=== PATIENT | female | born 1955 | race Caucasian/White ===

== ENCOUNTER 2022-05-02 11:27 | Outpatient (REF) | payer MEDICARE, SELFPAY ==
[2022-05-02 13:49] LABS: MANUAL DIFF FLAG NO
[2022-05-02 13:58] LABS: Basophils Percent Auto 0.6 % (0-2); Eosinophils Absolute Auto 0.1 X10*3/uL (0.0-0.4); Hemoglobin 13.7 g/dl (12.0-16.0); Imm Gran Abs Auto 0.03 X10*3/uL (0.00-0.03); Imm Gran Pct Auto 0.5 % (0.0-0.4); Lymphocytes Absolute Auto 1.8 X10*3/uL (1.2-4.9); Lymphocytes Percent Auto 27.9 % (20-40); Mean Corpuscular HGB Conc 35.1 g/dl (31.0-35.0); Mean Corpuscular Hemoglobin 32.5 pg (27.0-33.0); Mean Corpuscular Volume 92.6 fL (80.0-98.0); Mean Platelet Volume 9.2 fL (9.4-12.3); Monocytes Absolute Auto 0.8 X10*3/uL (0.1-1.2); Monocytes Percent Auto 12.9 % (2-11); Neutrophils Absolute Auto 3.6 x10*3/uL (2.0-8.3); Neutrophils Percent Auto 56.1 % (45-73); Platelet Count 395 X10*3/uL (160-400); Red Blood Count 4.21 X10*6/uL (4.20-5.50); Red Cell Distribution Width 12.6 % (11.0-16.0); White Blood Count 6.4 X10*3/uL (4.8-10.8)
[2022-05-02 14:54] LABS: Alanine Aminotransferase 22 U/L (0-31); Anion Gap 15 (12-20); Aspartate Amino Transferase 37 U/L (5-31); Blood Urea Nitrogen 11 mg/dL (9-16); Carbon Dioxide 26 mmol/L (22-29); Chloride 91 mmol/L (96-108); Cholesterol 161 mg/dL; Estimated Glomerular Filt Rate 57; Glucose Fasting 98 mg/dL (60-99); HDL Cholesterol 55 mg/dL; LDL Cholesterol Calculated 92 mg/dl; Potassium 3.8 mmol/L (3.3-5.1); Sodium 128 mmol/L (135-145); TSH reflex Free T4 1.66 uIU/mL (0.32-4.0); Triglycerides 73 mg/dL; Vitamin D 25-OH Total 51.4 ng/mL (>30)
== END 2022-05-02 11:28 | disposition home or self-care (01) ==
LOC: HO.HMGCLDS 11:27
PROVIDERS: PCP Internal Medicine; Visit Provider Internal Medicine
DX: Z00.01 Encounter for general adult medical examination with abnormal findings (principal); F41.9 Anxiety disorder, unspecified; I10 Essential (primary) hypertension; I48.91 Unspecified atrial fibrillation; Z78.0 Asymptomatic menopausal state
CPT/HCPCS: 36415; 80048; 80061; 82306; 84443; 84450; 84460; 85025

== ENCOUNTER 2022-05-16 13:38 | Outpatient (REF) | payer MEDICARE, SELFPAY ==
--- NOTE | ~2022-05-16 | MM_ITS ---
EXAMINATION: MM SCREENING DIGITAL BREAST TOMOSYNTHESIS, BILATERAL CLINICAL INFORMATION: Screening. Asymptomatic. The lifetime risk of breast cancer based on the Tyrer-Cuzick Model is 5%. COMPARISON: Outside mammography: 01/02/2019, 12/20/2017, 12/07/2016 ([place]). TECHNIQUE: Digital breast tomosynthesis is performed in both the craniocaudal and mediolateral oblique views along with computer-aided detection (CAD). Synthesized 2D images are generated from the tomosynthesis. FINDINGS: There are scattered areas of fibroglandular density (ACR BI-RADS breast composition Category b). There is a fine fibronodular parenchymal pattern bilateral breasts. No architectural abnormality. The axilla and skin contours are unremarkable. Left breast shows no significant changes from prior exam. There is chronic duct ectasia central anterior left breast. No abnormal calcifications. Incidental dermal lesion overlies the posterior upper left breast. Right breast has new loosely grouped calcifications central anterior 6:00 position. There is also increased duct ectasia in this area extending towards the right nipple. A few new loosely grouped calcifications are also present posterior upper outer right breast, likely benign. Patient will be recalled for further assessment right breast. MM/MM tomosynthesis screening BI IMPRESSION: Right: -New loosely grouped calcifications central anterior 6:00 position with increased duct ectasia. -A few new loosely grouped calcifications posterior upper outer right breast. Left: No significant changes from prior exams. ASSESSMENT: BI-RADS 0: Incomplete - Need Additional Imaging Evaluation RECOMMENDATION: 1. Additional views of the right breast (magnification CC and magnification ML to include both areas). 2. Targeted ultrasound right breast to assess the increased duct ectasia. 3. Radiology department staff will contact the patient for additional imaging. This patient's information was entered into a reminder system with a target due date for their next mammogram.
--- NOTE | ~2022-05-16 | MM_ITS ---
EXAMINATION: BONE DENSITOMETRY CLINICAL INDICATION: Menopause. COMPARISON: None (current study represents initial baseline exam). TECHNIQUE: Using a Axial DXA System (software version: 13.1) manufactured by [employer], dual-energy x-ray absorptiometry was performed of the lumbar spine and left hip. The images are of good technical quality. Summary results are attached. FINDINGS: AP SPINE L1-L4: BMD 1.438 g/cm2, Z-score 3.5, T-score 2.1, normal. LEFT FEMUR, NECK: BMD 1.037 g/cm2, Z-score 1.4, T-score 0.0, normal. LEFT FEMUR, TOTAL: BMD 1.081 g/cm2, Z-score 1.7, T-score 0.6, normal. IDENTIFIED RISK FACTORS: Menopause, history of fracture (adult), anticonvulsant, thiazide. HISTORY OF FRACTURE: Humerus. MEDICATIONS: Calcium, vitamin D. MM/XR DEXA axial skeleton IMPRESSION: 1. DIAGNOSIS: Normal bone density based on the lowest T-score value of 0.0 in the femoral neck applying World Health Organization criteria. 2. 10-YEAR FRACTURE RISK PREDICTION, FRAX: According to the guidelines, FRAX calculation should only be performed on patients in the osteopenia bone density category. Therefore, FRAX was not performed on this patient. 3. Treatment Recommendations: NOF guidelines recommend consideration for treatment in postmenopausal women and men age 50 and older presenting with the following: -A hip or vertebral (clinical or morphometric) fracture. -T-score less than or equal to -2.5 at the femoral neck or spine after appropriate evaluation to exclude secondary causes. -Low bone mass at the hip or spine and a 10-year fracture probability by FRAX of greater than or equal to 3% for hip fracture or greater than or equal to 20% for major osteoporotic fracture based on the [place] adapted WHO algorithm. 4. Other Recommendations: All treatment decisions require clinical judgment and consideration of individual patient factors, including patient preferences, comorbidities, previous drug use, risk factors not captured in the FRAX model (e.g. frailty, falls, vitamin D deficiency, increased bone turnover, interval significant decline in bone density) and possible under or overestimation of fracture risk by FRAX. FUTURE SCAN RECOMMENDATION: People with diagnosed cases of osteoporosis or at high risk for fracture should have regular bone mineral density tests. For patients eligible for Medicare, routine testing is allowed once every 2 years. The testing frequency can be increased to one year for patients who have rapidly progressing disease, those who are receiving or discontinuing medical therapy to restore bone mass, or have additional risk factors.
== END 2022-05-16 13:39 | disposition home or self-care (01) ==
LOC: HO.MAMMO 13:38
PROVIDERS: Visit Provider Internal Medicine
DX: Z12.31 Encounter for screening mammogram for malignant neoplasm of breast (principal); Z13.820 Encounter for screening for osteoporosis; Z78.0 Asymptomatic menopausal state
CPT/HCPCS: 77063; 77067; 77080

== ENCOUNTER → 2022-05-21 13:43 | Outpatient (BNVA) | payer MEDICARE, SELFPAY | PROVIDERS: PCP Internal Medicine; Referring Provider Internal Medicine; Visit Provider Internal Medicine | DX: I48.91 Unspecified atrial fibrillation (principal) | CPT/HCPCS: 93005; 99202 ==

== ENCOUNTER 2022-05-24 14:31 | Outpatient (REF) | payer MEDICARE, SELFPAY ==
--- NOTE | ~2022-05-24 | MM_ITS ---
EXAMINATION: MM DIAGNOSTIC DIGITAL BREAST TOMOSYNTHESIS, RIGHT US TARGETED BREAST, RIGHT CLINICAL INFORMATION: Right breast calcifications and ductal ectasia. COMPARISON: Mammography: 05/16/2022 and studies dating back to 11/25/2015. TECHNIQUE: Digital breast tomosynthesis is performed. 2-D images are generated from the tomosynthesis. The following views are obtained: Spot magnification views of the right breast in craniocaudal and 90 degree mediolateral views. As well as magnified exaggerated craniocaudal view. Targeted right breast ultrasound. FINDINGS: There are scattered areas of fibroglandular density (ACR BI-RADS breast composition Category b). There are multiple benign-appearing groupings of calcifications with some scattered calcifications and vascular calcifications about the right breast. No one more suspicious grouping is identified. Recommend 6 month followup right breast mammography with magnification views. ULTRASOUND: Targeted right breast ultrasound to the retroareolar region demonstrates a few dilated ducts without filling defects or internal vascular blood flow. Results are discussed with the patient at time of visit. MM/MM tomosynthesis added views R IMPRESSION: 1. Prominent right retroareolar ducts but without abnormal filling defect. 2. Multiple probably benign groupings of calcifications about the right breast. Six-month followup right breast study with magnification views suggested to ensure stability. ASSESSMENT: BI-RADS 3: Probably Benign. RECOMMENDATION: Diagnostic mammography in 6 months. This patient's information was entered into a reminder system with a target due date for their next mammogram.
== END 2022-05-24 14:32 | disposition home or self-care (01) ==
LOC: HO.MAMMO 14:31
PROVIDERS: PCP Internal Medicine; Visit Provider Internal Medicine
DX: R92.1 Mammographic calcification found on diagnostic imaging of breast (principal); N60.41 Mammary duct ectasia of right breast
CPT/HCPCS: 76642; 77061; 77065

== ENCOUNTER → 2022-06-03 12:58 | Outpatient (REF) | payer MEDICARE, SELFPAY ==
--- NOTE | 2022-06-03 13:24 | CA_ITS ---
Transthoracic Echocardiogram Patient (Last, First, Middle): Ramona Munguia B Gender: Female Date of : 1955 Age: 66 Procedure Date: 06/03/2022 Procedure Type: Transthoracic Echocardiogram Location: OP Height: 154.94 cm Weight: 72.58 kg BSA: 1.72 m2 Heart Rate: bpm BP: 122 / 60 mmHg Senior C Web Developer: Referring MD: Alexandre Rdz MD Expediter Clerk: Cecilio Benjamin MD Symptoms: I48.91 - Unspecified atrial fibrillation Study Quality: Adequate ECG Rhythm: Atrial Fibrillation Conclusions: - 1. Normal LV systolic function with mild LVH 2. At least mildly dilated left atrium 3. Fibrocalcific aortic valve changes noted and mitral and calcification noted with mild mitral regurgitation 4. Upper limits of normal RV systolic pressure 5. No gross pericardial effusion Findings Left Ventricle Normal left ventricular size and systolic function. There is mildly increased left ventricular wall thickness. The visually estimated ejection fraction is between 60-65%. Diastolic function is indeterminate on the basis of available data. Right Ventricle Normal right ventricular cavity size and systolic function. Atria The left atrium is mildly dilated. There is no evidence of interatrial shunt. The right atrium is likely dilated. Aortic Valve There is mild calcification of the aortic valve. There is no aortic valve stenosis. There is no aortic valve regurgitation. Mitral Valve There is mild anterior and moderate posterior mitral leaflet thickening. There is mild mitral annular calcification. There is mild mitral valve regurgitation. There is no mitral valve stenosis. Pulmonic Valve The pulmonic valve was not well visualized. Tricuspid Valve There is mild tricuspid valve regurgitation. The right ventricular systolic pressure is 39 mmHg. Normal right atrial pressure. There is no evidence of pulmonary hypertension. Great Vessels All visible segments of the aorta are normal in size. The pulmonary artery was not well visualized. Venous The inferior vena cava is normal in size and collapses greater than 50% with inspiration. Pericardium/Pleural There is no evidence of pericardial effusion. Prior Study Comparison No prior study available for comparison. Measurements 2D Linear Measurements IVSd: 1.28 0.6-0.9/0.6-1.0 cm LVIDd: 2.44 3.9-5.3/4.2-5.9 cm LVIDd Index: 1.42 2.4-3.2/2.2-3.1 cm/m2 LVIDs: 1.75 2.0-3.6 cm LVPWd: 1.29 0.7-1.1 cm Ao Root: 3.10 2.1-3.5 cm LA Diam: 4.90 2.7-3.8/3.0-4.0 cm LAIDs Index: 2.85 1.5-2.3 cm/m2 LV Mass: 115.67 67-162/88-224 g LV Mass Index: 67.25 43-95/49-115 g/m2 LVOT Diam: 1.90 3.0+(-)1.3 cm 2D Systolic Function EF 4C: 56.80 >55% EF 2C: 64.70 >55% EF BiP: 61.90 >55% Mitral Valve MV VTI: 0.28 MV Pk Amaury: 1.45 MV Mn Amaury: 0.80 MV Pk Grad: 8.00 MV Mn Grad: 3.00 MV Pk E: 1.37 MV Decel Time: 149.00 E'Lateral: 8.49 E'Medial: 7.94 E/E' Med: 17.30 E/E' Lat: 16.10 PHT: 44.00 MVA PHT: 5.00 MVA Continuity: 2.09 Decel [place]: 9.19 Aortic Valve AoV Pk Amaury: 1.24 AoV Mn Amaury: 0.76 AoV VTI: 0.28 AoV Pk Grad: 6.00 Aov Mn Grad: 3.00 ALEKSANDAR Cont.VTI: 2.09 LVOT LVOT Pk Amaury: 0.93 LVOT Mn Amaury: 0.59 LVOT VTI: 0.21 LVOT Pk Grad: 3.00 LVOT Mn Grad: 2.00 LVOT Diam: 1.90 LVOT Area: 2.84 Diastolic Function MV Pk E: 1.37 E'Medial: 7.94 E/E' Med: 17.30 E' Laterial: 8.49 E/E' Lat: 16.10 Right Ventricle TAPSE (mm): 27.00 TVS' Amaury: 11.00 Tricuspid Valve TR Pk Amaury: 2.98 TR Pk Grad: 36.00 RA Press: 3.00 RVSP: 39.00 Great Vessels Aorta Ao Root-2D: 3.10 2.0-3.7 cm Ao Asc: 3.30 2.1-3.4 cm Pulmonary Valve PV Pk Amaury: 0.84 Peak PV Grad: 3.00 Updated in Other Vendor System with Status of Final Cecilio Benjamin MD electronically signed on 06/04/2022 1:52:16 PM with status of Final
--- NOTE | 2022-06-03 13:24 | HM_ITS ---
Conclusion: 1. Patient was monitored for total period of 3 days 2. Baseline was atrial fibrillation with average heart rate of 85 beats per minute overall adequate rate control 3. Rare PVCs noted 4. No significant pauses noted 5. Patient reported no symptoms MTDD
== END ==
LOC: HO.CARD 12:58
PROVIDERS: Visit Provider Internal Medicine
DX: I48.91 Unspecified atrial fibrillation (principal)
CPT/HCPCS: 93242; 93306

== ENCOUNTER 2022-07-10 12:21 | Outpatient (REF) | payer MEDICARE, SELFPAY ==
[2022-07-10 14:16] LABS: Anion Gap 12 (12-20); Blood Urea Nitrogen 14 mg/dL (9-16); Calcium 10.1 mg/dL (8.4-10.2); Carbon Dioxide 32 mmol/L (22-29); Chloride 90 mmol/L (96-108); Estimated Glomerular Filt Rate 42; Glucose Random 102 mg/dL (60-115); Potassium 4.2 mmol/L (3.3-5.1); Sodium 130 mmol/L (135-145)
== END 2022-07-10 12:22 | disposition home or self-care (01) ==
LOC: HO.HMGCLDS 12:21
PROVIDERS: PCP Internal Medicine; Visit Provider Internal Medicine
DX: E87.1 Hypo-osmolality and hyponatremia (principal)
CPT/HCPCS: 36415; 80048

== ENCOUNTER 2022-07-11 10:11 | Day surgery (SDC) | payer MEDICARE, SELFPAY ==
[2022-06-25 14:49] VITALS: BMI 30.4
--- NOTE | 2022-07-10 13:01 | HO.ANESPROP2 ---
HPI - Anesthesia Eval Consult details Narrative: 66yo F for Cardioversion Eliquis for afib PMFSH Active Problems Active Problems: All Active Problems (Updated 06/05/22 @ 11:44 by Alexandre Rdz MD) Hyponatremia (Acute) New onset atrial fibrillation (Acute) Erythema intertrigo (Acute) Rash of face (Acute) Anxiety (Acute) Essential hypertension (Acute) Past Medical History Medical History Anxiety Erythema intertrigo Essential hypertension History of seizures Hx of Hx of ectopic New onset atrial fibrillation Rash of face Family History Family History Father Substance use disorder Lung cancer Essential hypertension CAD (coronary artery disease) COVID-19 Mother Substance use disorder Oral cancer Essential hypertension CAD (coronary artery disease) COVID-19 Sister Disorder of thyroid Brother CAD (coronary artery disease) COVID-19 Surgical History Surgical History H/O tubal ligation Hx of cholecystectomy Hx of shoulder surgery Hx of tonsillectomy Social History Social History (Updated 05/21/22 @ 14:07 by JERI Andrade) Housing: Apartment Alcohol intake: current Alcohol intake frequency: a few times a week Patient Tobacco Use Status: Former Tobacco user Quit Date: 20 years ago Tobacco use type: Cigarette e-Cigarette/Vaping Use: Never Used Current occupational status: retired Cognitive needs: No Hearing needs: No Vision needs: Yes Meds Allergies Allergy/AdvReac Type Severity Reaction Status Date / Time Penicillins Allergy Unknown UNKNOWN Verified 07/18/22 15:05 Antihistamines - AdvReac tachycardia Verified 07/18/22 15:05 Ethylenediamine flu vaccine AdvReac vomiting Uncoded 07/18/22 15:05 steriods AdvReac tachycardia Uncoded 07/18/22 15:05 Home Medications Medication Instructions Recorded Confirmed Last Taken Type magnesium 250 mg tablet 400 mg PO DAILY 05/01/22 07/18/22 Unknown History multivit with 1 tab PO DAILY 05/01/22 07/18/22 Unknown History qhfgpofc-[id number]-SA-lutein 8 mg iron-400 mcg-300 mcg tablet (Centrum Silver Women) omega-3 fatty acids-fish oil 300 1 cap PO DAILY 05/01/22 07/18/22 Unknown History mg-500 mg capsule (Fish Oil) cholecalciferol (vitamin D3) 25 25 mcg PO DAILY 05/21/22 07/18/22 Unknown History mcg (1,000 unit) capsule turmeric 400 mg capsule 400 mg PO DAILY 05/21/22 07/18/22 Unknown History vitamin B complex 1 cap PO DAILY 05/21/22 07/18/22 Unknown History Exam Exam Date and Time: July 10, 2022 1301 Height,Weight and Vital Signs: Height 5 ft 1 in Weight 73.028 kg Pertinent Lab Results Pertinent Lab Results: Laboratory Tests 05/02/22 11:34 WBC 6.4 Hgb 13.7 Hct 39.0 Plt Count 395 Narrative Narrative: ECHO 05/2022 Conclusions: - 1. Normal LV systolic function with mild LVH ? 2. At least mildly dilated left atrium ? 3. Fibrocalcific aortic valve changes noted and mitral and ? ? ? calcification noted with mild mitral regurgitation ? 4. Upper limits of normal RV systolic pressure ? 5. No gross pericardial effusion ? ? ? Holter 05/2022 Conclusion: 1. Patient was monitored for total period of 3 days 2. Baseline was atrial fibrillation with average heart rate of 85 beats per minute overall adequate rate control 3. Rare PVCs noted 4. No significant pauses noted 5. Patient reported no symptoms Assessment and Plan Assessment Anesthesia Assessment: Chart Reviewed
[2022-07-11] VITALS (7 sets, daily range): BP systolic 108–164; BP diastolic 66–96; PULSE 71–103; RESP 16–18; TEMP 36.1–36.7; O2SAT 93–100
[2022-07-11] MEDS: Lactated Ringers 1,000 ML 50 ML IVCONT (10:43)
[2022-07-11 11:04] LABS: Anion Gap 9 (12-20); Carbon Dioxide 31 mmol/L (22-29); Chloride 94 mmol/L (96-108); Potassium 4.3 mmol/L (3.3-5.1); Sodium 130 mmol/L (135-145)
--- NOTE | 2022-07-11 12:14 | MHC.SHP ---
Pre-Procedural Eval Section A Date of Service: 07/11/22 The patient is an INPATIENT: No The History & Physical has been completed within 30 days and I have reviewed it.: No Section B Chief Complaint: afib Details of Present Illness: Atrial fibrillation with rapid rate. For cardioversion. No overt symptoms. Relevant Family History (Specify if Yes): No Relevant Social History: None Present Medications: see Short Stay Collaborative assessment Medical History: No relevant PMH History of Previous Operations: No relevant previous surgery Allergies: Allergies Allergy/AdvReac Type Severity Reaction Status Date / Time Penicillins Allergy Unknown UNKNOWN Verified 07/11/22 10:41 Antihistamines - AdvReac tachycardia Verified 07/11/22 10:42 Ethylenediamine flu vaccine AdvReac vomiting Uncoded 07/11/22 10:42 steriods AdvReac tachycardia Uncoded 07/11/22 10:42 Review of Systems Review of Systems Comment: 10 system review negative. Exam Exam Comment: General- AAO x3 Neck- normal HEENT - normal Cardiac- S1S2+ Resp- normal GI- normal Neuro- intact; no deficit Ext- normal Plan I have reviewed the history and physical and performed a pertinent physical examination on my patient. No changes have occurred unless specified. Time Spent With Patient Time: Total time managing care of this patient today ____ minutes.
--- NOTE | 2022-07-11 12:28 | ECG_ITS ---
Test Reason : post cardioversion Blood Pressure : / mmHG Vent. Rate : 075 BPM Atrial Rate : 075 BPM P-R Int : 194 ms QRS Dur : 086 ms QT Int : 420 ms P-R-T Axes : 056 045 023 degrees QTc Int : 469 ms Sinus rhythm with Premature atrial complexes Otherwise normal ECG When compared with ECG of 23-JUL-2016 11:48, Premature atrial complexes are now Present Referred By: John Rodriguez Electronically Signed By:JOHN RODRIGUEZ
[2022-07-11] MEDS: Amiodarone HCL 200 MG TABLET 400 MG PO (12:52)
--- NOTE | 2022-07-12 11:18 | HO.CARDIVERS ---
Cardioversion Procedure Note Cardioversion Date of Procedure: 07/11/2022 Ordering Provider: Dr. Rdz Performing Provider: Dr. Rdz Indication for Procedure: Atrial fibrillation rapid rate Pre-Op Diagnosis: Atrial fibrillation with rapid rate Post-Op Diagnosis: Sinus rhythm MUSA findings (if MUSA Performed): No History: See full office note Consent: Informed consent obtained. Procedure: After informed consent was obtained, patient was taken to the PACU. The patient was then positioned appropriately. The cardioversion pads were placed in anteroposterior position. Once under anesthesia, 120 joules of synchronized shock was administered. The rhythm converted from atrial fibrillation to sinus rhythm. Patient remained in sinus rhythm after the end of procedure. Complications: None. Impression: Successful cardioversion from atrial fibrillation to sinus. Recommendations: Start amiodarone.
== END 2022-07-11 13:52 | disposition home or self-care (01) ==
PROVIDERS: Nurse Practitioner; PCP Internal Medicine; Visit Provider Internal Medicine
PROC: 5A2204Z Restoration of Cardiac Rhythm, Single (ICD-10-PCS; principal; 2022-07-11 12:00)
DX: I48.91 Unspecified atrial fibrillation (principal); I10 Essential (primary) hypertension; F41.1 Generalized anxiety disorder; Z79.82 Long term (current) use of aspirin; Z79.899 Other long term (current) drug therapy; Z88.0 Allergy status to penicillin; Z88.8 Allergy status to other drugs, medicaments and biological substances
CPT/HCPCS: 36415; 80051; 92960; 93005; J2250

== ENCOUNTER → 2022-07-18 14:57 | Outpatient (BNVA) | payer MEDICARE, SELFPAY | PROVIDERS: PCP Internal Medicine; Referring Provider Internal Medicine; Visit Provider Internal Medicine | DX: I48.91 Unspecified atrial fibrillation (principal); R94.31 Abnormal electrocardiogram [ECG] [EKG]; Z79.899 Other long term (current) drug therapy | CPT/HCPCS: 93005 ==

== ENCOUNTER → 2022-07-31 12:55 | Outpatient (BNVA) | payer MEDICARE, SELFPAY | PROVIDERS: PCP Internal Medicine; Visit Provider Internal Medicine | DX: I48.0 Paroxysmal atrial fibrillation (principal); I10 Essential (primary) hypertension; Z51.81 Encounter for therapeutic drug level monitoring; Z79.899 Other long term (current) drug therapy | CPT/HCPCS: 93005; 99212 ==

== ENCOUNTER 2022-09-26 13:22 | Outpatient (REF) | payer MEDICARE, SELFPAY ==
--- NOTE | ~2022-09-26 | MM_ITS ---
EXAMINATION: MM DIAGNOSTIC DIGITAL BREAST TOMOSYNTHESIS, BILATERAL US DIAGNOSTIC ULTRASOUND BREAST, LEFT CLINICAL INFORMATION: Patient notes palpable concern lower anterior left breast 5:00. Intermittent clear left nipple discharge for months. Also short interval follow-up probable benign calcifications contralateral right breast, central lower anterior and posterior upper outer, respectively. The lifetime risk of breast cancer based on the Tyrer-Cuzick Model is 5%. COMPARISON: Mammography: 05/24/2022, 05/16/2022 (BI-RADS 0), right breast ultrasound 05/24/2022; outside mammography 01/02/2019, 12/20/2017 ([place]). TECHNIQUE: Digital breast tomosynthesis is performed in both the craniocaudal and mediolateral oblique views along with computer-aided detection (CAD). Synthesized 2D images are generated from the tomosynthesis. Additional magnification right CC x2 and magnification right ML x3 views are obtained. Ultrasound left breast is performed using grayscale imaging and color Doppler without and with harmonics. The anterior periareolar breast is imaged as well as additional targeting to the area of clinical palpable concern. Patient is able to directly point to the area of palpable concern at time of imaging. FINDINGS: There are scattered areas of fibroglandular density (ACR BI-RADS breast composition Category b). The breast parenchymal pattern is similar to prior studies and there is no interval mass or developing density or architectural abnormality. Mild bilateral chronic duct ectasia is stable. There is no skin thickening or coarsening of the Tank's ligaments. There is no imaging correlate for the palpable concern left breast. A biopsy clip marker is again noted central mid 9:00 right breast. The probable benign calcifications for follow-up right breast anterior lower central and posterior upper outer are stable. Ultrasound demonstrates no cystic or solid mass or architectural abnormality. There is scattered mild duct ectasia anterior breasts similar to prior mammography exams and without internal color flow. Results are discussed with the patient at time of visit. Right breast calcifications are stable and will be reassessed again at time of annual bilateral mammography, due in 6 months. Recommend surgical consult for the left breast palpable concern and intermittent unilateral left clear nipple discharge. MM/MM tomosynthesis diagnostic BI IMPRESSION: Right: -No significant changes from prior exam. -Probable benign calcifications stable. Left: -No significant changes from prior exam. -No mammographic or ultrasound correlate for palpable concern. ASSESSMENT: BI-RADS 3: Probably Benign RECOMMENDATION: -Surgical consult for left breast palpable concern and intermittent clear left nipple discharge. Diagnostic breast MRI may be considered for further evaluation if clinically indicated. -Otherwise, bilateral diagnostic mammography at time of annual exam, due in 6 months. This patient's information was entered into a reminder system with a target due date for their next mammogram.
== END 2022-09-26 13:23 | disposition home or self-care (01) ==
LOC: HO.MAMMO 13:22
PROVIDERS: PCP Internal Medicine; Visit Provider Internal Medicine
DX: N63.23 Unspecified lump in the left breast, lower outer quadrant (principal)
CPT/HCPCS: 76642; 77062; 77066

== ENCOUNTER → 2022-10-01 10:21 | Outpatient (BNVA) | payer MEDICARE, SELFPAY | PROVIDERS: PCP Internal Medicine; Visit Provider Surgery | DX: N63.20 Unspecified lump in the left breast, unspecified quadrant (principal); N64.53 Retraction of nipple | CPT/HCPCS: 99202 ==

== ENCOUNTER 2022-10-28 05:54 | Day surgery (SDC) | payer MEDICARE, SELFPAY ==
[2022-10-17 10:38] VITALS: BMI 30.2
--- NOTE | 2022-10-24 15:06 | P.CONAN_ITS ---
HPI - Anesthesia Eval Consult details Narrative: 66yo F for Left Breast Lumpectomy Eliquis for afib. s/p cardioversion 07/2022 Cardiac optimized [facility] Active Problems Active Problems: All Active Problems (Updated 10/17/22 @ 10:27 by Liz Knight RN) Anxiety (Acute) Hyponatremia (Acute) PAF (paroxysmal atrial fibrillation) (Acute) Encounter for monitoring amiodarone therapy (Acute) Retraction of left nipple (Acute) Mass of left breast (Acute) New onset atrial fibrillation (Acute) Erythema intertrigo (Acute) Rash of face (Acute) Essential hypertension (Acute) Past Medical History Medical History Bronchitis Constipation Erythema intertrigo Essential hypertension Habitual snoring History of seizures Hx of Hx of ectopic New onset atrial fibrillation On anticoagulant therapy On beta sloan at home Osteoarthritis Rash of face Rheumatic fever SOB (shortness of breath) Family History Family History Father Substance use disorder Lung cancer Essential hypertension CAD (coronary artery disease) COVID-19 Skin cancer Mother Substance use disorder Oral cancer Essential hypertension CAD (coronary artery disease) COVID-19 Sister Disorder of thyroid Brother CAD (coronary artery disease) COVID-19 Surgical History Surgical History H/O tubal ligation Hx of cholecystectomy Hx of shoulder surgery Hx of tonsillectomy Status post left breast lumpectomy (10/28/22) Social History Social History Housing: Apartment Are you a primary career technology teacher to a significant other at home: No Do you presently have visiting nurse or other home services: No Alcohol intake: current Alcohol intake frequency: 0-2 drinks per day Patient Tobacco Use Status: Former Tobacco user Quit Date: 20 years ago Tobacco use type: Cigarette e-Cigarette/Vaping Use: Never Used Current occupational status: retired Cognitive needs: No Hearing needs: No Vision needs: Yes Meds Allergies Allergy/AdvReac Type Severity Reaction Status Date / Time Penicillins Allergy Unknown UNKNOWN Verified 11/07/22 10:12 Antihistamines - AdvReac tachycardia Verified 11/07/22 10:12 Ethylenediamine flu vaccine AdvReac vomiting Uncoded 11/07/22 10:12 steriods AdvReac tachycardia Uncoded 11/07/22 10:12 Home Medications Medication Instructions Recorded Confirmed Last Taken Type multivit with 1 tab PO DAILY 05/01/22 11/07/22 Unknown History lqefvbhs-[id number]-KG-lutein 8 mg iron-400 mcg-300 mcg tablet (Centrum Silver Women) cholecalciferol (vitamin D3) 25 25 mcg PO DAILY 05/21/22 11/07/22 Unknown History mcg (1,000 unit) capsule amiodarone 200 mg tablet 200 mg PO DAILY 07/31/22 11/07/22 10/28/22 History magnesium 200 mg tablet 400 mg PO DAILY 10/17/22 11/07/22 Unknown History vitamin A-vitamin C-vit E-min 1 tab PO DAILY 10/17/22 11/07/22 Unknown History tablet Exam Exam Date and Time: October 24, 2022 1506 Height,Weight and Vital Signs: Height 5 ft 1 in Weight 72.575 kg Narrative Narrative: EKG 07/2022 sinus bradycardia at 55/Min.? No significant ST-T changes.? Normal MS.? Corrected QT is about 470 milliseconds.? Somewhat difficult to calculate but does not look too prolonged. Assessment and Plan Assessment Anesthesia Assessment: Chart Reviewed
[2022-10-28] VITALS (7 sets, daily range): BP systolic 142–180; BP diastolic 63–85; PULSE 57–62; RESP 16; TEMP 36.1–36.3; O2SAT 95–98
[2022-10-28] MEDS: vancomycin HCL 1,000 MG in 0.9 % Sodium Chloride 250 ML 270 MG IV (06:45)
[2022-10-28 07:02] LABS: Hematocrit 34.5 % (37.0-47.0); Hemoglobin 12.3 g/dl (12.0-16.0); Mean Corpuscular HGB Conc 35.7 g/dl (31.0-35.0); Mean Corpuscular Hemoglobin 32.1 pg (27.0-33.0); Mean Corpuscular Volume 90.1 fL (80.0-98.0); Mean Platelet Volume 9.4 fL (9.4-12.3); Platelet Count 304 X10*3/uL (160-400); Red Blood Count 3.83 X10*6/uL (4.20-5.50); Red Cell Distribution Width 12.5 % (11.0-16.0); White Blood Count 5.6 X10*3/uL (4.8-10.8)
[2022-10-28 07:18] LABS: Anion Gap 12 (12-20); Blood Urea Nitrogen 18 mg/dL (9-16); Calcium 10.4 mg/dL (8.4-10.2); Carbon Dioxide 28 mmol/L (22-29); Chloride 96 mmol/L (96-108); Creatinine Clr Calc Pharmacy 40.7; Estimated Glomerular Filt Rate 44; Glucose Fasting 94 mg/dL (60-99); Sodium 132 mmol/L (135-145)
--- NOTE | 2022-10-28 07:30 | HO.ANESPROP2 ---
[facility] Active Problems Active Problems: All Active Problems (Updated 10/17/22 @ 10:27 by Liz Knight RN) Anxiety (Acute) Hyponatremia (Acute) PAF (paroxysmal atrial fibrillation) (Acute) Encounter for monitoring amiodarone therapy (Acute) Retraction of left nipple (Acute) Mass of left breast (Acute) New onset atrial fibrillation (Acute) Erythema intertrigo (Acute) Rash of face (Acute) Essential hypertension (Acute) Past Medical History Medical History Bronchitis Constipation Erythema intertrigo Essential hypertension Habitual snoring History of seizures Hx of Hx of ectopic New onset atrial fibrillation On anticoagulant therapy On beta sloan at home Osteoarthritis Rash of face Rheumatic fever SOB (shortness of breath) Family History Family History Father Substance use disorder Lung cancer Essential hypertension CAD (coronary artery disease) COVID-19 Skin cancer Mother Substance use disorder Oral cancer Essential hypertension CAD (coronary artery disease) COVID-19 Sister Disorder of thyroid Brother CAD (coronary artery disease) COVID-19 Surgical History Surgical History H/O tubal ligation Hx of cholecystectomy Hx of shoulder surgery Hx of tonsillectomy Social History Social History Housing: Apartment Are you a primary childbirth and infant care teacher to a significant other at home: No Do you presently have visiting nurse or other home services: No Alcohol intake: current Alcohol intake frequency: 0-2 drinks per day Patient Tobacco Use Status: Former Tobacco user Quit Date: 20 years ago Tobacco use type: Cigarette e-Cigarette/Vaping Use: Never Used Current occupational status: retired Cognitive needs: No Hearing needs: No Vision needs: Yes Meds Allergies Allergy/AdvReac Type Severity Reaction Status Date / Time Penicillins Allergy Unknown UNKNOWN Verified 10/01/22 10:29 Antihistamines - AdvReac tachycardia Verified 10/01/22 10:29 Ethylenediamine flu vaccine AdvReac vomiting Uncoded 10/01/22 10:29 steriods AdvReac tachycardia Uncoded 10/01/22 10:29 Active Medications: Current Medications Lactated Ringer's (Lr) 1,000 mls @ 50 mls/hr IVCONT .Q20H ROX Home Medications Medication Instructions Recorded Confirmed Last Taken Type multivit with 1 tab PO DAILY 05/01/22 10/17/22 Unknown History ljvzeusj-fyyr-PH-lutein 8 mg iron-400 mcg-300 mcg tablet (Centrum Silver Women) cholecalciferol (vitamin D3) 25 25 mcg PO DAILY 05/21/22 10/17/22 Unknown History mcg (1,000 unit) capsule amiodarone 200 mg tablet 200 mg PO DAILY 07/31/22 10/17/22 10/28/22 History magnesium 200 mg tablet 400 mg PO DAILY 10/17/22 10/17/22 Unknown History vitamin A-vitamin C-vit E-min 1 tab PO DAILY 10/17/22 10/17/22 Unknown History tablet Exam Exam Date and Time: October 28, 2022 0730 Height,Weight and Vital Signs: Height 5 ft 1 in Weight 72.575 kg Last Vital Signs Temp 97.3 F 10/28/22 06:41 Pulse 62 10/28/22 06:41 Resp 16 10/28/22 06:41 BP 180/85 H 10/28/22 06:41 Pulse Ox 98 10/28/22 06:41 O2 Del Method Room Air 10/28/22 06:41 Pertinent Lab Results Pertinent Lab Results: Laboratory Tests 10/28/22 10/28/22 06:17 06:17 WBC 5.6 RBC 3.83 L Hgb 12.3 Hct 34.5 L MCV 90.1 MCH 32.1 MCHC 35.7 H RDW 12.5 Plt Count 304 MPV 9.4 Absolute Nucleated RBC 0.000 Nucleated RBC % (auto) 0.0 Sodium 132 L Potassium 4.0 Chloride 96 Carbon Dioxide 28 Anion Gap 12 BUN 18 H Creatinine 1.22 Estim Creat Clear Calc 40.7 Estimated GFR 44 Fasting Glucose 94 Calcium 10.4 H Airway Mallampati Class: III TM Dist: >3cm Neck ROM: Full Heart: RRR Lungs: CTA Assessment and Plan Final Anesthetic Review ASA Class: III Final Preanesthetic Review: Meds/Allgs Chart Reviewed, Consent Obtained/Reviewed and Anes Risks/Benef Reviewed Patient Risk: Low Procedure Risk: Low Anesthetic Plan Anesthetic Plan: GA Disposition: Standard PACU
--- NOTE | 2022-10-28 07:32 | MHC.SHP ---
Pre-Procedural Eval Section A Date of Service: 10/28/22 The patient is an INPATIENT: No Changes since office visit: Yes Patient answered all questions; No Cold of Flu in the past 2 weeks, No New Medical Problems and No Changes in Medication The History & Physical has been completed within 30 days and I have reviewed it.: Yes Section B Chief Complaint: Retraction of nipple,Unspecified lump in the left Allergies: Allergies Allergy/AdvReac Type Severity Reaction Status Date / Time Penicillins Allergy Unknown UNKNOWN Verified 10/01/22 10:29 Antihistamines - AdvReac tachycardia Verified 10/01/22 10:29 Ethylenediamine flu vaccine AdvReac vomiting Uncoded 10/01/22 10:29 steriods AdvReac tachycardia Uncoded 10/01/22 10:29 Plan Diagnosis/Plan: Unchanged I have reviewed the history and physical and performed a pertinent physical examination on my patient. No changes have occurred unless specified. Time Spent With Patient Time: Total time managing care of this patient today ____ minutes.
--- NOTE | 2022-10-28 07:36 | W.PM.OPN ---
Operative Note Operative Note Date of Service: 10/28/22 Narrative: Preoperative diagnosis: Left breast mass Postoperative diagnosis: same Procedure: left breast lumpectomy Surgeon: Chris Guo MD Motor Builder Assembler: Michaela Peterson PA-C Anesthesia: general LMA Indications for procedure: 66-year-old female presenting with a palpable mass in the left breast. Workup with mammogram and ultrasound was negative. Operative findings: Left breast mass the 5 o'clock position with dilated ducts. Specimen: Left breast mass Estimated blood loss: Less than 2 mL Complications: none Procedure details: patient was brought to the OR placed in a supine position. After administering general anesthesia the patient's left breast was prepped with ChloraPrep and draped in a sterile fashion. A surgical time-out was called the consent confirmed. Patient received preoperative antibiotics and Venodyne boots were in place. Local anesthesia was then infiltrated along the margin of the areola between the 7 and 5 o'clock position. A curvilinear incision was then made with a scalpel carried out through subcutaneous tissue. Superior inferior skin flaps were then created with electrocautery. Core tissue around the palpable mass was then excised. Several large ducts with white discharge was noted within the specimen. Lesion was completely excised and sent to pathology for further examination. Hemostasis was assured using electrocautery. Wounds were irrigated with saline solution. Deep breast tissue was closed using interrupted 3-0 Polysorb sutures. Dermis was reapproximated using interrupted 3-0 Polysorb sutures. Skin was then closed using a running subcuticular 4-0 Polysorb suture. Steri-Strips, 2 x 2 gauze and Tegaderm were then applied. The patient tolerated the procedure well. Sponge, instrument, and needle counts reported as correct. The patient was transferred to PACU in stable condition.
--- NOTE | 2022-10-28 08:27 | HO.POSTANES ---
Post Anesthesia Evaluation Post Anesthesia Evaluation Date of Service: 10/28/22 Vital Signs: Vital Signs Temp Pulse Resp BP Pulse Ox O2 Del Method 10/28/22 06:41 97.3 F 62 16 180/85 H 98 Room Air Anesthesia: General LMA Mental Status: Awake Pain Control: Satisfactory Nausea/Vomiting: None Hydration: Adequate Anesthesia-Related Issues: No Anes. Related Issues
== END 2022-10-28 09:52 | disposition home or self-care (01) ==
PROVIDERS: Nurse Practitioner; PCP Internal Medicine; Visit Provider Surgery
PROC: (CPT 19301; principal; 2022-10-28 07:30)
DX: D24.2 Benign neoplasm of left breast (principal); N60.32 Fibrosclerosis of left breast; N64.53 Retraction of nipple; N64.52 Nipple discharge; N60.42 Mammary duct ectasia of left breast; I10 Essential (primary) hypertension; I48.0 Paroxysmal atrial fibrillation; F41.1 Generalized anxiety disorder; Z79.01 Long term (current) use of anticoagulants; Z79.899 Other long term (current) drug therapy; Z88.0 Allergy status to penicillin; Z88.8 Allergy status to other drugs, medicaments and biological substances; Z88.7 Allergy status to serum and vaccine; Z98.51 Tubal ligation status; Z90.49 Acquired absence of other specified parts of digestive tract; Z87.891 Personal history of nicotine dependence
CPT/HCPCS: 19301; 36415; 80048; 85027; 88305; 88307; J2250; J3010; J3370

== ENCOUNTER → 2022-11-07 09:57 | Outpatient (BNVA) | payer MEDICARE, SELFPAY | PROVIDERS: PCP Internal Medicine; Visit Provider Surgery ==

== ENCOUNTER → 2022-11-12 13:02 | Outpatient (REF) | payer MEDICARE, SELFPAY ==
--- NOTE | 2022-11-12 13:04 | HM_ITS ---
Conclusion: 1. Patient was monitored for total period of 3 days 2. Baseline was normal sinus rhythm with average heart of 52 beats per minute with frequent sinus bradycardia with 91% time heart rate below 60 beats per minute 3. No significant pauses noted 4. Very rare PACs noted 5. No patient reported symptoms MTDD
== END ==
LOC: HO.CARD 13:02
PROVIDERS: PCP Internal Medicine; Visit Provider Internal Medicine
DX: I48.0 Paroxysmal atrial fibrillation (principal)
CPT/HCPCS: 93242

== ENCOUNTER → 2022-11-12 13:04 | Outpatient (BNV) | payer MEDICARE, SELFPAY | PROVIDERS: PCP Internal Medicine; Visit Provider Internal Medicine Cardiovascular Disease | DX: R00.1 Bradycardia, unspecified (principal) | CPT/HCPCS: 93244 ==

== ENCOUNTER 2022-11-29 14:39 | Outpatient (REF) | payer MEDICARE, SELFPAY | END 2022-11-29 14:40 | disposition home or self-care (01) | LOC: HO.MAMMO 14:39 | PROVIDERS: PCP Internal Medicine; Visit Provider Internal Medicine | DX: Z13.89 Encounter for screening for other disorder (principal) ==

== ENCOUNTER 2022-12-10 10:37 | Outpatient (AMB) | payer MEDICARE, SELFPAY ==
[2022-12-10 10:40] VITALS: BP 172/84; PULSE 62; BMI 30.3
--- NOTE | 2022-12-10 10:40 | MHC.OFFVIS ---
Intake Vital Signs 12/10/22 10:40 Height 5 ft 1 in Weight 160 lb 7.944 oz BMI 30.3 BP 172/84 H Blood Pressure Location Lt brachial Position Sitting Pulse 62 Intake Visit Reasons: follow up after holter Intake Note: follow up Preliminary School Psychologist Required: No Accompanied by: Spouse Allergies Penicillins Allergy (Unknown, Verified 12/10/22 10:41) UNKNOWN Antihistamines - Ethylenediamine Adverse Reaction (Verified 12/10/22 10:41) tachycardia flu vaccine Adverse Reaction (Uncoded 12/10/22 10:41) vomiting steriods Adverse Reaction (Uncoded 12/10/22 10:41) tachycardia Medication List - Last Reconciled 12/10/22 by Alexandre Rdz MD amiodarone 200 mg PO DAILY apixaban (Eliquis) 5 mg PO BID 90 days cholecalciferol (vitamin D3) 25 mcg PO DAILY hydrochlorothiazide 25 mg PO QAM magnesium 400 mg PO DAILY metoprolol succinate ER 100 mg PO DAILY rmuthqsk-abz-hhfa-FA-vit K-lut 8 mg iron-400 mcg-50 mcg (Centrum Silver Women) 1 tab PO DAILY vitamin A-vitamin C-vit E-min 1 tab PO DAILY HPI HPI Comments History of Present Illness Details Ramona returns for follow-up. Few months back, she was seen regarding atrial fibrillation. Routine EKG at primary care physician's office had shown atrial fibrillation with rapid rate and then she was referred here. After therapeutic anticoagulation, she underwent cardioversion. She was started on amiodarone. Overall, she is feeling good. No specific cardiac complaints. [facility] Medical History Bronchitis Constipation Erythema intertrigo Essential hypertension Habitual snoring History of seizures Hx of Hx of ectopic New onset atrial fibrillation On anticoagulant therapy On beta sloan at home Osteoarthritis Rash of face Rheumatic fever SOB (shortness of breath) Surgical History H/O tubal ligation Hx of cholecystectomy Hx of shoulder surgery Hx of tonsillectomy Status post left breast lumpectomy (10/28/22) Family History Father Substance use disorder Lung cancer Essential hypertension CAD (coronary artery disease) COVID-19 Skin cancer Mother Substance use disorder Oral cancer Essential hypertension CAD (coronary artery disease) COVID-19 Sister Disorder of thyroid Brother CAD (coronary artery disease) COVID-19 Social History Housing: Apartment Are you a primary director of patient care to a significant other at home: No Do you presently have visiting nurse or other home services: No Alcohol intake: current Alcohol intake frequency: 0-2 drinks per day Patient Tobacco Use Status: Former Tobacco user Quit Date: 20 years ago Tobacco use type: Cigarette e-Cigarette/Vaping Use: Never Used Current occupational status: retired Cognitive needs: No Hearing needs: No Vision needs: Yes Female Reproductive History Menstrual Age of Menarche: 11 Review of Systems Const Denies weakness ENT Denies dizziness Card Denies chest pain, Denies chest pain with activity, Denies syncope, Denies rapid heart rate, Denies pedal edema, Denies edema, Denies leg edema, Denies lightheadedness, Denies palpitations, Denies dyspnea, Denies dyspnea on exertion and Denies orthopnea Resp Denies cough, Denies dyspnea and Denies dyspnea on exertion GI Denies hematochezia and Denies change in stool character Musc Denies abnormal gait, Denies muscle cramps, Denies muscle weakness, Denies numbness, Denies radiating pain into limb and Denies tingling Neuro Denies abnormal gait, Denies dizziness, Denies syncope, Denies numbness, Denies tingling and Denies weakness Endo Denies palpitations Physical Exam Vital Signs: Last Vital Signs Pulse 62 12/10/22 10:40 BP 172/84 H 12/10/22 10:40 BMI result Body Mass Index 30.3 Const General: comfortable and no acute distress Orientation/consciousness: patient oriented x3 HEENT Other: Unremarkable Head: Yes normal to inspection Neck Neck: Yes normal visual inspection Chest Chest palpation & inspection: normal inspection of the chest Resp Auscultation: clear to auscultation bilaterally Cardio Palpation: normal PMI Heart sounds: S1 normal heart sound present, S2 normal heart sound present, no gallops, no murmurs and no rubs GI Palpation (GI): Soft to palpation Back/Spine/Pelvis Other: unremarkable Skin General skin exam: no rashes or lesions noted Neuro General: patient oriented x3 Extrem General: Yes normal to inspection Psych Mental Status: mental status grossly normal Office Procedures EKG Details: EKG with sinus 62/min, no significant ST-T changes, normal UT, corrected QT 485ms. [id number], Complete Assessment & Plan Assessment & Plan (1) PAF (paroxysmal atrial fibrillation): Code(s): I48.0 - Paroxysmal atrial fibrillation (2) Encounter for monitoring amiodarone therapy: Code(s): Z51.81 - Encounter for therapeutic drug level monitoring; Z79.899 - Other tank terminal gauger (current) drug therapy (3) Essential hypertension: Code(s): I10 - Essential (primary) hypertension Plan Status post cardioversion. Remains in sinus rhythm. We can stop the amiodarone. If she can afford Multaq, can use that. If not possibly flecainide. In that case, will need ischemia workup. There is a history of seizures many years ago. Hence may have to use coronary CTA rather than Lexiscan Mibi in that regard. Otherwise, blood pressure is on the higher side. Advised her to check some home blood pressures. Based on this, may need medications. She is already on Metoprolol ER 100 mg daily. We could consider Amlodipine 5 mg daily if needed. Echocardiogram-LVEF 60-65%. At least mildly dilated left atrium. Mild mitral regurgitation. Aortic valve calcification. Discussed with significant other who came for appointment. Follow-up in 3 months. Medications: New dronedarone (Multaq) must administer with a meal/food 400 mg PO BID 180 tabs 3RF 90 days Coding Level of Care Code Est Pt Level 4 (09183) Diagnoses PAF (paroxysmal atrial fibrillation) I48.0 Encounter for monitoring amiodarone therapy Z51.81; Z79.899 Essential hypertension I10 CPT Codes EKG - CPT: 06513-[id number], Complete ([id number])
== END 2022-12-10 11:00 | disposition home or self-care (01) ==
PROVIDERS: PCP Internal Medicine; Referring Provider Internal Medicine; Visit Provider Internal Medicine
DX: I48.0 Paroxysmal atrial fibrillation (principal); Z51.81 Encounter for therapeutic drug level monitoring; Z79.899 Other long term (current) drug therapy; I10 Essential (primary) hypertension
CPT/HCPCS: 93010; 99214

== ENCOUNTER → 2022-12-10 10:37 | Outpatient (BNVA) | payer MEDICARE, SELFPAY | PROVIDERS: PCP Internal Medicine; Referring Provider Internal Medicine; Visit Provider Internal Medicine | DX: I48.0 Paroxysmal atrial fibrillation (principal); I10 Essential (primary) hypertension; Z51.81 Encounter for therapeutic drug level monitoring; Z79.899 Other long term (current) drug therapy | CPT/HCPCS: 93005; 99212 ==

== ENCOUNTER 2023-03-10 10:40 | Outpatient (AMB) | payer MEDICARE, SELFPAY ==
--- NOTE | 2023-03-10 10:42 | MHC.OFFVIS ---
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: No Accompanied by: Family/Other Allergies Penicillins Allergy (Unknown, Verified 03/10/23 10:45) UNKNOWN Antihistamines - Ethylenediamine Adverse Reaction (Verified 03/10/23 10:45) tachycardia flu vaccine Adverse Reaction (Uncoded 03/10/23 10:45) vomiting steriods Adverse Reaction (Uncoded 03/10/23 10:45) tachycardia Medication List - Last Reconciled 03/10/23 by Alexandre Rdz MD amlodipine (Norvasc) 5 mg PO DAILY apixaban (Eliquis) 5 mg PO BID 90 days cholecalciferol (vitamin D3) 25 mcg PO DAILY dronedarone (Multaq) 400 mg PO BID 90 days hydrochlorothiazide 25 mg PO QAM magnesium 400 mg PO DAILY metoprolol succinate ER 100 mg PO DAILY kezhljmw-rxa-runu-FA-vit K-lut 8 mg iron-400 mcg-50 mcg (Centrum Silver Women) 1 tab PO DAILY vitamin A-vitamin C-vit E-min 1 tab PO DAILY HPI HPI Comments History of Present Illness Details Ramona returns for follow-up. Few months back, she was seen regarding atrial fibrillation. Routine EKG at primary care physician's office had shown atrial fibrillation with rapid rate and then she was referred here. After therapeutic anticoagulation, she underwent cardioversion. She was started on amiodarone. Over time, this was switched to Multaq. Patient is doing well. No cardiac symptoms at this time. [facility] Medical History Bronchitis Constipation Erythema intertrigo Essential hypertension Habitual snoring History of seizures Hx of Hx of ectopic New onset atrial fibrillation On anticoagulant therapy On beta sloan at home Osteoarthritis Rash of face Rheumatic fever SOB (shortness of breath) Surgical History H/O tubal ligation Hx of cholecystectomy Hx of shoulder surgery Hx of tonsillectomy Status post left breast lumpectomy (10/28/22) Family History Father Substance use disorder Lung cancer Essential hypertension CAD (coronary artery disease) COVID-19 Skin cancer Mother Substance use disorder Oral cancer Essential hypertension CAD (coronary artery disease) COVID-19 Sister Disorder of thyroid Brother CAD (coronary artery disease) COVID-19 Social History Housing: Apartment Are you a primary wound care physician to a significant other at home: No Do you presently have visiting nurse or other home services: No Alcohol intake: current Alcohol intake frequency: 0-2 drinks per day Patient Tobacco Use Status: Former Tobacco user Quit Date: 20 years ago Tobacco use type: Cigarette e-Cigarette/Vaping Use: Never Used Current occupational status: retired Cognitive needs: No Hearing needs: No Vision needs: Yes Female Reproductive History Menstrual Age of Menarche: 11 Review of Systems Const Denies weakness ENT Denies dizziness Card Denies chest pain, Denies chest pain with activity, Denies syncope, Denies rapid heart rate, Denies pedal edema, Denies edema, Denies leg edema, Denies lightheadedness, Denies palpitations, Denies dyspnea, Denies dyspnea on exertion and Denies orthopnea Resp Denies cough, Denies dyspnea and Denies dyspnea on exertion GI Denies hematochezia and Denies change in stool character Musc Denies abnormal gait, Denies muscle cramps, Denies muscle weakness, Denies numbness, Denies radiating pain into limb and Denies tingling Neuro Denies abnormal gait, Denies dizziness, Denies syncope, Denies numbness, Denies tingling and Denies weakness Endo Denies palpitations Physical Exam Vital Signs: Last Vital Signs Pulse 61 03/10/23 10:43 BP 152/78 H 03/10/23 10:43 BMI result Body Mass Index 31.6 Const General: comfortable and no acute distress Orientation/consciousness: patient oriented x3 HEENT Other: Unremarkable Head: Yes normal to inspection Neck Neck: Yes normal visual inspection Chest Chest palpation & inspection: normal inspection of the chest Resp Auscultation: clear to auscultation bilaterally Cardio Palpation: normal PMI Heart sounds: S1 normal heart sound present, S2 normal heart sound present, no gallops, no murmurs and no rubs GI Palpation (GI): Soft to palpation Back/Spine/Pelvis Other: unremarkable Skin General skin exam: no rashes or lesions noted Neuro General: patient oriented x3 Extrem General: Yes normal to inspection Psych Mental Status: mental status grossly normal Assessment & Plan Assessment & Plan (1) PAF (paroxysmal atrial fibrillation): Code(s): I48.0 - Paroxysmal atrial fibrillation (2) Encounter for monitoring amiodarone therapy: Code(s): Z51.81 - Encounter for therapeutic drug level monitoring; Z79.899 - Other middle or intermediate school principal (current) drug therapy (3) Essential hypertension: Code(s): I10 - Essential (primary) hypertension Plan Status post cardioversion. Remains in sinus rhythm. Stable on Multaq. Continue Eliquis without changes. Blood pressure is on the higher side but home diary reviewed and most blood pressures are around [id number]. She states she gets anxious coming here. Hence no changes. Echocardiogram-LVEF 60-65%. At least mildly dilated left atrium. Mild mitral regurgitation. Aortic valve calcification. Discussed with significant other who came for appointment. Follow-up in 6 months but return for EKG in 3 months. Coding Level of Care Code Est Pt Level 4 (35255) Diagnoses PAF (paroxysmal atrial fibrillation) I48.0 Encounter for monitoring amiodarone therapy Z51.81; Z79.899 Essential hypertension I10
[2023-03-10 10:43] VITALS: BP 152/78; PULSE 61; BMI 31.6
== END 2023-03-10 11:10 | disposition home or self-care (01) ==
PROVIDERS: PCP Internal Medicine; Visit Provider Internal Medicine
DX: I48.0 Paroxysmal atrial fibrillation (principal); Z51.81 Encounter for therapeutic drug level monitoring; Z79.899 Other long term (current) drug therapy; I10 Essential (primary) hypertension
CPT/HCPCS: 99214

== ENCOUNTER → 2023-03-10 10:40 | Outpatient (BNVA) | payer MEDICARE, SELFPAY | PROVIDERS: PCP Internal Medicine; Visit Provider Internal Medicine | DX: I48.0 Paroxysmal atrial fibrillation (principal); I10 Essential (primary) hypertension; Z79.01 Long term (current) use of anticoagulants; Z79.899 Other long term (current) drug therapy | CPT/HCPCS: 99212 ==

== ENCOUNTER 2023-04-08 10:34 | Outpatient (REF) | payer MEDICARE, SELFPAY ==
--- NOTE | ~2023-04-08 | MM_ITS ---
EXAMINATION: MM DIAGNOSTIC DIGITAL BREAST TOMOSYNTHESIS, RIGHT CLINICAL INFORMATION: 6 month Follow-up 2 groups calcifications right breast. COMPARISON: Mammography: 09/26/2022, 05/24/2022, 05/16/2022 (BI-RADS 0). TECHNIQUE: Digital breast tomosynthesis is performed in both the craniocaudal and mediolateral oblique views along with computer-aided detection (CAD). Synthesized 2D images are generated from the tomosynthesis. FINDINGS: There are scattered areas of fibroglandular density (ACR BI-RADS breast composition Category b). A small linear grouped of somewhat coarse calcifications in the upper far outer right breast is stable, without significant linear or branching forms, and may lie within a vessel. These have remained stable since 05/16/2022 and remain probably benign. A second loosely grouped focus of calcifications in the inferior 6:00 axis right breast appears to be likely located within ectatic ducts, which demonstrates forms which are predominantly slightly dystrophic and punctate/rounded. No suspicious forms identified. These remain probably benign as well. There are no new suspicious calcifications in either breast. There are vascular calcifications. There has been a benign left excisional biopsy, and benign right needle biopsy. No masses or regions of architectural distortion in either breast. MM/MM tomosynthesis diagnostic BI IMPRESSION: No significant change in 2 groups of probably benign calcifications right breast, recommend six-month interval follow-up to ensure stability, to include standard magnification views. No suspicious findings in the left breast. ASSESSMENT: BI-RADS BI-RADS 3 - Probably benign finding(s) - 6 month follow-up suggested RECOMMENDATION: 6 Month F/U Results were provided to the patient at time of visit by the technologist. This patient's information was entered into a reminder system with a target due date for their next mammogram.
== END 2023-04-08 10:35 | disposition home or self-care (01) ==
LOC: HO.MAMMO 10:34
PROVIDERS: PCP Internal Medicine; Visit Provider Internal Medicine
DX: R92.1 Mammographic calcification found on diagnostic imaging of breast (principal)
CPT/HCPCS: 77062; 77066

== ENCOUNTER → 2023-04-08 11:30 | Outpatient (BNV) | payer MEDICARE, SELFPAY | PROVIDERS: PCP Internal Medicine; Visit Provider Radiology Diagnostic Radiology | DX: R92.1 Mammographic calcification found on diagnostic imaging of breast (principal) | CPT/HCPCS: 77061; 77065 ==

== ENCOUNTER 2023-06-09 10:40 | Outpatient (AMB) | payer MEDICARE, SELFPAY ==
--- NOTE | 2023-06-09 11:13 | AM.OFFVISNUR ---
Intake Intake Visit Reasons: EKG Accompanied by: Spouse Allergies Penicillins Allergy (Unknown, Verified 06/09/23 11:14) UNKNOWN Antihistamines - Ethylenediamine Adverse Reaction (Verified 06/09/23 11:14) tachycardia flu vaccine Adverse Reaction (Uncoded 06/09/23 11:14) vomiting steriods Adverse Reaction (Uncoded 06/09/23 11:14) tachycardia Nursing Note 3 month EKG patient on Multaq 400 MG BID. Office Procedures EKG [id number], Complete Coding CPT Codes EKG - CPT: 76020-[id number], Complete ([id number])
== END 2023-06-09 11:11 | disposition home or self-care (01) ==
PROVIDERS: PCP Internal Medicine; Visit Provider Internal Medicine
DX: I45.81 Long QT syndrome (principal)
CPT/HCPCS: 93010

== ENCOUNTER → 2023-06-09 10:40 | Outpatient (BNVA) | payer MEDICARE, SELFPAY | PROVIDERS: PCP Internal Medicine; Visit Provider Internal Medicine | DX: Z79.899 Other long term (current) drug therapy (principal) | CPT/HCPCS: 93005 ==

== ENCOUNTER 2023-08-06 11:20 | Outpatient (REF) | payer MEDICARE, SELFPAY ==
[2023-08-06 13:26] LABS: MANUAL DIFF FLAG NO
[2023-08-06 13:51] LABS: Basophils Absolute Auto 0.1 X10*3/uL (0.0-0.2); Basophils Percent Auto 0.7 % (0-2); Eosinophils Absolute Auto 0.1 X10*3/uL (0.0-0.4); Eosinophils Percent Auto 1.3 % (0-4); Hematocrit 33.5 % (37.0-47.0); Hemoglobin 11.3 g/dl (12.0-16.0); Imm Gran Abs Auto 0.04 X10*3/uL (0.00-0.03); Imm Gran Pct Auto 0.4 % (0.0-0.4); Lymphocytes Absolute Auto 1.5 X10*3/uL (1.2-4.9); Lymphocytes Percent Auto 15.4 % (20-40); Mean Corpuscular HGB Conc 33.7 g/dl (31.0-35.0); Mean Corpuscular Hemoglobin 28.5 pg (27.0-33.0); Mean Corpuscular Volume 84.4 fL (80.0-98.0); Mean Platelet Volume 9.5 fL (9.4-12.3); Monocytes Absolute Auto 1.3 X10*3/uL (0.1-1.2); Monocytes Percent Auto 13.4 % (2-11); Neutrophils Absolute Auto 6.8 x10*3/uL (2.0-8.3); Neutrophils Percent Auto 68.8 % (45-73); Platelet Count 446 X10*3/uL (160-400); Red Blood Count 3.97 X10*6/uL (4.20-5.50); Red Cell Distribution Width 13.2 % (11.0-16.0); White Blood Count 9.9 X10*3/uL (4.8-10.8)
[2023-08-06 14:18] LABS: Alanine Aminotransferase 14 U/L (0-31); Aspartate Amino Transferase 24 U/L (5-31); Cholesterol 142 mg/dL (<200); HDL Cholesterol 49 mg/dL (>40); LDL Cholesterol Calculated 81 mg/dL (<100); Triglycerides 62 mg/dL (<150)
[2023-08-06 14:36] LABS: Vitamin D 25-OH Total 16.7 ng/mL (>30)
== END 2023-08-06 11:21 | disposition home or self-care (01) ==
LOC: HO.HMGCLDS 11:20
PROVIDERS: PCP Internal Medicine; Visit Provider Internal Medicine
DX: Z00.01 Encounter for general adult medical examination with abnormal findings (principal); F41.9 Anxiety disorder, unspecified; I48.0 Paroxysmal atrial fibrillation; I10 Essential (primary) hypertension; R19.5 Other fecal abnormalities; Z78.0 Asymptomatic menopausal state
CPT/HCPCS: 36415; 80061; 82306; 84450; 84460; 85025

== ENCOUNTER 2023-08-07 11:28 | Outpatient (AMB) | payer MEDICARE, SELFPAY ==
--- NOTE | 2023-08-07 11:52 | A.OFFPC_ITS ---
Vital Signs 08/07/23 12:08 Height 5 ft 1 in Weight 173 lb BMI 32.7 BP 130/64 Blood Pressure Location Rt brachial Position Sitting Pulse 58 Pulse Source Pulse Oximeter Pulse Oximetry (%) 98 Oxygen Delivery Method Room Air Intake Visit Reasons: Annual PE Intake Note: Pt is here today for her PE mammogram 04/08/23, bone density scan 05/16/22, cologuard 07/23/23 Allergies Penicillins Allergy (Unknown, Verified 08/07/23 12:16) UNKNOWN Antihistamines - Ethylenediamine Adverse Reaction (Verified 08/07/23 12:16) tachycardia flu vaccine Adverse Reaction (Uncoded 08/07/23 12:16) vomiting steriods Adverse Reaction (Uncoded 08/07/23 12:16) tachycardia Medication List - Last Reconciled 08/07/23 by Chloe Munoz MD amlodipine (Norvasc) 5 mg PO DAILY apixaban (Eliquis) 5 mg PO BID cholecalciferol (vitamin D3) 25 mcg PO DAILY dronedarone (Multaq) 400 mg PO BID 90 days hydrochlorothiazide 25 mg PO QAM magnesium 400 mg PO DAILY metoprolol succinate ER 100 mg PO DAILY gmfapyfc-yvg-praq-FA-vit K-lut 8 mg iron-400 mcg-50 mcg (Centrum Silver Women) 1 tab PO DAILY Tobacco use date assessed: 08/07/23 Fall risk assessment: No Falls in past year Last assessed Fall Risk: 08/07/23 Dental Screening Dental Screen Date: 08/07/23 Did you have a dental visit in the last 12 months?: No Was dental information given to patient?: No HPI Annual PE HPI Details 67-year-old lady here today for her phys ical exam. She has hypertension currently stable controlled on amlodipine 5 mg daily together with hydrochlorothiazide 25 mg in the morning and metoprolol succinate 100 mg once a day. Currently on apixaban for her paroxysmal atrial fibrillation. She is up-to-date with her screening mammogram done April 2023 with benign findings and had a bone density scan done also last year which showed normal bone density in spine and left hip/thigh. Colon cancer screening was done via Cologuard which came back positive July 2023. [facility] Medical History (Updated 08/10/23 @ 17:41 by Chloe Munoz MD) Vaccine refused by patient Vitamin D deficiency Anemia Positive colorectal cancer screening using Cologuard test Osteoarthritis Habitual snoring Bronchitis Rheumatic fever New onset atrial fibrillation Erythema intertrigo Rash of face Hx of ectopic Hx of History of seizures Essential hypertension Surgical History Status post left breast lumpectomy (10/28/22) Hx of shoulder surgery H/O tubal ligation Hx of cholecystectomy Hx of tonsillectomy Family History Father Substance use disorder Lung cancer Essential hypertension CAD (coronary artery disease) COVID-19 Skin cancer Mother Substance use disorder Oral cancer Essential hypertension CAD (coronary artery disease) COVID-19 Sister Disorder of thyroid Brother CAD (coronary artery disease) COVID-19 Social History Housing: Apartment Are you a primary career placement services counselor to a significant other at home: No Do you presently have visiting nurse or other home services: No Alcohol intake: current Alcohol intake frequency: 0-2 drinks per day Patient Tobacco Use Status: Former Tobacco user Quit Date: 20 years ago Tobacco use type: Cigarette e-Cigarette/Vaping Use: Never Used Current occupational status: retired Cognitive needs: No Hearing needs: No Vision needs: Yes Female Reproductive History Menstrual Age of Menarche: 11 Questionnaire PHQ-9 Over the last 2 weeks, how often have you been bothered by any of the following problems? 1. Little interest or pleasure in doing things: not at all 2. Feeling down, depressed, or hopeless: not at all 3. Trouble falling or staying asleep, or sleeping too much: not at all 4. Feeling tired or having little energy: not at all 5. Poor appetite or overeating: not at all 6. Feeling bad about yourself - or that you are a failure or have let yourself or your family down: not at all 7. Trouble concentrating on things, such as reading the newspaper or watching television: not at all 8. Moving or speaking so slowly that other people could have noticed. Or the opposite - being so fidgety or restless that you have been moving around a lot more than usual: not at all 9. Thoughts that you would be better off or of hurting yourself in some way: not at all Total score: 0 Depression Screening Interpretation: Negative Depression Screening Done: Yes 27541 - PHQ-9 Billing: Yes Source: Developed by Drs. Matthew Cornell, Chelle Call, Victor Manuel Kovacs and colleagues, with an educational surinder from [employer]. Thrive Questionnaire Date Thrive assessed: 08/07/23 I am a: Patient What is your living situation today?: I have a steady place to live Within the past 12 months, did the food you bought not last and you didn't have the money to get more?: Never true Within the past 12 months, did you worry whether your food would run out before you got money to buy more?: Never true Do you have trouble paying for medicines?: No Do you have trouble getting transportation to medical appointments?: No Do you have trouble paying your heating and electricity bill?: No Do you have trouble taking care of your child, family member or friend?: No Do you have trouble with day-to-day activities such as bathing, preparing meals, shopping, managing finances, etc.?: No Are you currently unemployed and looking for a job?: No Are you interested in more education?: No Currently or been in a relationship where the following occur: no concerns reported THRIVE Score: 0 AUDIT C Alcohol Use Questionnaire (AUDIT-C) 1. How often do you have a drink containing alcohol?: Monthly or less 2. How many drinks containing alcohol do you have on a typical day when you are drinking?: 1 or 2 3. How often do you have six or more drinks on one occasion?: Never Total Score: 1 ITALO-7 AMB Questionnaire ITALO-7 Date ITALO - 7 assessed: 08/07/23 Feeling nervous, anxious, or on edge: 0 = Not at all Not being able to stop or control worryin = Not at all Worrying too much about different things: 0 = Not at all Trouble relaxin = Not at all Being so restless that it is hard to sit still: 0 = Not at all Becoming easily annoyed or irritable: 0 = Not at all Feeling afraid as if something awful might happen: 0 = Not at all Total ITALO-7 score (0-4 normal; 5-9 mild; 10-14 moderate; 15-21 severe): 0 Source: Developed by Drs. Matthew Cornell, Chelle Call, Victor Manuel Kovacs and colleagues, with an educational surinder from [employer]. Review of Systems Const Reports no additional complaints Eyes Denies change in vision ENT Reports no additional complaints Card Denies chest pain, Denies chest pain with activity, Denies syncope, Denies rapid heart rate, Denies pedal edema, Denies lightheadedness, Denies palpitations, Denies dyspnea, Denies dyspnea on exertion and Denies orthopnea Resp Denies cough, Denies dyspnea and Denies dyspnea on exertion GI Denies abdominal pain, Denies melena, Denies hematochezia, Denies change in bowel habits, Denies change in stool character and Denies heartburn Reports no additional complaints Musc Denies abnormal gait, Denies muscle cramps, Denies muscle weakness, Denies numbness, Denies radiating pain into limb and Denies tingling Skin/Breast Denies breast pain, Denies breast mass, Denies lesions and Denies rash Neuro Denies abnormal gait, Denies syncope, Denies numbness and Denies tingling Psych Reports no additional complaints Endo Denies polydipsia, Denies polyuria and Denies palpitations Zak/Lymph Reports no additional complaints Aller/Immun Reports no additional complaints Physical exam (Primary Care) Vital Signs: Last Vital Signs Pulse 58 08/07/23 12:08 BP 130/64 08/07/23 12:08 Pulse Ox 98 08/07/23 12:08 Oxygen Delivery Method Room Air 08/07/23 12:08 BMI result Body Mass Index 32.7 BMI Assessment/Plan discussion: High BMI High, discussed plan: lifestyle, weight reduction, dietary and physical activity Tobacco/Smoking Status: Tobacco use Status Tobacco use date assessed 08/07/23 08/07/23 11:55 Patient Tobacco Use Status Former Tobacco user 08/07/23 11:55 Tobacco use type Cigarette 08/07/23 11:55 e-Cigarette/Vaping Use Never Used 08/07/23 11:55 PHQ-9: PHQ-9 Score PHQ-9: Total score 0 08/07/23 12:22 Depression Screening Interpretation: Negative Thrive Assessment: Date of Thrive Assessment Date Thrive assessed 08/07/23 08/07/23 12:10 Currently or been in a relationship where the following occur: no concerns reported Const General: cooperative, comfortable, no acute distress, well developed, alert, awake, Physically active and anxious Nutritional Appearance: average body habitus and thin Orientation/consciousness: patient oriented x3 Limitations: no limitations, altered mental status and behavioral limitations [facility] Head: Yes normocephalic Ears: external ears normal General nose exam: Normal external nose present and No nasal discharge present Face and sinus: Yes face symmetric Mouth: Normal oral and palatal mucosa present, oropharynx normal and moist mucous membranes Eyes General: appearance normal, both eyes and all related structures Periorbital: periorbital findings normal Eyelids: Yes eyelids normal Conjunctivae: conjunctivae normal Pupils: Equal, round and reactive pupils present EOM: EOMs intact bilaterally Neck Other: Nonpalpable thyroid gland Neck: Yes normal visual inspection, Yes full ROM, Yes no lymphadenopathy, Yes no meningeal signs, Yes supple and Yes no JVD Chest Chest palpation & inspection: normal inspection of the chest Breast/axilla inspection: normal inspection of the breasts Breast/axilla palpation: normal palpation of the breasts and normal palpation of the axillae Resp Effort & Inspection: normal respiratory effort and able to speak in complete sentences Auscultation: clear to auscultation bilaterally, no rhonchi and no wheezes Cardio Other: Irregularly irregular rhythm noted Rate: tachycardic GI Inspection: Yes normal to inspection Palpation (GI): Soft to palpation, nontender and no guarding Auscultation: normal bowel sounds and no bruits General: Yes no CVA tenderness Back/Spine/Pelvis Back: no CVA tenderness and No back tenderness Thoracic/Lumbar Spine: thoracic and lumbar spine normal to inspection Neuro General: patient oriented x3 and no meningeal signs Cranial nerves: Yes Equal, round and reactive pupils present Motor exam (neuro): 5/5 motor strength present throughout and no tremors Sensory Exam: double simultaneous stimulation for sensation normal Extrem General: Yes full ROM, Yes no joint enlargement, Yes no clubbing, cyanosis or edema, Yes no pedal edema, Yes no calf tenderness and Yes normal gait Psych Appearance: grossly normal and well kempt Mental Status: mental status grossly normal Speech and movement: Normal speech and movement present Affect: normal affect Results Reviewed Results Reviewed: Name: Ramona Munguia Age/Sex: 67/F : 1955 Unit#: [id number] Attend Dr: Chloe Munoz MD Re08/06/23 Status: DEP [facility]: SPEC : [id number] GARETH: 08/06/23 STATUS: COMP REQ : [id number] RECD: 08/06/[address]: Chloe Munoz MD COMP: 08/06/23 ENTERED: 08/06/23 [facility] DR: ORDERED: CBC Auto Diff Test Result Flag Reference WBC 9.9 4.8-10.8 X10*3/uL RBC 3.97 L 4.20-5.50 X10*6/uL HGB 11.3 L 12.0-16.0 g/dl HCT 33.5 L 37.0-47.0 % MCV 84.4 80.0-98.0 fL MCH 28.5 27.0-33.0 pg MCHC 33.7 31.0-35.0 g/dl RDW 13.2 11.0-16.0 % PLT 446 # H 160-400 X10*3/uL MPV 9.5 9.4-12.3 fL Neut Pct Auto 68.8 45-73 % ImGran Pct Auto 0.4 0.0-0.4 % Lymp Pct Auto 15.4 L 20-40 % Braxton Pct Auto 13.4 H 2-11 % Eos Pct Auto 1.3 0-4 % Baso Pct Auto 0.7 0-2 % NRBC Pct Auto 0.0 0.0-0.2 /100WBC ANC Neut Abs # 6.8 2.0-8.3 x10*3/uL ImGran Abs Auto 0.04 H 0.00-0.03 X10*3/uL Lymph Abs Auto 1.5 1.2-4.9 X10*3/uL Braxton Abs Auto 1.3 H 0.1-1.2 X10*3/uL Eos Abs Auto 0.1 0.0-0.4 X10*3/uL Baso Abs Auto 0.1 0.0-0.2 X10*3/uL NRBC Abs Auto 0.000 0.0-0.012 X10*3/uL RUN: 08/07/23 1214 PAGE 1 [facility] [address] [place] [id number] [employer]und[employer]at Worker: Rohit Aragon M.D. Specimen Inquiry Name: Ramona Munguia Age/Sex: 67/F : 1955 Unit#: [id number] Attend Dr: Chloe Munoz MD Re08/06/23 Status: DEP [facility] Disch: SPEC : [id number] GARETH: 08/06/23 STATUS: COMP REQ : [id number] RECD: 08/06/23-[address]: Chloe Munoz MD COMP: 08/06/23 ENTERED: 08/06/23-[address]: ORDERED: AST, ALT, Lipid Panel, Vitamin D 25-OH Test Result Flag Reference AST (GOT) 24 5-31 U/L ALT (GPT) 14 0-31 U/L Triglyceride 62 <150 mg/dL Desirable Triglyceride: less than 150 mg/dL Borderline High Triglyceride 150-199 mg/dL High Triglyceride: 200-499 mg/dL Very High Triglyceride: greater than or equal to 5OO mg/dL Cholesterol 142 <200 mg/dL Desirable Cholesterol: less than 200 mg/dL Borderline High Cholesterol: 200-239 mg/dL High Cholesterol: greater than 239 mg/dL LDL Calculated 81 <100 mg/dL Desirable LDL: less than 100 mg/dL Near Optimal/Above Optimal LDL: 110-129 mg/dL Borderline High LDL: 130-159 mg/dL High LDL: 160-189 mg/dL Very High LDL: greater than or equal to 190 mg/dL HDL 49 >40 mg/dL Desirable HDL: greater than 40 mg/dL Note: This HDL assay may give artificially low results in patients with liver disease. Vit D 25-OH Tot 16.7 L >30 ng/mL Health Based Reference Values* < 20 ng/mL Deficient 20-30 ng/mL Insufficient > 30 ng/mL Sufficient Assessment and Plan Assessment & Plan (1) Annual visit for general adult medical examination with abnormal findings: Code(s): Z00.01 - Encounter for general adult medical examination with abnormal findings Plan: latest fasting labs reviewed with patient. Recommended dental visit every 6 months and regular eye exams, at least every 2 years. Take adequate calcium in diet and vitamin-D 3 at 2000 IU per cap once a day, in addition to weight- bearing exercises to help maintain good muscle tone and weight control. Instructed to do self-breast exam, and continue with yearly mammogram, currently up-to-date done last April 2023, she had a normal bone density scan done May 2022. Cologuard testing came back positive, referred to GI for diagnostic colonoscopy. She has received 2 COVID vaccines but does not want to get any further vaccinations. (2) Essential hypertension: Code(s): I10 - Essential (primary) hypertension Plan: Blood pressure at goal of less than 130/80. Continue with current medication. Reinforced importance of following a low sodium diet, getting regular exercise, and lowering stress levels. (3) PAF (paroxysmal atrial fibrillation): Code(s): I48.0 - Paroxysmal atrial fibrillation Plan: Followed by cardiology, currently on apixaban, errol Nguyễn and metoprolol succinate ER (4) Positive colorectal cancer screening using Cologuard test: Code(s): R19.5 - Other fecal abnormalities Plan: GI consult obtained for diagnostic colonoscopy (5) Anemia: Code(s): D64.9 - Anemia, unspecified Plan: GI consult obtained for diagnostic colonoscopy, patient had positive Cologuard (6) Vitamin D deficiency: Code(s): E55.9 - Vitamin D deficiency, unspecified Plan: Vitamin-D level is deficient at 16. Prescription [place] vitamin-[place] 3 [place] [address] units per capsule to take once a week for next 3 months. (7) Vaccine refused by patient: Code(s): Z28.20 - Immunization not carried out because of patient decision for unspecified reason Orders: Orders Complete Blood Count Auto Diff 02/03/24 D64.9 - Anemia, unspecified, E55.9 - Vitamin D deficiency, unspecified IRON PROFILE 02/03/24 D64.9 - Anemia, unspecified, E55.9 - Vitamin D deficiency, unspecified Vitamin D 25-OH Total 02/03/24 D64.9 - Anemia, unspecified, E55.9 - Vitamin D deficiency, unspecified Referrals Gastroenterology Referral D64.9 - Anemia, unspecified, I10 - Essential (primary) hypertension, I48.0 - Paroxysmal atrial fibrillation, R19.5 - Other fecal abnormalities Medications: New cholecalciferol (vitamin D3) 1,250 mcg PO QWEEK 3 months 13 caps 0RF E55.9 - Vitamin D deficiency, unspecified Coding Level of Care Code Est Pt Prev Care >65y(67866) Diagnoses Annual visit for general adult medical examination with abnormal findings Z00.01 Essential hypertension I10 PAF (paroxysmal atrial fibrillation) I48.0 Positive colorectal cancer screening using Cologuard test R19.5 Anemia D64.9 Vitamin D deficiency E55.9 Vaccine refused by patient Z28.20
[2023-08-07 12:08] VITALS: BP 130/64; PULSE 58; O2SAT 98; BMI 32.7
== END 2023-08-07 13:25 | disposition home or self-care (01) ==
PROVIDERS: Visit Provider Internal Medicine
DX: Z00.01 Encounter for general adult medical examination with abnormal findings (principal); I10 Essential (primary) hypertension; I48.0 Paroxysmal atrial fibrillation; R19.5 Other fecal abnormalities; D64.9 Anemia, unspecified; E55.9 Vitamin D deficiency, unspecified; Z28.20 Immunization not carried out because of patient decision for unspecified reason
CPT/HCPCS: 99397

== ENCOUNTER 2023-09-15 10:38 | Outpatient (AMB) | payer MEDICARE, SELFPAY ==
--- NOTE | 2023-09-15 10:41 | A.OFFVIS_ITS ---
Vital Signs 09/15/23 10:42 Height 5 ft 1 in Weight 178 lb 9.191 oz BMI 33.7 BP 124/68 Blood Pressure Location Lt brachial Position Sitting Pulse 67 Pulse Source Monitor Pulse Oximetry (%) 99 Oxygen Delivery Method Room Air Intake Visit Reasons: 6 mth w/ ekg Allergies Penicillins Allergy (Unknown, Verified 08/07/23 12:16) UNKNOWN Antihistamines - Ethylenediamine Adverse Reaction (Verified 08/07/23 12:16) tachycardia flu vaccine Adverse Reaction (Uncoded 08/07/23 12:16) vomiting steriods Adverse Reaction (Uncoded 08/07/23 12:16) tachycardia Medication List - Last Reconciled 09/15/23 by Alexandre Rdz MD amlodipine 5 mg PO DAILY apixaban (Eliquis) 5 mg PO BID cholecalciferol (vitamin D3) 1,250 mcg PO QWEEK 3 months cholecalciferol (vitamin D3) 25 mcg PO DAILY dronedarone (Multaq) 400 mg PO BID 90 days hydrochlorothiazide 25 mg PO QAM magnesium 400 mg PO DAILY metoprolol succinate ER 100 mg PO DAILY uluqykch-nwn-ogyg-FA-vit K-lut 8 mg iron-400 mcg-50 mcg (Centrum Silver Women) 1 tab PO DAILY HPI Comments Details: Ramona returns for follow-up regarding atrial fibrillation. She underwent cardioversion for the same. Initially was on amiodarone but now on Multaq. Doing well. No specific concerns. [facility] Medical History (Updated 08/10/23 @ 17:41 by Chloe Munoz MD) Vaccine refused by patient Vitamin D deficiency Anemia Positive colorectal cancer screening using Cologuard test Osteoarthritis Habitual snoring Bronchitis Rheumatic fever New onset atrial fibrillation Erythema intertrigo Rash of face Hx of ectopic Hx of History of seizures Essential hypertension Surgical History Status post left breast lumpectomy (10/28/22) Hx of shoulder surgery H/O tubal ligation Hx of cholecystectomy Hx of tonsillectomy Family History Father Substance use disorder Lung cancer Essential hypertension CAD (coronary artery disease) COVID-19 Skin cancer Mother Substance use disorder Oral cancer Essential hypertension CAD (coronary artery disease) COVID-19 Sister Disorder of thyroid Brother CAD (coronary artery disease) COVID-19 Social History Housing: Apartment Are you a primary day care provider to a significant other at home: No Do you presently have visiting nurse or other home services: No Alcohol intake: current Alcohol intake frequency: 0-2 drinks per day Patient Tobacco Use Status: Former Tobacco user Quit Date: 20 years ago Tobacco use type: Cigarette e-Cigarette/Vaping Use: Never Used Current occupational status: retired Cognitive needs: No Hearing needs: No Vision needs: Yes Female Reproductive History Menstrual Age of Menarche: 11 Review of Systems Const Denies weakness ENT Denies dizziness Card Denies chest pain, Denies chest pain with activity, Denies syncope, Denies rapid heart rate, Denies pedal edema, Denies edema, Denies leg edema, Denies lightheadedness, Denies palpitations, Denies dyspnea, Denies dyspnea on exertion and Denies orthopnea Resp Denies cough, Denies dyspnea and Denies dyspnea on exertion GI Denies hematochezia and Denies change in stool character Musc Denies abnormal gait, Denies muscle cramps, Denies muscle weakness, Denies num bness, Denies radiating pain into limb and Denies tingling Neuro Denies abnormal gait, Denies dizziness, Denies syncope, Denies numbness, Denies tingling and Denies weakness Endo Denies palpitations Physical Exam Vital Signs: Last Vital Signs Pulse 67 09/15/23 10:42 BP 124/68 09/15/23 10:42 Pulse Ox 99 09/15/23 10:42 Oxygen Delivery Method Room Air 09/15/23 10:42 BMI result Body Mass Index 33.7 Const General: comfortable and no acute distress Orientation/consciousness: patient oriented x3 HEENT Other: Unremarkable Head: Yes normal to inspection Neck Neck: Yes normal visual inspection Chest Chest palpation & inspection: normal inspection of the chest Resp Auscultation: clear to auscultation bilaterally Cardio Palpation: normal PMI Heart sounds: S1 normal heart sound present, S2 normal heart sound present, no gallops, no murmurs and no rubs GI Palpation (GI): Soft to palpation Back/Spine/Pelvis Other: unremarkable Skin General skin exam: no rashes or lesions noted Neuro General: patient oriented x3 Extrem General: Yes normal to inspection Psych Mental Status: mental status grossly normal Office Procedures EKG Details: EKG with sinus rhythm at 67/Min; rightward axis; no significant ST-T changes; normal MI; corrected QT is slightly prolonged at 498 milliseconds but similar to prior. [id number], Complete Assessment & Plan Assessment & Plan (1) PAF (paroxysmal atrial fibrillation): Code(s): I48.0 - Paroxysmal atrial fibrillation Category: Medical (2) Encounter for monitoring amiodarone therapy: Code(s): Z51.81 - Encounter for therapeutic drug level monitoring; Z79.899 - Other skilled nursing (current) drug therapy Category: Medical (3) Essential hypertension: Code(s): I10 - Essential (primary) hypertension Category: Medical Plan Status post cardioversion. In sinus rhythm. Continue Multaq/Eliquis. QT is borderline prolonged but still okay to continue as it is stable. Echocardiogram-LVEF 60-65%. At least mildly dilated left atrium. Mild mitral regurgitation. Aortic valve calcification. Discussed with significant other who came for appointment. EKG in 3 months. Follow-up in 6 months. Orders: Orders Basic Metabolic Panel Today I48.0 - Paroxysmal atrial fibrillation Coding Level of Care Code Est Pt Level 4 (05315) Diagnoses PAF (paroxysmal atrial fibrillation) I48.0 Encounter for monitoring amiodarone therapy Z51.81; Z79.899 Essential hypertension I10 CPT Codes EKG - CPT: 92128-[id number], Complete ([id number])
[2023-09-15 10:42] VITALS: BP 124/68; PULSE 67; O2SAT 99; BMI 33.7
== END 2023-09-15 11:09 | disposition home or self-care (01) ==
PROVIDERS: PCP Internal Medicine; Visit Provider Internal Medicine
DX: I48.0 Paroxysmal atrial fibrillation (principal); Z51.81 Encounter for therapeutic drug level monitoring; Z79.899 Other long term (current) drug therapy; I10 Essential (primary) hypertension
CPT/HCPCS: 93010; 99214

== ENCOUNTER → 2023-09-15 10:38 | Outpatient (BNVA) | payer MEDICARE, SELFPAY | PROVIDERS: PCP Internal Medicine; Visit Provider Internal Medicine | DX: I48.0 Paroxysmal atrial fibrillation (principal); I10 Essential (primary) hypertension; Z51.81 Encounter for therapeutic drug level monitoring; Z79.899 Other long term (current) drug therapy | CPT/HCPCS: 93005; 99212 ==

== ENCOUNTER 2023-10-21 11:19 | Outpatient (REF) | payer MEDICARE, SELFPAY ==
--- NOTE | ~2023-10-21 | MM_ITS ---
EXAMINATION: MM DIAGNOSTIC DIGITAL BREAST TOMOSYNTHESIS, RIGHT CLINICAL INFORMATION: 6 month follow-up (to establish 1.5 years stability) for 2 groups of calcifications right breast, upper outer, and 6:00 lower. COMPARISON: Mammography: 04/08/2023, 09/26/2022, 05/24/2022, 05/16/2022 (BI-RADS 0). TECHNIQUE: Digital right breast tomosynthesis is performed in both the craniocaudal and mediolateral oblique views along with computer-aided detection (CAD). Synthesized 2D images are generated from the tomosynthesis. In addition, 2-D spot magnification views were obtained right CC x2, and right ML x3. FINDINGS: There are scattered areas of fibroglandular density (ACR BI-RADS breast composition Category b). The upper outer linear group of calcifications is entirely unchanged from 05/16/2022. These remain probably benign. The 6:00 axis loosely grouped somewhat coarse calcifications is also entirely unchanged from 05/16/2022 and more recent priors. These may lie within ectatic ducts. Both groups remain probably benign, and six-month interval follow-up recommended to establish two-year stability and benignity. There is a stable post benign biopsy marker in the central slightly outer right breast. There are stable vascular calcifications. No developing masses or developing regions of architectural distortion in the right breast. The overall parenchymal pattern is unchanged. No skin or axillary abnormalities. MM/MM tomosynthesis diagnostic RT IMPRESSION: -No findings suspicious for malignancy right breast. -2 groups of probably benign calcifications are unchanged, and recommendation is for 6 month follow-up to include similar magnification views to establish a two-year stability and benignity. -Stable benign findings. ASSESSMENT: BI-RADS BI-RADS 3 - Probably benign finding(s) - 6 month follow-up suggested RECOMMENDATION: 6 Month F/U Results were provided to the patient at time of visit by the technologist. This patient's information was entered into a reminder system with a target due date for their next mammogram.
== END 2023-10-21 11:20 | disposition home or self-care (01) ==
LOC: HO.MAMMO 11:19
PROVIDERS: PCP Internal Medicine; Visit Provider Internal Medicine
DX: R92.1 Mammographic calcification found on diagnostic imaging of breast (principal)
CPT/HCPCS: 77061; 77065

== ENCOUNTER → 2023-10-21 11:30 | Outpatient (BNV) | payer MEDICARE, SELFPAY | PROVIDERS: PCP Internal Medicine; Visit Provider Radiology Diagnostic Radiology | DX: R92.1 Mammographic calcification found on diagnostic imaging of breast (principal) | CPT/HCPCS: 77065; G0279 ==

== ENCOUNTER 2023-10-27 15:27 | Outpatient (AMB) | payer MEDICARE, SELFPAY ==
--- NOTE | 2023-10-27 15:29 | MHC.OFFVIS ---
Vital Signs 10/27/23 15:40 Height 5 ft 1 in Weight 175 lb 0.752 oz BMI 33.1 BP 142/64 H Blood Pressure Location Rt brachial Position Sitting Pulse 56 Pulse Source Pulse Oximeter Pulse Oximetry (%) 99 Oxygen Delivery Method Room Air Intake Visit Reasons: Anemia, Fecal Abnormalities Intake Note: Ramona presents in office today for a scheduled initial assessment visit. CC: Pt reports having onset of sx within the last year. Pt reports that they have been making adjustments to their diet recently and have been noticing some significant improvements. Pt had been experiencing moderate to severe diarrhea. Pt reports that they have sx only approximately 1-2x per month. Pt states that any nausea and vomiting has since stopped. Pt does report having occasional GI upset and bloating. Pt is also here for a + cologuard. 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 female here with past medical history of rhinitis, anemia, hypertension, PAF on Eliquis is today for pre colonoscopy screening.? Patient was sent to us by her PCP.? This is her first colonoscopy screening.? Patient many years ago tried to go for colonoscopy, unable to prep due to vomiting when drinking GoLYTELY. Despite patient not going through with the prep attempt was made for colonoscopy, however unsuccessful. Recently PCP send patient for Cologuard came back positive (July of 2023). Patient denies any gastrointestinal symptoms.? However patient does report occasional postprandial loose stools constipation. Patient admits that depending on what she eats and have been trying to eat better. Denies any personal or family history of gastrointestinal disease, colon polyps, or CRC.? Denies history of difficulty with sedation or anesthesia in the past.? Negative for history of sleep apnea.? Denies any history of renal, pulmonary, or hepatic disease.?? No history of infectious? diseases like hepatitis A, B, C, HIV or tuberculosis.? Patient is on Eliquis [facility] Medical History Vaccine refused by patient Vitamin D deficiency Anemia Positive colorectal cancer screening using Cologuard test Osteoarthritis Habitual snoring Bronchitis Rheumatic fever New onset atrial fibrillation Erythema intertrigo Rash of face Hx of ectopic Hx of History of seizures Essential hypertension Surgical History (Updated 10/27/23 @ 15:49 by ADAMA Garcia) Hx of colonoscopy Status post left breast lumpectomy (10/28/22) Hx of shoulder surgery H/O tubal ligation Hx of cholecystectomy Hx of tonsillectomy Family History Father Substance use disorder Lung cancer Essential hypertension CAD (coronary artery disease) COVID-19 Skin cancer Mother Substance use disorder Oral cancer Essential hypertension CAD (coronary artery disease) COVID-19 Sister Disorder of thyroid Brother CAD (coronary artery disease) COVID-19 Social History Housing: Apartment Are you a primary customer care consultant to a significant other at home: No Do you presently have visiting nurse or other home services: No Alcohol intake: current Alcohol intake frequency: 0-2 drinks per day Patient Tobacco Use Status: Former Tobacco user Tobacco use type: Cigarette e-Cigarette/Vaping Use: Never Used Current occupational status: retired Cognitive needs: No Hearing needs: No Vision needs: Yes Female Reproductive History Menstrual Age of Menarche: 11 Review of Systems Const Denies weight gain and Denies weight loss ENT Reports no additional complaints, Denies dysphagia and Denies odynophagia Card Reports no additional complaints Resp Reports no additional complaints GI Reports abdominal pain (Cramping), Denies belching, Denies melena, Reports bloating (Occasional), Reports constipation, Denies dysphagia, Denies excessive flatus, Denies dyspepsia, Denies heartburn, Denies diarrhea, Reports loose stools, Denies nausea, Denies odynophagia and Denies vomiting Reports no additional complaints Musc Reports no additional complaints Neuro Reports no additional complaints Psych Reports no additional complaints Endo Reports no additional complaints Physical Exam Vital Signs: Last Vital Signs Pulse 56 10/27/23 15:40 BP 142/64 H 10/27/23 15:40 Pulse Ox 99 10/27/23 15:40 Oxygen Delivery Method Room Air 10/27/23 15:40 BMI result Body Mass Index 33.1 Const General: healthy appearing and no acute distress Nutritional Appearance: obese Orientation/consciousness: patient oriented x3 Resp Effort & Inspection: normal respiratory effort, able to speak in complete sentences, no tracheal deviation and symmetric chest movement Auscultation: clear to auscultation bilaterally Cardio Rate: regular rate GI Inspection: Yes normal to inspection, No distended and Yes obesity Palpation (GI): Soft to palpation, not firm, nontender and No hepatosplenomegaly present Auscultation: normal bowel sounds General: Yes no CVA tenderness Back/Spine/Pelvis Back: no CVA tenderness Skin General skin exam: elasticity normal, turgor normal and dry skin Neuro General: patient oriented x3 Psych Appearance: grossly normal Mental Status: mental status grossly normal Assessment & Plan Assessment & Plan (1) Positive colorectal cancer screening using Cologuard test: Code(s): R19.5 - Other fecal abnormalities Category: Medical (2) Screen for colon cancer: Code(s): Z12.11 - Encounter for screening for malignant neoplasm of colon Plan Patient denies any cardiac or respiratory symptoms.? Occasional symptoms of postprandial abdominal bloating and loose stools depending on what she eats. Discussed with patient low FODMAP diet. List of food recommended as well as list of food to avoid given to patient. Denies any issues with anesthesia in the past.? Denies any history of sleep apnea.? No history infectious diseases in the past or present.? Patient is on Eliquis. Has an appointment with her flat bed knitter in March. Note sent to court officer for request to be cleared before going for procedure.? No family or personal history of colon cancer or polyps.? Patient denies melena, hematochezia, unintentional weight loss or ribbon like stools.? Discussed at length the pre-procedure,? prep, diet & medications as well as what to expect prior, during and after the procedure.?? Stressed the importance of good bowel prep.? Recommended the use of Vaseline or Calmoseptine OTC & baby wipes with bowel movements to promote comfort.? ?Patient verbalizes understanding and agrees to plan of care.? She was given the opportunity to ask questions and all questions answered.? We will see her after the procedure.? Medications: New magnesium citrate Drink one bottle at 17:00 and 2nd bottle at 22:00 296 mL PO ONCE 296 mL 1RF constipation Z12.11 - Encounter for screening for malignant neoplasm of colon bisacodyl (Dulcolax (bisacodyl)) take 4 tabs at noon the day before your colonoscopy 20 mg (4 x 5 mg) PO ONCE 4 tabs 0RF 1 day Z12.11 - Encounter for screening for malignant neoplasm of colon Coding Level of Care Code New Pt Level 3 (33469) Diagnoses Positive colorectal cancer screening using Cologuard test R19.5 Screen for colon cancer Z12.11 Time Spent (min) 40 Comment 30 minutes spent with patient and additional 10 minutes spent reviewing her records
[2023-10-27 15:40] VITALS: BP 142/64; PULSE 56; O2SAT 99; BMI 33.1
== END 2023-10-27 16:29 | disposition home or self-care (01) ==
PROVIDERS: PCP Internal Medicine; Visit Provider Nurse Practitioner Family
DX: R19.5 Other fecal abnormalities (principal); Z12.11 Encounter for screening for malignant neoplasm of colon
CPT/HCPCS: 99203

== ENCOUNTER → 2023-10-27 15:27 | Outpatient (BNVA) | payer MEDICARE, SELFPAY | PROVIDERS: PCP Internal Medicine; Visit Provider Nurse Practitioner Family | DX: R19.5 Other fecal abnormalities (principal) | CPT/HCPCS: 99202 ==

== ENCOUNTER → 2023-12-08 09:45 | Outpatient (BNVA) | payer MEDICARE, SELFPAY | PROVIDERS: PCP Internal Medicine; Visit Provider Internal Medicine ==

== ENCOUNTER 2024-03-10 14:24 | Outpatient (REF) | payer MEDICARE, SELFPAY ==
[2024-03-10 16:19] LABS: MANUAL DIFF FLAG NO
[2024-03-10 16:48] LABS: Basophils Absolute Auto 0.1 X10*3/uL (0.0-0.2); Basophils Percent Auto 0.8 % (0-2); Eosinophils Absolute Auto 0.1 X10*3/uL (0.0-0.4); Eosinophils Percent Auto 0.8 % (0-4); Hemoglobin 9.9 g/dl (12.0-16.0); Imm Gran Abs Auto 0.03 X10*3/uL (0.00-0.03); Imm Gran Pct Auto 0.3 % (0.0-0.4); Lymphocytes Absolute Auto 1.7 X10*3/uL (1.2-4.9); Lymphocytes Percent Auto 17.4 % (20-40); Mean Corpuscular HGB Conc 31.9 g/dl (31.0-35.0); Mean Corpuscular Hemoglobin 26.5 pg (27.0-33.0); Mean Corpuscular Volume 82.9 fL (80.0-98.0); Mean Platelet Volume 9.1 fL (9.4-12.3); Monocytes Absolute Auto 1.2 X10*3/uL (0.1-1.2); Monocytes Percent Auto 12.1 % (2-11); Neutrophils Absolute Auto 6.6 x10*3/uL (2.0-8.3); Neutrophils Percent Auto 68.6 % (45-73); Platelet Count 455 X10*3/uL (160-400); Red Blood Count 3.74 X10*6/uL (4.20-5.50); Red Cell Distribution Width 14.9 % (11.0-16.0); White Blood Count 9.7 X10*3/uL (4.8-10.8)
[2024-03-10 17:18] LABS: Iron 47 mcg/dL (30-160); Percent Iron Saturation 12 % (15-50); Total Iron Binding Capacity 407 mcg/dL (228-428); Unsaturated Iron Binding 360 ug/dL
[2024-03-10 17:19] LABS: Vitamin D 25-OH Total 29.9 ng/mL (>30)
== END 2024-03-10 14:25 | disposition home or self-care (01) ==
LOC: HO.HMGCLDS 14:24
PROVIDERS: PCP Internal Medicine; Visit Provider Internal Medicine
DX: D64.9 Anemia, unspecified (principal); E55.9 Vitamin D deficiency, unspecified
CPT/HCPCS: 36415; 82306; 83540; 85025

== ENCOUNTER 2024-03-11 15:20 | Outpatient (AMB) | payer MEDICARE, SELFPAY ==
[2024-03-11 15:46] VITALS: BP 122/70; PULSE 62; O2SAT 99; BMI 33.1
--- NOTE | 2024-03-11 15:46 | A.OFFPC_ITS ---
Vital Signs 03/11/24 15:46 Height 5 ft 1 in Weight 175 lb BMI 33.1 BP 122/70 Blood Pressure Location Lt brachial Position Sitting Pulse 62 Pulse Source Pulse Oximeter Pulse Oximetry (%) 99 Oxygen Delivery Method Room Air Intake Visit Reasons: 6 Month F/U Intake Note: Pt is here today for her 6mo. f/u labs Allergies Penicillins Allergy (Unknown, Verified 03/14/24 14:15) UNKNOWN Antihistamines - Ethylenediamine Adverse Reaction (Verified 03/14/24 14:15) tachycardia flu vaccine Adverse Reaction (Uncoded 03/14/24 14:15) vomiting steriods Adverse Reaction (Uncoded 03/14/24 14:15) tachycardia Medication List - Last Reconciled 03/14/24 by Chloe Munoz MD amlodipine 5 mg PO DAILY apixaban (Eliquis) 5 mg PO BID cholecalciferol (vitamin D3) 125 mcg PO DAILY docusate sodium (Colace) 100 mg PO DAILY dronedarone (Multaq) 400 mg PO BID ferrous fumarate 325 mg PO DAILY hydrochlorothiazide 25 mg PO QAM magnesium 400 mg PO DAILY metoprolol succinate ER 100 mg PO DAILY uedxvrex-jsb-phiz-FA-vit K-lut 8 mg iron-400 mcg-50 mcg (Centrum Silver Women) 1 tab PO DAILY Tobacco use date assessed: 03/11/24 Fall risk assessment: No Falls in past year Last assessed Fall Risk: 03/11/24 Dental Screening Dental Screen Date: 03/11/24 Did you have a dental visit in the last 12 months?: No Did you have a dental problem in the last 6 months where you did not have access to dental care?: No Was dental information given to patient?: Patient declined HPI 6 Month F/U HPI Details 68-year-old lady with past medical histo ry significant for paroxysmal atrial fibrillation currently on apixaban, has hypertension, and anemia, with positive Cologuard noted earlier this year. She has been compliant with taking her medications, has been feeling well except for complained of easy fatigability, no chest pain or lightheadedness reported. She is already scheduled for a screening colonoscopy later this month. Had recent labs done which showed presence of anemia with a hemoglobin of 9.9, hematocrit at 31, with normal iron profile, except for low saturation, and a low vitamin-D level. Patient denies any unusual bruising or any abnormal bleeding. [facility] Medical History Vaccine refused by patient Vitamin D deficiency Anemia Positive colorectal cancer screening using Cologuard test Osteoarthritis Habitual snoring Bronchitis Rheumatic fever New onset atrial fibrillation Erythema intertrigo Rash of face Hx of ectopic Hx of History of seizures Essential hypertension Surgical History Hx of colonoscopy Status post left breast lumpectomy (10/28/22) Hx of shoulder surgery H/O tubal ligation Hx of cholecystectomy Hx of tonsillectomy Family History Father Substance use disorder Lung cancer Essential hypertension CAD (coronary artery disease) COVID-19 Skin cancer Mother Substance use disorder Oral cancer Essential hypertension CAD (coronary artery disease) COVID-19 Sister Disorder of thyroid Brother CAD (coronary artery disease) COVID-19 Social History Housing: Apartment Are you a primary reservoir caretaker to a significant other at home: No Do you presently have visiting nurse or other home services: No Alcohol intake: current Alcohol intake frequency: 0-2 drinks per day Patient Tobacco Use Status: Former Tobacco user Tobacco use type: Cigarette e-Cigarette/Vaping Use: Never Used Current occupational status: retired Cognitive needs: No Hearing needs: No Vision needs: Yes Female Reproductive History Menstrual Age of Menarche: 11 Questionnaire Thrive Questionnaire Date Thrive assessed: 08/07/23 ITALO-7 AMB Questionnaire ITALO-7 Date ITALO - 7 assessed: 08/07/23 Source: Developed by Drs. Matthew Cornell, Chelle Call, Victor Manuel Kovacs and colleagues, with an educational surinder from [employer]. Review of Systems Const Reports no additional complaints, Denies weight gain and Denies weight loss ENT Reports no additional complaints Card Reports no additional complaints Resp Reports no additional complaints GI Reports abdominal pain (Cramping), Denies melena, Reports bloating (Occasional), Reports constipation, Denies excessive flatus, Denies dyspepsia, Denies heartburn, Denies nausea and Denies vomiting Reports no additional complaints Musc Reports no additional complaints Skin/Breast Denies unusual bruising Neuro Reports no additional complaints Psych Reports no additional complaints Endo Reports no additional complaints Zak/Lymph Reports no additional complaints Physical exam (Primary Care) Vital Signs: Last Vital Signs Pulse 62 03/11/24 15:46 BP 122/70 03/11/24 15:46 Pulse Ox 99 03/11/24 15:46 Oxygen Delivery Method Room Air 03/11/24 15:46 BMI result Body Mass Index 33.1 Tobacco/Smoking Status: Tobacco use Status Tobacco use date assessed 03/11/24 03/11/24 15:51 Patient Tobacco Use Status Former Tobacco user 03/11/24 15:51 Tobacco use type Cigarette 03/11/24 15:51 e-Cigarette/Vaping Use Never Used 03/11/24 15:51 Thrive Assessment: Date of Thrive Assessment Date Thrive assessed 08/07/23 03/11/24 15:51 Const General: comfortable, no acute distress, alert and awake Orientation/consciousness: patient oriented x3 HENMT Head: Yes normocephalic Ears: external ears normal Face and sinus: Yes face symmetric Mouth: Normal oral and palatal mucosa present, oropharynx normal and moist mucous membranes Eyes General: appearance normal, both eyes and all related structures Neck Other: Nonpalpable thyroid gland Neck: Yes full ROM, Yes no lymphadenopathy and Yes supple Resp Effort & Inspection: normal respiratory effort Auscultation: clear to auscultation bilaterally Cardio Other: Irregularly irregular rhythm noted GI Inspection: Yes normal to inspection Palpation (GI): Soft to palpation, nontender and no guarding Auscultation: normal bowel sounds and no bruits General: Yes no CVA tenderness Back/Spine/Pelvis Back: no CVA tenderness and No back tenderness Neuro General: patient oriented x3 Motor exam (neuro): 5/5 motor strength present throughout and no tremors Sensory Exam: double simultaneous stimulation for sensation normal Extrem General: Yes full ROM, Yes no joint enlargement, Yes no clubbing, cyanosis or edema, Yes no pedal edema, Yes no calf tenderness and Yes normal gait Psych Appearance: grossly normal and well kempt Mental Status: mental status grossly normal Speech and movement: Normal speech and movement present Affect: normal affect Results Reviewed Results Reviewed: Name: Ramona Munguia Age/Sex: 68/F : 1955 Unit#: [id number] Attend Dr: Chloe Munoz MD Re03/10/24 Status: DEP [facility]F [facility] Disch: SPEC : [id number] GARETH: 03/10/24 STATUS: COMP REQ : [id number] RECD: 03/10/[address]: Chloe Munoz MD COMP: 03/10/24 ENTERED: 03/10/24 [facility] DR: ORDERED: CBC Auto Diff Test Result Flag Reference WBC 9.7 4.8-10.8 X10*3/uL RBC 3.74 L 4.20-5.50 X10*6/uL HGB 9.9 L 12.0-16.0 g/dl HCT 31.0 L 37.0-47.0 % MCV 82.9 80.0-98.0 fL MCH 26.5 L 27.0-33.0 pg MCHC 31.9 31.0-35.0 g/dl RDW 14.9 11.0-16.0 % PLT 455 H 160-400 X10*3/uL MPV 9.1 L 9.4-12.3 fL Neut Pct Auto 68.6 45-73 % ImGran Pct Auto 0.3 0.0-0.4 % Lymp Pct Auto 17.4 L 20-40 % Sharp Pct Auto 12.1 H 2-11 % Eos Pct Auto 0.8 0-4 % Baso Pct Auto 0.8 0-2 % NRBC Pct Auto 0.0 0.0-0.2 /100WBC ANC Neut Abs # 6.6 2.0-8.3 x10*3/uL ImGran Abs Auto 0.03 0.00-0.03 X10*3/uL Lymph Abs Auto 1.7 1.2-4.9 X10*3/uL Sharp Abs Auto 1.2 0.1-1.2 X10*3/uL Eos Abs Auto 0.1 0.0-0.4 X10*3/uL Baso Abs Auto 0.1 0.0-0.2 X10*3/uL NRBC Abs Auto 0.000 0.0-0.012 X10*3/uL Laboratory Tests 03/10/24 14:36 Iron 47 TIBC 407 % Saturation 12 L Unsat Iron Binding 360 25-OH Vitamin D Total 29.9 L Coding Level of Care Code Est Pt Level 4 (41620) Complex EM visit Add On G2211 Diagnoses Vitamin D deficiency E55.9 Anemia D64.9 Positive colorectal cancer screening using Cologuard test R19.5 Essential hypertension I10 PAF (paroxysmal atrial fibrillation) I48.0 Assessment & Plan Assessment & Plan (1) Vitamin D deficiency: Code(s): E55.9 - Vitamin D deficiency, unspecified Category: Medical Plan: Started on vitamin D3 57940 units per capsule to take once a week for the next 3 months. Advise patient that once finished with taking the prescription, to continue taking iurw-rry-drvqafu vitamin-D 3 at 2000 units daily. (2) Anemia: Code(s): D64.9 - Anemia, unspecified Category: Medical Plan: Started on ferrous sulfate 325 mg per tablet to take once a day, advised to take it with vitamin-C or orange juice for better absorption. Patient warned that medication may cause constipation, to take [id number]-xpljgzc Colace 100 mg once a day together with iron supplements (3) Positive colorectal cancer screening using Cologuard test: Code(s): R19.5 - Other fecal abnormalities Category: Medical Plan: Already referred to GI Clinic, and has an upcoming colonoscopy procedure scheduled on 04/19/2024 (4) Essential hypertension: Code(s): I10 - Essential (primary) hypertension Category: Medical Plan: Blood pressure at goal of less than 130/80. Continue amlodipine 5 mg once a day and hydrochlorothiazide 125 mg daily in a.m. together with metoprolol succinate ER 100 mg once a day. Followed by cardiology, Reinforced importance of following a low sodium diet, getting regular exercise, and lowering stress levels. (5) PAF (paroxysmal atrial fibrillation): Code(s): I48.0 - Paroxysmal atrial fibrillation Category: Medical Plan: Currently on apixaban 5 mg 1 tablet twice a day and dronedarone 400 mg 1 tablet twice a day. Followed by Cardiology Medications: New ferrous fumarate Take it with orange juice for better absorption 325 mg PO DAILY 90 tabs 1RF cholecalciferol (vitamin D3) 125 mcg PO DAILY 90 caps 0RF E55.9 - Vitamin D deficiency, unspecified
== END 2024-03-11 16:12 | disposition home or self-care (01) ==
LOC: HO.HMCC 15:20
PROVIDERS: PCP Internal Medicine; Visit Provider Internal Medicine
DX: I48.0 Paroxysmal atrial fibrillation (principal); E55.9 Vitamin D deficiency, unspecified; D64.9 Anemia, unspecified; R19.5 Other fecal abnormalities; I10 Essential (primary) hypertension

== ENCOUNTER → 2024-03-11 15:20 | Outpatient (BNVA) | payer MEDICARE, SELFPAY | PROVIDERS: PCP Internal Medicine; Visit Provider Internal Medicine | DX: E55.9 Vitamin D deficiency, unspecified (principal); D64.9 Anemia, unspecified; R19.5 Other fecal abnormalities; I10 Essential (primary) hypertension; I48.0 Paroxysmal atrial fibrillation | CPT/HCPCS: 99212 ==

== ENCOUNTER 2024-03-24 10:23 | Outpatient (AMB) | payer MEDICARE, SELFPAY ==
--- NOTE | 2024-03-24 10:45 | MHC.OFFVIS ---
Vital Signs 03/24/24 10:46 Height 5 ft 1 in Weight 171 lb 8.314 oz BMI 32.4 BP 110/64 Blood Pressure Location Lt brachial Position Sitting Pulse 50 Pulse Source Monitor Intake Visit Reasons: 6m fu/ preop GI Transport Pilot Required: No Accompanied by: Significant Other Allergies Penicillins Allergy (Unknown, Verified 03/14/24 14:15) UNKNOWN Antihistamines - Ethylenediamine Adverse Reaction (Verified 03/14/24 14:15) tachycardia flu vaccine Adverse Reaction (Uncoded 03/14/24 14:15) vomiting steriods Adverse Reaction (Uncoded 03/14/24 14:15) tachycardia Medication List - Last Reconciled 03/24/24 by Alexandre Rdz MD amlodipine 5 mg PO DAILY apixaban (Eliquis) 5 mg PO BID cholecalciferol (vitamin D3) 125 mcg PO DAILY docusate sodium (Colace) 100 mg PO DAILY dronedarone (Multaq) 400 mg PO BID ferrous fumarate 325 mg PO DAILY hydrochlorothiazide 25 mg PO QAM magnesium 400 mg PO DAILY metoprolol succinate ER 100 mg PO DAILY xyupyqba-goj-hrdx-FA-vit K-lut 8 mg iron-400 mcg-50 mcg (Centrum Silver Women) 1 tab PO DAILY HPI Comments Details: Ramona returns for follow-up regarding atrial fibrillation. In 2022, she underwent cardioversion. Initially she was on amiodarone but then switched over to Multaq. She has been doing well on that, but she states Multaq is too expensive and that it costs $500 for refills. Hence she is looking for alternatives. Otherwise, no clear-cut cardiac symptoms. [facility] Medical History Vaccine refused by patient Vitamin D deficiency Anemia Positive colorectal cancer screening using Cologuard test Osteoarthritis Habitual snoring Bronchitis Rheumatic fever New onset atrial fibrillation Erythema intertrigo Rash of face Hx of ectopic Hx of History of seizures Essential hypertension Surgical History Hx of colonoscopy Status post left breast lumpectomy (10/28/22) Hx of shoulder surgery H/O tubal ligation Hx of cholecystectomy Hx of tonsillectomy Family History Father Substance use disorder Lung cancer Essential hypertension CAD (coronary artery disease) COVID-19 Skin cancer Mother Substance use disorder Oral cancer Essential hypertension CAD (coronary artery disease) COVID-19 Sister Disorder of thyroid Brother CAD (coronary artery disease) COVID-19 Social History Housing: Apartment Are you a primary child care worker to a significant other at home: No Do you presently have visiting nurse or other home services: No Alcohol intake: current Alcohol intake frequency: 0-2 drinks per day Patient Tobacco Use Status: Former Tobacco user Tobacco use type: Cigarette e-Cigarette/Vaping Use: Never Used Current occupational status: retired Cognitive needs: No Hearing needs: No Vision needs: Yes Female Reproductive History Menstrual Age of Menarche: 11 Review of Systems Const Denies chills, Denies fatigue, Denies fever(s), Denies frequent falls, Denies weakness, Denies weight gain and Denies weight loss ENT Denies dizziness Card Denies chest pain, Denies leg edema, Denies lightheadedness, Denies palpitations, Denies dyspnea and Denies dyspnea on exertion Resp Denies cough, Denies dyspnea and Denies dyspnea on exertion GI Denies hematochezia Musc Denies abnormal gait, Denies muscle weakness, Denies numbness, Denies radiating pain into limb and Denies tingling Neuro Denies abnormal gait, Denies dizziness, Denies frequent falls, Denies numbness, Denies tingling and Denies weakness Endo Denies fatigue and Denies palpitations Physical Exam Vital Signs: Last Vital Signs Pulse 50 03/24/24 10:46 BP 110/64 03/24/24 10:46 BMI result Body Mass Index 32.4 Const General: comfortable and no acute distress Orientation/consciousness: patient oriented x3 HEENT Other: Unremarkable Head: Yes normal to inspection Neck Neck: Yes normal visual inspection Chest Chest palpation & inspection: normal inspection of the chest Resp Auscultation: clear to auscultation bilaterally Cardio Palpation: normal PMI Heart sounds: S1 normal heart sound present, S2 normal heart sound present, no gallops, no murmurs and no rubs GI Palpation (GI): Soft to palpation Back/Spine/Pelvis Other: unremarkable Skin General skin exam: no rashes or lesions noted Neuro General: patient oriented x3 Extrem General: Yes normal to inspection Psych Mental Status: mental status grossly normal Office Procedures EKG Details: EKG with underlying sinus bradycardia, 50/Min; no significant ST-T changes and otherwise unremarkable. [place] [id number], Complete Assessment & Plan Assessment & Plan (1) PAF (paroxysmal atrial fibrillation): Code(s): I48.0 - Paroxysmal atrial fibrillation Category: Medical (2) Essential hypertension: Code(s): I10 - Essential (primary) hypertension Category: Medical Plan Status post cardioversion in 2022. Has maintained sinus rhythm and on Multaq but unable to continue due to high costs. We discussed about EP referral to consider ablation and she is willing. Hence we will refer to EP for the same. In the interim, she may continue metoprolol. If unable to refill Multaq, may stop that. Other alternative may be Flecainide, if she doesn't proceed with ablation. Continue anticoagulation without changes. Blood pressure seems stable. On amlodipine/hydrochlorothiazide. Echocardiogram-LVEF 60-65%. At least mildly dilated left atrium. Mild mitral regurgitation. Aortic valve calcification. Discussed with significant other who came for appointment. Follow-up after EP appointment. Orders: Referrals Cardiac Electrophysiology Referral I48.0 - Paroxysmal atrial fibrillation Coding Level of Care Code Est Pt Level 4 (80475) Diagnoses PAF (paroxysmal atrial fibrillation) I48.0 Essential hypertension I10 CPT Codes EKG - CPT: 06727-Zguzqlzeckjboqqlp, Complete ([id number])
[2024-03-24 10:46] VITALS: BP 110/64; PULSE 50; BMI 32.4
== END 2024-03-24 11:12 | disposition home or self-care (01) ==
PROVIDERS: PCP Internal Medicine; Visit Provider Internal Medicine
DX: I48.0 Paroxysmal atrial fibrillation (principal); I10 Essential (primary) hypertension
CPT/HCPCS: 93010; 99214

== ENCOUNTER → 2024-03-24 10:23 | Outpatient (BNVA) | payer MEDICARE, SELFPAY | PROVIDERS: PCP Internal Medicine; Visit Provider Internal Medicine | DX: Z01.810 Encounter for preprocedural cardiovascular examination (principal); I48.0 Paroxysmal atrial fibrillation; I10 Essential (primary) hypertension | CPT/HCPCS: 93005; 99212 ==

== ENCOUNTER 2024-04-19 11:17 | Day surgery (SDC) | payer MEDICARE, SELFPAY ==
[2024-04-15 15:23] VITALS: BMI 32.4
--- NOTE | 2024-04-16 08:58 | HO.ANESPROP2 ---
Documented by User: Lisbeth Farris NP 04/16/24 08:59 HPI - Anesthesia Eval Consult details Narrative: 68yo F for Colonoscopy [place]s [facility] [place] [facility] for afib (eliquis). Optimized for procedure. Stable at 03/2024 office visit PMF Active Problems Active Problems: All Active Problems CKD (chronic kidney disease), stage III (Acute) Vaccine refused by patient (Acute) Vitamin D deficiency (Acute) Anemia (Acute) Positive colorectal cancer screening using Cologuard test (Acute) Annual visit for general adult medical examination with abnormal findings (Acute) PAF (paroxysmal atrial fibrillation) (Acute) Essential hypertension (Acute) Past Medical History Medical History (Updated 04/06/24 @ 01:31 by Chloe Munoz MD) CKD (chronic kidney disease), stage III Vaccine refused by patient Vitamin D deficiency Anemia Positive colorectal cancer screening using Cologuard test Osteoarthritis Habitual snoring Bronchitis Rheumatic fever New onset atrial fibrillation Erythema intertrigo Rash of face Hx of ectopic Hx of History of seizures Essential hypertension Family History Family History Father Substance use disorder Lung cancer Essential hypertension CAD (coronary artery disease) COVID-19 Skin cancer Mother Substance use disorder Oral cancer Essential hypertension CAD (coronary artery disease) COVID-19 Sister Disorder of thyroid Brother CAD (coronary artery disease) COVID-19 Surgical History Surgical History Hx of colonoscopy Status post left breast lumpectomy (10/28/22) Hx of shoulder surgery H/O tubal ligation Hx of cholecystectomy Hx of tonsillectomy Social History Social History Housing: Apartment Are you a primary healthcare financial analyst to a significant other at home: No Do you presently have visiting nurse or other home services: No Alcohol intake: current Alcohol intake frequency: does not drink Patient Tobacco Use Status: Former Tobacco user Tobacco use type: Cigarette e-Cigarette/Vaping Use: Never Used Have you been hit, kicked, punched, or otherwise hurt by someone within the past year? If so, by whom?: No Are you DNR?: No Advance Directives: No Advance Directives Information Provided: Yes Current occupational status: retired Cognitive needs: No Hearing needs: No Vision needs: Yes Meds Allergies Allergy/AdvReac Type Severity Reaction Status Date / Time Penicillins Allergy Unknown UNKNOWN Verified 03/14/24 14:15 Antihistamines - AdvReac tachycardia Verified 03/14/24 14:15 Ethylenediamine flu vaccine AdvReac vomiting Uncoded 03/14/24 14:15 steriods AdvReac tachycardia Uncoded 03/14/24 14:15 Home Medications ?Medication ?Instructions ?Recorded ?Confirmed ?Last Taken ?Type dovfzgyi-futw-lncj 8 mg-folic 400 1 tab PO DAILY 05/01/22 04/19/24 04/12/24 History mcg-K 50 mcg-lutein 300 mcg tablet (Centrum Silver Women) magnesium 200 mg tablet 400 mg PO DAILY 10/17/22 04/19/24 04/12/24 History docusate sodium 100 mg capsule 100 mg PO DAILY 03/11/24 04/19/24 04/18/24 History (Colace) Exam Height,Weight and Vital Signs: Height 5 ft 1 in Weight 77.791 kg Narrative Narrative: EKG 03/2024 Details: EKG with underlying sinus bradycardia, 50/Min; no significant ST-T changes and otherwise unremarkable. Normal MO and corrected QT. Assessment and Plan Assessment Anesthesia Assessment: Chart Reviewed Documented by User: Luba Sharp MD 04/19/24 12:28 [facility] Past Medical History Medical History (Updated 04/06/24 @ 01:31 by Chloe Munoz MD) CKD (chronic kidney disease), stage III Vaccine refused by patient Vitamin D deficiency Anemia Positive colorectal cancer screening using Cologuard test Osteoarthritis Habitual snoring Bronchitis Rheumatic fever New onset atrial fibrillation Erythema intertrigo Rash of face Hx of ectopic Hx of History of seizures Essential hypertension Family History Family History Father Substance use disorder Lung cancer Essential hypertension CAD (coronary artery disease) COVID-19 Skin cancer Mother Substance use disorder Oral cancer Essential hypertension CAD (coronary artery disease) COVID-19 Sister Disorder of thyroid Brother CAD (coronary artery disease) COVID-19 Family history of problems with anesthesia: No Surgical History Surgical History Hx of colonoscopy Status post left breast lumpectomy (10/28/22) Hx of shoulder surgery H/O tubal ligation Hx of cholecystectomy Hx of tonsillectomy History of Problems with Anesthesia: No Social History Social History Housing: Apartment Are you a primary healthcare financial analyst to a significant other at home: No Do you presently have visiting nurse or other home services: No Alcohol intake: current Alcohol intake frequency: does not drink Patient Tobacco Use Status: Former Tobacco user Tobacco use type: Cigarette e-Cigarette/Vaping Use: Never Used Have you been hit, kicked, punched, or otherwise hurt by someone within the past year? If so, by whom?: No Are you DNR?: No Advance Directives: No Advance Directives Information Provided: Yes Current occupational status: retired Cognitive needs: No Hearing needs: No Vision needs: Yes Meds Allergies Allergy/AdvReac Type Severity Reaction Status Date / Time Penicillins Allergy Unknown UNKNOWN Verified 03/14/24 14:15 Antihistamines - AdvReac tachycardia Verified 03/14/24 14:15 Ethylenediamine flu vaccine AdvReac vomiting Uncoded 03/14/24 14:15 steriods AdvReac tachycardia Uncoded 03/14/24 14:15 Home Medications ?Medication ?Instructions ?Recorded ?Confirmed ?Last Taken ?Type pyxrhilj-awmk-jvvz 8 mg-folic 400 1 tab PO DAILY 05/01/22 04/19/24 04/12/24 History mcg-K 50 mcg-lutein 300 mcg tablet (Centrum Silver Women) magnesium 200 mg tablet 400 mg PO DAILY 10/17/22 04/19/24 04/12/24 History docusate sodium 100 mg capsule 100 mg PO DAILY 03/11/24 04/19/24 04/18/24 History (Colace) Exam Airway Mallampati Class: II TM Dist: >3cm Neck ROM: Full Heart: rrr Lungs: cta Assessment and Plan Assessment Anesthesia Assessment: Anesthesia Plan Discussed Final Anesthetic Review Family History of Problems with Anesthesia: No History of Problems with Anesthesia: No NPO: Yes ASA Class: III Final Preanesthetic Review: No Changes in Pt Med Stat, Meds/Allgs Chart Reviewed and Consent Obtained/Reviewed Patient Risk: Low Procedure Risk: Low Anesthetic Plan Anesthetic Plan: MAC: Disposition: Standard PACU
--- NOTE | 2024-04-19 11:25 | MHC.SHP ---
Pre-Procedural Eval Section A - 24 Hr Update-Section A only Date of Service: 04/19/24 The patient is an INPATIENT: No The patient has been examined within 24 hours of the surgical procedure. The History & Physical has been completed within 30 days and I have reviewed it.: No Section B - Complete if H&P > 30 days Chief Complaint: postiive Cologuard Relevant Family History (Specify if Yes): No Relevant Social History: Tobacco Use (Former smoker) Present Medications: see Short Stay Collaborative assessment Medical History: Significant History (Anemia Positive colorectal cancer screening using Cologuard test Osteoarthritis Habitual snoring Bronchitis Rheumatic fever New onset atrial fibrillation Erythema intertrigo Rash of face Hx of ectopic Hx of History of seizures Essential hypertension) History of Previous Operations: Relevant previous surgery/procedure and date(s) (Hx of colonoscopy Status post left breast lumpectomy (10/28/22) Hx of shoulder surgery H/O tubal ligation Hx of cholecystectomy Hx of tonsillectomy) Allergies: Allergies Allergy/AdvReac Type Severity Reaction Status Date / Time Penicillins Allergy Unknown UNKNOWN Verified 03/14/24 14:15 Antihistamines - AdvReac tachycardia Verified 03/14/24 14:15 Ethylenediamine flu vaccine AdvReac vomiting Uncoded 03/14/24 14:15 steriods AdvReac tachycardia Uncoded 03/14/24 14:15 Review of Systems Sugical H&P ROS: Negative: Constitution, Cardiovascular, Respiratory and Gastrointestinal Exam Surgical H&P Exam: Normal: Heart, Normal: Lungs, Normal: Extremities and Normal: Abdomen Plan Diagnosis/Plan: Unchanged I have reviewed the history and physical and performed a pertinent physical examination on my patient. No changes have occurred unless specified. Time Spent With Patient Time: Total time managing care of this patient today ____ minutes.
[2024-04-19 11:38] VITALS: BP 148/76; PULSE 56; RESP 18; TEMP 36.9; O2SAT 97
[2024-04-19] MEDS: Lactated Ringers 1,000 ML 100 ML IVCONT (12:03)
[2024-04-19 13:18] VITALS: BP 105/53; PULSE 56; RESP 16; TEMP 36.1; O2SAT 99
--- NOTE | 2024-04-19 13:18 | HO.OPN-COLON ---
Colonoscopy Operative Note Operative Note Date of Service: 04/19/24 Narrative: COLONOSCOPY TILL CECUM WITH BIOPSIES AND SNARE POLYPECTOMY Pre-op diagnosis: Positive Cologuard test. Post-op diagnosis:? Cecal mass, colon polyp, Diverticulosis, hemorrhoids Endoscopist:? Bernarda Jacob MD Anesthesia:?MAC Consent: Indications for the procedure and potential complications of bleeding, perforation, reaction to medications and missed diagnosis were discussed with the patient and informed consent was obtained. Instrument: Olympus PCF H 190 L variable stiffness pediatric colonoscope Monitoring: Vital signs and clinical assessment, intermittent blood pressure monitoring, continuous EKG monitoring, Pulse oximetry and Carbon Dioxide monitoring were done throughout the procedure. Please see anesthesia flowsheet. Colon withdrawl time was 21 minutes. Procedure: The patient was placed in the left lateral decubitis position and pre-procedure medications were administered. After a digital rectal examination of the ano-rectum, the video colonoscope was inserted into the rectum and advanced through the colon to the cecum. The colonoscope was slowly withdrawn in a retrograde panoramic fashion and the colon mucosa was carefully examined including a retroflexed view of the rectum. Findings and interventions are described below. Procedure Difficulty: without difficulty Findings: Terminal Ileum: Not evaluated Cecum: A 5 cms polypoidal and friable mass in the cecum with some fresh blood in the cecum which was suctioned. The mass appeared to be arising from posterior lip of the ICV - multiple biopsies were obtained Ascending Colon: Moderate diverticulosis throughout the entire colon Transverse Colon: Moderate diverticulosis throughout the entire colon Descending Colon: Moderate diverticulosis throughout the entire colon Sigmoid Colon: Severe diverticulosis with luminal narrowing Rectum: A 10 mm sessile polyp in the poximal rectum - removed with hot snare Ano-rectum: Small internal hemorrhoids Colon preparation: Good after some irrigation. [place] Bowel Preparation Scale Right colon; 2 Transverse colon: 2 Left colon; 2 (0 = Unprepared colon segment with mucosa not seen due to solid stool that cannot be cleared. 1 = Portion of mucosa of the colon segment seen, but other areas of the colon segment not well seen due to staining, residual stool and/or opaque liquid. 2 = Minor amount of residual staining, small fragments of stool and/or opaque liquid, but mucosa of colon segment seen well. 3 = Entire mucosa of colon segment seen well with no residual staining, small fragments of stool or opaque liquid) Impression and Post Procedure Diagnosis: Colonoscopy Findings: A 5 cms polypoidal and friable mass in the cecum with some fresh blood in the cecum which was suctioned. The mass appeared to be arising from posterior lip of the ICV - multiple biopsies were obtained One medium sized polyps was removed Moderate to severe diverticulosis seen in the entire colon small hemorrhoids on retroflexed exam. Plan: Pt has a FU appointment on 05/03/24 with Susan Vargas NP Pt will be scheduled for an Abd CT scan and referred to surgery for resection. Repeat Colonoscopy in 6 to 12 months. Above findings were reviewed with the patient and relevant handouts were given and the discharge area.
[2024-04-19 13:33] VITALS: BP 115/58; PULSE 52; RESP 18; O2SAT 99
[2024-04-19 13:48] VITALS: BP 129/60; PULSE 61; RESP 19; O2SAT 100
[2024-04-19 14:02] LABS: Hematocrit 36.2 % (37.0-47.0); Mean Corpuscular HGB Conc 33.1 g/dl (31.0-35.0); Mean Corpuscular Hemoglobin 29.1 pg (27.0-33.0); Mean Corpuscular Volume 87.9 fL (80.0-98.0); Platelet Count 328 X10*3/uL (160-400); Red Blood Count 4.12 X10*6/uL (4.20-5.50); Red Cell Distribution Width 17.2 % (11.0-16.0)
[2024-04-19 14:16] LABS: Alanine Aminotransferase 19 U/L (0-31); Albumin Level 3.6 g/dL (3.5-5.0); Alkaline Phosphatase 59 U/L (39-117); Anion Gap 11 (12-20); Aspartate Amino Transferase 36 U/L (5-31); Bilirubin Total 0.5 mg/dL (0.0-1.0); Blood Urea Nitrogen 19 mg/dL (9-16); Calcium 10.1 mg/dL (8.4-10.2); Carbon Dioxide 22 mmol/L (22-29); Chloride 103 mmol/L (96-108); Estimated Glomerular Filt Rate 42; Glucose Random 88 mg/dL (60-115); Potassium 3.5 mmol/L (3.3-5.1); Sodium 132 mmol/L (135-145); Total Protein 8.2 g/dL (6.5-8.0)
[2024-04-19 14:30] LABS: Ferritin 38 ng/mL (10-250)
[2024-04-19 14:43] LABS: Folate 14.9 ng/mL (> or = 4.0); Vitamin B12 592 pg/mL (200-900)
== END 2024-04-19 14:28 | disposition home or self-care (01) ==
PROVIDERS: PCP Internal Medicine; Visit Provider Internal Medicine Gastroenterology
PROC: 0DJD8ZZ Inspection of Lower Intestinal Tract, Via Natural or Artificial Opening Endoscopic (ICD-10-PCS; CPT 45378; principal; 2024-04-19 13:30)
DX: R19.5 Other fecal abnormalities (principal); D12.0 Benign neoplasm of cecum; K63.9 Disease of intestine, unspecified; K62.1 Rectal polyp; K57.30 Diverticulosis of large intestine without perforation or abscess without bleeding; K64.8 Other hemorrhoids; D64.9 Anemia, unspecified; I10 Essential (primary) hypertension; I48.0 Paroxysmal atrial fibrillation; Z98.51 Tubal ligation status; Z90.49 Acquired absence of other specified parts of digestive tract; Z87.891 Personal history of nicotine dependence; Z79.01 Long term (current) use of anticoagulants
CPT/HCPCS: 45385; 45380; 36415; 80053; 82378; 82607; 82728; 82746; 85027; 88305; J2003; J2704

== ENCOUNTER → 2024-04-19 11:17 | Outpatient (BNV) | payer MEDICARE, SELFPAY | PROVIDERS: PCP Internal Medicine; Visit Provider Internal Medicine Gastroenterology | DX: Z12.11 Encounter for screening for malignant neoplasm of colon (principal); R19.5 Other fecal abnormalities; K62.1 Rectal polyp; K63.5 Polyp of colon; K57.90 Diverticulosis of intestine, part unspecified, without perforation or abscess without bleeding; K64.8 Other hemorrhoids | CPT/HCPCS: 45380; 45385 ==

== ENCOUNTER 2024-04-30 13:02 | Outpatient (REF) | payer MEDICARE, SELFPAY ==
--- NOTE | ~2024-04-30 | CT_ITS ---
CLINICAL HISTORY: K63.89 - Other specified diseases of intestine CT abdomen and pelvis with IV contrast. COMPARISON: None FINDINGS: Linear atelectasis versus scarring along the left lung base. Calcified granulomas present along the left lung base. Coronary artery calcifications present within the LAD, circumflex and RCA. Mitral annular calcifications. Small hiatal hernia. Cholecystectomy. Hepatic and splenic granulomas present. Noncontrast appearance of the pancreas and adrenal glands are unremarkable. Indeterminate exophytic lesion along the lateral aspect of the left kidney measuring 1.9 cm. Hounsfield units of 35. No renal or ureteral calculus. No hydronephrosis. Mild thickening of the mucosa within the cecum (series 4, image [id number]). Visualized portions of the appendix are normal in caliber. Appendix is directly adjacent to the right ovary. Oral contrast has progressed through the large and small bowel. No bowel obstruction. Moderate distal colonic diverticulosis without evidence of diverticulitis. No mesenteric or retroperitoneal lymphadenopathy. Moderate aortoiliac atherosclerotic vascular calcifications. Normal appearance of the urinary bladder. Multiple cystic lesions present on the ovaries bilaterally measuring up to 3.8 cm on the right and 2.3 cm on the left. Small fat containing umbilical hernia. Moderate spondylosis. Grade 1 retrolisthesis of L2 on L3. No acute fracture identified. IMPRESSION: 1. Multiple cystic lesions present on the prominent ovaries bilaterally measuring up to 3.8 cm on the right. This is of unclear etiology. Recommend correlation with pelvic ultrasound and prior imaging if available. MR may be helpful for further characterization. 2. Mild thickening of the mucosa of the cecum along the ileocecal valve, indeterminate. No adjacent lymphadenopathy. Recommend correlation with recent colonoscopy. 3. Colonic diverticulosis without evidence of diverticulitis. 4. Indeterminate left renal lesion measuring up to 1.9 cm. Recommend comparison with prior imaging if available. If none available, recommend renal protocol CT or MR for further characterization. 5. No evidence of prior granulomatous disease. 6. Coronary artery atherosclerosis. This document has been electronically signed by: Tom Lerma MD on 05/03/2024 16:02:34
== END 2024-04-30 13:03 | disposition home or self-care (01) ==
LOC: HO.CT 13:02
PROVIDERS: PCP Internal Medicine; Visit Provider Internal Medicine Gastroenterology
DX: K63.89 Other specified diseases of intestine (principal)
CPT/HCPCS: 74176

== ENCOUNTER → 2024-04-30 13:06 | Outpatient (BNV) | payer MEDICARE, SELFPAY | PROVIDERS: PCP Internal Medicine; Visit Provider Radiology Diagnostic Radiology | DX: K57.30 Diverticulosis of large intestine without perforation or abscess without bleeding (principal); N83.209 Unspecified ovarian cyst, unspecified side; N28.9 Disorder of kidney and ureter, unspecified | CPT/HCPCS: 74176 ==

== ENCOUNTER 2024-05-03 12:52 | Outpatient (AMB) | payer MEDICARE, SELFPAY ==
--- NOTE | 2024-05-03 12:59 | A.OFFVIS_ITS ---
Vital Signs 05/03/24 13:00 Height 5 ft 1 in Weight 170 lb 3.15 oz BMI 32.2 BP 134/72 Blood Pressure Location Rt brachial Position Sitting Pulse 58 Pulse Source Pulse Oximeter Pulse Oximetry (%) 99 Oxygen Delivery Method Room Air Intake Visit Reasons: s/p colon Intake Note: ESTABLISHED PATIENT Ramona presents in office today for a scheduled s/p FUV Meds and Allergies reviewed? Y No recent or relevant surgeries? [place] w/ RM Any significant concerns or new changes? Upcoming cardiac ablation 05/20. Negative response to barium. Pharmacy verified? [facility] Allergies Penicillins Allergy (Unknown, Verified 05/03/24 13:00) UNKNOWN Antihistamines - Ethylenediamine Adverse Reaction (Verified 05/03/24 13:00) tachycardia flu vaccine Adverse Reaction (Uncoded 03/14/24 14:15) vomiting steriods Adverse Reaction (Uncoded 03/14/24 14:15) tachycardia HPI HPI s/p colon: Details: LAST VISIT: Positive colorectal cancer screening using Cologuard test Screen for colon cancer Plan Patient denies any cardiac or respiratory symptoms.? Occasional symptoms of postprandial abdominal bloating and loose stools depending on what she eats. Discussed with patient low FODMAP diet. List of food recommended as well as list of food to avoid given to patient. Denies any issues with anesthesia in the past.? Denies any history of sleep apnea.? No history infectious diseases in the past or present.? Patient is on Eliquis. Has an appointment with her condenser tube tender in March. Note sent to disability hearing officer for request to be cleared before going for procedure.? No family or personal history of colon cancer or polyps.? Patient denies melena, hematochezia, unintentional weight loss or ribbon like stools.? Discussed at length the pre-procedure,? prep, diet & medications as well as what to expect prior, during and after the procedure.?? Stressed the importance of good bowel prep.? Recommended the use of Vaseline or Calmoseptine OTC & baby wipes with bowel movements to promote comfort.? ?Patient verbalizes understanding and agrees to plan of care.? She was given the opportunity to ask questions and all questions answered.? We will see her after the procedure.? Medications New magnesium citrate Drink one bottle at 17:00 and 2nd bottle at 22:00 296 mL PO ONCE 296 mL 1RF constipation Z12.11 bisacodyl (Dulcolax (bisacodyl)) take 4 tabs at noon the day before your colonoscopy 20 mg (4 x 5 mg) PO ONCE 4 tabs 0RF 1 day Z12.11 COLONOSCOPY: Findings: Terminal Ileum: Not evaluated Cecum: A 5 cms polypoidal and friable mass in the cecum with some fresh blood in the cecum which was suctioned. The mass appeared to be arising from posterior lip of the ICV - multiple biopsies were obtained Ascending Colon: Moderate diverticulosis throughout the entire colon Transverse Colon: Moderate diverticulosis throughout the entire colon Descending Colon: Moderate diverticulosis throughout the entire colon Sigmoid Colon: Severe diverticulosis with luminal narrowing Rectum: A 10 mm sessile polyp in the poximal rectum - removed with hot snare Ano-rectum: Small internal hemorrhoids Colon preparation: Good after some irrigation. [place] Bowel Preparation Scale Right colon; 2 Transverse colon: 2 Left colon; 2 (0 = Unprepared colon segment with mucosa not seen due to solid stool that cannot be cleared. 1 = Portion of mucosa of the colon segment seen, but other areas of the colon segment not well seen due to staining, residual stool and/or opaque liquid. 2 = Minor amount of residual staining, small fragments of stool and/or opaque liquid, but mucosa of colon segment seen well. 3 = Entire mucosa of colon segment seen well with no residual staining, small fragments of stool or opaque liquid) Impression and Post Procedure Diagnosis: Colonoscopy Findings: A 5 cms polypoidal and friable mass in the cecum with some fresh blood in the cecum which was suctioned. The mass appeared to be arising from posterior lip of the ICV - multiple biopsies were obtained One medium sized polyps was removed Moderate to severe diverticulosis seen in the entire colon small hemorrhoids on retroflexed exam. Plan: Pt has a FU appointment on 05/03/24 with Susan Vargas NP Pt will be scheduled for an Abd CT scan and referred to surgery for resection. Repeat Colonoscopy in 6 to 12 months. Above findings were reviewed with the patient and relevant handouts were given and the discharge area. PATHOLOGY RESULTS: Diagnosis A. Cecum, mass, biopsy: Fragments of colonic mucosa with serrated architecture and low grade dysplasia; multiple additional levels examined. See comment. B. Rectum, polypectomy: Hyperplastic mucosal polyp. Comment (A): The sample from the cecal mass may represent a tubulovillous adenoma or a sessile serrated lesion with cytologic dysplasia. The 5 cm mass is noted; an unsampled more worrisome process cannot be ruled out TODAY'S VISIT Patient is here today for follow-up and to discuss colonoscopy results. Patient denies any ill effects from the prep, anesthesia or procedure itself. Large 5 cm cecal mass that could represent tubulovillous adenoma or sessile serrated lesion with low-grade dysplasia. Rectal polyp was hyperplastic polyp. Patient had CT scan done on 30 of April, reading is not available yet. Appointment was made for patient to see colorectal surgeon. She has the appointment with Dr. Christine on May 06. Patient had significant diverticulosis in the left side of her colon. Patient does admit that sometimes she is constipated and sometimes she has loose stools. Occasional abdominal bloating. Patient reports that she is taking smooth move powder to help her move her bowels. Denies any melena, hematochezia, unintentional weight loss or ribbon like stools. Patient denies any dyspepsia, dysphagia or odynophagia. Patient reports that she will be going for ablation in May and will have follow-up with her condenser tube tender after. [facility] Medical History (Updated 05/03/24 @ 14:28 by Maggi Vargas, [facility]) Diverticulosis CKD (chronic kidney disease), stage III Vaccine refused by patient Vitamin D deficiency Anemia Positive colorectal cancer screening using Cologuard test Osteoarthritis Habitual snoring Bronchitis Rheumatic fever New onset atrial fibrillation Erythema intertrigo Rash of face Hx of ectopic Hx of History of seizures Essential hypertension Surgical History Hx of colonoscopy Status post left breast lumpectomy (10/28/22) Hx of shoulder surgery H/O tubal ligation Hx of cholecystectomy Hx of tonsillectomy Family History Father Substance use disorder Lung cancer Essential hypertension CAD (coronary artery disease) COVID-19 Skin cancer Mother Substance use disorder Oral cancer Essential hypertension CAD (coronary artery disease) COVID-19 Sister Disorder of thyroid Brother CAD (coronary artery disease) COVID-19 Social History Housing: Apartment Are you a primary small animal caretaker to a significant other at home: No Do you presently have visiting nurse or other home services: No Alcohol intake: current Alcohol intake frequency: does not drink Patient Tobacco Use Status: Former Tobacco user Tobacco use type: Cigarette e-Cigarette/Vaping Use: Never Used Current occupational status: retired Cognitive needs: No Hearing needs: No Vision needs: Yes Female Reproductive History Menstrual Age of Menarche: 11 Review of Systems Const Denies weight gain and Denies weight loss ENT Reports no additional complaints, Denies dysphagia and Denies odynophagia Card Reports no additional complaints Resp Reports no additional complaints GI Denies abdominal pain, Denies belching, Denies melena, Reports bloating, Denies change in bowel habits, Denies dysphagia, Denies excessive flatus, Denies dyspepsia, Denies heartburn, Denies diarrhea, Denies loose stools, Denies nausea, Denies odynophagia and Denies vomiting Reports no additional complaints Musc Reports no additional complaints Neuro Reports no additional complaints Psych Reports no additional complaints Endo Reports no additional complaints Physical Exam Vital Signs: Last Vital Signs Pulse 58 05/03/24 13:00 BP 134/72 05/03/24 13:00 Pulse Ox 99 05/03/24 13:00 Oxygen Delivery Method Room Air 05/03/24 13:00 BMI result Body Mass Index 32.2 Const General: healthy appearing and no acute distress Nutritional Appearance: obese Orientation/consciousness: patient oriented x3 Resp Effort & Inspection: normal respiratory effort, able to speak in complete sentences, no tracheal deviation and symmetric chest movement Auscultation: clear to auscultation bilaterally Cardio Rate: regular rate GI Inspection: Yes normal to inspection, No distended and Yes obesity Palpation (GI): Soft to palpation, not firm, nontender and No hepatosplenomegaly present Auscultation: normal bowel sounds General: Yes no CVA tenderness Back/Spine/Pelvis Back: no CVA tenderness Skin General skin exam: elasticity normal, turgor normal and dry skin Neuro General: patient oriented x3 Psych Appearance: grossly normal Mental Status: mental status grossly normal Assessment & Plan Assessment & Plan (1) Mass of cecum: Code(s): K63.89 - Other specified diseases of intestine Category: Medical (2) Positive colorectal cancer screening using Cologuard test: Code(s): R19.5 - Other fecal abnormalities Category: Medical (3) Screen for colon cancer: Code(s): Z12.11 - Encounter for screening for malignant neoplasm of colon (4) Status post colonoscopy: Code(s): Z98.890 - Other specified postprocedural states (5) Diverticulosis: Code(s): K57.90 - Diverticulosis of intestine, part unspecified, without perforation or abscess without bleeding Category: Medical Plan As mentioned above in HPI, patient had large mass in cecum, appointment scheduled with General surgery Dr. Christine on 06 of May for initial consultation. Results from colonoscopy discussed with patient. CT scan done on 30 of April, however reading is not available yet. Patient is trying low FODMAP diet, abdominal bloating improved. Patient is using smooth move powder to help her though to the bathroom. Moving bowels daily. Recommended colonoscopy in 6-12 months. Long discussion with patient about high-fiber diet. List of food high in fiber given to patient. Patient will return in 4 months to discuss going for prep. Patient is agreeable to plan of care and verbalizes understanding of instructions. She was given the opportunity to ask questions a nd all questions answered. Thank you for allowing me to participate in her care Coding Level of Care Code Est Pt Level 4 (80390) Diagnoses Mass of cecum K63.89 Positive colorectal cancer screening using Cologuard test R19.5 Screen for colon cancer Z12.11 Status post colonoscopy Z98.890 Diverticulosis K57.90 Time Spent (min) 35 Comment 25 minutes spent with patient and additional 10 minutes spent reviewing her records
[2024-05-03 13:00] VITALS: BP 134/72; PULSE 58; O2SAT 99; BMI 32.2
== END 2024-05-03 13:25 | disposition home or self-care (01) ==
PROVIDERS: PCP Internal Medicine; Visit Provider Nurse Practitioner Family
DX: K63.89 Other specified diseases of intestine (principal); K57.90 Diverticulosis of intestine, part unspecified, without perforation or abscess without bleeding; R19.5 Other fecal abnormalities; K62.1 Rectal polyp
CPT/HCPCS: 99214

== ENCOUNTER → 2024-05-03 12:52 | Outpatient (BNVA) | payer MEDICARE, SELFPAY | PROVIDERS: PCP Internal Medicine; Visit Provider Nurse Practitioner Family | DX: Z12.11 Encounter for screening for malignant neoplasm of colon (principal); K63.89 Other specified diseases of intestine; K57.90 Diverticulosis of intestine, part unspecified, without perforation or abscess without bleeding; R19.5 Other fecal abnormalities; Z98.890 Other specified postprocedural states | CPT/HCPCS: 99212 ==

== ENCOUNTER 2024-05-06 14:19 | Outpatient (AMB) | payer MEDICARE, SELFPAY ==
--- NOTE | 2024-05-06 14:27 | MHC.OFFVIS ---
Vital Signs 05/06/24 14:28 Height 5 ft 1 in Weight 170 lb 3.15 oz BMI 32.2 Intake Visit Reasons: Cecal mass, rectal polyp Intake Note: This patient was referred by Dr. Jacob for Cecal mass, rectal polyp. Pt c/o; reports no complaints at this time. 04/19/24: Colonoscopy Dr. Jacob Fish Hatchery Inspector Required: No Accompanied by: Spouse Allergies Penicillins Allergy (Unknown, Verified 05/06/24 14:34) UNKNOWN Antihistamines - Ethylenediamine Adverse Reaction (Verified 05/06/24 14:34) tachycardia flu vaccine Adverse Reaction (Uncoded 05/06/24 14:34) vomiting steriods Adverse Reaction (Uncoded 05/06/24 14:34) tachycardia HPI HPI Cecal mass, rectal polyp: Details: [age] year old female referred for a cecal polyp. She underwent her 1st ever colonoscopy with Dr. Jacob last 04/19/2024. This had shown a 5 cm polypoid friable mass in the cecum that appeared to be arising from the posterior lip of the ileocecal valve. Biopsies were done showing serrated architecture with dysplasia In view of the size of the mass, she was referred to me for resection She denies significant GI complaints. She does state that she has had a history of alternating diarrhea and constipation in the past. She has chronic kidney disease and paroxysmal atrial fibrillation and is on Eliquis. She says she was supposed to have ablation in 3 weeks. [facility] Medical History Diverticulosis CKD (chronic kidney disease), stage III Vaccine refused by patient Vitamin D deficiency Anemia Positive colorectal cancer screening using Cologuard test Osteoarthritis Habitual snoring Bronchitis Rheumatic fever New onset atrial fibrillation Erythema intertrigo Rash of face Hx of ectopic Hx of History of seizures Essential hypertension Surgical History Hx of colonoscopy Status post left breast lumpectomy (10/28/22) Hx of shoulder surgery H/O tubal ligation Hx of cholecystectomy Hx of tonsillectomy Family History Father Substance use disorder Lung cancer Essential hypertension CAD (coronary artery disease) COVID-19 Skin cancer Mother Substance use disorder Oral cancer Essential hypertension CAD (coronary artery disease) COVID-19 Sister Disorder of thyroid Brother CAD (coronary artery disease) COVID-19 Social History Housing: Apartment Are you a primary respiratory care specialist to a significant other at home: No Do you presently have visiting nurse or other home services: No Alcohol intake: current Alcohol intake frequency: does not drink Patient Tobacco Use Status: Former Tobacco user Tobacco use type: Cigarette e-Cigarette/Vaping Use: Never Used Current occupational status: retired Cognitive needs: No Hearing needs: No Vision needs: Yes Female Reproductive History Menstrual Age of Menarche: 11 Review of Systems Const Denies chills and Denies fever(s) Card Denies chest pain, Denies dyspnea and Denies dyspnea on exertion Resp Denies cough, Denies dyspnea and Denies dyspnea on exertion GI Denies hematochezia and Denies change in bowel habits Denies hematuria Musc Denies back pain and Denies limited range of motion Neuro Denies focal weakness and Denies convulsions Psych Denies depression and Denies mood swings Physical Exam Vital Signs: BMI result Body Mass Index 32.2 Const General: comfortable and no acute distress Orientation/consciousness: patient oriented x3 Neck Neck: Yes no lymphadenopathy Resp Auscultation: clear to auscultation bilaterally Cardio Rhythm: regular rhythm GI Palpation (GI): Soft to palpation, nontender and no guarding Neuro General: patient oriented x3 Assessment & Plan Assessment & Plan (1) Mass of cecum: Code(s): K63.89 - Other specified diseases of intestine Category: Medical Plan: She has a large cecal mass as described above. Biopsies of this shows serrated architecture and dysplasia, but a higher grade lesion can not be ruled out in view of the large size of the mass with sampling error I therefore explained to her that we will proceed with hand assisted laparoscopic right colon resection with possible conversion to open. I reviewed the technique of this procedure. I explained the risks including but not limited to bleeding, infections, bowel injury, staple line leak, blood clots, pneumonia, heart attack, as well as the benefits and alternatives. I explained to her what to expect postoperatively. She says she understands and agrees to proceed She will need to be cleared by the manager audio prior to the procedure. She is to hold her Eliquis for a days preoperatively. She says that she was supposed to have an ablation in 3 weeks so we will have to schedule the procedure after that. Her was with her during the visit. Coding Level of Care Code New Pt Level 4 (37718) Diagnoses Mass of cecum K63.89
[2024-05-06 14:28] VITALS: BMI 32.2
== END 2024-05-06 14:56 | disposition home or self-care (01) ==
PROVIDERS: PCP Internal Medicine; Visit Provider Surgery
DX: K63.89 Other specified diseases of intestine (principal)
CPT/HCPCS: 99204

== ENCOUNTER → 2024-05-06 14:19 | Outpatient (BNVA) | payer MEDICARE, SELFPAY | PROVIDERS: PCP Internal Medicine; Visit Provider Surgery | DX: K63.89 Other specified diseases of intestine (principal) | CPT/HCPCS: 99202 ==

== ENCOUNTER 2024-05-07 13:17 | Outpatient (REF) | payer MEDICARE, SELFPAY ==
--- NOTE | ~2024-05-07 | US_ITS ---
CLINICAL HISTORY: N83.201 - Unspecified ovarian cyst, right side US pelvis transabdominal and transvaginal with Doppler Comparison: None Findings: Transabdominal scanning performed for overall anatomy. Transvaginal scanning performed for additional detail. Uterus is 5.4 cm length. Normal myometrium. Endometrium 3.2 mm thickness. Right ovary 5 x 4 x 4 cm. Multiple cysts. 4.4 x 3.4 x 3.9 cm cyst with thick septation versus 2 adjacent cysts. Left ovary 8.4 x 4.5 x 5.4 cm. Multiple cysts measuring up to 5.2 x 3.7 x 3.8 cm. 2.7 x 2.3 x 2.5 cm cyst with an internal daughter cyst. Normal color Doppler with arterial/venous spectral tracing of both ovaries. No free fluid. IMPRESSION: The thickness of the endometrium is within normal limits. There are multiple cysts of the bilateral ovaries. Complex cysts demonstrated in the bilateral ovary. Ultrasound follow-up is recommended. This document has been electronically signed by: Araseli Skelton MD on 05/07/2024 15:53:10
== END 2024-05-07 13:18 | disposition home or self-care (01) ==
LOC: HO.HMGCX 13:17
PROVIDERS: PCP Internal Medicine; Visit Provider Internal Medicine Gastroenterology
DX: N83.201 Unspecified ovarian cyst, right side (principal); N83.202 Unspecified ovarian cyst, left side
CPT/HCPCS: 76830; 76856

== ENCOUNTER → 2024-05-07 13:33 | Outpatient (BNV) | payer MEDICARE, SELFPAY | PROVIDERS: PCP Internal Medicine; Visit Provider Nuclear Medicine | DX: N83.201 Unspecified ovarian cyst, right side (principal); N83.202 Unspecified ovarian cyst, left side | CPT/HCPCS: 76830; 76856 ==

== ENCOUNTER 2024-05-17 08:52 | Outpatient (REF) | payer MEDICARE, SELFPAY ==
--- NOTE | ~2024-05-17 | MM_ITS ---
EXAMINATION: MM DIAGNOSTIC DIGITAL BREAST TOMOSYNTHESIS, BILATERAL CLINICAL INFORMATION: Two-year follow-up for right breast calcifications. COMPARISON: Mammography: Comparison is made with relevant prior exams. TECHNIQUE: Digital breast mammography with tomosynthesis is performed in both the craniocaudal and mediolateral oblique views along with computer-aided detection (CAD). FINDINGS: The breasts are heterogeneously dense, which may obscure small masses (ACR BI-RADS breast composition Category c). Right marker clips. Left excisional biopsy. Previously seen calcifications in the upper outer quadrant and lower right breast are not significantly changed on magnification views dating back for 2 years and therefore benign. There are no significant masses, abnormal calcifications, or other abnormalities. Results are provided to the patient at time of visit by the technologist. MM/MM tomosynthesis diagnostic BI IMPRESSION: Bilateral breasts: Benign. ASSESSMENT: BI-RADS BI-RADS 2 - Benign Findings RECOMMENDATION: 1 year F/U This patient's information was entered into a reminder system with a target due date for their next mammogram. Electronically signed by: Ivelisse Roman DO 05/17/2024 10:00 AM [facility]
== END 2024-05-17 08:53 | disposition home or self-care (01) ==
LOC: HO.MAMMO 08:52
PROVIDERS: PCP Internal Medicine; Visit Provider Internal Medicine
DX: R92.1 Mammographic calcification found on diagnostic imaging of breast (principal)
CPT/HCPCS: 77062; 77066

== ENCOUNTER → 2024-05-17 09:15 | Outpatient (BNV) | payer MEDICARE, SELFPAY | PROVIDERS: PCP Internal Medicine; Visit Provider Internal Medicine | DX: R92.1 Mammographic calcification found on diagnostic imaging of breast (principal) | CPT/HCPCS: 77066; G0279 ==

== ENCOUNTER 2024-05-27 08:23 | Outpatient (AMB) | payer MEDICARE, SELFPAY ==
[2024-05-27 08:26] VITALS: BP 110/62; PULSE 66; BMI 32.2
--- NOTE | 2024-05-27 08:26 | A.OFFVIS_ITS ---
Vital Signs 05/27/24 08:26 Height 5 ft 1 in Weight 170 lb 10.205 oz BMI 32.2 BP 110/62 Blood Pressure Location Lt brachial Position Sitting Pulse 66 Pulse Source Monitor Intake Visit Reasons: pre-op Surgery Dr. Christine Cook Helper Vegetable Required: No Accompanied by: Significant Other Allergies Penicillins Allergy (Unknown, Verified 05/06/24 14:34) UNKNOWN Antihistamines - Ethylenediamine Adverse Reaction (Verified 05/06/24 14:34) tachycardia flu vaccine Adverse Reaction (Uncoded 05/06/24 14:34) vomiting steriods Adverse Reaction (Uncoded 05/06/24 14:34) tachycardia Medication List - Last Reconciled 05/27/24 by Tierra Fountain, FUNERAL HOME ATTENDANT-C amlodipine 5 mg PO DAILY apixaban (Eliquis) 5 mg PO BID cholecalciferol (vitamin D3) 125 mcg PO DAILY docusate sodium (Colace) 100 mg PO DAILY ferrous fumarate 325 mg PO DAILY hydrochlorothiazide 25 mg PO QAM magnesium 400 mg PO DAILY metoprolol succinate ER 100 mg PO DAILY wonwgdow-ybe-zpex-FA-vit K-lut 8 mg iron-400 mcg-50 mcg (Centrum Silver Women) 1 tab PO DAILY HPI HPI pre-op Surgery Dr. Christine: Details: Ramona is a 68-year-old female past medical history of hypertension, paroxysmal atrial fibrillation who presents for preop cardiac evaluation for cecum mass. Today she reports that she has not noticed any heart palpitations or recurrent atrial fibrillation since her last visit in March. She had previously stopped Multaq due to high cost. She states she has now been off it since February. She remains on metoprolol for heart rate control. She did undergo evaluation for an ablation but that was put on hold due to her need for abdominal surgery. She has no chest discomfort at rest or with activity. No shortness of breath, PND, orthopnea or edema. No lightheadedness, presyncope, syncope, falls. No bleeding issues reported. Taking meds as directed. Eulalia present. FORMERLY [facility] Medical History Diverticulosis CKD (chronic kidney disease), stage III Vaccine refused by patient Vitamin D deficiency Anemia Positive colorectal cancer screening using Cologuard test Osteoarthritis Habitual snoring Bronchitis Rheumatic fever New onset atrial fibrillation Erythema intertrigo Rash of face Hx of ectopic Hx of History of seizures Essential hypertension Surgical History Hx of colonoscopy Status post left breast lumpectomy (10/28/22) Hx of shoulder surgery H/O tubal ligation Hx of cholecystectomy Hx of tonsillectomy Family History Father Substance use disorder Lung cancer Essential hypertension CAD (coronary artery disease) COVID-19 Skin cancer Mother Substance use disorder Oral cancer Essential hypertension CAD (coronary artery disease) COVID-19 Sister Disorder of thyroid Brother CAD (coronary artery disease) COVID-19 Social History Housing: Apartment Are you a primary caretaker resort to a significant other at home: No Do you presently have visiting nurse or other home services: No Alcohol intake: current Alcohol intake frequency: does not drink Patient Tobacco Use Status: Former Tobacco user Tobacco use type: Cigarette e-Cigarette/Vaping Use: Never Used Current occupational status: retired Cognitive needs: No Hearing needs: No Vision needs: Yes Female Reproductive History Menstrual Age of Menarche: 11 Review of Systems Const All systems reviewed & are unremarkable except as noted in HPI and below Denies chills, Denies fatigue, Denies fever(s), Denies frequent falls, Denies we akness, Denies weight gain and Denies weight loss ENT Reports dizziness (if she lays flat - intermediate project manager problem) Card Denies chest pain, Denies leg edema, Denies lightheadedness, Denies palpitations, Denies dyspnea and Denies dyspnea on exertion Resp Denies cough, Denies dyspnea and Denies dyspnea on exertion GI Denies hematochezia Musc Denies abnormal gait, Denies muscle weakness, Denies numbness, Denies radiating pain into limb and Denies tingling Neuro Denies abnormal gait, Reports dizziness (if she lays flat - longterm problem), Denies frequent falls, Denies numbness, Denies tingling and Denies weakness Endo Denies fatigue and Denies palpitations Physical Exam Vital Signs: Last Vital Signs Pulse 66 05/27/24 08:26 BP 110/62 01/23/25 08:26 BMI result Body Mass Index 32.2 Const General: cooperative, healthy appearing, comfortable and no acute distress Orientation/consciousness: patient oriented x3 Neck Neck: Yes normal visual inspection Resp Effort & Inspection: normal respiratory effort Auscultation: clear to auscultation bilaterally, no crackles, no rales, no rhonchi and no wheezes Cardio Jugular venous distension: no JVD Rate: regular rate Rhythm: regular rhythm Heart sounds: S1 normal heart sound present, S2 normal heart sound present, no murmurs and no rubs Neuro General: patient oriented x3 Extrem General: Yes normal to inspection and No no pedal edema Psych Appearance: grossly normal Mental Status: mental status grossly normal Speech and movement: Normal speech and movement present Office Procedures EKG Details: Today, read by me, SR, incomplete RBBB, cant exclude prior anterior infarct, rate 66, Qtc 461ms [id number], Complete Assessment & Plan Assessment & Plan (1) PAF (paroxysmal atrial fibrillation): Code(s): I48.0 - Paroxysmal atrial fibrillation Category: Medical Plan: History of paroxysmal atrial fibrillation. Multaq was stopped in February due to high cost. No known recurrent atrial fibrillation since that time. Last echo 06/03/2022 shows EF 60-65%, mildly dilated left atrium, mild LVH, fibrocalcific changes to the aortic and mitral valves. EKG done today showing normal sinus rhythm, incomplete right bundle branch block, can not exclude prior anterior infarct, rate 66, QTC 461 milliseconds. She did undergo evaluation for AFib ablation. The actual procedure has been put on hold as she now needs abdominal surgery. Today she denies any heart palpitations. In order to help prevent recurrent atrial fibrillation in her perioperative period, will start on amiodarone load, 400 mg b.i.d. for 2 weeks then 200 mg once daily. Will reduce metoprolol XL down to 50 mg daily. Office EKG in 1 week. Will check chest x- ray and labs at that time, liver profile and TSH. Continue Eliquis without interruption. Med changes reviewed with her in detail and she states understanding. Cardiology follow-up 4-6 weeks, sooner if needed. (2) Essential hypertension: Code(s): I10 - Essential (primary) hypertension Category: Medical Plan: Normal range at this time. Continue hydrochlorothiazide, amlodipine and metoprolol being reduced as above. (3) Mass of cecum: Code(s): K63.89 - Other specified diseases of intestine Category: Medical Plan: Being followed by Dr. Christine (4) Preop cardiovascular exam: Code(s): Z01.810 - Encounter for preprocedural cardiovascular examination Category: Medical Plan: Preop for cecum mass removal, Dr. Christine, no date yet. She can be cleared with low to intermediate cardiac risk. She has no known history of CAD and has no anginal symptoms. She does have history of paroxysmal atrial fibrillation and will be starting amiodarone as above to help prevent recurrent PAF in the perioperative period. Eliquis can be held 2-3 days prior to the procedure and restart as soon as able postprocedure. Continue antihypertensives, metoprolol and amiodarone. Amiodarone load does not have to be fully completed prior to her surgery date. Call/consult Cardiology if needed. (5) On amiodarone therapy: Code(s): Z79.899 - Other intermediate project manager (current) drug therapy Category: Medical Plan: Starting now as above Plan Time spent on chart review, documentation, interview and assessment Orders: Orders Liver Panel Today NICK Powell Z79.899 - Other longterm (current) drug therapy XR chest 2V Today NICK Powell Z79.899 - Other longterm (current) drug therapy TSH reflex Free T4 Today INCK Powell Z79.899 - Other intermediate project manager (current) drug therapy Medications: New amiodarone 200 mg orally 400 mg ( 2 tablets) Twice daily for 14 days, then reduce dose to 200mg ( 1 tablet) Daily; 30 days 70 tabs 1RF NICK Powell metoprolol succinate ER dose reduced 50 mg PO DAILY 90 tabs 1RF SHAAN PowellC Resumed apixaban (Eliquis) 5 mg PO BID 180 tabs 3RF Alexandre Rdz MD Coding Level of Care Code Est Pt Level 4 (70307) Complex EM visit Add On G2211 Diagnoses PAF (paroxysmal atrial fibrillation) I48.0 Essential hypertension I10 Mass of cecum K63.89 Preop cardiovascular exam Z01.810 On amiodarone therapy Z79.899 CPT Codes EKG - CPT: 12531-[id number], Complete ([id number]) Time Spent (min) 30
--- OUTSIDE RECORDS SUMMARY | 2024-05-27 08:40 | XMS_ITS | Continuity of Care Document ---
Author Organization [facility] Address [address] [place] [phone]- Care Team Providers Care Production Line Welder Name Role Phone Not on Staff, PCP Primary Care Physician Unavail able Encounter [facility] Date(s): 04/26/24 - 05/26/24 [facility] [address] [place] [phone]- Encounter Type: Triage Allergies, Adverse Reactions, Alerts Substance Criticality Severity Reaction Reaction Severity Status penicillin Active predniSONE Active antihistamines Activ e Medications amLODIPine 5 mg oral tablet 0 Refills, Maintenance, 04/22/24 10:44:00 AM EST, Partial fill upon patient request if the prescription is for a schedule II opioid drug. Start Date: 04/22/24 Status: Ordered Repeat number: 1 Eliquis 5 mg oral tablet 1 tablet = 5 mg, By Mouth, 2 times a day, # 60 tablet, 5 Refills, Maintenance, 04/22/24 10:43:00 AMEST, Tablet, Partial fill upon patient request if the prescription is for a schedule II opioid drug. Start Date: 04/22/24 Status: Ordered Quantity: 60.0 Unit: tablet Repeat number: 1 ferrous fumarate 324 mg oral tablet 0 Refills, Maintenance, 04/22/24 10:44:00 AM EST, Partial fill upon patient request if the prescription is for a schedule II opioid drug. Start Date: 04/22/24 Status: Ordered Repeat number: 1 hydrochlorothiazide 25 mg oral tablet Refills 0, Maintenance, 04/22/24 10:44:00 AM EST, Partial fill upon patient request if the prescription is for a schedule II opioid drug. Start Date: 04/22/24 Status: Ordered Repeat number: 1 MAGNESIUM CITRATE SOLN GRAPE 296ML MAGNESIUM CITRATE SOLN GRAPE 296ML, 0 Refills, Maintenance, 04/22/24 10:45:00 AM EST Start Date: 04/22/24 Status: Ordered Repeat number: 1 Metoprolol Succinate ER 100 mg oral tablet, extended release Refills 0, Maintenance, 04/22/24 10:46:00 AM EST, Partial fill upon patient request if the prescription is for a schedule II opioid drug. Start Date: 04/22/24 Status: Ordered Repeat number: 1 Vitamin D3 5000 intl units oral capsule 0 Refills, Maintenance, 04/22/24 10:44:00 AM EST, Partial fill upon patient request if the prescription is for a schedule II opioid drug. Start Date: 04/22/24 Status: Ordered Repeat number: 1 Patient Care team information Care Team Personnel Name: Not on Staff, PCP Position: [facility] Physician (General Medicine) Member Role: PCP Care Team Related Persons Name: BRENNON MCMAHON Insurance Providers Guarantor name: DIMPLE Health Plan Information #: 1 Payer: KAT REEVES Member Number: DIMPLE Policy Number: DIMPLE Group Number: NA
--- OUTSIDE RECORDS SUMMARY | 2024-05-27 08:40 | XMS_ITS | Continuity of Care Document ---
Author Organization [facility] Address [address] [place] [phone]- Care Team Providers Care Childhood Development Teacher Name Role Phone Not on Staff, PCP Primary Care Physician Unavail able Encounter [facility] Date(s): 04/22/24 - 05/22/24 [facility] [address] [place] [phone]- Attending Physician: Brina Bardales Admitting Physician: Brina Bardales Referring Physician: Brina Bardales Encounter Type: Triage Allergies, Adverse Reactions, Alerts [...] Personnel Name: Not on Staff, PCP Position: S Physician (General Medicine) Member Role: PCP Care Team Related Persons Name: BRENNON MCMAHON Insurance Providers Guarantor name: DIMPLE Health Plan Information #: 1 Payer: KAT REEVES Member Number: NA Policy Number: NA Group Number: NA
== END 2024-05-27 09:01 | disposition home or self-care (01) ==
PROVIDERS: PCP Internal Medicine; Visit Provider Nurse Practitioner Family
DX: I48.0 Paroxysmal atrial fibrillation (principal); I10 Essential (primary) hypertension; K63.89 Other specified diseases of intestine; Z01.810 Encounter for preprocedural cardiovascular examination; Z79.899 Other long term (current) drug therapy
CPT/HCPCS: 93010; 99214; G2211

== ENCOUNTER → 2024-05-27 08:23 | Outpatient (BNVA) | payer MEDICARE, SELFPAY | PROVIDERS: PCP Internal Medicine; Visit Provider Nurse Practitioner Family | DX: Z01.810 Encounter for preprocedural cardiovascular examination (principal); I48.0 Paroxysmal atrial fibrillation; I10 Essential (primary) hypertension; K63.89 Other specified diseases of intestine; R94.31 Abnormal electrocardiogram [ECG] [EKG]; Z79.899 Other long term (current) drug therapy | CPT/HCPCS: 93005; 99212 ==

== ENCOUNTER → 2024-06-03 13:48 | Outpatient (BNVA) | payer MEDICARE, SELFPAY | PROVIDERS: PCP Internal Medicine; Visit Provider Nurse Practitioner Family ==

== ENCOUNTER 2024-06-14 11:50 | Outpatient (REF) | payer MEDICARE, SELFPAY ==
[2024-06-14 16:06] LABS: Alanine Aminotransferase 14 U/L (0-31); Anion Gap 13 (12-20); Aspartate Amino Transferase 33 U/L (5-31); Bilirubin Direct 0.2 mg/dL (0.0-0.5); Bilirubin Total 0.4 mg/dL (0.0-1.0); Blood Urea Nitrogen 23 mg/dL (9-16); Calcium 10.2 mg/dL (8.4-10.2); Carbon Dioxide 27 mmol/L (22-29); Chloride 101 mmol/L (96-108); Estimated Glomerular Filt Rate 34; Glucose Random 79 mg/dL (60-115); Potassium 3.6 mmol/L (3.3-5.1); Sodium 137 mmol/L (135-145); Total Protein 9.6 g/dL (6.5-8.0)
[2024-06-14 16:16] LABS: Alkaline Phosphatase 65 U/L (39-117)
[2024-06-14 16:29] LABS: TSH reflex Free T4 0.03 uIU/mL (0.32-4.0)
[2024-06-14 17:47] LABS: Free T4 (Free Thyroxine) 1.35 ng/dL (0.71-1.85)
== END 2024-06-14 11:51 | disposition home or self-care (01) ==
LOC: HO.LAB 11:50
PROVIDERS: PCP Internal Medicine; Visit Provider Nurse Practitioner Family
DX: I48.0 Paroxysmal atrial fibrillation (principal); Z79.899 Other long term (current) drug therapy
CPT/HCPCS: 36415; 71046; 80048; 80076; 84439; 84443

== ENCOUNTER → 2024-06-14 13:51 | Outpatient (BNV) | payer MEDICARE, SELFPAY | PROVIDERS: Admitting Provider Surgery; PCP Internal Medicine; Visit Provider Radiology Diagnostic Radiology | DX: Z79.899 Other long term (current) drug therapy (principal) | CPT/HCPCS: 71046 ==

== ENCOUNTER 2024-06-22 06:31 | Inpatient (IN) | payer MEDICARE, SELFPAY ==
[2024-06-14 12:42] VITALS: BP 170/81; PULSE 55; RESP 16; O2SAT 99; BMI 31.2
--- NOTE | 2024-06-14 13:23 | HO.ANESPROP2 ---
Documented by User: Lisbeth Farris NP 06/18/24 11:43 HPI - Anesthesia Eval Consult details Narrative: 68yo F for Right RIVAS Colon Resection Laparoscopic Assist, possible open, 06/22/24 Cardiac optimized. Follows [facility] Cardiology for afib (eliquis). Recently started on amioderone for periop - per cardiology increase BUN/Creat after starting with recheck preop No recent illness No CP. Rare DODSON resolves with rest. Able to grocery shop full store without issues. [facility] Active Problems Active Problems: All Active Problems On amiodarone therapy (Acute) Preop cardiovascular exam (Acute) Renal lesion (Acute) Bilateral ovarian cysts (Acute) Mass of cecum (Acute) Annual visit for general adult medical examination with abnormal findings (Acute) PAF (paroxysmal atrial fibrillation) (Acute) Diverticulosis (Acute) CKD (chronic kidney disease), stage III (Acute) Vaccine refused by patient (Acute) Vitamin D deficiency (Acute) Anemia (Acute) Positive colorectal cancer screening using Cologuard test (Acute) Essential hypertension (Acute) Past Medical History Medical History History of alcohol abuse (~2004) DODSON (dyspnea on exertion) Diverticulosis CKD (chronic kidney disease), stage III Vaccine refused by patient Vitamin D deficiency Anemia Positive colorectal cancer screening using Cologuard test Osteoarthritis Habitual snoring Bronchitis Rheumatic fever New onset atrial fibrillation Erythema intertrigo Rash of face Hx of ectopic Hx of History of seizures Essential hypertension Family History Family History Father Substance use disorder Lung cancer Essential hypertension CAD (coronary artery disease) COVID-19 Skin cancer Mother Substance use disorder Oral cancer Essential hypertension CAD (coronary artery disease) COVID-19 Sister Disorder of thyroid Brother CAD (coronary artery disease) COVID-19 Family history of problems with anesthesia: No Surgical History Surgical History Hx of colonoscopy (04/19/24) Status post left breast lumpectomy (10/28/22) Hx of shoulder surgery H/O tubal ligation Hx of cholecystectomy Hx of tonsillectomy History of Problems with Anesthesia: No Social History Social History Household Members: Spouse Housing: House Are you a primary hospice care transitions coordinator to a significant other at home: No Do you presently have visiting nurse or other home services: No Alcohol intake: current Alcohol intake frequency: does not drink Comment: aware of trip hazard Patient Tobacco Use Status: Former Tobacco user Tobacco use type: Cigarette Smoked in Last 30 Days: No e-Cigarette/Vaping Use: Never Used Second Hand Smoke Exposure: No Use of substances other than those prescribed or required for medical reasons: No Have you been hit, kicked, punched, or otherwise hurt by someone within the past year? If so, by whom?: No Are you DNR?: No Advance Directives: No Advance Directives Information Provided: Yes Advance Directives on File: No Recently lost weight without trying: No Current occupational status: retired Cognitive needs: No Hearing needs: No Vision needs: Yes Meds Allergies Allergy/AdvReac Type Severity Reaction Status Date / Time Penicillins Allergy Intermediate Nausea and Verified 06/22/24 06:39 Vomiting Antihistamines - AdvReac Intermediate tachycardia Verified 06/22/24 06:39 Ethylenediamine flu vaccine AdvReac Intermediate vomiting, Uncoded 06/10/24 10:39 in bed for 2 weeks steriods AdvReac Intermediate tachycardia Uncoded 06/10/24 10:39 Home Medications ?Medication ?Instructions ?Recorded ?Confirmed ?Last Taken ?Type magnesium 200 mg tablet 400 mg PO DAILY 10/17/22 06/10/24 04/12/24 History ascorbic acid (vitamin C) 1,000 mg 1,000 mg PO DAILY 06/10/24 06/10/24 Unknown History tablet (Vitamin C) ferrous fumarate 324 mg (106 mg 324 mg PO .2XWEEK 06/10/24 06/14/24 Unknown History iron) tablet vddaxtog-gvbw-vtjj 8 mg-folic 400 1 tab PO DAILY 06/10/24 06/10/24 Unknown History mcg-K 50 mcg-lutein 300 mcg tablet (Multivitamin Women 50 Plus) polyethylene glycol 3350 17 gram 17 g PO DAILY 06/10/24 06/10/24 Unknown History oral powder packet (Miralax) vitamin A-vitamin C-vit E-min 1 tab PO DAILY 06/10/24 06/10/24 Unknown History tablet vitamin B complex 1 tab PO DAILY 06/10/24 06/10/24 Unknown History vitamin E 268 mg (400 unit) capsule 268 mg PO DAILY 06/10/24 06/10/24 Unknown History metoprolol succinate 50 mg 50 mg PO DAILY 06/14/24 06/22/24 06/22/24 History tablet,extended release 24 hr Exam Height,Weight and Vital Signs: Height 5 ft 1 in Weight 74.843 kg Last Vital Signs Pulse 55 06/14/24 12:42 Resp 16 06/14/24 12:42 BP 170/81 H 06/14/24 12:42 Pulse Ox 99 06/14/24 12:42 O2 Del Method Room Air 06/14/24 12:42 Pertinent Lab Results Pertinent Lab Results: Lab Results 06/14/24 06/14/24 Range/Units 02:40 14:45 WBC 7.3 (4.8-10.8) X10*3/uL RBC 4.39 (4.20-5.50) X10*6/uL Hgb 13.1 (12.0-16.0) g/dl Hct 39.6 (37.0-47.0) % MCV 90.2 (80.0-98.0) fL MCH 29.8 (27.0-33.0) pg MCHC 33.1 (31.0-35.0) g/dl RDW 15.2 (11.0-16.0) % Plt Count 388 (160-400) X10*3/uL MPV 9.3 L (9.4-12.3) fL Absolute Nucleated RBC 0.000 (0.0-0.012) X10*3/uL Nucleated RBC % (auto) 0.0 (0.0-0.2) /100WBC Sodium 136 (135-145) mmol/L Potassium 3.5 (3.3-5.1) mmol/L Chloride 101 (96-108) mmol/L Carbon Dioxide 26 (22-29) mmol/L Anion Gap 13 (12-20) BUN 22 H (9-16) mg/dL Creatinine 1.51 H (0.5-1.4) mg/dL Estim Creat Clear Calc 32.5 Estimated GFR 34 Random Glucose 80 (60-115) mg/dL Calcium 10.3 H (8.4-10.2) mg/dL Blood Type A Negative Antibody Screen NEGATIVE Narrative Narrative: XR chest 2V 06/2024 IMPRESSION: No acute airspace disease. Consider prior granulomatosis disease process. EKG 05/2024 EKG Details: SR, incomplete RBBB, cant exclude prior anterior infarct, rate 66, Qtc 461ms Airway Mallampati Class: III TM Dist: >3cm Neck ROM: Full (occassional stiff) Loose/Missing/Broken Teeth: Yes (~#20 loose, permanent bridge front top) Heart: irreg Lungs: CTAB Assessment and Plan Assessment Anesthesia Assessment: Anesthesia Plan Discussed and PAT Visit Final Anesthetic Review Family History of Problems with Anesthesia: No History of Problems with Anesthesia: No Documented by User: Laya Mcnamara MD 06/22/24 07:33 [facility] Past Medical History Medical History History of alcohol abuse (~2004) DODSON (dyspnea on exertion) Diverticulosis CKD (chronic kidney disease), stage III Vaccine refused by patient Vitamin D deficiency Anemia Positive colorectal cancer screening using Cologuard test Osteoarthritis Habitual snoring Bronchitis Rheumatic fever New onset atrial fibrillation Erythema intertrigo Rash of face Hx of ectopic Hx of History of seizures Essential hypertension Family History Family History Father Substance use disorder Lung cancer Essential hypertension CAD (coronary artery disease) COVID-19 Skin cancer Mother Substance use disorder Oral cancer Essential hypertension CAD (coronary artery disease) COVID-19 Sister Disorder of thyroid Brother CAD (coronary artery disease) COVID-19 Surgical History Surgical History Hx of colonoscopy (04/19/24) Status post left breast lumpectomy (10/28/22) Hx of shoulder surgery H/O tubal ligation Hx of cholecystectomy Hx of tonsillectomy Social History Social History Household Members: Spouse Housing: House Are you a primary hospice care transitions coordinator to a significant other at home: No Do you presently have visiting nurse or other home services: No Alcohol intake: current Alcohol intake frequency: does not drink Comment: aware of trip hazard Patient Tobacco Use Status: Former Tobacco user Tobacco use type: Cigarette Smoked in Last 30 Days: No e-Cigarette/Vaping Use: Never Used Second Hand Smoke Exposure: No Use of substances other than those prescribed or required for medical reasons: No Have you been hit, kicked, punched, or otherwise hurt by someone within the past year? If so, by whom?: No Are you DNR?: No Advance Directives: No Advance Directives Information Provided: Yes Advance Directives on File: No Recently lost weight without trying: No Current occupational status: retired Cognitive needs: No Hearing needs: No Vision needs: Yes Meds Allergies Allergy/AdvReac Type Severity Reaction Status Date / Time Penicillins Allergy Intermediate Nausea and Verified 06/22/24 06:39 Vomiting Antihistamines - AdvReac Intermediate tachycardia Verified 06/22/24 06:39 Ethylenediamine flu vaccine AdvReac Intermediate vomiting, Uncoded 06/10/24 10:39 in bed for 2 weeks steriods AdvReac Intermediate tachycardia Uncoded 06/10/24 10:39 Home Medications ?Medication ?Instructions ?Recorded ?Confirmed ?Last Taken ?Type magnesium 200 mg tablet 400 mg PO DAILY 10/17/22 06/10/24 04/12/24 History ascorbic acid (vitamin C) 1,000 mg 1,000 mg PO DAILY 06/10/24 06/10/24 Unknown History tablet (Vitamin C) ferrous fumarate 324 mg (106 mg 324 mg PO .2XWEEK 06/10/24 06/14/24 Unknown History iron) tablet qyglpbhs-eudv-vkfn 8 mg-folic 400 1 tab PO DAILY 06/10/24 06/10/24 Unknown History mcg-K 50 mcg-lutein 300 mcg tablet (Multivitamin Women 50 Plus) polyethylene glycol 3350 17 gram 17 g PO DAILY 06/10/24 06/10/24 Unknown History oral powder packet (Miralax) vitamin A-vitamin C-vit E-min 1 tab PO DAILY 06/10/24 06/10/24 Unknown History tablet vitamin B complex 1 tab PO DAILY 06/10/24 06/10/24 Unknown History vitamin E 268 mg (400 unit) capsule 268 mg PO DAILY 06/10/24 06/10/24 Unknown History metoprolol succinate 50 mg 50 mg PO DAILY 06/14/24 06/22/24 06/22/24 History tablet,extended release 24 hr Assessment and Plan Final Anesthetic Review NPO: Yes ASA Class: III Final Preanesthetic Review: No Changes in Pt Med Stat, Meds/Allgs Chart Reviewed, Consent Obtained/Reviewed and Anes Risks/Benef Reviewed Patient Risk: Intermediate Procedure Risk: Intermediate Anesthetic Plan Anesthetic Plan: GA and Regional Block Disposition: Standard PACU
[2024-06-14 15:39] LABS: Hematocrit 39.6 % (37.0-47.0); Hemoglobin 13.1 g/dl (12.0-16.0); Mean Corpuscular HGB Conc 33.1 g/dl (31.0-35.0); Mean Corpuscular Hemoglobin 29.8 pg (27.0-33.0); Mean Corpuscular Volume 90.2 fL (80.0-98.0); Mean Platelet Volume 9.3 fL (9.4-12.3); Platelet Count 388 X10*3/uL (160-400); Red Blood Count 4.39 X10*6/uL (4.20-5.50); Red Cell Distribution Width 15.2 % (11.0-16.0); White Blood Count 7.3 X10*3/uL (4.8-10.8)
[2024-06-14 16:09] LABS: Anion Gap 13 (12-20); Blood Urea Nitrogen 22 mg/dL (9-16); Calcium 10.3 mg/dL (8.4-10.2); Carbon Dioxide 26 mmol/L (22-29); Chloride 101 mmol/L (96-108); Creatinine Clr Calc Pharmacy 32.5; Estimated Glomerular Filt Rate 34; Glucose Random 80 mg/dL (60-115); Potassium 3.5 mmol/L (3.3-5.1); Sodium 136 mmol/L (135-145)
[2024-06-22] VITALS (23 sets, daily range): BP systolic 100–166; BP diastolic 41–82; PULSE 52–73; RESP 16–18; TEMP 36.1–36.9; O2SAT 93–99
--- NOTE | ~2024-06-22 | XR_ITS ---
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 FINDINGS: No consolidation, pleural effusion or pneumothorax. Calcified lymph nodes in the perihilar regions. Calcified plaque thoracic aortic arch. Multilevel thoracic spondylosis. Kyphotic deformity thoracic spine. Multiple vascular clips in the right upper abdomen. XR/XR chest 2V IMPRESSION: No acute airspace disease. Consider prior granulomatosis disease process. Electronically signed by: Reilly Pappas MD 06/14/2024 02:17 PM SHILOH CR
--- OUTSIDE RECORDS SUMMARY | 2024-06-22 06:39 | XMS_ITS | Continuity of Care Document ---
Author Organization [facility] Address [address] [place] [phone]- Care Team Providers Care Floor Steward/Stewardess Name Role Phone Not on Staff, PCP Primary Care Physician Unavail able Encounter [facility] Date(s): 03/25/24 - 06/17/24 [facility] [address] [place] [phone]- Attending Physician: Edvin Oquendo DO Admitting Physician: Edvin Oquendo DO Referring Physician: Kendell SHIELDS Alexandre Encounter Type: Pre-OutPatient One Time Allergies, Adverse Reactions, Alerts Substance Criticality Severity [...] Guarantor name: DIMPLE Health Plan Information #: 2 [address]ayer: [facility] Member Number: [id number] Policy Number: NA Group Number: NA Health Plan Information #: 1 Payer: MEDICARE PART B OUTPT Member Number: [id number] Policy Number: NA Group Number: NA Health Plan Information #: 3 Payer: [employer] PPO MCARE ADV Member Number: NA Policy Number: NA Group Number: NA
--- OUTSIDE RECORDS SUMMARY | 2024-06-22 06:39 | XMS_ITS | Continuity of Care Document ---
Author Organization [facility] Address [address] [place] [phone]- Care Team Providers Care Ductfixing Plumber Name Role Phone Not on Staff, PCP Primary Care Physician Unavail able Encounter [facility] Date(s): 05/10/24 - 06/18/[address] [address]- Attending Physician: Edvin Oquendo DO Admitting Physician: Edvin Oquendo DO Encounter Type: Preadmit Daystay Allergies, Adverse Reactions, Alerts Substance Criticality Severity [...] Health Plan Information #: 1 Payer: KAT FAROOQ ADV Member Number: [id number] Policy Number: NA Group Number: [id number] Health Plan Information #: 2 Payer: [employer] PPO [employer] ADV Member Number: [id number] Policy Number: NA Group Number: NA
[2024-06-22] MEDS: Lactated Ringers 1,000 ML 100 ML IVCONT (06:50)
[2024-06-22 07:14] LABS: Anion Gap 12 (12-20); Blood Urea Nitrogen 20 mg/dL (9-16); Calcium 9.8 mg/dL (8.4-10.2); Carbon Dioxide 26 mmol/L (22-29); Chloride 105 mmol/L (96-108); Creatinine Clr Calc Pharmacy 36.1; Estimated Glomerular Filt Rate 39; Glucose Fasting 89 mg/dL (60-99); Sodium 139 mmol/L (135-145)
--- NOTE | 2024-06-22 07:27 | MHC.SHP ---
Pre-Procedural Eval Section A - 24 Hr Update-Section A only Date of Service: 06/22/24 Section B - Complete if H&P > 30 days Chief Complaint: Other specified diseases of intestine Details of Present Illness: A positive Cologuard, then colonoscopy showing a mass in the cecum Relevant Family History (Specify if Yes): No Relevant Social History: None Present Medications: see Short Stay Collaborative assessment Medical History: Significant History (Chronic kidney disease, paroxysmal atrial fibrillation, hypertension, anemia) Allergies: Allergies Allergy/AdvReac Type Severity Reaction Status Date / Time Penicillins Allergy Intermediate Nausea and Verified 06/22/24 06:39 Vomiting Antihistamines - AdvReac Intermediate tachycardia Verified 06/22/24 06:39 Ethylenediamine flu vaccine AdvReac Intermediate vomiting, Uncoded 06/10/24 10:39 in bed for 2 weeks steriods AdvReac Intermediate tachycardia Uncoded 06/10/24 10:39 Review of Systems Sugical H&P ROS: Negative: Constitution, Cardiovascular and Respiratory Exam Surgical H&P Exam: Normal: Lungs and Normal: Abdomen and Significant Findings: Heart (Irregular) Plan Diagnosis/Plan: Unchanged I have reviewed the history and physical and performed a pertinent physical examination on my patient. No changes have occurred unless specified. Time Spent With Patient Time: Total time managing care of this patient today ____ minutes.
[2024-06-22] MEDS: cefoTEtan disodium 2 GM VIAL IVPUSH (07:34)
--- NOTE | 2024-06-22 07:50 | PHA.MEDREC ---
Pharmacy Consult ? Medication Reconciliation Pharmacy has reviewed the medication reconciliation completed by nursing. Spoke with patient, she is no longer on amlodipine and Multaq.
--- NOTE | 2024-06-22 09:36 | P.OP_ITS ---
Operative Note Operative Note Date of Service: 06/22/24 Narrative: Preop diagnosis: Cecal mass Postop diagnosis: The same Procedure: Hand assisted laparoscopic right colon resection, with extensive lysis of adhesions Surgeon: Yon Christine MD child and youth program assistant: JARED Peterson The patient is a 68-year-old female who had a colonoscopy done showing a cecal mass with serrated features and dysplasia on biopsy. She was therefore referred to me for resection. She understood the technique of the planned procedure as well as the risks, benefits, and alternatives. She did have a previous open cholecystectomy and adhesions were anticipated She was brought to the operating room. She was placed supine under general anesthesia via endotracheal tube. A TAP block and rectus sheath block was done by the anesthesiologist. A Ann catheter was inserted. The abdomen was prepped and draped in the usual sterile fashion. A surgical time-out had been done. The patient received Cefotan 2 g IV preoperatively I made a short midline incision in the periumbilical area with a blade 15. This carried down through the full-thickness of the skin and thick subcutaneous fat. He has noted the patient had a pannus in this area and therefore had a very thick amount of subcutaneous fat. We are able to eventually expose the fascia. The fascia was incised. The peritoneum was entered. I positioned the Mahendra wound retractor along with the GelPort and the insufflating port. We used a 10 mm 30 degree scope through the insufflating port. There was note of a lot of adhesions on the upper abdomen mostly on the right upper quadrant from her previous cholecystectomy. I was able to find a clear area in the epigastric region for insertion of the 10 mm epigastric port. We moved the laparoscope into the epigastric port. With laparoscopic visualization I inserted another port in the left upper quadrant avoiding adhesions. The patient was placed in a [id number] position. We had to do extensive lysis of adhesions in the upper abdomen in view of very dense amount of omentum adhere to the area. This was done using the LigaSure. This took an extended period of time. Eventually was able to lyse done all these adhesions including omental fat. I was able to visualize the hepatic flexure. I mobilized the right colon and the cecum. I divided adhesions and ligamentous attachment in the hepatic flexure and eventually was able to visualize the duodenum. I care fully reflected the mesocolon medially with the duodenum being the medial limit of our dissection. We had to do more dissection because of adherent omental fat in the distal right colon Eventually I felt that we had enough mobilization to bring out the right colon through the incision. We desufflated. I was able to move up the terminal ileum, cecum and right colon. I chose my point of transection in the terminal ileum and created a mesenteric window. I divided this with a ANGEL 60 mm stapler I identified my point of dissection in the buttock flexure. However, it appeared that had a little bit of tension in this area from residual adhesions. I therefore decided to replace the right colon back into the peritoneal cavity. We replaced the GelPort. We then proceeded to examined laparoscopically. I proceeded to divide more adhesions in the hepatic flexure to release this from the retroperitoneum as well as from the adherent omentum. This was done using the LigaSure. We then desufflated and pulled up more of the right colon. This time we had seemed to have better mobilization. I chose my point of transection in the hepatic flexure. I created a mesenteric window and used a ANGEL 60 mm stapler to divide this I scored the peritoneum of the attached mesentery with electrocautery to guide our transection with the LigaSure. We used the LigaSure to divide mesentery from both proximal and distal making sure that we had adequate lymphatic basin in the attached mesentery. We dissected down to the pedicle which was the ileocolic pedicle. I then the pedicle and applied right angle clamps. I divided the pedicle in a high ligation fashion. I doubly ligated the proximal stump of the pedicle with Polysorb 2-0 ties. The specimen consistent with a right colon was then sent We observed for hemostasis. Once hemostasis was confirmed, we proceeded to do our anastomosis. I aligned the ileal stump in the chronic stump at the anti mesenteric side. I excised the apex of each staple line with curved Saeed scissors to enter the lumen. I inserted each arm of the ANGEL 60 mm stapler into the lumen at the anti mesenteric side. I made sure that there were no bowel loops or mesentery caught by the staplers. I fired the stapler to create our [id number] anastomosis. The staple line was seen at the luminal side and this appeared to be intact and hemostatic. I completed the anastomosis by closing the enterotomy with a TA 60 mm stapler. I applied a seromuscular stitch at the crotch of the staple line to release any tension I examined the staple line of the serosal side and this appeared to be intact. I replaced the anastomosed bowel back into the peritoneal cavity I positioned the omentum to overlie this I then examined the bowel loops laparoscopically. There was no signs of any bowel injury. The anastomotic site appeared to be intact and well vascularized . We examined all 4 quadrants. Once hemostasis was then confirmed, I desufflated. We changed gloves. I closed the fascia with a running Maxon 1 stitch. The fascial closure were examined laparoscopically through the epigastric port site and this appeared intact without any bowel loops caught by the sutures We removed all port sites and desufflated completely All skin incisions were then closed with skin reginald after irrigation Dressings were applied. The procedure was completed The patient tolerated the procedure well. There were no immediate complications. Initial and final counts of sponges and instruments were correct. Estimated blood loss was about 25 cc The patient was extubated without difficulty and transferred to the recovery room with stable vital signs.
[2024-06-22] MEDS: HYDROmorphone HCl 0.5 MG/0.5 ML SYRINGE 0.25 MG IVPUSH (13:26)
--- NOTE | 2024-06-22 14:33 | PM.EVENT ---
Event Note Date of Service: 06/22/24 Event Note: Seen postop Underwent right colon resection earlier Appears to have adequate pain control Stable vital signs Looks well Abdomen is soft Good urine output Pain management Instructed on incentive spirometry Family updated Time Spent With Patient Time: Total time managing care of this patient today ____ minutes.
[2024-06-22] MEDS: Lactated Ringers 1,000 ML 80 ML IVCONT (15:15)
[2024-06-22] MEDS: Acetaminophen 1,000 MG/100 ML PIGGYBACK 400 MG IV ×2 (15:20→20:49)
[2024-06-22] MEDS: oxyCODONE HCl Immed Release 5 MG TABLET PO (18:11)
--- NOTE | 2024-06-22 20:33 | P.CONHOSP_ITS ---
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 POD0. Hospitalist consult for medical management. Pt seen evaluated in her room where she is resting comfortably in bed. Reports pain well managed. Has not been out of bed yet. No flatus or bowel movement. Some nausea shortly after surgery, but no vomiting. Denies fever, chills. No SOB or difficulty breathing. Review of Systems 2 Review of Systems: Negative except for that which is stated in the HPI [facility] Medical History History of alcohol abuse (~2004) DODSON (dyspnea on exertion) Diverticulosis CKD (chronic kidney disease), stage III Vaccine refused by patient Vitamin D deficiency Anemia Positive colorectal cancer screening using Cologuard test Osteoarthritis Habitual snoring Bronchitis Rheumatic fever New onset atrial fibrillation Erythema intertrigo Rash of face Hx of ectopic Hx of History of seizures Essential hypertension Family History Father Substance use disorder Lung cancer Essential hypertension CAD (coronary artery disease) COVID-19 Skin cancer Mother Substance use disorder Oral cancer Essential hypertension CAD (coronary artery disease) COVID-19 Sister Disorder of thyroid Brother CAD (coronary artery disease) COVID-19 Surgical History Hx of colonoscopy (04/19/24) Status post left breast lumpectomy (10/28/22) Hx of shoulder surgery H/O tubal ligation Hx of cholecystectomy Hx of tonsillectomy Social History Household Members: Spouse Housing: House Are you a primary post anesthesia care unit nurse to a significant other at home: No Do you presently have visiting nurse or other home services: No Alcohol intake: current Alcohol intake frequency: does not drink Comment: aware of trip hazard Patient Tobacco Use Status: Former Tobacco user Tobacco use type: Cigarette Smoked in Last 30 Days: No e-Cigarette/Vaping Use: Never Used Second Hand Smoke Exposure: No Use of substances other than those prescribed or required for medical reasons: No Have you been hit, kicked, punched, or otherwise hurt by someone within the past year? If so, by whom?: No Do you feel safe in your current relationship?: Yes Is there a partner from a previous relationship who is making you feel unsafe now?: No Are you made to feel afraid or neglected: No Are you DNR?: No Advance Directives: No Advance Directives Information Provided: Yes Advance Directives on File: No Do you have a plan to hurt others: No Plan Recently lost weight without trying: No Eating poorly because of decreased appetite: No Nutrition Risks: No Nutritional Risk Patient : No : No Poor oral hygiene: Yes Current occupational status: retired Cognitive needs: No Hearing needs: No Vision needs: Yes Meds Allergies Allergy/AdvReac Type Severity Reaction Status Date / Time Penicillins Allergy Intermediate Nausea and Verified 06/22/24 06:39 Vomiting Antihistamines - AdvReac Intermediate tachycardia Verified 06/22/24 06:39 Ethylenediamine flu vaccine AdvReac Intermediate vomiting, Uncoded 06/10/24 10:39 in bed for 2 weeks steriods AdvReac Intermediate tachycardia Uncoded 06/10/24 10:39 Active Medications: Current Medications Amiodarone HCl (Amiodarone Hcl 200 Mg Tablet) 200 mg PO DAILY [facility] Calcium Carbonate (Calcium Carbonate 750 Mg Tab.Chew) 750 mg PO Q4H PRN PRN Reason: Heartburn Heparin Sodium (Porcine) (Heparin Sodium,Porcine 5,000 Unit/Ml Vial) 5,000 unit SUBCUT Q8H [facility] Hydrochlorothiazide (Hydrochlorothiazide 25 Mg Tablet) 25 mg PO DAILY [facility]; Protocol Acetaminophen (Ofirmev) 1,000 mg in 100 mls @ 400 mls/hr IV Q6H [facility] Last Infusion: 06/22/24 16:21 Dose: Infused Lactated Ringer's (Lr) 1,000 mls @ 80 mls/hr IVCONT .[id number] [facility] Last Admin: 06/22/24 15:15 Dose: 80 mls/hr Magnesium Hydroxide (Milk Of Magnesia 30 Ml Oral.Susp) 30 ml PO DAILY PRN PRN Reason: Constipation Magnesium Oxide (Magnesium Oxide 400 Mg Tablet) 400 mg PO DAILY [facility] Melatonin (Melatonin 3 Mg Tablet) 6 mg PO BEDTIME PRN PRN Reason: Insomnia Metoprolol Succinate (Metoprolol Succinate Er 50 Mg Tab.Er.24h) 50 mg PO DAILY [facility]; Protocol Morphine Sulfate (Morphine Sulfate 4 Mg/Ml Cartridge) 4 mg IVPUSH Q4H PRN; Protocol PRN Reason: Pain, Severe (Pain Scale 7-10) Oxycodone HCl (Oxycodone Hcl Immed Release 5 Mg Tablet) 5 mg PO Q4H PRN PRN Reason: Pain, Moderate(Pain Scale 4-6) Last Admin: 06/22/24 18:11 Dose: 5 mg Sodium Chloride (0.9 % Sodium Chloride Flush 3 Ml Syringe) 3 ml IVFLUSH [facility] Last Admin: 06/22/24 17:45 Dose: Not Given Home Medications ?Medication ?Instructions ?Recorded ?Confirmed ?Last Taken ?Type magnesium 200 mg tablet 400 mg PO DAILY 10/17/22 06/10/24 04/12/24 History ascorbic acid (vitamin C) 1,000 mg 1,000 mg PO DAILY 06/10/24 06/10/24 Unknown History tablet (Vitamin C) ferrous fumarate 324 mg (106 mg 324 mg PO Q48H 06/10/24 06/22/24 Unknown History iron) tablet lztxeujw-qnjt-yhzs 8 mg-folic 400 1 tab PO DAILY 06/10/24 06/10/24 Unknown History mcg-K 50 mcg-lutein 300 mcg tablet (Multivitamin Women 50 Plus) polyethylene glycol 3350 17 gram 17 g PO DAILY 06/10/24 06/10/24 Unknown History oral powder packet (Miralax) vitamin A-vitamin C-vit E-min 1 tab PO DAILY 06/10/24 06/10/24 Unknown History tablet vitamin B complex 1 tab PO DAILY 06/10/24 06/10/24 Unknown History vitamin E 268 mg (400 unit) capsule 268 mg PO DAILY 06/10/24 06/10/24 Unknown History metoprolol succinate 50 mg 50 mg PO DAILY 06/14/24 06/22/24 06/22/24 History tablet,extended release 24 hr amiodarone 200 mg tablet 200 mg PO DAILY 06/22/24 06/22/24 06/22/24 History hydrochlorothiazide 25 mg tablet 25 mg PO DAILY 06/22/24 06/22/24 Unknown History Physical Exam 2 Vital Signs and Narrative: Vital Signs: Last Vital Signs Temp 97.3 F 06/22/24 19:11 Pulse 66 06/22/24 19:11 Resp 18 06/22/24 19:11 BP 166/78 H 06/22/24 19:11 Pulse Ox 96 06/22/24 19:11 O2 Del Method Room Air 06/22/24 19:11 O2 Flow Rate 6 06/22/24 15:00 BMI result Body Mass Index 31.2 General: AOx3, no acute distress Resp: CTA bilaterally CVS: S1, S2, RRR GI: +BS, appropriate tenderness at surgical site, clean dressing in place Skin: Warm, dry Neuro: Cranial nerves II-XII grossly intact bilaterally. 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 POD0. Hospitalist consult for medical management. Cecal mass s/p right colon resection Pt reports pain well managed under current analgesic regimen Plan as per General surgery Paroxysmal AFib Continue amiodarone, metoprolol Continue Eliquis as per General surgery Hypertension Pt with postop hypertension as high as 166/78 Continue metoprolol and hydrochlorothiazide Pt otherwise seems stable has no acute medical complaints. Will sign off for now. Thank you for allowing us to participate in the care of this pt. Please re-consult if any acute issue or need arises.
[2024-06-22] MEDS: ondansetron HCL 4 MG/2 ML VIAL IVPUSH (23:38)
[2024-06-23] MEDS: Acetaminophen 1,000 MG/100 ML PIGGYBACK 400 MG IV ×4 (01:47→20:16)
[2024-06-23] MEDS: Lactated Ringers 1,000 ML 80 ML IVCONT ×2 (03:32→15:24)
[2024-06-23 06:18] LABS: MANUAL DIFF FLAG NO
[2024-06-23 06:37] LABS: Anion Gap 11 (12-20); Blood Urea Nitrogen 18 mg/dL (9-16); Calcium 8.5 mg/dL (8.4-10.2); Carbon Dioxide 23 mmol/L (22-29); Chloride 104 mmol/L (96-108); Creatinine Clr Calc Pharmacy 38.9; Estimated Glomerular Filt Rate 42; Glucose Fasting 105 mg/dL (60-99); Sodium 134 mmol/L (135-145)
--- NOTE | 2024-06-23 06:45 | PM.PNGS ---
Subjective Subjective Date of Service: 06/23/24 <Fekkpz-OC-Ihlgfpo-Ah Esa - Last Filed: 06/23/24 07:12> 06/23/24 <Michaela Peterson PA-C - Last Filed: 06/23/24 07:47> 06/23/24 <Yon Christine MD - Last Filed: 06/23/24 08:05> Interval history: Patient seen and examined this morning. States she is doing okay. No pain this morning. Has been OOB to hallways. Endorses nausea and vomiting last night that got better with dose of Zofran. Feels bloated. Denies chest pain or shortness of breath. Denies flatus or bowel movement. <[facility] - Last Filed: 06/23/24 07:12> States she is doing okay. No pain this morning. Has been OOB to hallways. Endorses nausea and vomiting last night that got better with dose of Zofran. Feels bloated. Denies chest pain or shortness of breath. Denies flatus or bowel movement. <Michaela Peterson PA-C - Last Filed: 06/23/24 07:47> Physical Exam Vital Signs: Vital Signs: Last Vital Signs Temp 97.8 F 06/22/24 23:28 Pulse 73 06/22/24 23:28 Resp 16 06/22/24 23:28 BP 123/58 L 06/22/24 23:28 Pulse Ox 94 06/22/24 23:28 O2 Del Method Room Air 06/22/24 23:28 O2 Flow Rate 6 06/22/24 15:00 BMI result Body Mass Index 31.2 <[facility] - Last Filed: 06/23/24 07:12> Const: Other: Laying in bed, awake, calm, in no acute distress <[facility] - Last Filed: 06/23/24 07:12> Resp: Effort & Inspection: normal respiratory effort and able to speak in complete sentences <[facility] - Last Filed: 06/23/24 07:12> GI: Other: Abdomen is soft, non tender and non distended. Dressings intact. <[facility] - Last Filed: 06/23/24 07:12> : Other: Song catheter in place <[facility] - Last Filed: 06/23/24 07:12> Skin: Other: No lesions or rashes noted <[facility] - Last Filed: 06/23/24 07:12> Extrem: Other: Moving all extremities normally. No lower extremity edema noted. <[facility] - Last Filed: 06/23/24 07:12> Objective Data Active Medications Amiodarone HCl (Amiodarone Hcl 200 Mg Tablet) 200 mg PO DAILY [facility] Calcium Carbonate (Calcium Carbonate 750 Mg Tab.Chew) 750 mg PO Q4H PRN PRN Reason: Heartburn Heparin Sodium (Porcine) (Heparin Sodium,Porcine 5,000 Unit/Ml Vial) 5,000 unit SUBCUT Q8H [facility] Hydrochlorothiazide (Hydrochlorothiazide 25 Mg Tablet) 25 mg PO DAILY [facility]; Protocol Acetaminophen (Ofirmev) 1,000 mg in 100 mls @ 400 mls/hr IV Q6H [facility] Last Infusion: 06/23/24 02:04 Dose: Infused Documented By: KUMAR Lactated Ringer's (Lr) 1,000 mls @ 80 mls/hr IVCONT .[id number] [facility] Last Admin: 06/23/24 03:32 Dose: 80 mls/hr Documented By: [place] Magnesium Hydroxide (Milk Of Magnesia 30 Ml Oral.Susp) 30 ml PO DAILY PRN PRN Reason: Constipation Magnesium Oxide (Magnesium Oxide 400 Mg Tablet) 400 mg PO DAILY [facility] Melatonin (Melatonin 3 Mg Tablet) 6 mg PO BEDTIME PRN PRN Reason: Insomnia Metoprolol Succinate (Metoprolol Succinate Er 50 Mg Tab.Er.24h) 50 mg PO DAILY [facility]; Protocol Morphine Sulfate (Morphine Sulfate 4 Mg/Ml Cartridge) 4 mg IVPUSH Q4H PRN; Protocol PRN Reason: Pain, Severe (Pain Scale 7-10) Ondansetron HCl (Ondansetron Hcl 4 Mg/2 Ml Vial) 4 mg IVPUSH QID PRN PRN Reason: Nausea Last Admin: 06/22/24 23:38 Dose: 4 mg Documented By: KUMAR Oxycodone HCl (Oxycodone Hcl Immed Release 5 Mg Tablet) 5 mg PO Q4H PRN PRN Reason: Pain, Moderate(Pain Scale 4-6) Last Admin: 06/22/24 18:11 Dose: 5 mg Documented By: JURGEN Sodium Chloride (0.9 % Sodium Chloride Flush 3 Ml Syringe) 3 [facility] Last Admin: 06/23/24 00:18 Dose: Not Given Documented By: KUMAR Non-Admin Reason: IV Running <[facility] - Last Filed: 06/23/24 07:12> Labs CBC & Chem 7: 06/23/24 05:37 06/23/24 05:37 <[facility] - Last Filed: 06/23/24 07:12> Labs: Laboratory Results - last 24 hr 06/22/24 06/23/24 06:47 05:37 Anion Gap 12 11 L Estim Creat Clear Calc 36.1 38.9 Estimated GFR 39 42 Fasting Glucose 89 105 H Calcium 9.8 8.5 D Blood Type A Negative Antibody Screen NEGATIVE <[facility] - Last Filed: 06/23/24 07:12> Procedures Date of Service Date of Service: 06/23/24 <[facility] - Last Filed: 06/23/24 07:12> 06/23/24 <Michaela Peterson PA-C - Last Filed: 06/23/24 07:47> 06/23/24 <Yon Christine MD - Last Filed: 06/23/24 08:05> Progress Note: A&P Assessment and plan (1) S/P right colectomy: Status: Acute <[facility] - Last Filed: 06/23/24 07:12> Assessment and Plan: Says she feels well this morning Admits to some nausea earlier Denies flatus Pain well controlled Abdomen is soft Dressings dry Looks well overall DC Song Ambulate down the hallway today Pain management Keep on clear liquids for Seen and examined independently <Yon Christine MD - Last Filed: 06/23/24 08:05> Assessment and Plan: Patient is POD#1 s/p Hand assisted laparoscopic right colon resection, with extensive lysis of adhesions . Doing well post op. Pain is well managed. Abdominal exam is benign, dressings intact. Endorsed nausea and vomiting last night. Vitals wnl. No flatus or bowel movement. D/c song catheter. Continue current pain regimen. Continue clear liquids, will increase diet with evidence of GI function. continue IVF for now. Increase OOB/ambulation, IS encouraged. Will review labs. <Enrique Glen - Last Filed: 06/23/24 07:12> Patient is POD#1 s/p Hand assisted laparoscopic right colon resection, with extensive lysis of adhesions . Doing well post op. Pain is well managed. Abdominal exam is benign, dressings intact. Endorsed nausea and vomiting last night. Vitals wnl. No flatus or bowel movement. D/c song catheter. Continue current pain regimen. Continue clear liquids, will increase diet with evidence of GI function. continue IVF for now. Increase OOB/ambulation, IS encouraged. Will review labs. Agree with above assessment and plan. POD #1 s/p Hand assisted laparoscopic right colon resection, extensive lysis of adhesions. No acute issues, some nausea this morning, no flatus or BM. VSS. Abd exam is benign with clean dressings, mildly distended, appropriate post op tenderness. Cont clear liquids as tolerated for now, IVF. Increase activity. Dc song. Await return of GI function. Leukocytosis likely reactive. Hospitalists following. Repeat CBC tomorrow, if H/H stable will resume eliquis. <Michaela Peterson PA-C - Last Filed: 06/23/24 07:47> Time Spent With Patient Time: Total time managing care of this patient today ____ minutes. <Enrique Glen - Last Filed: 06/23/24 07:12> Quality Stroke Does the patient have a stroke diagnosis?: No <JOSEE Quinteros Last Filed: 06/23/24 07:47> VTE Prior VTE?: No <JOSEE Quinteros Last Filed: 06/23/24 07:47> VTE Risk Level:: Medical - moderate - high <[facility] - Last Filed: 06/23/24 07:12> VTE Device Contraindication: N/A - Device Ordered <[facility] - Last Filed: 06/23/24 07:12> VTE Drug Contraindication: N/A - Med Ordered <[facility] - Last Filed: 06/23/24 07:12>
[2024-06-23 07:13] LABS: Basophils Percent Auto 0.1 % (0-2); Hematocrit 31.6 % (37.0-47.0); Hemoglobin 10.6 g/dl (12.0-16.0); Imm Gran Abs Auto 0.06 X10*3/uL (0.00-0.03); Imm Gran Pct Auto 0.4 % (0.0-0.4); Lymphocytes Absolute Auto 1.1 X10*3/uL (1.2-4.9); Mean Corpuscular HGB Conc 33.5 g/dl (31.0-35.0); Mean Corpuscular Volume 89.5 fL (80.0-98.0); Mean Platelet Volume 9.9 fL (9.4-12.3); Monocytes Percent Auto 6.9 % (2-11); Neutrophils Absolute Auto 11.6 x10*3/uL (2.0-8.3); Neutrophils Percent Auto 84.6 % (45-73); Platelet Count 285 X10*3/uL (160-400); Red Blood Count 3.53 X10*6/uL (4.20-5.50); Red Cell Distribution Width 14.6 % (11.0-16.0); White Blood Count 13.8 X10*3/uL (4.8-10.8)
[2024-06-23 07:53] VITALS: BP 134/63; PULSE 69; RESP 16; TEMP 36.5; O2SAT 96
[2024-06-23] MEDS: Amiodarone HCL 200 MG TABLET PO (07:58)
[2024-06-23] MEDS: Metoprolol Succinate ER 50 MG TAB.ER.24H PO (07:58)
[2024-06-23] MEDS: Magnesium Oxide 400 MG TABLET PO (07:58)
[2024-06-23] MEDS: hydroCHLOROthiazide 25 MG TABLET PO (07:58)
--- NOTE | 2024-06-23 09:46 | HO.POSTANES ---
Post Anesthesia Evaluation Post Anesthesia Evaluation Date of Service: 06/23/24 Vital Signs: Vital Signs Temp Pulse Resp BP Pulse Ox O2 Del Method 06/23/24 07:53 97.7 F 69 16 134/63 96 Room Air 06/22/24 23:28 97.8 F 73 16 123/58 L 94 Room Air Anesthesia: General Endotracheal-GETA Mental Status: Awake Pain Control: Satisfactory Nausea/Vomiting: None Hydration: Adequate Anesthesia-Related Issues: No Anes. Related Issues
[2024-06-23] MEDS: Heparin Sodium,Porcine 5,000 UNIT/ML VIAL 5000 UNIT SUBCUT ×2 (10:00→20:16)
[2024-06-23] MEDS: oxyCODONE HCl Immed Release 5 MG TABLET PO ×2 (10:00→14:00)
--- NOTE | 2024-06-23 10:17 | HO.WOUND ---
Wound Consult: Initial 68 yr old?female admitted to [facility] [place] on 06/22/24 - See progress notes and H&P for detailed history.? Wound consult placed for buttock and skin folds.? Patient agreeable to assessment and photo documentation.? Patient reports she is aware of the irritation to her buttocks. She reports this is due to her incontinence and wearing a brief. She denies use of barrier cream at home - she was educated on the benefits of barrier cream when baseline incontinence is present. Intergluteal and Bilateral buttocks Etiology: MASD - IAD (Moisture Associated Skin Damage - Incontinence associated dermatitis)??Present on Admission Wound Bed: Within skin fold red pink blanchable tissue - maceration noted open tissue at base of fold maceration noted partial thickness tissue loss - edhes advancing consistent with fungal dermaittis red maroon nonblanchable areas not consisitent with pressure consistent with abrasion Drainage / Odor: none noted Edges: ? mirrored and advancing Yadi wound: intact ? No Induration, Fluctuance or Warmth noted Pain: reports tenderness Goals of Treatment: ? barrier cream and antifungal treatment Breast and abdominal skin folds - mirrored red pink tissue no open tissue noted - recommend interdry. Recommendations: 1. Turn and Reposition every 2 hours and as needed for patient comfort.? Use pillows or wedges to support off loading positions. 2. Off Load all bony prominences with use of pillows and heel boots if needed.? Apply Preventative foams where needed. ? 3. Monitor for incontinence and moisture control, use barrier creams when needed for prevention and treatment. 4. Provide adequate and supplemental nutrition.? 5. Order low air loss mattress. 6. When applicable maintain blood glucose levels per Providers order. 7. Intergluteal and buttock - Off Load Pressure with Q2 hr turns and use of pillows - Cleanse with PH balance spray or wipes, pat dry. ?Apply thin layer of Triad to wound bed - only pat and dab no scrub and rub when soiling occurs. Reapply thin layer PRN after each episode of incontinence. Apply antifungal powder twice daily per orders. 8. Bilateral breast folds and Abdominal skin fold - Apply Interdry to affected areas as follows: Tuck Interdry AG Sheet into skin fold to wick and translocate moisture away from skin fold.? Be sure to leave at least 2 inch of fabric exposed outside of skin fold.? Change after 5 days or when soiled. Re-consult wound care Nurse for wound deterioration or wound changes.
--- NOTE | 2024-06-23 14:03 | MHC.CM.PN ---
PT LIVES WITH IS INDEPEDENT HAS A RIDE HOME WILL NOT NEED SERVICE YOCASTA HENRIQUEZ
--- NOTE | 2024-06-23 15:07 | PM.EVENT ---
Event Note Date of Service: 06/23/24 Event Note: Seen on afternoon rounds Admits to some incisional pain Looks well Has been ambulating Tolerating clear liquids Denies flatus Abdomen is soft Encouraged to ambulate some more Family at bedside Await return of GI function Time Spent With Patient Time: Total time managing care of this patient today ____ minutes.
[2024-06-23 15:35] VITALS: BP 155/76; PULSE 70; RESP 20; TEMP 36.8; O2SAT 93
[2024-06-23 19:05] VITALS: BP 159/73; PULSE 77; RESP 18; TEMP 36.8; O2SAT 94
[2024-06-23] MEDS: Nystatin Powder 15 GM BOTTLE 1 APPL TOPICAL (20:16)
[2024-06-23 23:35] VITALS: BP 145/64; PULSE 75; RESP 16; TEMP 36.7; O2SAT 95
[2024-06-24] MEDS: Acetaminophen 1,000 MG/100 ML PIGGYBACK 400 MG IV ×4 (02:03→20:06)
[2024-06-24] MEDS: Heparin Sodium,Porcine 5,000 UNIT/ML VIAL 5000 UNIT SUBCUT (02:04)
[2024-06-24] MEDS: Lactated Ringers 1,000 ML 80 ML IVCONT (03:56)
--- NOTE | 2024-06-24 04:20 | PC.NURSE ---
Patient ambulated in hallway x2, stated just now passed gas. Good pain relief with scheduled Tylenol.
--- NOTE | 2024-06-24 06:49 | P.PNGS_ITS ---
Subjective Subjective Date of Service: 06/24/24 <Vkjwci-DB-Mhrxfdc-Ah Esa - Last Filed: 06/24/24 06:58> 06/24/24 <Michaela Peterson PA-C - Last Filed: 06/24/24 07:42> 06/24/24 <Yon Christine MD - Last Filed: 06/24/24 08:08> Interval history: Patient seen and examined this morning. States she only has pain when getting out of bed. Tolerating clear liquids. Urinating without difficulty. Passing flatus but no bowel movement as of yet. Has been ambulating well. Denies chest pain, shortness of breath, nausea or vomiting. <[facility] - Last Filed: 06/24/24 06:58> States she only has pain when getting out of bed. Tolerating clear liquids. Urinating without difficulty. Passing flatus but no bowel movement as of yet. Has been ambulating well. Denies chest pain, shortness of breath, nausea or vomiting. <Michaela Peterson PA-C - Last Filed: 06/24/24 07:42> Physical Exam 2 Vital Signs: Vital Signs: Last Vital Signs Temp 98.0 F 06/23/24 23:35 Pulse 75 06/23/24 23:35 Resp 16 06/23/24 23:35 BP 145/64 H 06/23/24 23:35 Pulse Ox 95 06/23/24 23:35 O2 Del Method Room Air 06/23/24 23:35 O2 Flow Rate 6 06/22/24 15:00 BMI result Body Mass Index 31.2 <[facility] - Last Filed: 06/24/24 06:58> Const: Other: Laying in bed, awake, calm, in no acute distress. Orienatedx3. <Rehgkf-YK-Qwbpgte-Ah Esa - Last Filed: 06/24/24 06:58> Orientation/consciousness: patient oriented x3 <Michaela Peterson PA-C - Last Filed: 06/24/24 07:42> Resp: Effort & Inspection: normal respiratory effort and able to speak in complete sentences <[facility] - Last Filed: 06/24/24 06:58> GI: Other: Abdomen is soft and non tender, mildy distended, dressings intact. Bowel sounds appreciated. <[facility] - Last Filed: 06/24/24 06:58> Other: Abdomen is soft and non tender, mildy distended, dressings intact. Bowel sounds appreciated. incisions clean <JARED Quinteros - Last Filed: 06/24/24 07:42> Skin: General skin exam: no rashes or lesions noted <JUDE Quinteros - Last Filed: 06/24/24 07:42> Neuro: General: patient oriented x3 and moves all extremities <Michaela Peterson PA-C - Last Filed: 06/24/24 07:42> Extrem: Other: Moving all extremities normally, no lower extremity edema noted. <[facility] - Last Filed: 06/24/24 06:58> Objective Data Active Medications Amiodarone HCl (Amiodarone Hcl 200 Mg Tablet) 200 mg PO DAILY [facility] Last Admin: 06/23/24 07:58 Dose: 200 mg Documented By: JURGEN Calcium Carbonate (Calcium Carbonate 750 Mg Tab.Chew) 750 mg PO Q4H PRN PRN Reason: Heartburn Heparin Sodium (Porcine) (Heparin Sodium,Porcine 5,000 Unit/Ml Vial) 5,000 unit SUBCUT Q8H [facility] Last Admin: 06/24/24 02:04 Dose: 5,000 unit Documented By: KUMAR Hydrochlorothiazide (Hydrochlorothiazide 25 Mg Tablet) 25 mg PO DAILY [facility]; Protocol Last Admin: 06/23/24 07:58 Dose: 25 mg Documented By: JURGEN Acetaminophen (Ofirmev) 1,000 mg in 100 mls @ 400 mls/hr IV Q6H [facility] Last Infusion: 06/24/24 02:35 Dose: Infused Documented By: KUMAR Lactated Ringer's (Lr) 1,000 mls @ 80 mls/hr IVCONT .[id number] [facility] Last Admin: 06/24/24 03:56 Dose: 80 mls/hr Documented By: KUMAR Magnesium Hydroxide (Milk Of Magnesia 30 Ml Oral.Susp) 30 ml PO DAILY PRN PRN Reason: Constipation Magnesium Oxide (Magnesium Oxide 400 Mg Tablet) 400 mg PO DAILY [facility] Last Admin: 06/23/24 07:58 Dose: 400 mg Documented By: JURGEN Melatonin (Melatonin 3 Mg Tablet) 6 mg PO BEDTIME PRN PRN Reason: Insomnia Metoprolol Succinate (Metoprolol Succinate Er 50 Mg Tab.Er.24h) 50 mg PO DAILY [facility]; Protocol Last Admin: 06/23/24 07:58 Dose: 50 mg Documented By: JURGEN Morphine Sulfate (Morphine Sulfate 4 Mg/Ml Cartridge) 4 mg IVPUSH Q4H PRN; Protocol PRN Reason: Pain, Severe (Pain Scale 7-10) Nystatin (Nystatin Powder 15 Gm Bottle) 1 appl TOPICAL BID [facility]; Protocol Last Admin: 06/23/24 20:16 Dose: 1 appl Documented By: KUMAR Ondansetron HCl (Ondansetron Hcl 4 Mg/2 Ml Vial) 4 mg IVPUSH QID PRN PRN Reason: Nausea Last Admin: 06/22/24 23:38 Dose: 4 mg Documented By: KUMAR Oxycodone HCl (Oxycodone Hcl Immed Release 5 Mg Tablet) 5 mg PO Q4H PRN PRN Reason: Pain, Moderate(Pain Scale 4-6) Last Admin: 06/23/24 14:00 Dose: 5 mg Documented By: JURGEN Sodium Chloride (0.9 % Sodium Chloride Flush 3 Ml Syringe) [facility] Last Admin: 06/24/24 00:13 Dose: Not Given Documented By: KUMAR Non-Admin Reason: IV Running <[facility] - Last Filed: 06/24/24 06:58> Labs CBC & Chem 7: 06/24/24 05:45 06/23/24 05:37 <Qxlutl-VL-Vuifboj-Ah Esa - Last Filed: 06/24/24 06:58> Labs: Laboratory Results - last 24 hr 06/23/24 05:37 MCV 89.5 MCH 30.0 MCHC 33.5 RDW 14.6 Plt Count 285 D MPV 9.9 Immature Gran % (Auto) 0.4 Neut % (Auto) 84.6 H Lymph % (Auto) 8.0 L [place] % (Auto) 6.9 Eos % (Auto) 0.0 Baso % (Auto) 0.1 Lymph # (Auto) 1.1 L [place] # (Auto) 1.0 Eos # (Auto) 0.0 Baso # (Auto) 0.0 Abs Immat Gran (auto) 0.06 H Absolute Neuts (auto) 11.6 H Absolute Nucleated RBC 0.000 Nucleated RBC % (auto) 0.0 <[facility] - Last Filed: 06/24/24 06:58> Procedures Date of Service Date of Service: 06/24/24 <[facility] - Last Filed: 06/24/24 06:58> 06/24/24 <Michaela Peterson PA-C - Last Filed: 06/24/24 07:42> 06/24/24 <Yon Christine MD - Last Filed: 06/24/24 08:08> Progress Note: A&P Assessment and plan (1) S/P right colectomy: Status: Acute <[facility] - Last Filed: 06/24/24 06:58> Assessment and Plan: says she feels well passing flatus well ambulating abd soft, incisin clean and dry advance diet doing well seen and examined independently <Yon Christine MD - Last Filed: 06/24/24 08:08> Assessment and Plan: Patient is POD #2 s/p Hand assisted laparoscopic right colon resection, extensive lysis of adhesions. Doing well post op. Pain is well managed. Abdominal exam benign, softly distended, dressings intact. Patient passing flatus, no bowel movement as of yet. Continue current pain regimen. Increase to full liquid diet. Continue IVF for now. continue OOB/ambulation. IS encouraged. Will review labs, if H&H stable will resume home eliquis and d/c heparin. < [facility] - Last Filed: 06/24/24 06:58> Patient is POD #2 s/p Hand assisted laparoscopic right colon resection, extensive lysis of adhesions. Doing well post op. Pain is well managed. Abdominal exam benign, softly distended, dressings intact. Patient passing flatus, no bowel movement as of yet. Continue current pain regimen. Increase to full liquid diet. Continue IVF for now. continue OOB/ambulation. IS encouraged. Will review labs, if H&H stable will resume home eliquis and d/c heparin. Agree with above assessment and plan. POD #2 s/p Hand assisted laparoscopic right colon resection, extensive lysis of adhesions. Continues to do well. Some evidence of GI function. Abd remains benign with clean incision, mildly distended. Will advance to full liquids until more continuous flatus. Cont OOB/ambulation. Leukocytosis improved. H/H stable, will resume eliquis. < Michaela Peterson PA-C - Last Filed: 06/24/24 07:42> Time Spent With Patient Time: Total time managing care of this patient today ____ minutes. <Cbxfqw-ZH-Kgzwhiv- [place] - Last Filed: 06/24/24 06:58> Quality Stroke Does the patient have a stroke diagnosis?: No <Slarwm-GN-Fvawkie- [place] - Last Filed: 06/24/24 06:58> VTE Prior VTE?: No <Apdbak-IZ-Fvjnoof- [place] - Last Filed: 06/24/24 06:58> VTE Risk Level:: Medical - moderate - high <Lyemwv-YE-Eadjscd- [facility] - Last Filed: 06/24/24 06:58> VTE Device Contraindication: N/A - Device Ordered <[facility] - Last Filed: 06/24/24 06:58> VTE Drug Contraindication: N/A - Med Ordered <Zdpauy-RB-Pexzaig- [place] - Last Filed: 06/24/24 06:58>
[2024-06-24 06:55] LABS: MANUAL DIFF FLAG NO
[2024-06-24 07:13] LABS: Basophils Percent Auto 0.4 % (0-2); Eosinophils Percent Auto 0.4 % (0-4); Hematocrit 31.3 % (37.0-47.0); Hemoglobin 10.6 g/dl (12.0-16.0); Imm Gran Abs Auto 0.04 X10*3/uL (0.00-0.03); Imm Gran Pct Auto 0.4 % (0.0-0.4); Lymphocytes Absolute Auto 1.1 X10*3/uL (1.2-4.9); Mean Corpuscular HGB Conc 33.9 g/dl (31.0-35.0); Mean Corpuscular Hemoglobin 30.5 pg (27.0-33.0); Mean Corpuscular Volume 90.2 fL (80.0-98.0); Mean Platelet Volume 10.1 fL (9.4-12.3); Monocytes Absolute Auto 0.8 X10*3/uL (0.1-1.2); Monocytes Percent Auto 7.2 % (2-11); Neutrophils Absolute Auto 9.2 x10*3/uL (2.0-8.3); Neutrophils Percent Auto 81.6 % (45-73); Platelet Count 277 X10*3/uL (160-400); Red Blood Count 3.47 X10*6/uL (4.20-5.50); Red Cell Distribution Width 14.6 % (11.0-16.0); White Blood Count 11.3 X10*3/uL (4.8-10.8)
[2024-06-24 07:43] VITALS: BP 153/81; PULSE 74; RESP 16; TEMP 36.6; O2SAT 94
[2024-06-24] MEDS: Apixaban 5 MG TABLET PO ×2 (08:19→20:07)
[2024-06-24] MEDS: Magnesium Oxide 400 MG TABLET PO (08:19)
[2024-06-24] MEDS: hydroCHLOROthiazide 25 MG TABLET PO (08:19)
[2024-06-24] MEDS: Amiodarone HCL 200 MG TABLET PO (08:20)
[2024-06-24] MEDS: Metoprolol Succinate ER 50 MG TAB.ER.24H PO (08:20)
[2024-06-24] MEDS: Nystatin Powder 15 GM BOTTLE 1 APPL TOPICAL ×2 (08:23→20:07)
[2024-06-24 15:35] VITALS: BP 155/83; PULSE 68; RESP 20; TEMP 36.6; O2SAT 95
[2024-06-24] MEDS: 0.9 % Sodium Chloride Flush 3 ML SYRINGE IVFLUSH (20:07)
[2024-06-24 23:37] VITALS: BP 156/83; PULSE 72; RESP 16; TEMP 36.4; O2SAT 94
[2024-06-25] MEDS: Acetaminophen 1,000 MG/100 ML PIGGYBACK 400 MG IV (06:16)
[2024-06-25] MEDS: 0.9 % Sodium Chloride Flush 3 ML SYRINGE IVFLUSH (07:37)
[2024-06-25] MEDS: Magnesium Oxide 400 MG TABLET PO (07:37)
[2024-06-25] MEDS: hydroCHLOROthiazide 25 MG TABLET PO (07:37)
[2024-06-25] MEDS: Metoprolol Succinate ER 50 MG TAB.ER.24H PO (07:37)
[2024-06-25] MEDS: oxyCODONE HCl Immed Release 5 MG TABLET PO ×2 (07:37→11:22)
[2024-06-25] MEDS: Apixaban 5 MG TABLET PO (07:38)
[2024-06-25] MEDS: Amiodarone HCL 200 MG TABLET PO (07:38)
[2024-06-25] MEDS: Nystatin Powder 15 GM BOTTLE 1 APPL TOPICAL (07:39)
[2024-06-25 08:00] VITALS: BP 135/97; PULSE 113; RESP 16; TEMP 36.8; O2SAT 94
--- NOTE | 2024-06-25 08:30 | P.PNGS_ITS ---
Subjective Subjective Date of Service: 06/25/24 Interval history: Says she feels ?great? Tolerating diet well Has had BMs Passing flatus well Tolerating regular diet Denies significant pain Physical Exam 2 Vital Signs: Vital Signs: Last Vital Signs Temp 98.2 F 06/25/24 08:00 Pulse 113 H 06/25/24 08:00 Resp 16 06/25/24 08:00 BP 135/97 H 06/25/24 08:00 Pulse Ox 94 06/25/24 08:00 O2 Del Method Room Air 06/25/24 08:00 O2 Flow Rate 6 06/22/24 15:00 BMI result Body Mass Index 31.2 Const: Other: Looks well General: comfortable and no acute distress Resp: Effort & Inspection: normal respiratory effort Cardio: Rhythm: regular rhythm GI: Other: Incision clean and dry Palpation (GI): Soft to palpation, not firm, nontender and no guarding Objective Data Active Medications Amiodarone HCl (Amiodarone Hcl 200 Mg Tablet) 200 mg PO DAILY [facility] Last Admin: 06/25/24 07:38 Dose: 200 mg Documented By: ELI Apixaban (Apixaban 5 Mg Tablet) 5 mg PO BID [facility] Last Admin: 06/25/24 07:38 Dose: 5 mg Documented By: ELI Calcium Carbonate (Calcium Carbonate 750 Mg Tab.Chew) 750 mg PO Q4H PRN PRN Reason: Heartburn Hydrochlorothiazide (Hydrochlorothiazide 25 Mg Tablet) 25 mg PO DAILY [facility]; Protocol Last Admin: 06/25/24 07:37 Dose: 25 mg Documented By: ELI Acetaminophen (Ofirmev) 1,000 mg in 100 mls @ 400 mls/hr IV Q6H [facility] Last Infusion: 06/25/24 06:36 Dose: Infused Documented By: KUMAR Magnesium Hydroxide (Milk Of Magnesia 30 Ml Oral.Susp) 30 ml PO DAILY PRN PRN Reason: Constipation Magnesium Oxide (Magnesium Oxide 400 Mg Tablet) 400 mg PO DAILY [facility] Last Admin: 06/25/24 07:37 Dose: 400 mg Documented By: ELI Melatonin (Melatonin 3 Mg Tablet) 6 mg PO BEDTIME PRN PRN Reason: Insomnia Metoprolol Succinate (Metoprolol Succinate Er 50 Mg Tab.Er.24h) 50 mg PO DAILY [facility]; Protocol Last Admin: 06/25/24 07:37 Dose: 50 mg Documented By: ELI Morphine Sulfate (Morphine Sulfate 4 Mg/Ml Cartridge) 4 mg IVPUSH Q4H PRN; Protocol PRN Reason: Pain, Severe (Pain Scale 7-10) Nystatin (Nystatin Powder 15 Gm Bottle) 1 appl TOPICAL BID [facility]; Protocol Last Admin: 06/25/24 07:39 Dose: 1 appl Documented By: ELI Ondansetron HCl (Ondansetron Hcl 4 Mg/2 Ml Vial) 4 mg IVPUSH QID PRN PRN Reason: Nausea Last Admin: 06/22/24 23:38 Dose: 4 mg Documented By: LYSJanice Oxycodone HCl (Oxycodone Hcl Immed Release 5 Mg Tablet) 5 mg PO Q4H PRN PRN Reason: Pain, Moderate(Pain Scale 4-6) Last Admin: 06/25/24 07:37 Dose: 5 mg Documented By: ELI Sodium Chloride (0.9 % Sodium Chloride Flush 3 Ml Syringe) 3 ml IVFLUSH [facility] Last Admin: 06/25/24 07:37 Dose: 3 ml Documented By: ELI Labs 06/24/24 05:45 06/23/24 05:37 Procedures Date of Service Date of Service: 06/25/24 Progress Note: A&P Assessment and plan (1) Mass of cecum: Status: Acute Assessment and Plan: Status post right colon resection Doing very well Good GI functions No fever Abdomen is soft, benign, nontender She says she is ready to be discharged Discharge instructions reinforced with patient We will see in the office Follow up on path report Time Spent With Patient Time: Total time managing care of this patient today ____ minutes. Quality Stroke Does the patient have a stroke diagnosis?: No VTE Prior VTE?: No VTE Risk Level:: Medical - moderate - high VTE Device Contraindication: N/A - Device Ordered VTE Drug Contraindication: N/A - Med Ordered
--- NOTE | 2024-06-25 08:48 | MHC.CM.PN ---
PATIENT MEDICALLY CLEARED FOR DC HOME SELF CARE VIA PRIVATE TRANSPORT.
--- NOTE | 2024-06-25 09:09 | MHC.CM.PN ---
Addendum entered by Yulisa Whitaker RN 06/25/24 10:23: Patient appropriate for dc lounge. RN aware. Original Note: Patient medically cleared for dc home self care. will provide transport at noon. RN aware.
--- NOTE | 2024-06-25 10:40 | P.DS_ITS ---
DS: Providers Provider Date of Service: 06/25/24 Date of admission: 06/22/24 06:31 Date of discharge: 06/25/24 Primary care physician: Chloe Munoz MD Attending physician on admission: Yon Christine Consults: 06/22/24 16:18 Consult to Hospitalist Routine Comment: Consulting Provider: [facility] Reason For Exam: CKD, PAF on eliquis, HTN 06/22/24 17:15 Consult to Wound Care Routine Reason for consultation: redness to buttocks. rash under abd folds. Attending physician on discharge: Yon Christine DS: Diagnosis Discharge Diagnosis (1) Mass of cecum: Status: Acute DS: Summary Hospital Course Hospital Course: HPI AT ADMISSION: The patient is a 68-year-old female who had a colonoscopy done showing a cecal mass with serrated features and dysplasia on biopsy. She was therefore referred to me for resection. She understood the technique of the planned procedure as well as the risks, benefits, and alternatives. She did have a previous open cholecystectomy and adhesions were anticipated HOSPITAL COURSE: On 06/22/24, Hand assisted laparoscopic right colon resection, with extensive lysis of adhesions was performed by Dr. Christine without complication. The patient tolerated the procedure well and was admitted post operatively for observation. Hospitalist consult was obtained for management of her medical comorbidities. She had an uncomplicated recovery course. On POD #1 her song was removed. Her activity was increased. Her diet was gradually advanced from clear liquids to full liquids on POD #2 when she began to pass flatus. She began to pass more continuous flatus and had BMs later that day and was advanced to solids. Her eliquis was held and had VTE prophylaxis with subq heparin until POD #2. The following day, on the day of discharge, she was tolerating a solid diet without nausea or vomiting, had good GI function, pain was minimal and well controlled. She was hemodynamically stable. Her abdomen was benign with clean incisions, soft, appropriate post op tenderness. She was discharged to home on 06/25/24 in stable condition. She is to follow up in the office in 2 weeks. Status at Discharge Functional status at discharge: independent ambulation Overall status at discharge: patient is progressing back to baseline Time Attestation Discharge Coordination Time (in mins): 35 Quality: Safe Use of Opioids Does Pt have an Active Cancer Diagnosis on the Problem List?: No Quality: Stroke Does the patient have a stroke diagnosis?: No Physical Exam Vital Signs: Vital Signs: Last Vital Signs Temp 98.2 F 06/25/24 08:00 Pulse 113 H 06/25/24 08:00 Resp 16 06/25/24 08:00 BP 135/97 H 06/25/24 08:00 Pulse Ox 94 06/25/24 08:00 O2 Del Method Room Air 06/25/24 08:00 O2 Flow Rate 6 06/22/24 15:00 BMI result Body Mass Index 31.2 Const: General: comfortable, no acute distress and alert Orientation/consciousness: patient oriented x3 Resp: Effort & Inspection: normal respiratory effort GI: Inspection: No distended and Yes incision (clean, reginald intact ) Palpation (GI): Soft to palpation, Tenderness to palpation present (GI) (mild incisional) and no guarding Skin: General skin exam: no rashes or lesions noted Neuro: General: patient oriented x3 and moves all extremities DS: Data Data Completed and Pending Completed studies during hospitalization [Text1]: 06/22/24 08:59 Surgical [PTH] Routine Colon, right, ileal colectomy: -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 -Appendix with focal mucosal neutrophils and inspissated mucus in distal tip. -Twelve benign lymph nodes. Comment: There is no submucosal invasion and this lesion lacks metastatic potential. The adenoma has been completely excised and no further treatment of this particular lesion is necessary. Discharge Plan Discharge Anticipated Discharge Date/Time: 06/25/24 08:32 Patient Disposition: Home, Self-Care Discharge Diagnosis: cecal mass Referrals: Chloe Munoz MD [Primary Care Provider] - 1 Week Yon Christine MD [Physician] - 2 Weeks Discharge Medications: New oxycodone-acetaminophen 5-325 mg tablet 1 tab PO Q6H PRN (Reason: pain) Qty: 20 0RF Rx Instructions: Partial Fill upon patient request. Continued Eliquis 5 mg tablet 5 mg PO BID Qty: 180 3RF cholecalciferol (vitamin D3) 125 mcg (5,000 unit) capsule 125 mcg PO DAILY Qty: 90 0RF magnesium 200 mg Tablet 400 mg PO DAILY ferrous fumarate 324 mg (106 mg iron) Tablet 324 mg PO Q48H Patient Comments: takes only 3 x week due to constipation ascorbic acid (vitamin C) [Vitamin C] 1,000 mg Tablet 1,000 mg PO DAILY Multivitamin Women 50 Plus 8 mg iron-400 mcg-50 mcg Tablet 1 tab PO DAILY vitamin B complex Tablet 1 tab PO DAILY vitamin E 268 mg (400 unit) Capsule 268 mg PO DAILY vitamin A-vitamin C-vit E-min Tablet 1 tab PO DAILY metoprolol succinate 50 mg tablet extended release 24 hr 50 mg PO DAILY amiodarone 200 mg tablet 200 mg PO DAILY Rx Instructions: 200 mg orally 400 mg ( 2 tablets) Twice daily for 14 days, then reduce dose to 200mg ( 1 tablet) Daily; hydrochlorothiazide 25 mg tablet 25 mg PO DAILY Discharge Orders: Discharge Order (Routine); Ordered 06/25/24 Ordered By: Yon Christnie Diet: Advance to usual diet Activity on Discharge: No heavy lifting Stand Alone Forms: Patient Portal Discharge page Print Language: Sudanese Activity Restrictions/Additional Instructions: If the incision area is tender, you may apply an ice pack for short intervals (No more than 20 minutes on, followed by at least 20 minutes off). Do not apply heat. Do not use creams, lotions, or topical antibiotics unless instructed to do so by your surgeon. These can cause infection or allergic reaction. No lifting more than 20 lbs Okay to shower No strenuous activities Call the office for follow-up in 2 weeks - with Dr. Christine Call Your Doctor If: -Your temperature exceeds 101.5? F -You experience excessive pain or swelling -You have an unexpected reaction to medication -You have excessive bleeding -You experience continued vomiting/nausea -Your incision begins to separate -Your incision shows signs of infection such as increased redness, swelling, excessive pain, drainage (light blood or clear fluid is normal) or heat Care Plan Goals: Return to baseline health Health Concerns: Recent abdominal surgery Plan of Treatment: Oral pain meds Office follow-up Assessment: Doing very well Discharge Date/Time: 06/25/24 12:20
== END 2024-06-25 12:20 | disposition home or self-care (01) | DRG 331 ==
LOC: HO.SSSA 06:37 → HO.S3 15:17
PROVIDERS: Nurse Practitioner; Physician Assistant Surgical; Admitting Provider Surgery; PCP Internal Medicine; Visit Provider Surgery
PROC: 0DTE0ZZ Resection of Large Intestine, Open Approach (ICD-10-PCS; principal; 2024-06-22 07:30)
DX: K63.9 Disease of intestine, unspecified (principal); K66.0 Peritoneal adhesions (postprocedural) (postinfection); G89.18 Other acute postprocedural pain; I48.0 Paroxysmal atrial fibrillation; I12.9 Hypertensive chronic kidney disease with stage 1 through stage 4 chronic kidney disease, or unspecified chronic kidney disease; N18.30 Chronic kidney disease, stage 3 unspecified; Z87.891 Personal history of nicotine dependence; Z79.01 Long term (current) use of anticoagulants; Z79.899 Other long term (current) drug therapy
CPT/HCPCS: 36415; 80048; 85025; 85027; 86850; 86900; 86901; 88307; 88309; C1758; J0131; J0665; J1171; J1644; J1920; J2003; J2004; J2270; J2405; J2704; J2795; J3010; J7120

== ENCOUNTER → 2024-06-22 06:31 | Outpatient (BNV) | payer MEDICARE, SELFPAY | PROVIDERS: Admitting Provider Surgery; PCP Internal Medicine; Visit Provider Surgery | DX: K63.89 Other specified diseases of intestine (principal) | CPT/HCPCS: 99024; 99239; 99499 ==

== ENCOUNTER → 2024-06-22 06:31 | Outpatient (BNV) | payer MEDICARE, SELFPAY | PROVIDERS: Admitting Provider Surgery; PCP Internal Medicine; Visit Provider Student in an Organized Health Care Education/Training Program | DX: Z90.49 Acquired absence of other specified parts of digestive tract (principal) | CPT/HCPCS: 99222 ==

== ENCOUNTER 2024-07-05 14:02 | Outpatient (AMB) | payer MEDICARE, SELFPAY ==
--- NOTE | 2024-07-05 14:07 | MHC.OFFVIS ---
Vital Signs 07/05/24 14:13 Height 5 ft 2 in Weight 161 lb 13.109 oz BMI 29.6 Intake Visit Reasons: S/P Rt colon resection poss open Intake Note: This patient presents for post-op assessment status post Hand assisted laparoscopic right colon resection, with extensive lysis of adhesions. Pt c/o; reports no some redness surgical site, overall she feels well. 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 Accompanied by: Spouse Allergies Penicillins Allergy (Intermediate, Verified 07/05/24 14:14) Nausea and Vomiting Antihistamines - Ethylenediamine Adverse Reaction (Intermediate, Verified 07/05/24 14:14) tachycardia flu vaccine Adverse Reaction (Intermediate, Uncoded 07/05/24 14:14) vomiting, in bed for 2 weeks steriods Adverse Reaction (Intermediate, Uncoded 07/05/24 14:14) tachycardia Medication List - Last Reconciled 07/05/24 by Yon Christine MD amiodarone 200 mg PO DAILY apixaban (Eliquis) 5 mg PO BID ascorbic acid (vitamin C) (Vitamin C) 1,000 mg PO DAILY cholecalciferol (vitamin D3) 125 mcg PO DAILY ferrous fumarate 324 mg PO Q48H hydrochlorothiazide 25 mg PO DAILY magnesium 400 mg PO DAILY metoprolol succinate ER 50 mg PO DAILY jhmeqcvw-yif-afqf-FA-vit K-lut 8 mg iron-400 mcg-50 mcg (Multivitamin Women 50 Plus) 1 tab PO DAILY oxycodone-acetaminophen 5-325 mg 1 tab PO Q6H PRN vitamin A-vitamin C-vit E-min 1 tab PO DAILY vitamin B complex 1 tab PO DAILY vitamin E 268 mg PO DAILY HPI HPI S/P Rt colon resection poss open: Details: She had undergone hand assisted laparoscopic right colon resection for a cecal polyp last 06/22/2024. She tolerated the procedure well and was discharged on postop day 3. She says she has been doing well at home. She has good oral intake. She has good bowel movements and denies any pain. FORMERLY [facility] Medical History History of alcohol abuse (~2004) DODSON (dyspnea on exertion) Diverticulosis CKD (chronic kidney disease), stage III Vaccine refused by patient Vitamin D deficiency Anemia Positive colorectal cancer screening using Cologuard test Osteoarthritis Habitual snoring Bronchitis Rheumatic fever New onset atrial fibrillation Erythema intertrigo Rash of face Hx of ectopic Hx of History of seizures Essential hypertension Surgical History Hx of surgical procedure (~06/22/24) Hx of colonoscopy (04/19/24) Status post left breast lumpectomy (10/28/22) Hx of shoulder surgery H/O tubal ligation Hx of cholecystectomy Hx of tonsillectomy Family History Father Substance use disorder Lung cancer Essential hypertension CAD (coronary artery disease) COVID-19 Skin cancer Mother Substance use disorder Oral cancer Essential hypertension CAD (coronary artery disease) COVID-19 Sister Disorder of thyroid Brother CAD (coronary artery disease) COVID-19 Social History Household Members: Spouse Housing: House Are you a primary morning caregiver to a significant other at home: No Do you presently have visiting nurse or other home services: No 75 years or older and lives alone: No Alcohol intake: current Alcohol intake frequency: does not drink Comment: aware of trip hazard Patient Tobacco Use Status: Former Tobacco user Tobacco use type: Cigarette e-Cigarette/Vaping Use: Never Used Second Hand Smoke Exposure: No service: No Current occupational status: retired Cognitive needs: No Hearing needs: No Vision needs: Yes Female Reproductive History Menstrual Age of Menarche: 11 Review of Systems Const Denies chills and Denies fever(s) Card Denies chest pain Resp Denies cough GI Denies abdominal pain Physical Exam Vital Signs: BMI result Body Mass Index 29.6 Const General: comfortable and no acute distress Resp Effort & Inspection: normal respiratory effort GI Other: All incisions are well healed, reginald intact Palpation (GI): Soft to palpation, not firm and nontender Assessment & Plan Assessment & Plan (1) Mass of cecum: Code(s): K63.89 - Other specified diseases of intestine Category: Medical Plan: Status post right colon resection. 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 I told her that there was no adeno carcinoma seen. Her incisions are well healed. I removed all her skin reginald. I advised her to avoid lifting anything more than 15 lb for at least another month I will see her in the office in about a month. She is doing very well overall. Coding Level of Care Code Global (76648) Diagnoses Mass of cecum K63.89
[2024-07-05 14:13] VITALS: BMI 29.6
== END 2024-07-05 14:36 | disposition home or self-care (01) ==
PROVIDERS: PCP Internal Medicine; Visit Provider Surgery
DX: K63.89 Other specified diseases of intestine (principal)
CPT/HCPCS: 99024

== ENCOUNTER → 2024-07-05 14:02 | Outpatient (BNVA) | payer MEDICARE, SELFPAY | PROVIDERS: PCP Internal Medicine; Visit Provider Surgery | DX: K63.89 Other specified diseases of intestine (principal) | CPT/HCPCS: 99212 ==

== ENCOUNTER 2024-07-06 09:51 | Outpatient (AMB) | payer MEDICARE, SELFPAY ==
[2024-07-06 10:24] VITALS: BP 122/70; PULSE 67; RESP 15; TEMP 36.6; O2SAT 98; BMI 29.8
--- NOTE | 2024-07-06 10:24 | MHC.PC.OV ---
Vital Signs 07/06/24 10:24 Height 5 ft 2 in Weight 163 lb BMI 29.8 BP 122/70 Blood Pressure Location Lt brachial Position Sitting Respiration 15 Pulse 67 Pulse Source Pulse Oximeter Temp 97.9 F Temp Source Oral Pulse Oximetry (%) 98 Oxygen Delivery Method Room Air Intake Visit Reasons: TCM colon surgery Intake Note: Pt is here today for a TCM colon surgery Allergies Penicillins Allergy (Intermediate, Verified 07/06/24 10:51) Nausea and Vomiting Antihistamines - Ethylenediamine Adverse Reaction (Intermediate, Verified 07/06/24 10:51) tachycardia flu vaccine Adverse Reaction (Intermediate, Uncoded 07/06/24 10:51) vomiting, in bed for 2 weeks steriods Adverse Reaction (Intermediate, Uncoded 07/06/24 10:51) tachycardia Medication List - Last Reconciled 07/06/24 by Chloe Munoz MD amiodarone 200 mg PO DAILY apixaban (Eliquis) 5 mg PO BID ascorbic acid (vitamin C) (Vitamin C) 1,000 mg PO DAILY cholecalciferol (vitamin D3) 125 mcg PO DAILY hydrochlorothiazide 25 mg PO DAILY magnesium 400 mg PO DAILY metoprolol succinate ER 50 mg PO DAILY txkcgbls-vtn-yzgg-FA-vit K-lut 8 mg iron-400 mcg-50 mcg (Multivitamin Women 50 Plus) 1 tab PO DAILY vitamin B complex 1 tab PO DAILY vitamin E 268 mg PO DAILY Tobacco use date assessed: 07/06/24 Fall risk assessment: 1 Fall in past year Last assessed Fall Risk: 07/06/24 Dental Screening Dental Screen Date: 07/06/24 Did you have a dental visit in the last 12 months?: No Did you have a dental problem in the last 6 months where you did not have access to dental care?: No Was dental information given to patient?: No HPI TCM colon surgery HPI Details 68-year-old female with history of paroxysmal atrial fibrillation currently anticoagulated on Eliquis, has chronic kidney disease stage 3, hypertension, has complex cysts in both ovaries, here for a TCM follow-up . She was found to have a cecal mass with serrated features and dysplasia on biopsy during her colonoscopy. Underwent on 06/22/24, Hand assisted laparoscopic right colon resection, with extensive lysis of adhesions performed by Dr. Christine without complication. She was seen yesterday by Dr. Christine for postop follow-up and is currently on her regular diet, without any nausea or vomiting, passing stools, denies any pain. 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 Her incisions are well healed, with reginald removed yesterday. She has been advised to avoid lifting anything greater than 15 lb for at least another month has a follow-up up again with Dr. Christine scheduled in 1 month TCM TCM Information Discharged From [facility] Medical History (Updated 07/06/24 @ 11:08 by Chloe Munoz MD) Complex cyst of both ovaries History of alcohol abuse (~2004) DODSON (dyspnea on exertion) Diverticulosis CKD (chronic kidney disease), stage III Vaccine refused by patient Vitamin D deficiency Anemia Positive colorectal cancer screening using Cologuard test Osteoarthritis Habitual snoring Bronchitis Rheumatic fever New onset atrial fibrillation Erythema intertrigo Rash of face Hx of ectopic Hx of History of seizures Essential hypertension Surgical History Hx of surgical procedure (~06/22/24) Hx of colonoscopy (04/19/24) Status post left breast lumpectomy (10/28/22) Hx of shoulder surgery H/O tubal ligation Hx of cholecystectomy Hx of tonsillectomy Family History Father Substance use disorder Lung cancer Essential hypertension CAD (coronary artery disease) COVID-19 Skin cancer Mother Substance use disorder Oral cancer Essential hypertension CAD (coronary artery disease) COVID-19 Sister Disorder of thyroid Brother CAD (coronary artery disease) COVID-19 Social History Household Members: Spouse Housing: House Are you a primary healthcare associate to a significant other at home: No Do you presently have visiting nurse or other home services: No 75 years or older and lives alone: No Alcohol intake: current Alcohol intake frequency: does not drink Comment: aware of trip hazard Patient Tobacco Use Status: Former Tobacco user Tobacco use type: Cigarette e-Cigarette/Vaping Use: Never Used Second Hand Smoke Exposure: No service: No Current occupational status: retired Cognitive needs: No Hearing needs: No Vision needs: Yes Female Reproductive History Menstrual Age of Menarche: 11 Questionnaire PHQ-9 Over the last 2 weeks, how often have you been bothered by any of the following problems? 1. Little interest or pleasure in doing things: not at all 2. Feeling down, depressed, or hopeless: not at all 3. Trouble falling or staying asleep, or sleeping too much: not at all 4. Feeling tired or having little energy: not at all 5. Poor appetite or overeating: not at all 6. Feeling bad about yourself - or that you are a failure or have let yourself or your family down: not at all 7. Trouble concentrating on things, such as reading the newspaper or watching television: not at all 8. Moving or speaking so slowly that other people could have noticed. Or the opposite - being so fidgety or restless that you have been moving around a lot more than usual: not at all 9. Thoughts that you would be better off or of hurting yourself in some way: not at all Total score: 0 Depression Screening Interpretation: Negative Depression Screening Done: Yes 61594 - PHQ-9 Billing: Yes Source: Developed by Drs. Matthew Cornell, Victor Manuel Busch and colleagues, with an educational surinder from [employer]. Thrive Questionnaire Date Thrive assessed: 06/23/24 ITALO-7 AMB Questionnaire ITALO-7 Date ITALO - 7 assessed: 08/07/23 Source: Developed by Chelle Pinzon Kurt Kroenke and colleagues, with an educational surinder from [employer]. Review of Systems Const Denies chills and Denies fever(s) ENT Reports no additional complaints Card Denies chest pain Resp Denies cough GI Denies abdominal pain, Denies bloating, Denies change in bowel habits, Denies change in stool character and Denies excessive flatus Reports no additional complaints Musc Reports no additional complaints Neuro Reports no additional complaints Zak/Lymph Reports no additional complaints Physical exam (Primary Care) Vital Signs: Last Vital Signs Temp 97.9 F 07/06/24 10:24 Pulse 67 07/06/24 10:24 Resp 15 07/06/24 10:24 BP 122/70 07/06/24 10:24 Pulse Ox 98 07/06/24 10:24 Oxygen Delivery Method Room Air 07/06/24 10:24 BMI result Body Mass Index 29.8 Tobacco/Smoking Status: Tobacco use Status Tobacco use date assessed 07/06/24 07/06/24 10:27 Patient Tobacco Use Status Former Tobacco user 07/06/24 10:27 Tobacco use type Cigarette 07/06/24 10:27 e-Cigarette/Vaping Use Never Used 07/06/24 10:27 PHQ-9: PHQ-9 Score PHQ-9: Total score 4 07/06/24 11:05 Depression Screening Interpretation: Negative Thrive Assessment: Date of Thrive Assessment Date Thrive assessed 06/23/24 07/06/24 10:27 Const General: comfortable, no acute distress and alert Orientation/consciousness: patient oriented x3 HENMT Head: Yes normocephalic Ears: external ears normal Face and sinus: Yes face symmetric Mouth: Normal oral and palatal mucosa present, oropharynx normal and moist mucous membranes Eyes General: appearance normal, both eyes and all related structures Neck Other: Nonpalpable thyroid gland Neck: Yes full ROM, Yes no lymphadenopathy and Yes supple Resp Effort & Inspection: normal respiratory effort Auscultation: clear to auscultation bilaterally Cardio Other: Irregularly irregular rhythm noted GI Inspection: Yes normal to inspection Palpation (GI): Soft to palpation, nontender and no guarding Auscultation: normal bowel sounds and no bruits Skin Other: Dry healing surgical scar Neuro General: patient oriented x3 Motor exam (neuro): 5/5 motor strength present throughout and no tremors Sensory Exam: double simultaneous stimulation for sensation normal Extrem General: Yes full ROM, Yes no joint enlargement, Yes no clubbing, cyanosis or edema, Yes no pedal edema, Yes no calf tenderness and Yes normal gait Results Reviewed Results Reviewed: Name: Ramona Munguia Age/Sex: 68/F : 1955 Unit#: [id number] Attend Dr: Yon Christine MD Re06/22/24 Status: DIS IN Location: [facility] 371-1 Disch: 06/25/24 SPEC : [id number] GARETH: 06/24/24 STATUS: COMP REQ : [id number] RECD: 06/24/24-[address]: Michaela Peterson PA-C COMP: 06/24/24 ENTERED: 06/24/24 [facility] DR: Chloe Munoz MD, Francis MD ORDERED: CBC Auto Diff Test Result Flag Reference WBC 11.3 H 4.8-10.8 X10*3/uL RBC 3.47 L 4.20-5.50 X10*6/uL HGB 10.6 L 12.0-16.0 g/dl HCT 31.3 L 37.0-47.0 % MCV 90.2 80.0-98.0 fL MCH 30.5 27.0-33.0 pg MCHC 33.9 31.0-35.0 g/dl RDW 14.6 11.0-16.0 % PLT 277 160-400 X10*3/uL MPV 10.1 9.4-12.3 fL Neut Pct Auto 81.6 H 45-73 % ImGran Pct Auto 0.4 0.0-0.4 % Lymp Pct Auto 10.0 L 20-40 % [place] Pct Auto 7.2 2-11 % Eos Pct Auto 0.4 0-4 % Baso Pct Auto 0.4 0-2 % NRBC Pct Auto 0.0 0.0-0.2 /100WBC ANC Neut Abs # 9.2 H 2.0-8.3 x10*3/uL ImGran Abs Auto 0.04 H 0.00-0.03 X10*3/uL Lymph Abs Auto 1.1 L 1.2-4.9 X10*3/uL [place] Abs Auto 0.8 0.1-1.2 X10*3/uL Eos Abs Auto 0.0 0.0-0.4 X10*3/uL Baso Abs Auto 0.0 0.0-0.2 X10*3/uL NRBC Abs Auto 0.000 0.0-0.012 X10*3/uL Name: Ramona Munguia Age/Sex: 68/F : 1955 Unit#: [id number] Attend Dr: Yon Christine MD Re06/22/24 Status: DIS IN Location: [facility] 371-1 Disch: 06/25/24 SPEC : [id number] GARETH: 06/23/24 STATUS: COMP REQ : [id number] RECD: 06/23/[address] [facility] [address]: Michaela Peterson PA-C COMP: 06/23/24 ENTERED: 06/23/[address]: Chloe Munoz MD, Francis MD ORDERED: Met Prof Fast Test Result Flag Reference Sodium 134 L 135-145 mmol/L Potassium 4.0 3.3-5.1 mmol/L CL 104 96-108 mmol/L CO2 23 22-29 mmol/L Gap 11 L 12-20 BUN 18 H 9-16 mg/dL Creat 1.26 0.5-1.4 mg/dL Estimated CrCl 38.9 Provided height and weight: 154.94 cm, 74.843 kg. eGFR (calculated from the MDRD study equation) and eCrCl (calculated from the Cockcroft-Gault equation) are based on different parameters and may not yield comparable results. If eCrCl result is absurd, please check patient's height/weight. eGFR 42 Chronic Kidney Disease: Estimated GFR < 60 mL/min/1.73m2 Severe Kidney Disease: Estimated GFR < 15 mL/min/1.73m2 FBS 105 H 60-99 mg/dL A fasting glucose from 100-125 mg/dl is considered impaired (pre-diabetes). CA 8.5 # 8.4-10.2 mg/dL Coding Level of Care Code TCM High MDM <= 14 days Diagnoses Essential hypertension I10 PAF (paroxysmal atrial fibrillation) I48.0 Anemia D64.9 CKD (chronic kidney disease), stage III N18.30 Complex cyst of both ovaries N83.291; N83.292 Renal lesion N28.9 Additional Codes PHQ-9 - 29998 - PHQ-9 Billing: Yes ([id number]) Assessment & Plan Assessment & Plan (1) Essential hypertension: Code(s): I10 - Essential (primary) hypertension Category: Medical Plan: Blood pressure at goal of less than 130/80. Continue with metoprolol and hydrochlorothiazide the same dose. Reinforced importance of following a low sodium diet, getting regular exercise, and lowering stress levels. (2) PAF (paroxysmal atrial fibrillation): Code(s): I48.0 - Paroxysmal atrial fibrillation Category: Medical Plan: Currently on Eliquis 5 mg 1 tablet twice a day and amiodarone 200 mg daily, followed by cardiology (3) Anemia: Code(s): D64.9 - Anemia, unspecified Category: Medical Plan: Likely due to CKD,, will check iron profile, vitamin-D, vitamin, B12 folic acid, TSH with free T4 and a repeat CBC (4) CKD (chronic kidney disease), stage III: Code(s): N18.30 - Chronic kidney disease, stage 3 unspecified Category: Medical Plan: Nephrology consult ordered (5) Complex cyst of both ovaries: Code(s): N83.291 - Other ovarian cyst, right side; N83.292 - Other ovarian cyst, left side Category: Medical Plan: OBGYN consult ordered (6) Renal lesion: Code(s): N28.9 - Disorder of kidney and ureter, unspecified Category: Medical Plan: Nephrology consult ordered Orders: Orders IRON PROFILE 07/26/24 D64.9 - Anemia, unspecified, E55.9 - Vitamin D deficiency, unspecified, I10 - Essential (primary) hypertension, I48.0 - Paroxysmal atrial fibrillation, N18.30 - Chronic kidney disease, stage 3 unspecified Vitamin D 25-OH Total 07/26/24 D64.9 - Anemia, unspecified, E55.9 - Vitamin D deficiency, unspecified, I10 - Essential (primary) hypertension, I48.0 - Paroxysmal atrial fibrillation, N18.30 - Chronic kidney disease, stage 3 unspecified Vitamin B12 and Folate 07/26/24 D64.9 - Anemia, unspecified, E55.9 - Vitamin D deficiency, unspecified, I10 - Essential (primary) hypertension, I48.0 - Paroxysmal atrial fibrillation, N18.30 - Chronic kidney disease, stage 3 unspecified Basic Metabolic Panel Fasting 07/26/24 D64.9 - Anemia, unspecified, E55.9 - Vitamin D deficiency, unspecified, I10 - Essential (primary) hypertension, I48.0 - Paroxysmal atrial fibrillation, N18.30 - Chronic kidney disease, stage 3 unspecified Aspartate Amino Transferase 07/26/24 D64.9 - Anemia, unspecified, E55.9 - Vitamin D deficiency, unspecified, I10 - Essential (primary) hypertension, I48.0 - Paroxysmal atrial fibrillation, N18.30 - Chronic kidney disease, stage 3 unspecified Alanine Aminotransferase 07/26/24 D64.9 - Anemia, unspecified, E55.9 - Vitamin D deficiency, unspecified, I10 - Essential (primary) hypertension, I48.0 - Paroxysmal atrial fibrillation, N18.30 - Chronic kidney disease, stage 3 unspecified Lipid Panel 07/26/24 D64.9 - Anemia, unspecified, E55.9 - Vitamin D deficiency, unspecified, I10 - Essential (primary) hypertension, I48.0 - Paroxysmal atrial fibrillation, N18.30 - Chronic kidney disease, stage 3 unspecified Complete Blood Count Auto Diff 07/26/24 D64.9 - Anemia, unspecified, E55.9 - Vitamin D deficiency, unspecified, I10 - Essential (primary) hypertension, I48.0 - Paroxysmal atrial fibrillation, N18.30 - Chronic kidney disease, stage 3 unspecified TSH reflex Free T4 07/26/24 D64.9 - Anemia, unspecified, E55.9 - Vitamin D deficiency, unspecified, I10 - Essential (primary) hypertension, I48.0 - Paroxysmal atrial fibrillation, N18.30 - Chronic kidney disease, stage 3 unspecified Referrals Nephrology Referral N18.30 - Chronic kidney disease, stage 3 unspecified [place] Referral N83.291 - Other ovarian cyst, right side, N83.292 - Other ovarian cyst, left side
== END 2024-07-06 11:10 | disposition home or self-care (01) ==
PROVIDERS: PCP Internal Medicine; Visit Provider Internal Medicine
DX: I12.9 Hypertensive chronic kidney disease with stage 1 through stage 4 chronic kidney disease, or unspecified chronic kidney disease (principal); I48.0 Paroxysmal atrial fibrillation; D64.9 Anemia, unspecified; N18.30 Chronic kidney disease, stage 3 unspecified; N83.291 Other ovarian cyst, right side; N83.292 Other ovarian cyst, left side; N28.9 Disorder of kidney and ureter, unspecified

== ENCOUNTER → 2024-07-06 09:51 | Outpatient (BNVA) | payer MEDICARE, SELFPAY | PROVIDERS: PCP Internal Medicine; Visit Provider Internal Medicine | DX: I48.0 Paroxysmal atrial fibrillation (principal); D64.9 Anemia, unspecified; I12.9 Hypertensive chronic kidney disease with stage 1 through stage 4 chronic kidney disease, or unspecified chronic kidney disease; N18.30 Chronic kidney disease, stage 3 unspecified; N83.291 Other ovarian cyst, right side; N83.292 Other ovarian cyst, left side; N28.9 Disorder of kidney and ureter, unspecified | CPT/HCPCS: 96127; 99495 ==

== ENCOUNTER 2024-07-19 14:13 | Outpatient (AMB) | payer MEDICARE, SELFPAY ==
[2024-07-19 14:18] VITALS: BP 130/62; PULSE 53; BMI 29.4
--- NOTE | 2024-07-19 14:18 | A.OFFVIS_ITS ---
Vital Signs 07/19/24 14:18 Height 5 ft 2 in Weight 160 lb 7.944 oz BMI 29.4 BP 130/62 Blood Pressure Location Lt brachial Position Sitting Pulse 53 Pulse Source Monitor Intake Visit Reasons: 4-6 wk follow up Artificial Breast Fabricator Required: No Shoder Filler: Shoder Filler Present Allergies Penicillins Allergy (Intermediate, Verified 07/19/24 14:21) Nausea and Vomiting Antihistamines - Ethylenediamine Adverse Reaction (Intermediate, Verified 07/19/24 14:21) tachycardia flu vaccine Adverse Reaction (Intermediate, Uncoded 07/19/24 14:21) vomiting, in bed for 2 weeks steriods Adverse Reaction (Intermediate, Uncoded 07/19/24 14:21) tachycardia Medication List - Last Reconciled 07/19/24 by Tierra Fountain NP-C apixaban (Eliquis) 5 mg PO BID ascorbic acid (vitamin C) (Vitamin C) 1,000 mg PO DAILY cholecalciferol (vitamin D3) 125 mcg PO DAILY hydrochlorothiazide 25 mg PO DAILY magnesium 400 mg PO DAILY metoprolol succinate ER 50 mg PO DAILY metoprolol succinate ER 100 mg PO DAILY bebxkdfp-hnd-sqld-FA-vit K-lut 8 mg iron-400 mcg-50 mcg (Multivitamin Women 50 Plus) 1 tab PO DAILY vitamin B complex 1 tab PO DAILY HPI HPI 4-6 wk follow up: Details: Ramona is a 68-year-old female past medical history of hypertension, paroxysmal atrial fibrillation, cecal mass status post resection who presents for follow up. Today she reports that her mass was found to be precancerous. She is recovering well from her surgery. She has a small amount of drainage from 1 of her incisions and after seeing her in the office I had her evaluated by the nanny/household manager. She has not had any recurrent heart palpitations or concerns for atrial fibrillation. No chest discomfort, shortness of breath, lightheadedness. She has been doing only light physical activity. She is interested in pursuing the atrial fibrillation ablation but would like to wait another month. No bleeding issues reported. Taking meds as directed. present. [facility] Medical History Complex cyst of both ovaries History of alcohol abuse (~2004) DODSON (dyspnea on exertion) Diverticulosis CKD (chronic kidney disease), stage III Vaccine refused by patient Vitamin D deficiency Anemia Positive colorectal cancer screening using Cologuard test Osteoarthritis Habitual snoring Bronchitis Rheumatic fever New onset atrial fibrillation Erythema intertrigo Rash of face Hx of ectopic Hx of History of seizures Essential hypertension Surgical History Hx of surgical procedure (~06/22/24) Hx of colonoscopy (04/19/24) Status post left breast lumpectomy (10/28/22) Hx of shoulder surgery H/O tubal ligation Hx of cholecystectomy Hx of tonsillectomy Family History Father Substance use disorder Lung cancer Essential hypertension CAD (coronary artery disease) COVID-19 Skin cancer Mother Substance use disorder Oral cancer Essential hypertension CAD (coronary artery disease) COVID-19 Sister Disorder of thyroid Brother CAD (coronary artery disease) COVID-19 Social History Household Members: Spouse Housing: House Are you a primary intensive care anaesthetist to a significant other at home: No Do you presently have visiting nurse or other home services: No 75 years or older and lives alone: No Alcohol intake: current Alcohol intake frequency: does not drink Comment: aware of trip hazard Patient Tobacco Use Status: Former Tobacco user Tobacco use type: Cigarette e-Cigarette/Vaping Use: Never Used Second Hand Smoke Exposure: No service: No Current occupational status: retired Cognitive needs: No Hearing needs: No Vision needs: Yes Female Reproductive History Menstrual Age of Menarche: 11 Review of Systems Const All systems reviewed & are unremarkable except as noted in HPI and below ENT Denies dizziness Card Denies chest pain, Denies chest pain at rest, Denies chest pain with activity, Denies rapid heart rate, Denies pedal edema, Denies edema, Denies leg edema, Denies lightheadedness, Denies palpitations, Denies dyspnea, Denies dyspnea on exertion and Denies orthopnea Resp Denies cough, Denies dyspnea and Denies dyspnea on exertion GI Details: abdominal discomfort from recent surgery Denies hematochezia and Denies change in stool character Musc Denies abnormal gait, Denies limited range of motion, Denies muscle cramps, Denies muscle weakness, Denies numbness, Denies radiating pain into limb, Denies stiffness and Denies tingling Neuro Denies abnormal gait, Denies dizziness, Denies numbness and Denies tingling Endo Denies palpitations Physical Exam Vital Signs: Last Vital Signs Pulse 53 07/19/24 14:18 BP 130/62 07/19/24 14:18 BMI result Body Mass Index 29.4 Const General: cooperative, healthy appearing, comfortable and no acute distress Orientation/consciousness: patient oriented x3 Neck Neck: Yes normal visual inspection Resp Effort & Inspection: normal respiratory effort Auscultation: clear to auscultation bilaterally, no crackles, no rales, no rhonchi and no wheezes Cardio Jugular venous distension: no JVD Rate: regular rate Rhythm: regular rhythm Heart sounds: S1 normal heart sound present, S2 normal heart sound present, no murmurs and no rubs Neuro General: patient oriented x3 Extrem General: Yes normal to inspection and No no pedal edema Psych Appearance: grossly normal Mental Status: mental status grossly normal Speech and movement: Normal speech and movement present Office Procedures EKG Details: Today, read by me, SB, rate 53, Qtc 474ms [id number], Complete Assessment & Plan Assessment & Plan (1) PAF (paroxysmal atrial fibrillation): Code(s): I48.0 - Paroxysmal atrial fibrillation Category: Medical Plan: History of paroxysmal atrial fibrillation, currently suppressed with amiodarone which has been used for the last 2 months to prevent atrial fibrillation in her perioperative period. EKG done today shows sinus bradycardia, rate 53, QTC 474 milliseconds. I will have her stop amiodarone. Continue metoprolol. Continue Eliquis. Will notify electrophysiology that she will be ready to undergo ablation in 1 month. Cardiology follow-up in 4-5 months which should be post atrial fibrillation ablation. (2) Essential hypertension: Code(s): I10 - Essential (primary) hypertension Category: Medical Plan: Normal range at this time. Last echo 06/03/2022, normal EF, mild LVH, mildly dilated left atrium, fibrocalcific changes to the aortic and mitral valve. Continue hydrochlorothiazide, amlodipine and metoprolol. (3) Mass of cecum: Code(s): K63.89 - Other specified diseases of intestine Category: Medical Plan: Surgical resection byAlejo Christine. Patient reports it was precancerous. (4) On amiodarone therapy: Code(s): Z79.899 - Other terminal computer operator (current) drug therapy Category: Medical Plan: Starting now as above Plan Time spent on chart review, documentation, interview and assessment Coding Level of Care Code Est Pt Level 4 (62496) Complex EM visit Add On G2211 Diagnoses PAF (paroxysmal atrial fibrillation) I48.0 Essential hypertension I10 Mass of cecum K63.89 On amiodarone therapy Z79.899 CPT Codes EKG - CPT: [id number], Complete ([id number]) Time Spent (min) 30
== END 2024-07-19 14:51 | disposition home or self-care (01) ==
LOC: HO.HCS 14:14
PROVIDERS: PCP Internal Medicine; Visit Provider Nurse Practitioner Family
DX: I48.0 Paroxysmal atrial fibrillation (principal); I10 Essential (primary) hypertension; K63.89 Other specified diseases of intestine; Z79.899 Other long term (current) drug therapy
CPT/HCPCS: 93010; 99214; G2211

== ENCOUNTER → 2024-07-19 14:13 | Outpatient (BNVA) | payer MEDICARE, SELFPAY | PROVIDERS: PCP Internal Medicine; Visit Provider Nurse Practitioner Family | DX: I48.0 Paroxysmal atrial fibrillation (principal); I10 Essential (primary) hypertension; K63.89 Other specified diseases of intestine; Z79.899 Other long term (current) drug therapy; R00.1 Bradycardia, unspecified | CPT/HCPCS: 93005; 99212 ==

== ENCOUNTER 2024-07-20 14:12 | Outpatient (AMB) | payer MEDICARE, SELFPAY ==
[2024-07-20 14:18] VITALS: BP 140/70; PULSE 61; O2SAT 97; BMI 29.4
--- NOTE | 2024-07-20 14:18 | HO.NEPHOV ---
Vital Signs 07/20/24 14:18 Height 5 ft 2 in Weight 161 lb BMI 29.4 BP 140/70 H Blood Pressure Location Lt brachial Position Sitting Pulse 61 Pulse Source Pulse Oximeter Pulse Oximetry (%) 97 Oxygen Delivery Method Room Air Intake Visit Reasons: INP- CKD Rsc'd 07/08 appt/ Unable to reach Senior Quality Control Inspector Required: No Accompanied by: Spouse Allergies Penicillins Allergy (Intermediate, Verified 07/20/24 14:22) Nausea and Vomiting Antihistamines - Ethylenediamine Adverse Reaction (Intermediate, Verified 07/20/24 14:22) tachycardia flu vaccine Adverse Reaction (Intermediate, Uncoded 07/19/24 14:21) vomiting, in bed for 2 weeks steriods Adverse Reaction (Intermediate, Uncoded 07/19/24 14:21) tachycardia Medication List - Last Reconciled 07/20/24 by Jose Eller MD apixaban (Eliquis) 5 mg PO BID ascorbic acid (vitamin C) (Vitamin C) 1,000 mg PO DAILY cholecalciferol (vitamin D3) 125 mcg PO DAILY hydrochlorothiazide 25 mg PO DAILY magnesium 400 mg PO DAILY metoprolol succinate ER 50 mg PO DAILY defieluo-crb-haqq-FA-vit K-lut 8 mg iron-400 mcg-50 mcg (Multivitamin Women 50 Plus) 1 tab PO DAILY vitamin B complex 1 tab PO DAILY HPI Comments Details: 68-year-old woman with a history of longstanding hypertension and mild chronic kidney disease with a serum creatinine of 1.2 at baseline. She had history of cecal mass. Underwent laparoscopic right colon resection and addition of lysis in 06/24/2024. During hospitalization she was she sustained acute kidney injury with a creatinine peaking at 1.5. At the time of discharge creatinine was 1.29. She has been referred for further evaluation. She is currently on hydrochlorothiazide 25 mg a day. [facility] Medical History Complex cyst of both ovaries History of alcohol abuse (~2004) DODSON (dyspnea on exertion) Diverticulosis CKD (chronic kidney disease), stage III Vaccine refused by patient Vitamin D deficiency Anemia Positive colorectal cancer screening using Cologuard test Osteoarthritis Habitual snoring Bronchitis Rheumatic fever New onset atrial fibrillation Erythema intertrigo Rash of face Hx of ectopic Hx of History of seizures Essential hypertension Surgical History Hx of surgical procedure (~06/22/24) Hx of colonoscopy (04/19/24) Status post left breast lumpectomy (10/28/22) Hx of shoulder surgery H/O tubal ligation Hx of cholecystectomy Hx of tonsillectomy Family History Father Substance use disorder Lung cancer Essential hypertension CAD (coronary artery disease) COVID-19 Skin cancer Mother Substance use disorder Oral cancer Essential hypertension CAD (coronary artery disease) COVID-19 Sister Disorder of thyroid Brother CAD (coronary artery disease) COVID-19 Social History Household Members: Spouse Housing: House Are you a primary pet care worker to a significant other at home: No Do you presently have visiting nurse or other home services: No 75 years or older and lives alone: No Alcohol intake: current Alcohol intake frequency: does not drink Comment: aware of trip hazard Patient Tobacco Use Status: Former Tobacco user Tobacco use type: Cigarette e-Cigarette/Vaping Use: Never Used Second Hand Smoke Exposure: No service: No Current occupational status: retired Cognitive needs: No Hearing needs: No Vision needs: Yes Female Reproductive History Menstrual Age of Menarche: 11 Review of Systems Const Denies fever(s) and Denies weight loss Card Denies chest pain Resp Denies cough and Denies hemoptysis GI Denies abdominal pain, Denies diarrhea and Denies nausea Musc Denies back pain Neuro Denies focal weakness Physical Exam Vital Signs: Last Vital Signs Pulse 61 07/20/24 14:18 BP 140/70 H 07/20/24 14:18 Pulse Ox 97 07/20/24 14:18 Oxygen Delivery Method Room Air 07/20/24 14:18 BMI result Body Mass Index 29.4 Comfortable Neck supple no JVD. Lungs entry equal no rales. Heart S1-S2 heard no gallop or rub. Abdomen soft nontender. Status post surgery Neuro alert awake oriented. No asterixis. Extremities no edema. Results Reviewed Nephrology Results: Hgb 10.6 g/dl (12.0-16.0) L 06/24/24 WBC 11.3 X10*3/uL (4.8-10.8) H 06/24/24 Plt Count 277 X10*3/uL (160-400) 06/24/24 Sodium 134 mmol/L (135-145) L 06/23/24 Potassium 4.0 mmol/L (3.3-5.1) 06/23/24 Chloride 104 mmol/L (96-108) 06/23/24 Carbon Dioxide 23 mmol/L (22-29) 06/23/24 BUN 18 mg/dL (9-16) H 06/23/24 Creatinine 1.26 mg/dL (0.5-1.4) 06/23/24 Calcium 8.5 mg/dL (8.4-10.2) 06/23/24 Assessment & Plan Assessment & Plan (1) CKD (chronic kidney disease), stage III: Comment: Due to hypertensive nephrosclerosis Code(s): N18.30 - Chronic kidney disease, stage 3 unspecified Category: Medical Plan: Superimposed JUAN FRANCISCO due to hypoperfusion. JUAN FRANCISCO has resolved. Renal function is close to baseline. Encouraged her to increase her p.o. fluid intake. Continue to avoid nephrotoxic agents including NSAIDs. Recheck renal panel today. If the serum creatinine stays elevated I would lower the hydrochlorothiazide by 50%. (2) Essential hypertension: Code(s): I10 - Essential (primary) hypertension Category: Medical Plan: Overall blood pressure is acceptable Encouraged her to stay on low-sodium diet No changes were made today. (3) Renal lesion: Comment: Indeterminate left renal lesion measuring up to 1.9 cm. Code(s): N28.9 - Disorder of kidney and ureter, unspecified Category: Medical Plan: She has been referred to Urology in the past. Encouraged her to follow up with Urology Orders: Orders Parathyroid Hormone Intact Today N18.30 - Chronic kidney disease, stage 3 unspecified Total Protein Urine Random Today N18.30 - Chronic kidney disease, stage 3 unspecified UA and rflx microscopic Today N18.30 - Chronic kidney disease, stage 3 unspecified Creatinine Urine Today N18.30 - Chronic kidney disease, stage 3 unspecified Vitamin D 25-OH Total Today N18.30 - Chronic kidney disease, stage 3 unspecified Complete Blood Count no Diff Today N18.30 - Chronic kidney disease, stage 3 unspecified Phosphorus Today N18.30 - Chronic kidney disease, stage 3 unspecified Comprehensive Met. Panel Today N18.30 - Chronic kidney disease, stage 3 unspecified Coding Level of Care Code New Pt Level 5 (36388) Diagnoses CKD (chronic kidney disease), stage III N18.30 Essential hypertension I10 Renal lesion N28.9
== END 2024-07-20 14:36 | disposition home or self-care (01) ==
LOC: HO.HKA 14:13
PROVIDERS: PCP Internal Medicine; Visit Provider Internal Medicine Hypertension Specialist
DX: N18.30 Chronic kidney disease, stage 3 unspecified (principal); I10 Essential (primary) hypertension; N28.9 Disorder of kidney and ureter, unspecified
CPT/HCPCS: 99203

== ENCOUNTER → 2024-07-20 14:12 | Outpatient (BNVA) | payer MEDICARE, SELFPAY | PROVIDERS: PCP Internal Medicine; Visit Provider Internal Medicine Hypertension Specialist | DX: I12.9 Hypertensive chronic kidney disease with stage 1 through stage 4 chronic kidney disease, or unspecified chronic kidney disease (principal); N18.30 Chronic kidney disease, stage 3 unspecified; N28.9 Disorder of kidney and ureter, unspecified | CPT/HCPCS: 99202 ==

== ENCOUNTER 2024-07-21 | Outpatient (REF) | payer MEDICARE, SELFPAY ==
[2024-07-21 16:15] LABS: MANUAL DIFF FLAG NO
[2024-07-21 16:26] LABS: Appearance Urine Clear; Color Urine Yellow; Glucose Urine UA Negative (Negative); Leukocyte Esterase Urine Small (1+) (Negative); Nitrite Urine Negative (Negative); PH 7.5 (5.0-9.0); Specific Gravity - Urine 1.015 (1.005-1.025); UMIC TRIGGER UA YES; Urine Blood Negative (Negative); Urine Ketones Negative (Negative); Urine Protein Trace mg/dL (Neg-Trace)
[2024-07-21 16:36] LABS: Basophils Absolute Auto 0.1 X10*3/uL (0.0-0.2); Basophils Percent Auto 1.1 % (0-2); Eosinophils Absolute Auto 0.1 X10*3/uL (0.0-0.4); Eosinophils Percent Auto 1.6 % (0-4); Hematocrit 36.3 % (37.0-47.0); Hemoglobin 11.7 g/dl (12.0-16.0); Imm Gran Abs Auto 0.01 X10*3/uL (0.00-0.03); Imm Gran Pct Auto 0.2 % (0.0-0.4); Lymphocytes Absolute Auto 1.6 X10*3/uL (1.2-4.9); Mean Corpuscular HGB Conc 32.2 g/dl (31.0-35.0); Mean Corpuscular Hemoglobin 29.3 pg (27.0-33.0); Mean Platelet Volume 9.8 fL (9.4-12.3); Monocytes Absolute Auto 0.9 X10*3/uL (0.1-1.2); Neutrophils Absolute Auto 3.6 x10*3/uL (2.0-8.3); Neutrophils Percent Auto 57.1 % (45-73); Platelet Count 447 X10*3/uL (160-400); Red Blood Count 3.99 X10*6/uL (4.20-5.50); Red Cell Distribution Width 13.2 % (11.0-16.0); White Blood Count 6.2 X10*3/uL (4.8-10.8)
[2024-07-21 16:45] LABS: RBC Urine 0-2 /HPF (0-2); WBC Urine 0-5 /HPF (0-5)
[2024-07-21 16:47] LABS: Bacteria Urine Trace (None Seen); Hyaline Casts Urine 0-2 /LPF (0-2); Other Crystals Urine Present; Squamous Epithelial Cell Urine 0-2 /HPF (0-2)
[2024-07-21 16:52] LABS: TSH reflex Free T4 1.49 uIU/mL (0.32-4.0)
[2024-07-21 17:09] LABS: Folate 15.7 ng/mL (> or = 4.0); Vitamin B12 567 pg/mL (200-900)
[2024-07-21 17:20] LABS: Total Protein Urine Random 27 mg/dL (<12)
[2024-07-21 17:25] LABS: Parathyroid Hormone Intact 72.9 pg/mL (8.7-77.1)
[2024-07-21 17:42] LABS: Alanine Aminotransferase 36 U/L (0-31); Alkaline Phosphatase 58 U/L (39-117); Anion Gap 13 (12-20); Aspartate Amino Transferase 42 U/L (5-31); Bilirubin Total 0.5 mg/dL (0.0-1.0); Blood Urea Nitrogen 29 mg/dL (9-16); Calcium 10.5 mg/dL (8.4-10.2); Carbon Dioxide 29 mmol/L (22-29); Chloride 101 mmol/L (96-108); Estimated Glomerular Filt Rate 32; Glucose Random 98 mg/dL (60-115); Iron 50 mcg/dL (30-160); Percent Iron Saturation 15 % (15-50); Phosphorus 3.2 mg/dL (2.7-4.5); Sodium 139 mmol/L (135-145); Total Iron Binding Capacity 329 mcg/dL (228-428); Unsaturated Iron Binding 279 ug/dL
== END 2024-07-21 00:01 | disposition home or self-care (01) ==
LOC: HO.HMGCLDS
PROVIDERS: PCP Internal Medicine; Referring Provider Internal Medicine Hypertension Specialist; Visit Provider Internal Medicine
DX: I48.0 Paroxysmal atrial fibrillation (principal); I12.9 Hypertensive chronic kidney disease with stage 1 through stage 4 chronic kidney disease, or unspecified chronic kidney disease; D63.1 Anemia in chronic kidney disease; N18.30 Chronic kidney disease, stage 3 unspecified; E55.9 Vitamin D deficiency, unspecified
CPT/HCPCS: 36415; 80053; 81001; 82306; 82570; 82607; 82746; 83540; 83970; 84100; 84156; 84443; 85025; 85027

== ENCOUNTER 2024-07-22 07:52 | Outpatient (REF) | payer MEDICARE, SELFPAY ==
[2024-07-22 10:08] LABS: Appearance Urine Clear; Color Urine Yellow; Glucose Urine UA Negative (Negative); Leukocyte Esterase Urine Trace (Negative); Nitrite Urine Negative (Negative); Specific Gravity - Urine 1.015 (1.005-1.025); UMIC TRIGGER UA YES; Urine Blood Negative (Negative); Urine Ketones Negative (Negative); Urine Protein Negative (Neg-Trace)
[2024-07-22 10:15] LABS: Bacteria Urine None Seen (None Seen); Hyaline Casts Urine 0-2 /LPF (0-2); RBC Urine 0-2 /HPF (0-2); Squamous Epithelial Cell Urine 0-2 /HPF (0-2); WBC Urine 0-5 /HPF (0-5)
[2024-07-22 10:24] LABS: Anion Gap 10 (12-20); Blood Urea Nitrogen 23 mg/dL (9-16); Calcium 10.2 mg/dL (8.4-10.2); Carbon Dioxide 32 mmol/L (22-29); Chloride 100 mmol/L (96-108); Cholesterol 162 mg/dL (<200); Estimated Glomerular Filt Rate 35; Glucose Fasting 96 mg/dL (60-99); HDL Cholesterol 40 mg/dL (>40); LDL Cholesterol Calculated 96 mg/dL (<100); Potassium 4.1 mmol/L (3.3-5.1); Sodium 138 mmol/L (135-145); Triglycerides 133 mg/dL (<150)
== END 2024-07-22 07:53 | disposition home or self-care (01) ==
LOC: HO.HMGCLDS 07:52
PROVIDERS: PCP Internal Medicine; Referring Provider Internal Medicine Hypertension Specialist; Visit Provider Internal Medicine
DX: I48.0 Paroxysmal atrial fibrillation (principal); N18.30 Chronic kidney disease, stage 3 unspecified; E55.9 Vitamin D deficiency, unspecified; D64.9 Anemia, unspecified; I10 Essential (primary) hypertension
CPT/HCPCS: 36415; 80048; 80061; 81001; 81003

== ENCOUNTER 2024-08-24 13:41 | Outpatient (AMB) | payer MEDICARE, SELFPAY ==
[2024-08-24 13:52] VITALS: BP 130/80; PULSE 72; RESP 16; TEMP 36.4; O2SAT 97; BMI 29.4
--- NOTE | 2024-08-24 13:52 | A.OFFPC_ITS ---
Vital Signs 08/24/24 13:52 Height 5 ft 2 in Weight 161 lb BMI 29.4 BP 130/80 Blood Pressure Location Lt brachial Position Sitting Respiration 16 Pulse 72 Pulse Source Pulse Oximeter Temp 97.5 F Temp Source Oral Pulse Oximetry (%) 97 Oxygen Delivery Method Room Air Intake Visit Reasons: Annual PE - see comments Intake Note: Pt is here today for her PE: Last mammogram 05/17/24, bone density scan 05/16/22, colonoscopy 04/19/25 Allergies Penicillins Allergy (Intermediate, Verified 08/24/24 14:06) Nausea and Vomiting Antihistamines - Ethylenediamine Adverse Reaction (Intermediate, Verified 08/24/24 14:06) tachycardia flu vaccine Adverse Reaction (Intermediate, Uncoded 08/24/24 14:06) vomiting, in bed for 2 weeks steriods Adverse Reaction (Intermediate, Uncoded 08/24/24 14:06) tachycardia Medication List - Last Reconciled 08/24/24 by Chloe Munoz MD apixaban (Eliquis) 5 mg PO BID ascorbic acid (vitamin C) (Vitamin C) 1,000 mg PO DAILY cholecalciferol (vitamin D3) 125 mcg PO DAILY hydrochlorothiazide 25 mg PO DAILY magnesium 400 mg PO DAILY metoprolol succinate ER 100 mg PO DAILY yzoqujcj-yhu-zfrv-FA-vit K-lut 8 mg iron-400 mcg-50 mcg (Multivitamin Women 50 Plus) 1 tab PO DAILY vitamin B complex 1 tab PO DAILY Tobacco use date assessed: 08/24/24 Fall risk assessment: 1 Fall in past year Last assessed Fall Risk: 08/24/24 Dental Screening Dental Screen Date: 08/24/24 Did you have a dental visit in the last 12 months?: No Did you have a dental problem in the last 6 months where you did not have access to dental care?: No Was dental information given to patient?: No HPI Annual PE - see comments HPI Details 68-year-old lady with history of CKD due to hypertensive nephrosclerosis, currently followed by Nephrology, has history of paroxysmal atrial fibrillation currently on Eliquis and metoprolol, and is scheduled for cardiac ablation, s/p right colon resection with pathology report showing. 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 She has been feeling well, with no complaints of chest pain, palpitations, shortness of breath. He is now passing bowel movements regularly, no blood in stool. She however stopped taking her iron supplements as she was developing severe constipation on it. Has just been increasing her intake of green leafy vegetables and beef. She is up-to-date with her breast cancer screening, with last mammogram done May 2024 showing benign findings, had a normal bone density scan done in 2022, and she sees Dr. Connolly for her routine Pap and pelvic exam and followed up regarding complex ovarian cysts present She has had COVID vaccines in the past but does not want to get the booster, nor does she get flu vaccine as she developed a severe allergic reaction from it. Up-to-date with her Tdap, has not yet had her shingles or pneumococcal vaccine. [facility] Medical History (Updated 08/24/24 @ 15:03 by Chloe Munoz MD) Complex cyst of both ovaries History of alcohol abuse (~2004) Diverticulosis CKD (chronic kidney disease), stage III Anemia Osteoarthritis Habitual snoring Rheumatic fever New onset atrial fibrillation Erythema intertrigo Hx of ectopic Hx of History of seizures Essential hypertension Surgical History Hx of surgical procedure (~06/22/24) Hx of colonoscopy (04/19/24) Status post left breast lumpectomy (10/28/22) Hx of shoulder surgery H/O tubal ligation Hx of cholecystectomy Hx of tonsillectomy Family History Father Substance use disorder Lung cancer Essential hypertension CAD (coronary artery disease) COVID-19 Skin cancer Mother Substance use disorder Oral cancer Essential hypertension CAD (coronary artery disease) COVID-19 Sister Disorder of thyroid Brother CAD (coronary artery disease) COVID-19 Social History Household Members: Spouse Housing: House Are you a primary health care coach to a significant other at home: No Do you presently have visiting nurse or other home services: No 75 years or older and lives alone: No Alcohol intake: current Alcohol intake frequency: does not drink Comment: aware of trip hazard Patient Tobacco Use Status: Former Tobacco user Tobacco use type: Cigarette e-Cigarette/Vaping Use: Never Used Second Hand Smoke Exposure: No service: No Current occupational status: retired Cognitive needs: No Hearing needs: No Vision needs: Yes Female Reproductive History Menstrual Age of Menarche: 11 Questionnaire PHQ-9 Over the last 2 weeks, how often have you been bothered by any of the following problems? 1. Little interest or pleasure in doing things: not at all 2. Feeling down, depressed, or hopeless: not at all 3. Trouble falling or staying asleep, or sleeping too much: not at all 4. Feeling tired or having little energy: not at all 5. Poor appetite or overeating: not at all 6. Feeling bad about yourself - or that you are a failure or have let yourself or your family down: not at all 7. Trouble concentrating on things, such as reading the newspaper or watching television: not at all 8. Moving or speaking so slowly that other people could have noticed. Or the opposite - being so fidgety or restless that you have been moving around a lot more than usual: not at all 9. Thoughts that you would be better off or of hurting yourself in some way: not at all Total score: 0 Depression Screening Interpretation: Negative Depression Screening Done: Yes 16733 - PHQ-9 Billing: Yes Source: Developed by Drs. Matthew Cornell, Chelle Call, Victor Manuel Kovacs and colleagues, with an educational surinder from [employer]. Thrive Questionnaire Date Thrive assessed: 08/24/24 I am a: Patient What is your living situation today?: I choose not to answer this question Within the past 12 months, did the food you bought not last and you didn't have the money to get more?: I choose not to answer this question Within the past 12 months, did you worry whether your food would run out before you got money to buy more?: I choose not to answer this question Do you have trouble paying for medicines?: I choose not to answer this question Do you have trouble getting transportation to medical appointments?: No Do you have trouble paying your heating and electricity bill?: No Do you have trouble taking care of your child, family member or friend?: I choose not to answer this question Do you have trouble with day-to-day activities such as bathing, preparing meals, shopping, managing finances, etc.?: I choose not to answer this question Are you currently unemployed and looking for a job?: I choose not to answer this question Are you interested in more education?: I choose not to answer this question Please select the resources that you would like help with: None Currently or been in a relationship where the following occur: I choose not to answer THRIVE Score: 0 AUDIT C Alcohol Use Questionnaire (AUDIT-C) 1. How often do you have a drink containing alcohol?: Monthly or less 2. How many drinks containing alcohol do you have on a typical day when you are drinking?: 1 or 2 3. How often do you have six or more drinks on one occasion?: Never Total Score: 1 ITALO-7 AMB Questionnaire ITALO-7 Date ITALO - 7 assessed: 08/24/24 Feeling nervous, anxious, or on edge: 0 = Not at all Not being able to stop or control worryin = Not at all Worrying too much about different things: 0 = Not at all Trouble relaxin = Not at all Being so restless that it is hard to sit still: 0 = Not at all Becoming easily annoyed or irritable: 0 = Not at all Feeling afraid as if something awful might happen: 0 = Not at all Total ITALO-7 score (0-4 normal; 5-9 mild; 10-14 moderate; 15-21 severe): 0 Source: Developed by Drs. Matthew Cornell, Chelle Call, Victor Manuel Kovacs and colleagues, with an educational surinder from [employer]. ITALO-7 Assessment Billing ITALO-7 Assessment Tool: ITALO-7 Assessment 76406 Review of Systems Const Denies chills, Denies fever(s), Denies headache(s), Denies lethargy and Denies poor appetite Eyes Details: Goes [facility] ENT Reports no additional complaints and Denies headache(s) Card Denies chest pain, Denies irregular heart rhythm, Denies lightheadedness and Denies palpitations Resp Denies cough GI Denies abdominal pain, Denies bloating, Denies change in bowel habits and Denies change in stool character Reports no additional complaints Musc Reports no additional complaints Skin/Breast Denies breast pain, Denies breast mass, Denies rash and Denies unusual bruising Neuro Reports no additional complaints and Denies headache(s) Psych Reports no additional complaints Endo Denies palpitations Zak/Lymph Reports no additional complaints Aller/Immun Reports no additional complaints Physical exam (Primary Care) Vital Signs: Last Vital Signs Temp 97.5 F 08/24/24 13:52 Pulse 72 08/24/24 13:52 Resp 16 08/24/24 13:52 BP 130/80 08/24/24 13:52 Pulse Ox 97 08/24/24 13:52 Oxygen Delivery Method Room Air 08/24/24 13:52 BMI result Body Mass Index 29.4 Tobacco/Smoking Status: Tobacco use Status Tobacco use date assessed 08/24/24 08/24/24 13:54 Patient Tobacco Use Status Former Tobacco user 08/24/24 13:54 Tobacco use type Cigarette 08/24/24 13:54 e-Cigarette/Vaping Use Never Used 08/24/24 13:54 PHQ-9: PHQ-9 Score PHQ-9: Total score 0 08/24/24 14:07 Depression Screening Interpretation: Negative Thrive Assessment: Date of Thrive Assessment Date Thrive assessed 08/24/24 08/24/24 13:54 Currently or been in a relationship where the following occur: I choose not to answer Const General: no acute distress and alert Orientation/consciousness: patient oriented x3 HENMT Head: Yes normocephalic Ears: external ears normal Face and sinus: Yes face symmetric Mouth: Normal oral and palatal mucosa present, oropharynx normal and moist mucous membranes Eyes General: appearance normal, both eyes and all related structures Neck Other: Nonpalpable thyroid gland Neck: Yes full ROM, Yes no lymphadenopathy and Yes supple Resp Effort & Inspection: normal respiratory effort Auscultation: clear to auscultation bilaterally Cardio Rate: regular rate Rhythm: regular rhythm Heart sounds: S1 normal heart sound present and S2 normal heart sound present GI Inspection: Yes normal to inspection Palpation (GI): Soft to palpation, nontender and no guarding Auscultation: normal bowel sounds and no bruits General: Yes no CVA tenderness and Yes deferred (sees Dr Connolly) Back/Spine/Pelvis Back: no CVA tenderness and No back tenderness Skin Other: Healed surgical scar infraumbilical area, no unusual bruising Neuro General: patient oriented x3 Motor exam (neuro): 5/5 motor strength present throughout and no tremors Sensory Exam: double simultaneous stimulation for sensation normal Extrem General: Yes full ROM, Yes no joint enlargement, Yes no clubbing, cyanosis or edema, Yes no pedal edema, Yes no calf tenderness and Yes normal gait Psych Appearance: grossly normal and well kempt Mental Status: mental status grossly normal Speech and movement: Normal speech and movement present Immunizations pneumoc 20-sandra conj-dip cr(PF) 0.5 mL IM syringe Performing Provider: Chloe Munoz MD Performing Location[place] [facility] Administered by: Pinky Pope RN on 08/24/24 14:35 Dose Route Admin Location Dispensed Lot Number Expiration Date [facility] [employer] 0.5 mL IM Left Deltoid 0.5 mL [id number] 06/05/25 [id number] Legal [employer] VIS Given Date VIS Provided VIS Publication Date 08/24/24 Single Vaccine 22 Eligibility Eligibility Date Funding Source Not [facility] Eligible 08/24/24 Private Coding Level of Care Code Est Pt Prev Care >65y(34019) Diagnoses PAF (paroxysmal atrial fibrillation) I48.0 CKD (chronic kidney disease), stage III N18.30 Advanced directives, counseling/discussion Z71.89 Annual visit for general adult medical examination with abnormal findings Z0 0.01 Anemia D64.9 Essential hypertension I10 Complex cyst of both ovaries N83.291; N83.292 Additional Codes PHQ-9 - 96330 - PHQ-9 Billing: Yes ([id number]) ITALO-7 Assessment Billing - ITALO-7 Assessment Tool: ITALO-7 Assessment 20592 ([id number]) Assessment & Plan Assessment & Plan (1) PAF (paroxysmal atrial fibrillation): Code(s): I48.0 - Paroxysmal atrial fibrillation Category: Medical (2) CKD (chronic kidney disease), stage III: Comment: Due to hypertensive nephrosclerosis Code(s): N18.30 - Chronic kidney disease, stage 3 unspecified Category: Medical (3) Advanced directives, counseling/discussion: Code(s): Z71.89 - Other specified counseling (4) Annual visit for general adult medical examination with abnormal findings: Code(s): Z00.01 - Encounter for general adult medical examination with abnormal findings (5) Anemia: Code(s): D64.9 - Anemia, unspecified Category: Medical (6) Essential hypertension: Code(s): I10 - Essential (primary) hypertension Category: Medical (7) Complex cyst of both ovaries: Code(s): N83.291 - Other ovarian cyst, right side; N83.292 - Other ovarian cyst, left side Category: Medical Orders: Orders Pneumococcal 20 Immunization Today Z23 - Encounter for immunization
== END 2024-08-24 14:40 | disposition home or self-care (01) ==
LOC: HO.HMCC 13:42
PROVIDERS: PCP Internal Medicine; Visit Provider Internal Medicine
DX: Z23 Encounter for immunization (principal)

== ENCOUNTER → 2024-08-24 13:41 | Outpatient (BNVA) | payer MEDICARE, SELFPAY | PROVIDERS: PCP Internal Medicine; Visit Provider Internal Medicine | DX: Z00.01 Encounter for general adult medical examination with abnormal findings (principal); Z23 Encounter for immunization; I48.0 Paroxysmal atrial fibrillation; I12.9 Hypertensive chronic kidney disease with stage 1 through stage 4 chronic kidney disease, or unspecified chronic kidney disease; N18.30 Chronic kidney disease, stage 3 unspecified; D64.9 Anemia, unspecified; N83.291 Other ovarian cyst, right side; N83.292 Other ovarian cyst, left side; Z71.89 Other specified counseling | CPT/HCPCS: 90471; 90677; 96127; 99397; 99497 ==

== ENCOUNTER 2024-08-26 15:11 | Outpatient (AMB) | payer MEDICARE, SELFPAY ==
[2024-08-26 15:14] VITALS: BP 128/72; PULSE 62; O2SAT 96; BMI 29.3
--- NOTE | 2024-08-26 15:14 | HO.NEPHOV_ITS ---
Vital Signs 08/26/24 15:14 Height 5 ft 2 in Weight 160 lb BMI 29.3 BP 128/72 Blood Pressure Location Rt brachial Position Sitting Pulse 62 Pulse Source Pulse Oximeter Pulse Oximetry (%) 96 Oxygen Delivery Method Room Air Intake Visit Reasons: 1 MO FU/ Conf Accompanied by: Spouse Allergies Penicillins Allergy (Intermediate, Verified 08/26/24 15:16) Nausea and Vomiting Antihistamines - Ethylenediamine Adverse Reaction (Intermediate, Verified 08/26/24 15:16) tachycardia flu vaccine Adverse Reaction (Intermediate, Uncoded 08/26/24 15:16) vomiting, in bed for 2 weeks steriods Adverse Reaction (Intermediate, Uncoded 08/26/24 15:16) tachycardia Medication List - Last Reconciled 08/26/24 by Jose Eller MD amlodipine 5 mg PO DAILY apixaban (Eliquis) 5 mg PO BID ascorbic acid (vitamin C) (Vitamin C) 1,000 mg PO DAILY cholecalciferol (vitamin D3) 125 mcg PO DAILY ferrous fumarate 162 mg PO Q OTHER DAY hydrochlorothiazide 25 mg PO DAILY magnesium 400 mg PO DAILY metoprolol succinate ER 100 mg PO DAILY wfvdyloi-hyp-uagr-FA-vit K-lut 8 mg iron-400 mcg-50 mcg (Multivitamin Women 50 Plus) 1 tab PO DAILY vitamin B complex 1 tab PO DAILY HPI Comments Details: 68-year-old woman with a history of longstanding hypertension and mild chronic kidney disease with a serum creatinine of 1.2 at baseline. She had history of cecal mass. Underwent laparoscopic right colon resection and addition of lysis in 06/24/2024. During hospitalization she was she sustained acute kidney injury with a creatinine peaking at 1.5. At the time of discharge creatinine was 1.29. She has been referred for further evaluation. She is currently on hydrochlorothiazide 25 mg a day. Accompanied by her son [facility] Medical History Complex cyst of both ovaries History of alcohol abuse (~2004) Diverticulosis CKD (chronic kidney disease), stage III Anemia Osteoarthritis Habitual snoring Rheumatic fever New onset atrial fibrillation Erythema intertrigo Hx of ectopic Hx of History of seizures Essential hypertension Surgical History Hx of surgical procedure (~06/22/24) Hx of colonoscopy (04/19/24) Status post left breast lumpectomy (10/28/22) Hx of shoulder surgery H/O tubal ligation Hx of cholecystectomy Hx of tonsillectomy Family History Father Substance use disorder Lung cancer Essential hypertension CAD (coronary artery disease) COVID-19 Skin cancer Mother Substance use disorder Oral cancer Essential hypertension CAD (coronary artery disease) COVID-19 Sister Disorder of thyroid Brother CAD (coronary artery disease) COVID-19 Social History Household Members: Spouse Housing: House Are you a primary customer care consultant to a significant other at home: No Do you presently have visiting nurse or other home services: No 75 years or older and lives alone: No Alcohol intake: current Alcohol intake frequency: does not drink Comment: aware of trip hazard Patient Tobacco Use Status: Former Tobacco user Tobacco use type: Cigarette e-Cigarette/Vaping Use: Never Used Second Hand Smoke Exposure: No service: No Current occupational status: retired Cognitive needs: No Hearing needs: No Vision needs: Yes Female Reproductive History Menstrual Age of Menarche: 11 Physical Exam Vital Signs: Last Vital Signs Pulse 62 08/26/24 15:14 BP 128/72 08/26/24 15:14 Pulse Ox 96 08/26/24 15:14 Oxygen Delivery Method Room Air 08/26/24 15:14 BMI result Body Mass Index 29.3 Comfortable Neck supple no JVD. Lungs entry equal no rales. Heart S1-S2 heard no gallop or rub. Abdomen soft nontender. Neuro alert awake oriented. No asterixis. Extremities no edema. Results Reviewed Nephrology Results: Hgb 11.7 g/dl (12.0-16.0) L 07/21/24 WBC 6.2 X10*3/uL (4.8-10.8) 07/21/24 Plt Count 447 X10*3/uL (160-400) H 07/21/24 Sodium 138 mmol/L (135-145) 07/22/24 Potassium 4.1 mmol/L (3.3-5.1) 07/22/24 Chloride 100 mmol/L (96-108) 07/22/24 Carbon Dioxide 32 mmol/L (22-29) H 07/22/24 BUN 23 mg/dL (9-16) H 07/22/24 Creatinine 1.48 mg/dL (0.5-1.4) H 07/22/24 Calcium 10.2 mg/dL (8.4-10.2) 07/22/24 Phosphorus 3.2 mg/dL (2.7-4.5) 07/21/24 PTH Intact 72.9 pg/mL (8.7-77.1) 07/21/24 Urine Protein Negative mg/dL (Neg-Trace) 07/22/24 Urine Creatinine 264.40 mg/dL 07/21/24 Assessment & Plan Assessment & Plan (1) CKD (chronic kidney disease), stage III: Comment: Due to hypertensive nephrosclerosis Code(s): N18.30 - Chronic kidney disease, stage 3 unspecified Category: Medical Plan: Superimposed JUAN FRANCISCO due to hypoperfusion. Renal function is worse Encouraged her to increase her p.o. fluid intake. Continue to avoid nephrotoxic agents including NSAIDs. Recheck renal panel today. Check renal sonogram.If normal,I would lower the hydrochlorothiazide by 50%. (2) Renal lesion: Comment: Indeterminate left renal lesion measuring up to 1.9 cm. Code(s): N28.9 - Disorder of kidney and ureter, unspecified Category: Medical Plan: She has been referred to Urology in the past. Encouraged her to follow up with Urology Follow up [facility]G ordered (3) Essential hypertension: Code(s): I10 - Essential (primary) hypertension Category: Medical Plan: Overall blood pressure is acceptable Encouraged her to stay on low-sodium diet No changes were made today. Orders: Orders Basic Metabolic Panel Today N18.30 - Chronic kidney disease, stage 3 unspecified, N28.9 - Disorder of kidney and ureter, unspecified US renal BI Today I10 - Essential (primary) hypertension, N18.30 - Chronic kidney disease, stage 3 unspecified, N28.9 - Disorder of kidney and ureter, unspecified Coding Level of Care Code Est Pt Level 4 (87308) Diagnoses CKD (chronic kidney disease), stage III N18.30 Renal lesion N28.9 Essential hypertension I10
== END 2024-08-26 15:28 | disposition home or self-care (01) ==
LOC: HO.HKA 15:11
PROVIDERS: PCP Internal Medicine; Visit Provider Internal Medicine Hypertension Specialist
DX: N18.30 Chronic kidney disease, stage 3 unspecified (principal); N28.9 Disorder of kidney and ureter, unspecified; I10 Essential (primary) hypertension
CPT/HCPCS: 99214

== ENCOUNTER → 2024-08-26 15:11 | Outpatient (BNVA) | payer MEDICARE, SELFPAY | PROVIDERS: PCP Internal Medicine; Visit Provider Internal Medicine Hypertension Specialist | DX: I12.9 Hypertensive chronic kidney disease with stage 1 through stage 4 chronic kidney disease, or unspecified chronic kidney disease (principal); N18.30 Chronic kidney disease, stage 3 unspecified; N28.9 Disorder of kidney and ureter, unspecified | CPT/HCPCS: 99212 ==

== ENCOUNTER 2024-08-30 12:05 | Outpatient (AMB) | payer MEDICARE, SELFPAY ==
[2024-08-30 12:09] VITALS: BP 140/68; PULSE 66; O2SAT 98; BMI 29.4
--- NOTE | 2024-08-30 12:09 | MHC.OFFVIS ---
Vital Signs 08/30/24 12:09 Height 5 ft 2 in Weight 160 lb 7.944 oz BMI 29.4 BP 140/68 H Blood Pressure Location Rt brachial Position Sitting Pulse 66 Pulse Source Pulse Oximeter Pulse Oximetry (%) 98 Oxygen Delivery Method Room Air Intake Visit Reasons: 4 mo f/u Intake Note: ESTABLISHED PATIENT for mgmt of fecal abn. Discuss repeat colo CC; Pt denies any GI sx or concerns at this time. Pt denies any s/p complications following procedure in June w/ Dr. Christine. Certified Residential Medication Aide Required: No Accompanied by: Spouse Allergies Penicillins Allergy (Intermediate, Verified 08/30/24 12:12) Nausea and Vomiting Antihistamines - Ethylenediamine Adverse Reaction (Intermediate, Verified 08/30/24 12:12) tachycardia flu vaccine Adverse Reaction (Intermediate, Uncoded 08/30/24 12:12) vomiting, in bed for 2 weeks steriods Adverse Reaction (Intermediate, Uncoded 08/30/24 12:12) tachycardia HPI HPI 4 mo f/u: Details: LAST VISIT: Mass of cecum Positive colorectal cancer screening using Cologuard test Screen for colon cancer Status post colonoscopy Diverticulosis Plan As mentioned above in HPI, patient had large mass in cecum, appointment scheduled with General surgery Dr. Christine on 06 of May for initial consultation. Results from colonoscopy discussed with patient. CT scan done on 30 of April, however reading is not available yet. Patient is trying low FODMAP diet, abdominal bloating improved. Patient is using smooth move powder to help her though to the bathroom. Moving bowels daily. Recommended colonoscopy in 6-12 months. Long discussion with patient about high-fiber diet. List of food high in fiber given to patient. Patient will return in 4 months to discuss going for prep. Patient is agreeable to plan of care and verbalizes understanding of instructions. She was given the opportunity to ask questions and all questions answered. ? PATHOLOGY RESULTS FROM COMPLETE POLYPECTOMY DONE IN JUNE BY DR. CHRISTINE Diagnosis Colon, right, ileal colectomy: -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 -Appendix with focal mucosal neutrophils and inspissated mucus in distal tip. -Twelve benign lymph nodes. Comment: There is no submucosal invasion and this lesion lacks metastatic potential. The adenoma has been completely excised and no further treatment of this particular lesion is necessary TODAY'S VISIT Patient is here today for follow-up and to discuss going for colonoscopy. Patient is status post right ileal colectomy that was performed by Dr. Yusuf in his back in June of 2024. Tubulovillous adenoma with serrated features found with focal high-grade dysplasia, however it was completely excised and there was no submucosal invasion and this lesion lacks metastatic potential. Patient will need to go for repeat colonoscopy soon. Patient is hoping to go no sooner that December. She reports to have no GI symptoms at this moment. Tries to avoid dietary triggers to avoid bloating. Patient denies melena, hematochezia, unintentional weight loss or ribbon like stools. Patient denies any issues with anesthesia in the past. Patient is on Eliquis and will need to stop that for 48 hours before the procedure. [facility] Medical History Complex cyst of both ovaries History of alcohol abuse (~2004) Diverticulosis CKD (chronic kidney disease), stage III Anemia Osteoarthritis Habitual snoring Rheumatic fever New onset atrial fibrillation Erythema intertrigo Hx of ectopic Hx of History of seizures Essential hypertension Surgical History Hx of surgical procedure (~06/22/24) Hx of colonoscopy (04/19/24) Status post left breast lumpectomy (10/28/22) Hx of shoulder surgery H/O tubal ligation Hx of cholecystectomy Hx of tonsillectomy Family History Father Substance use disorder Lung cancer Essential hypertension CAD (coronary artery disease) COVID-19 Skin cancer Mother Substance use disorder Oral cancer Essential hypertension CAD (coronary artery disease) COVID-19 Sister Disorder of thyroid Brother CAD (coronary artery disease) COVID-19 Social History (Reviewed 08/30/24 @ 12:14 by Allan Steel [facility] Household Members: Spouse Housing: House Are you a primary patient care provider to a significant other at home: No Do you presently have visiting nurse or other home services: No 75 years or older and lives alone: No Alcohol intake: current Alcohol intake frequency: does not drink Comment: aware of trip hazard Patient Tobacco Use Status: Former Tobacco user Tobacco use type: Cigarette e-Cigarette/Vaping Use: Never Used Second Hand Smoke Exposure: No service: No Current occupational status: retired Cognitive needs: No Hearing needs: No Vision needs: Yes Female Reproductive History Menstrual Age of Menarche: 11 Review of Systems Const Denies weight gain and Denies weight loss ENT Reports no additional complaints, Denies dysphagia and Denies odynophagia Card Reports no additional complaints Resp Reports no additional complaints GI Denies abdominal pain, Denies belching, Denies melena, Reports bloating, Denies change in bowel habits, Denies dysphagia, Denies excessive flatus, Denies dyspepsia, Denies heartburn, Denies diarrhea, Denies loose stools, Denies nausea, Denies odynophagia and Denies vomiting Reports no additional complaints Musc Reports no additional complaints Neuro Reports no additional complaints Psych Reports no additional complaints Endo Reports no additional complaints Physical Exam Vital Signs: Last Vital Signs Pulse 66 08/30/24 12:09 BP 140/68 H 08/30/24 12:09 Pulse Ox 98 08/30/24 12:09 Oxygen Delivery Method Room Air 08/30/24 12:09 BMI result Body Mass Index 29.4 Const General: healthy appearing and no acute distress Nutritional Appearance: obese Orientation/consciousness: patient oriented x3 Resp Effort & Inspection: normal respiratory effort, able to speak in complete sentences, no tracheal deviation and symmetric chest movement Auscultation: clear to auscultation bilaterally Cardio Rate: regular rate GI Inspection: Yes normal to inspection, No distended and Yes obesity Palpation (GI): Soft to palpation, not firm, nontender and No hepatosplenomegaly present Auscultation: normal bowel sounds General: Yes no CVA tenderness Back/Spine/Pelvis Back: no CVA tenderness Skin General skin exam: elasticity normal, turgor normal and dry skin Neuro General: patient oriented x3 Psych Appearance: grossly normal Mental Status: mental status grossly normal Assessment & Plan Assessment & Plan (1) S/P right colectomy: Code(s): Z90.49 - Acquired absence of other specified parts of digestive tract Category: Surgical (2) Mass of cecum: Code(s): K63.89 - Other specified diseases of intestine Category: Medical (3) Diverticulosis: Code(s): K57.90 - Diverticulosis of intestine, part unspecified, without perforation or abscess without bleeding Category: Medical (4) Screen for colon cancer: Code(s): Z12.11 - Encounter for screening for malignant neoplasm of colon Plan As mentioned above in HPI patient had right-sided colectomy with complete removal of polyp. 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 Patient is aware that she will need to go for colonoscopy. Patient would like to get that done in December. Patient had no issues with anesthesia in during her surgical procedure in June. Denies any cardiac or respiratory symptoms. On Eliquis for AFib. May stop Eliquis 48 hours before the procedure. If patient will develop any cardiac symptoms before going for procedure she will have to be cleared by Cardiology before proceeding. Currently patient is feeling well and denies any cardiac or respiratory symptoms. What to expect before during and after procedure discussed with patient. Stressed the importance of clear liquid diet and good bowel prep day before procedure. Patient is agreeable to this plan and verbalizes understanding of instructions. She was given the opportunity to ask questions and all questions answered. Thank you for allowing me to participate in her care Medications: New polyethylene glycol 3350 (Miralax) As directed by gastroenterology department at [facility] 238 grams PO ONCE 238 grams 0RF Z12.11 - Encounter for screening for malignant neoplasm of colon bisacodyl (Dulcolax (bisacodyl)) take 4 tabs at noon the day before your colonoscopy 20 mg (4 x 5 mg) PO ONCE 4 tabs 0RF 1 day Z12.11 - Encounter for screening for malignant neoplasm of colon Coding Level of Care Code Est Pt Level 4 (72404) Complex EM visit Add On G2211 Diagnoses S/P right colectomy Z90.49 Mass of cecum K63.89 Diverticulosis K57.90 Screen for colon cancer Z12.11 Time Spent (min) 35 Comment 25 minutes spent with patient and additional 10 minutes spent reviewing her records
== END 2024-08-30 13:20 | disposition home or self-care (01) ==
LOC: HO.HGI 12:06
PROVIDERS: PCP Internal Medicine; Visit Provider Nurse Practitioner Family
DX: K63.89 Other specified diseases of intestine (principal); K57.90 Diverticulosis of intestine, part unspecified, without perforation or abscess without bleeding; Z90.49 Acquired absence of other specified parts of digestive tract
CPT/HCPCS: 99214; G2211

== ENCOUNTER → 2024-08-30 12:05 | Outpatient (BNVA) | payer MEDICARE, SELFPAY | PROVIDERS: PCP Internal Medicine; Visit Provider Nurse Practitioner Family | DX: K63.89 Other specified diseases of intestine (principal); K57.90 Diverticulosis of intestine, part unspecified, without perforation or abscess without bleeding; Z90.49 Acquired absence of other specified parts of digestive tract | CPT/HCPCS: 99212 ==

== ENCOUNTER 2024-09-17 13:11 | Outpatient (REF) | payer MEDICARE, SELFPAY ==
--- NOTE | ~2024-09-17 | US_ITS ---
EXAMINATION: US KIDNEY BILATERAL HISTORY: I10 - Essential (primary) hypertension TECHNIQUE: Real-time grayscale ultrasound imaging of the kidneys was performed and images were reviewed. COMPARISON: Correlation is made with an unenhanced CT of the abdomen dated 04/30/2024. FINDINGS: Right kidney: The right kidney measures 11.0 x 4.3 x 5.2 cm. Renal parenchymal echotexture and thickness are normal. There is a lower pole cyst measuring 7 mm. There is no hydronephrosis or renal calculi. Left Kidney: The left kidney measures 10.0 x 4.9 x 3.8 cm. Renal parenchymal echotexture and thickness are normal. There is an upper pole cyst measuring 2.4 x 2.3 x 2.6 cm and a cyst in the interpolar region measuring 1.2 x 1.1 x 0.9 cm. There is no hydronephrosis or renal calculi. US/US renal BI IMPRESSION: Bilateral renal cysts as described. Electronically signed by: Matthew Alvares MD 09/17/2024 01:58 PM EDT
== END 2024-09-17 13:12 | disposition home or self-care (01) ==
LOC: HO.HMGCX 13:11
PROVIDERS: PCP Internal Medicine; Visit Provider Internal Medicine Hypertension Specialist
DX: I12.9 Hypertensive chronic kidney disease with stage 1 through stage 4 chronic kidney disease, or unspecified chronic kidney disease (principal); N18.30 Chronic kidney disease, stage 3 unspecified; N28.9 Disorder of kidney and ureter, unspecified
CPT/HCPCS: 76775

== ENCOUNTER → 2024-09-17 13:33 | Outpatient (BNV) | payer MEDICARE, SELFPAY | PROVIDERS: PCP Internal Medicine; Visit Provider Radiology Diagnostic Radiology | DX: N28.1 Cyst of kidney, acquired (principal) | CPT/HCPCS: 76775 ==

== ENCOUNTER 2024-09-28 09:21 | Outpatient (REF) | payer MEDICARE, SELFPAY ==
[2024-09-28 13:39] LABS: Anion Gap 12 (12-20); Blood Urea Nitrogen 37 mg/dL (9-16); Calcium 10.8 mg/dL (8.4-10.2); Carbon Dioxide 32 mmol/L (22-29); Chloride 97 mmol/L (96-108); Estimated Glomerular Filt Rate 35; Glucose Random 91 mg/dL (60-115); Potassium 4.4 mmol/L (3.3-5.1); Sodium 137 mmol/L (135-145)
== END 2024-09-28 09:22 | disposition home or self-care (01) ==
LOC: HO.HMGCLDS 09:21
PROVIDERS: PCP Internal Medicine; Visit Provider Internal Medicine Hypertension Specialist
DX: N18.30 Chronic kidney disease, stage 3 unspecified (principal); N28.9 Disorder of kidney and ureter, unspecified
CPT/HCPCS: 36415; 80048

== ENCOUNTER 2024-10-11 13:45 | Outpatient (AMB) | payer MEDICARE, SELFPAY ==
--- NOTE | 2024-10-11 13:50 | HO.NEPHOV ---
Vital Signs 10/11/24 13:52 Height 5 ft 2 in Weight 158 lb 6 oz BMI 29.0 BP 110/70 Blood Pressure Location Rt brachial Position Sitting Pulse 57 Pulse Source Pulse Oximeter Pulse Oximetry (%) 100 Oxygen Delivery Method Room Air Intake Visit Reasons: FU/ Voicemail not setup [employer] Required: No Accompanied by: Spouse Allergies Penicillins Allergy (Intermediate, Verified 10/11/24 13:52) Nausea and Vomiting Antihistamines - Ethylenediamine Adverse Reaction (Intermediate, Verified 10/11/24 13:52) tachycardia flu vaccine Adverse Reaction (Intermediate, Uncoded 08/30/24 12:12) vomiting, in bed for 2 weeks steriods Adverse Reaction (Intermediate, Uncoded 08/30/24 12:12) tachycardia Medication List - Last Reconciled 10/11/24 by Jose Eller MD amlodipine 5 mg PO DAILY apixaban (Eliquis) 5 mg PO BID ascorbic acid (vitamin C) (Vitamin C) 1,000 mg PO DAILY bisacodyl (Dulcolax (bisacodyl)) 20 mg (4 x 5 mg) PO ONCE 1 day cholecalciferol (vitamin D3) 125 mcg PO DAILY ferrous fumarate 162 mg PO Q OTHER DAY hydrochlorothiazide 25 mg PO DAILY magnesium 400 mg PO DAILY metoprolol succinate ER 50 mg PO DAILY [id number]-FA-vit K-lut 8 mg iron-400 mcg-50 mcg (Multivitamin Women 50 Plus) 1 tab PO DAILY polyethylene glycol 3350 (Miralax) 238 grams PO ONCE vitamin B complex 1 tab PO DAILY HPI Comments Details: 68-year-old woman with a history of longstanding hypertension and mild chronic kidney disease with a serum creatinine of 1.2 at baseline. She had history of cecal mass. Underwent laparoscopic right colon resection and addition of lysis in 06/24/2024. During hospitalization she was she sustained acute kidney injury with a creatinine peaking at 1.5. At the time of discharge creatinine was 1.29. She has been referred for further evaluation. She is currently on hydrochlorothiazide 25 mg a day. Accompanied by her son 10/11/24 68-year-old female presenting with a need to review her hypertension treatment strategy. She has been using hydrochlorothiazide and amlodipine for long-standing management of her essential hypertension. Despite a historical good response to this regimen, her recent blood pressure reading of 110/70 mmHg and episodes of lightheadedness upon standing indicate that her blood pressure could be excessively low. These symptoms have been ongoing, raising potential concerns with renal function. Recent imaging identified simple renal cysts without evidence of obstruction. Hypercalcemia was detected on recent laboratory work but is not attributed to exogenous calcium intake, as the patient denies the use of calcium supplements and has only been utilizing [id number] vitamin D3. The purpose of this visit also includes medication coordination in preparation for her upcoming dental procedure, ensuring proper management around tooth extraction and anticoagulant therapy adjustment. [facility] Medical History Complex cyst of both ovaries History of alcohol abuse (~2004) Diverticulosis CKD (chronic kidney disease), stage III Anemia Osteoarthritis Habitual snoring Rheumatic fever New onset atrial fibrillation Erythema intertrigo Hx of ectopic Hx of History of seizures Essential hypertension Surgical History Hx of surgical procedure (~06/22/24) Hx of colonoscopy (04/19/24) Status post left breast lumpectomy (10/28/22) Hx of shoulder surgery H/O tubal ligation Hx of cholecystectomy Hx of tonsillectomy Family History Father Substance use disorder Lung cancer Essential hypertension CAD (coronary artery disease) COVID-19 Skin cancer Mother Substance use disorder Oral cancer Essential hypertension CAD (coronary artery disease) COVID-19 Sister Disorder of thyroid Brother CAD (coronary artery disease) COVID-19 Social History Household Members: Spouse Housing: House Are you a primary career development coordinator to a significant other at home: No Do you presently have visiting nurse or other home services: No 75 years or older and lives alone: No Alcohol intake: current Alcohol intake frequency: does not drink Comment: aware of trip hazard Patient Tobacco Use Status: Former Tobacco user Tobacco use type: Cigarette e-Cigarette/Vaping Use: Never Used Second Hand Smoke Exposure: No service: No Current occupational status: retired Cognitive needs: No Hearing needs: No Vision needs: Yes Female Reproductive History Menstrual Age of Menarche: 11 Physical Exam Vital Signs: Last Vital Signs Pulse 57 10/11/24 13:52 BP 110/70 10/11/24 13:52 Pulse Ox 100 10/11/24 13:52 Oxygen Delivery Method Room Air 10/11/24 13:52 BMI result Body Mass Index 29.0 Comfortable Neck supple no JVD. Lungs entry equal no rales. Heart S1-S2 heard no gallop or rub. Abdomen soft nontender. Neuro alert awake oriented. No asterixis. Extremities no edema. Results Reviewed Results Reviewed: September2024 Right kidney: The right kidney measures 11.0 x 4.3 x 5.2 cm. Renal parenchymal echotexture and thickness are normal. There is a lower pole cyst measuring 7 mm. There is no hydronephrosis or renal calculi. Left Kidney: The left kidney measures 10.0 x 4.9 x 3.8 cm. Renal parenchymal echotexture and thickness are normal. There is an upper pole cyst measuring 2.4 x 2.3 x 2.6 cm and a cyst in the interpolar region measuring 1.2 x 1.1 x 0.9 cm. There is no hydronephrosis or renal calculi. Nephrology Results: Hgb 11.7 g/dl (12.0-16.0) L 07/21/24 WBC 6.2 X10*3/uL (4.8-10.8) 07/21/24 Plt Count 447 X10*3/uL (160-400) H 07/21/24 Sodium 137 mmol/L (135-145) 09/28/24 Potassium 4.4 mmol/L (3.3-5.1) 09/28/24 Chloride 97 mmol/L (96-108) 09/28/24 Carbon Dioxide 32 mmol/L (22-29) H 09/28/24 BUN 37 mg/dL (9-16) H 09/28/24 Creatinine 1.47 mg/dL (0.5-1.4) H 09/28/24 Calcium 10.8 mg/dL (8.4-10.2) H 09/28/24 Phosphorus 3.2 mg/dL (2.7-4.5) 07/21/24 PTH Intact 72.9 pg/mL (8.7-77.1) 07/21/24 Urine Protein Negative mg/dL (Neg-Trace) 07/22/24 Urine Creatinine 264.40 mg/dL 07/21/24 Renal US 09/17/24 Assessment & Plan Assessment & Plan (1) CKD (chronic kidney disease), stage III: Comment: Due to hypertensive nephrosclerosis Code(s): N18.30 - Chronic kidney disease, stage 3 unspecified Category: Medical Plan: Superimposed JUAN FRANCISCO due to hypoperfusion. Renal function marginally better Encouraged her to increase her p.o. fluid intake. Continue to avoid nephrotoxic agents including NSAIDs. renal sonogram- no obstruction DC HCTZ Watch BP an d renal function (2) Renal lesion: Comment: Indeterminate left renal lesion measuring up to 1.9 cm. Code(s): N28.9 - Disorder of kidney and ureter, unspecified Category: Medical Plan: She has been referred to Urology in the past. Encouraged her to follow up with Urology Follow up USG ordered (3) Essential hypertension: Code(s): I10 - Essential (primary) hypertension Category: Medical Plan: Overall blood pressure is acceptable Encouraged her to stay on low-sodium diet Plan Decrease Vit D to QOD due to hypercalcemia Recheck Ca and Vit D next visit Orders: Orders Parathyroid Hormone Intact 8 Weeks N18.30 - Chronic kidney disease, stage 3 unspecified Phosphorus 8 Weeks N18.30 - Chronic kidney disease, stage 3 unspecified Basic Metabolic Panel 8 Weeks N18.30 - Chronic kidney disease, stage 3 unspecified Vitamin D 25-OH Total 8 Weeks N18.30 - Chronic kidney disease, stage 3 unspecified Medications: Changed From cholecalciferol (vitamin D3) 125 mcg PO DAILY 90 caps 0RF E55.9 - Vitamin D deficiency, unspecified To cholecalciferol (vitamin D3) 125 mcg PO .QOD 90 caps 0RF E55.9 - Vitamin D deficiency, unspecified Discontinued hydrochlorothiazide Discontinued Reason: Doctor's Order 25 mg PO DAILY 90 tabs 1RF Patient Instructions: - Stop hydrochlorothiazide altogether. - Continue taking amlodipine for blood pressure management. - Take vitamin D3 every other day instead of daily. - Pause Eliquis two days before dental extraction. - Return for follow-up in two months for assessment. - Report any concerns of dizziness or unusual symptoms immediately. - Maintain current healthy fluid intake. Coding Level of Care Code Est Pt Level 4 (19692) Diagnoses CKD (chronic kidney disease), stage III N18.30 Renal lesion N28.9 Essential hypertension I10
[2024-10-11 13:52] VITALS: BP 110/70; PULSE 57; O2SAT 100; BMI 29.0
== END 2024-10-11 14:09 | disposition home or self-care (01) ==
LOC: HO.HKA 13:47
PROVIDERS: PCP Internal Medicine; Visit Provider Internal Medicine Hypertension Specialist
DX: N18.30 Chronic kidney disease, stage 3 unspecified (principal); N28.9 Disorder of kidney and ureter, unspecified; I10 Essential (primary) hypertension
CPT/HCPCS: 99214

== ENCOUNTER → 2024-10-11 13:45 | Outpatient (BNVA) | payer MEDICARE, SELFPAY | PROVIDERS: PCP Internal Medicine; Visit Provider Internal Medicine Hypertension Specialist | DX: I12.9 Hypertensive chronic kidney disease with stage 1 through stage 4 chronic kidney disease, or unspecified chronic kidney disease (principal); N18.30 Chronic kidney disease, stage 3 unspecified; N28.9 Disorder of kidney and ureter, unspecified | CPT/HCPCS: 99212 ==

== ENCOUNTER 2024-11-01 12:10 | Day surgery (SDC) | payer MEDICARE, SELFPAY ==
--- NOTE | 2024-10-29 10:40 | HO.ANESPROP2 ---
Documented by User: Lisbeth Farris NP 10/29/24 10:49 HPI - Anesthesia Eval Consult details Narrative: 68yo F for Colonoscopy s/p colon resection 06/2024 with GA-ETT 7 Eliquis for afib. [place] [facility] [place]. Last office visit 07/2024 - stable and planned for ablation [facility] renal for CKD [facility] [address] - stable at 10/2024 office visit (marginal improvement in Creat) PMFSH Active Problems Active Problems: All Active Problems Complex cyst of both ovaries (Acute) S/P right colectomy (Acute) On amiodarone therapy (Acute) Renal lesion (Acute) PAF (paroxysmal atrial fibrillation) (Acute) Diverticulosis (Acute) CKD (chronic kidney disease), stage III (Acute) Anemia (Acute) Essential hypertension (Acute) Past Medical History Medical History Complex cyst of both ovaries History of alcohol abuse (~2004) Diverticulosis CKD (chronic kidney disease), stage III Anemia Osteoarthritis Habitual snoring Rheumatic fever New onset atrial fibrillation Erythema intertrigo Hx of ectopic Hx of History of seizures Essential hypertension Family History Family History Father Substance use disorder Lung cancer Essential hypertension CAD (coronary artery disease) COVID-19 Skin cancer Mother Substance use disorder Oral cancer Essential hypertension CAD (coronary artery disease) COVID-19 Sister Disorder of thyroid Brother CAD (coronary artery disease) COVID-19 Family history of problems with anesthesia: No Surgical History Surgical History Hx of surgical procedure (~06/22/24) Hx of colonoscopy (04/19/24) Status post left breast lumpectomy (10/28/22) Hx of shoulder surgery H/O tubal ligation Hx of cholecystectomy Hx of tonsillectomy History of Problems with Anesthesia: No Social History Social History Household Members: Spouse Housing: House Are you a primary resident care assistant to a significant other at home: No Do you presently have visiting nurse or other home services: No Alcohol intake: current Alcohol intake frequency: does not drink Comment: aware of trip hazard Patient Tobacco Use Status: Former Tobacco user Tobacco use type: Cigarette e-Cigarette/Vaping Use: Never Used Second Hand Smoke Exposure: No Have you been hit, kicked, punched, or otherwise hurt by someone within the past year? If so, by whom?: No Are you DNR?: No Advance Directives: No Advance Directives Information Provided: Yes service: No Current occupational status: retired Cognitive needs: No Hearing needs: No Vision needs: Yes Meds Allergies Allergy/AdvReac Type Severity Reaction Status Date / Time Penicillins Allergy Intermediate Nausea and Verified 10/11/24 13:52 Vomiting Antihistamines - AdvReac Intermediate tachycardia Verified 10/11/24 13:52 Ethylenediamine flu vaccine AdvReac Intermediate vomiting, Uncoded 08/30/24 12:12 in bed for 2 weeks steriods AdvReac Intermediate tachycardia Uncoded 08/30/24 12:12 Home Medications ?Medication ?Instructions ?Recorded ?Confirmed ?Last Taken ?Type magnesium 200 mg tablet 400 mg PO DAILY 10/17/22 11/01/24 04/12/24 History ascorbic acid (vitamin C) 1,000 mg 1,000 mg PO DAILY 06/10/24 11/01/24 Unknown History tablet (Vitamin C) [id number] 8 mg-folic 400 1 tab PO DAILY 06/10/24 11/01/24 Unknown History mcg-K 50 mcg-lutein 300 mcg tablet (Multivitamin Women 50 Plus) vitamin B complex 1 tab PO DAILY 06/10/24 11/01/24 Unknown History amlodipine 5 mg tablet 5 mg PO DAILY 08/26/24 11/01/24 11/01/24 History ferrous fumarate 324 mg (106 mg 162 mg PO Q OTHER DAY 08/26/24 11/01/24 Unknown History iron) tablet metoprolol succinate 100 mg 50 mg PO DAILY 10/11/24 11/01/24 11/01/24 History tablet,extended release 24 hr Exam Pertinent Lab Results Pertinent Lab Results: Laboratory Tests 07/21/24 09/28/24 14:34 09:48 WBC 6.2 Hgb 11.7 L Hct 36.3 L Plt Count 447 H D Sodium 137 Potassium 4.4 Chloride 97 Carbon Dioxide 32 H BUN 37 H Creatinine 1.47 H Narrative Narrative: EKG 07/2024 SB, rate 53, Qtc 474ms Assessment and Plan Assessment Anesthesia Assessment: Chart Reviewed Final Anesthetic Review Family History of Problems with Anesthesia: No History of Problems with Anesthesia: No Documented by User: Elmo Delcid MD 11/11/24 07:29 [facility] Past Medical History Medical History Complex cyst of both ovaries History of alcohol abuse (~2004) Diverticulosis CKD (chronic kidney disease), stage III Anemia Osteoarthritis Habitual snoring Rheumatic fever New onset atrial fibrillation Erythema intertrigo Hx of ectopic Hx of History of seizures Essential hypertension Family History Family History Father Substance use disorder Lung cancer Essential hypertension CAD (coronary artery disease) COVID-19 Skin cancer Mother Substance use disorder Oral cancer Essential hypertension CAD (coronary artery disease) COVID-19 Sister Disorder of thyroid Brother CAD (coronary artery disease) COVID-19 Surgical History Surgical History Hx of surgical procedure (~06/22/24) Hx of colonoscopy (04/19/24) Status post left breast lumpectomy (10/28/22) Hx of shoulder surgery H/O tubal ligation Hx of cholecystectomy Hx of tonsillectomy Social History Social History Household Members: Spouse Housing: House Are you a primary resident care assistant to a significant other at home: No Do you presently have visiting nurse or other home services: No Alcohol intake: current Alcohol intake frequency: does not drink Comment: aware of trip hazard Patient Tobacco Use Status: Former Tobacco user Tobacco use type: Cigarette e-Cigarette/Vaping Use: Never Used Second Hand Smoke Exposure: No Have you been hit, kicked, punched, or otherwise hurt by someone within the past year? If so, by whom?: No Are you DNR?: No Advance Directives: No Advance Directives Information Provided: Yes service: No Current occupational status: retired Cognitive needs: No Hearing needs: No Vision needs: Yes Meds Allergies Allergy/AdvReac Type Severity Reaction Status Date / Time Penicillins Allergy Intermediate Nausea and Verified 10/11/24 13:52 Vomiting Antihistamines - AdvReac Intermediate tachycardia Verified 10/11/24 13:52 Ethylenediamine flu vaccine AdvReac Intermediate vomiting, Uncoded 08/30/24 12:12 in bed for 2 weeks steriods AdvReac Intermediate tachycardia Uncoded 08/30/24 12:12 Home Medications ?Medication ?Instructions ?Recorded ?Confirmed ?Last Taken ?Type magnesium 200 mg tablet 400 mg PO DAILY 10/17/22 11/01/24 04/12/24 History ascorbic acid (vitamin C) 1,000 mg 1,000 mg PO DAILY 06/10/24 11/01/24 Unknown History tablet (Vitamin C) [id number] 8 mg-folic 400 1 tab PO DAILY 06/10/24 11/01/24 Unknown History mcg-K 50 mcg-lutein 300 mcg tablet (Multivitamin Women 50 Plus) vitamin B complex 1 tab PO DAILY 06/10/24 11/01/24 Unknown History amlodipine 5 mg tablet 5 mg PO DAILY 08/26/24 11/01/24 11/01/24 History ferrous fumarate 324 mg (106 mg 162 mg PO Q OTHER DAY 08/26/24 11/01/24 Unknown History iron) tablet metoprolol succinate 100 mg 50 mg PO DAILY 10/11/24 11/01/24 11/01/24 History tablet,extended release 24 hr Exam Airway Mallampati Class: II TM Dist: <=3cm Neck ROM: Full Denture: Lower Heart: OK Lungs: OK Assessment and Plan Assessment Anesthesia Assessment: Anesthesia Plan Discussed Final Anesthetic Review NPO: Yes ASA Class: III Final Preanesthetic Review: No Changes in Pt Med Stat, Meds/Allgs Chart Reviewed, Consent Obtained/Reviewed and Anes Risks/Benef Reviewed Patient Risk: Intermediate Procedure Risk: Low Anesthetic Plan Anesthetic Plan: MAC: and Agree w/ Assess. and Plan Disposition: Standard PACU
[2024-11-01 12:50] VITALS: BP 171/74; PULSE 58; RESP 20; TEMP 36.9; O2SAT 97; BMI 29.5
[2024-11-01] MEDS: Lactated Ringers 1,000 ML 100 ML IVCONT (13:28)
--- NOTE | 2024-11-01 14:52 | MHC.SHP ---
Pre-Procedural Eval Section A - 24 Hr Update-Section A only Date of Service: 11/01/24 The patient is an INPATIENT: No The patient has been examined within 24 hours of the surgical procedure. The History & Physical has been completed within 30 days and I have reviewed it.: No Section B - Complete if H&P > 30 days Chief Complaint: Diverticulosis of intestine,screening Relevant Family History (Specify if Yes): No Relevant Social History: Tobacco Use (Former smoker) Present Medications: see Short Stay Collaborative assessment Medical History: Significant History (History of alcohol abuse (~2004) Diverticulosis CKD (chronic kidney disease), stage III Anemia Osteoarthritis Habitual snoring Rheumatic fever New onset atrial fibrillation Erythema intertrigo Hx of ectopic Hx of History of seizures Essential hypertension) History of Previous Operations: Relevant previous surgery/procedure and date(s) (Hx of surgical procedure (~06/22/24) Hx of colonoscopy (04/19/24) Status post left breast lumpectomy (10/28/22) Hx of shoulder surgery H/O tubal ligation Hx of cholecystectomy Hx of tonsillectomy) Allergies: Allergies Allergy/AdvReac Type Severity Reaction Status Date / Time Penicillins Allergy Intermediate Nausea and Verified 10/11/24 13:52 Vomiting Antihistamines - AdvReac Intermediate tachycardia Verified 10/11/24 13:52 Ethylenediamine flu vaccine AdvReac Intermediate vomiting, Uncoded 08/30/24 12:12 in bed for 2 weeks steriods AdvReac Intermediate tachycardia Uncoded 08/30/24 12:12 Review of Systems Sugical H&P ROS: Negative: Constitution, Cardiovascular, Respiratory and Gastrointestinal Exam Surgical H&P Exam: Normal: Heart, Normal: Lungs, Normal: Extremities and Normal: Abdomen Plan Diagnosis/Plan: Change (Proceed with colonoscopy) I have reviewed the history and physical and performed a pertinent physical examination on my patient. No changes have occurred unless specified. Time Spent With Patient Time: Total time managing care of this patient today ____ minutes.
--- NOTE | 2024-11-01 16:46 | HO.OPN-COLON ---
Colonoscopy Operative Note Operative Note Date of Service: 11/01/24 Narrative: COLONOSCOPY TILL CECUM WITH BIOPSIES AND SNARE POLYPECTOMY Pre-op diagnosis: History of large cecal TVA with HGD, patient is status post right hemicolectomy. Post-op diagnosis:? Colon polyp, Diverticulosis, hemorrhoids Endoscopist:Angelica Jacob MD Anesthesia:?MAC Consent: Indications for the procedure and potential complications of bleeding, perforation, reaction to medications and missed diagnosis were discussed with the patient and informed consent was obtained. Instrument: Olympus PCF H 190 L variable stiffness pediatric colonoscope Monitoring: Vital signs and clinical assessment, intermittent blood pressure monitoring, continuous EKG monitoring, Pulse oximetry and Carbon Dioxide monitoring were done throughout the procedure. Please see anesthesia flowsheet. Colon withdrawl time was 15 minutes. Procedure: The patient was placed in the left lateral decubitis position and pre-procedure medications were administered. After a digital rectal examination of the ano-rectum, the video colonoscope was inserted into the rectum and advanced through the colon to the ileo-colic anastomosis in the proximal TC. The colonoscope was slowly withdrawn in a retrograde panoramic fashion and the colon mucosa was carefully examined including a retroflexed view of the rectum. Findings and interventions are described below. Procedure Difficulty: narrowing of sigmoid colon due to severe diverticulosis which was navigated with some difficulty Findings: Terminal Ileum: Mendoza-terminal ileum appeared normal Cecum: surgically removed Ascending Colon: surgically removed Transverse Colon: Normal ileo-colic anatomosis with 2 reginald - biopsies were obtained. Scattered diverticulosis throughout the entire colon Descending Colon: Moderate diverticulosis. Sigmoid Colon: A 8-9 mm diminutive appearing polyp - removed with a hot snare. Severe diverticulosis with luminal narrowing Rectum: Normal Ano-rectum: Small internal hemorrhoids Colon preparation: Good after some irrigation. [place] Bowel Preparation Scale Right colon; 2 Transverse colon: 2 Left colon; 2 (0 = Unprepared colon segment with mucosa not seen due to solid stool that cannot be cleared. 1 = Portion of mucosa of the colon segment seen, but other areas of the colon segment not well seen due to staining, residual stool and/or opaque liquid. 2 = Minor amount of residual staining, small fragments of stool and/or opaque liquid, but mucosa of colon segment seen well. 3 = Entire mucosa of colon segment seen well with no residual staining, small fragments of stool or opaque liquid) Impression and Post Procedure Diagnosis: Colonoscopy Findings: One small polyp was removed Moderate to severe diverticulosis seen in the entire colon small hemorrhoids on retroflexed exam. Plan: Pt has a FU appointment on 11/26/24 with Susan Vargas NP Repeat Colonoscopy in 3 years if polyps are adenomatous and due to a history of a large TVA with HGD. Above findings were reviewed with the patient and relevant handouts were given and the discharge area. BIOPSIES SHOWED: A. Ileocolonic, anastomosis, biopsy: Ileocolonic mucosa with mild reactive changes in keeping with anastomotic site. B. Colon, sigmoid, polypectomy: Hyperplastic polyp. Letter sent with biopsy results. Patient was placed on the colonoscopy recall list for repeat colonoscopy in 3 years.
[2024-11-01 16:49] VITALS: BP 88/29; PULSE 57; RESP 16; TEMP 36.1; O2SAT 98
[2024-11-01 16:54] VITALS: BP 92/38; PULSE 60; RESP 16; O2SAT 99
[2024-11-01 16:59] VITALS: BP 112/63; PULSE 58; RESP 16; O2SAT 99
[2024-11-01 17:04] VITALS: BP 136/65; PULSE 56; RESP 16; TEMP 36.1; O2SAT 97
== END 2024-11-01 17:38 | disposition home or self-care (01) ==
PROVIDERS: PCP Internal Medicine; Visit Provider Internal Medicine Gastroenterology
PROC: 0DJD8ZZ Inspection of Lower Intestinal Tract, Via Natural or Artificial Opening Endoscopic (ICD-10-PCS; CPT 45378; principal; 2024-11-01 15:10)
DX: K63.5 Polyp of colon (principal); K57.30 Diverticulosis of large intestine without perforation or abscess without bleeding; K64.8 Other hemorrhoids; K63.89 Other specified diseases of intestine; K56.699 Other intestinal obstruction unspecified as to partial versus complete obstruction; I12.9 Hypertensive chronic kidney disease with stage 1 through stage 4 chronic kidney disease, or unspecified chronic kidney disease; N18.30 Chronic kidney disease, stage 3 unspecified; I48.0 Paroxysmal atrial fibrillation; D64.9 Anemia, unspecified; Z90.49 Acquired absence of other specified parts of digestive tract; Z79.899 Other long term (current) drug therapy; Z87.891 Personal history of nicotine dependence; Z79.01 Long term (current) use of anticoagulants
CPT/HCPCS: 45385; 45380; 88305; J2003; J2704

== ENCOUNTER → 2024-11-01 12:10 | Outpatient (BNV) | payer MEDICARE, SELFPAY | PROVIDERS: PCP Internal Medicine; Visit Provider Internal Medicine Gastroenterology | DX: K63.5 Polyp of colon (principal); K57.90 Diverticulosis of intestine, part unspecified, without perforation or abscess without bleeding; K64.8 Other hemorrhoids; Z90.49 Acquired absence of other specified parts of digestive tract | CPT/HCPCS: 45380; 45385 ==

== ENCOUNTER 2024-11-26 16:26 | Outpatient (AMB) | payer MEDICARE, SELFPAY ==
--- OUTSIDE RECORDS SUMMARY | 2024-11-26 16:27 | XMS_ITS ---
[facility] Name [facility] Organization [facility] Care Team Organization Name Specialty Phone Email Start Date End Da te [facility] MAKENZIE APONTE Primary Care 03/12/202212/03
--- NOTE | 2024-11-26 16:29 | MHC.OFFVIS ---
Vital Signs 11/26/24 16:32 Height 5 ft 1 in Weight 158 lb 11.725 oz BMI 30.0 BP 138/72 Blood Pressure Location Rt brachial Position Sitting Pulse 60 Pulse Source Pulse Oximeter Pulse Oximetry (%) 98 Oxygen Delivery Method Room Air Intake Visit Reasons: S/P Carney; Dr. Jacob Intake Note: ESTABLISHED PATIENT for mgmt of fecal abn. S/P Carney CC; Pt has questions regarding iron supplements and possible side effects as well as whether it is safe for her to add another supplement to her regimen. Internal Affairs Commander Required: No Accompanied by: Spouse Allergies Penicillins Allergy (Intermediate, Verified 10/11/24 13:52) Nausea and Vomiting Antihistamines - Ethylenediamine Adverse Reaction (Intermediate, Verified 10/11/24 13:52) tachycardia flu vaccine Adverse Reaction (Intermediate, Uncoded 08/30/24 12:12) vomiting, in bed for 2 weeks steriods Adverse Reaction (Intermediate, Uncoded 08/30/24 12:12) tachycardia HPI HPI S/P Carney; Dr. Jacob: Details: LAST VISIT: S/P right colectomy Mass of cecum Diverticulosis Screen for colon cancer Plan As mentioned above in HPI patient had right-sided colectomy with complete removal of polyp. 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 Patient is aware that she will need to go for colonoscopy. Patient would like to get that done in December. Patient had no issues with anesthesia in during her surgical procedure in June. Denies any cardiac or respiratory symptoms. On Eliquis for AFib. May stop Eliquis 48 hours before the procedure. If patient will develop any cardiac symptoms before going for procedure she will have to be cleared by Cardiology before proceeding. Currently patient is feeling well and denies any cardiac or respiratory symptoms. What to expect before during and after procedure discussed with patient. Stressed the importance of clear liquid diet and good bowel prep day before procedure. Patient is agreeable to this plan and verbalizes understanding of instructions. She was given the opportunity to ask questions and all questions answered. ? Thank you for allowing me to participate in her care New polyethylene glycol 3350 (Miralax) As directed by gastroenterology department at [facility] 238 grams PO ONCE 238 grams 0RF Z12.11 bisacodyl (Dulcolax (bisacodyl)) take 4 tabs at noon the day before your colonoscopy 20 mg (4 x 5 mg) PO ONCE 4 tabs 0RF 1 day Z12.11 COLONOSCOPY: Findings: Terminal Ileum: Mendoza-terminal ileum appeared normal Cecum: surgically removed Ascending Colon: surgically removed Transverse Colon: Normal ileo-colic anatomosis with 2 reginald - biopsies were obtained. Scattered diverticulosis throughout the entire colon Descending Colon: Moderate diverticulosis. Sigmoid Colon: A 8-9 mm diminutive appearing polyp - removed with a hot snare. Severe diverticulosis with luminal narrowing Rectum: Normal Ano-rectum: Small internal hemorrhoids Colon preparation: Good after some irrigation. [place] Bowel Preparation Scale Right colon; 2 Transverse colon: 2 Left colon; 2 (0 = Unprepared colon segment with mucosa not seen due to solid stool that cannot be cleared. 1 = Portion of mucosa of the colon segment seen, but other areas of the colon segment not well seen due to staining, residual stool and/or opaque liquid. 2 = Minor amount of residual staining, small fragments of stool and/or opaque liquid, but mucosa of colon segment seen well. 3 = Entire mucosa of colon segment seen well with no residual staining, small fragments of stool or opaque liquid) Impression and Post Procedure Diagnosis: Colonoscopy Findings: One small polyp was removed Moderate to severe diverticulosis seen in the entire colon small hemorrhoids on retroflexed exam. Plan: Repeat Colonoscopy in 3 years if polyps are adenomatous and due to a history of a large TVA with HGD. Above findings were reviewed with the patient and relevant handouts were given and the discharge area. BIOPSIES SHOWED: A. Ileocolonic, anastomosis, biopsy: Ileocolonic mucosa with mild reactive changes in keeping with anastomotic site. B. Colon, sigmoid, polypectomy: Hyperplastic polyp. Letter sent with biopsy results. Patient was placed on the colonoscopy recall list for repeat colonoscopy in 3 years. TODAY'S VISIT Patient is here today for follow-up and to discuss colonoscopy results. Patient is accompanied by her partner. Patient denies any ill effects from the prep, anesthesia or procedure itself. Patient reports to be feeling well. Hyperplastic polyps found in sigmoid colon. Moderate diverticulosis in the left side of her colon. Patient reports that she is moving her bowels well without any issues. Patient is trying high-fiber diet. Would like to get information on high-fiber diet and supplements. Patient denies melena, hematochezia, unintentional weight loss or ribbon like stools. Patient denies any dyspepsia, dysphagia or odynophagia PFSH Medical History (Updated 11/26/24 @ 19:16 by Maggi Vargas, [facility] [place]) Tubulovillous adenoma of colon Complex cyst of both ovaries History of alcohol abuse (~2004) Diverticulosis CKD (chronic kidney disease), stage III Anemia Osteoarthritis Habitual snoring Rheumatic fever New onset atrial fibrillation Erythema intertrigo Hx of ectopic Hx of History of seizures Essential hypertension Surgical History Hx of surgical procedure (~06/22/24) Hx of colonoscopy (04/19/24) Status post left breast lumpectomy (10/28/22) Hx of shoulder surgery H/O tubal ligation Hx of cholecystectomy Hx of tonsillectomy Family History Father Substance use disorder Lung cancer Essential hypertension CAD (coronary artery disease) COVID-19 Skin cancer Mother Substance use disorder Oral cancer Essential hypertension CAD (coronary artery disease) COVID-19 Sister Disorder of thyroid Brother CAD (coronary artery disease) COVID-19 Social History Household Members: Spouse Housing: House Are you a primary rn palliative care to a significant other at home: No Do you presently have visiting nurse or other home services: No 75 years or older and lives alone: No Alcohol intake: current Alcohol intake frequency: does not drink Comment: aware of trip hazard Patient Tobacco Use Status: Former Tobacco user Tobacco use type: Cigarette e-Cigarette/Vaping Use: Never Used Second Hand Smoke Exposure: No service: No Current occupational status: retired Cognitive needs: No Hearing needs: No Vision needs: Yes Female Reproductive History Menstrual Age of Menarche: 11 Review of Systems Const Denies weight gain and Denies weight loss ENT Reports no additional complaints, Denies dysphagia and Denies odynophagia Card Reports no additional complaints Resp Reports no additional complaints GI Denies abdominal pain, Denies belching, Denies melena, Reports bloating, Denies change in bowel habits, Denies dysphagia, Denies excessive flatus, Denies dyspepsia, Denies heartburn, Denies diarrhea, Denies loose stools, Denies nausea, Denies odynophagia and Denies vomiting Reports no additional complaints Musc Reports no additional complaints Neuro Reports no additional complaints Psych Reports no additional complaints Endo Reports no additional complaints Physical Exam Vital Signs: Last Vital Signs Pulse 60 11/26/24 16:32 BP 138/72 11/26/24 16:32 Pulse Ox 98 11/26/24 16:32 Oxygen Delivery Method Room Air 11/26/24 16:32 BMI result Body Mass Index 30.0 Const General: healthy appearing and no acute distress Nutritional Appearance: obese Orientation/consciousness: patient oriented x3 Resp Effort & Inspection: normal respiratory effort, able to speak in complete sentences, no tracheal deviation and symmetric chest movement Auscultation: clear to auscultation bilaterally Cardio Rate: regular rate GI Inspection: Yes normal to inspection, No distended and Yes obesity Palpation (GI): Soft to palpation, not firm, nontender and No hepatosplenomegaly present Auscultation: normal bowel sounds General: Yes no CVA tenderness Back/Spine/Pelvis Back: no CVA tenderness Skin General skin exam: elasticity normal, turgor normal and dry skin Neuro General: patient oriented x3 Psych Appearance: grossly normal Mental Status: mental status grossly normal Assessment & Plan Assessment & Plan (1) Diverticulosis: Code(s): K57.90 - Diverticulosis of intestine, part unspecified, without perforation or abscess without bleeding Category: Medical (2) S/P right colectomy: Code(s): Z90.49 - Acquired absence of other specified parts of digestive tract Category: Medical (3) Status post colonoscopy: Code(s): Z98.890 - Other specified postprocedural states Plan Colonoscopy results discussed with patient. Patient was encouraged to follow high-fiber diet. List of food high in fiber given to patient. Patient will increase fluid intake and activity to promote better bowel motility. Patient can also take [id number] fiber with pre and probiotic. Patient will repeat colonoscopy in 3 years, sooner if clinically necessary. Patient will return in 6 months, sooner on as needed basis. She is agreeable to this plan and verbalizes understanding of instructions. She was given the opportunity to ask questions and all questions answered. Thank you for allowing me to participate in her care Coding Level of Care Code Est Pt Level 3 (27290) Diagnoses Diverticulosis K57.90 S/P right colectomy Z90.49 Status post colonoscopy Z98.890 Time Spent (min) 30 Comment 20 minutes spent with patient and additional 10 minutes spent reviewing her records
[2024-11-26 16:32] VITALS: BP 138/72; PULSE 60; O2SAT 98
== END 2024-11-26 16:51 | disposition home or self-care (01) ==
PROVIDERS: PCP Internal Medicine; Visit Provider Nurse Practitioner Family
DX: K57.90 Diverticulosis of intestine, part unspecified, without perforation or abscess without bleeding (principal); Z90.49 Acquired absence of other specified parts of digestive tract; Z98.890 Other specified postprocedural states
CPT/HCPCS: 99213

== ENCOUNTER → 2024-11-26 16:26 | Outpatient (BNVA) | payer MEDICARE, SELFPAY | PROVIDERS: PCP Internal Medicine; Visit Provider Nurse Practitioner Family | DX: K57.90 Diverticulosis of intestine, part unspecified, without perforation or abscess without bleeding (principal); Z90.49 Acquired absence of other specified parts of digestive tract; Z98.890 Other specified postprocedural states | CPT/HCPCS: 99212 ==

== ENCOUNTER 2024-11-30 12:28 | Outpatient (REF) | payer MEDICARE, SELFPAY | END 2024-11-30 12:29 | disposition home or self-care (01) | LOC: HO.LNP 12:28 | PROVIDERS: PCP Internal Medicine; Visit Provider Obstetrics & Gynecology | DX: Z01.419 Encounter for gynecological examination (general) (routine) without abnormal findings (principal); N83.291 Other ovarian cyst, right side; N83.292 Other ovarian cyst, left side | CPT/HCPCS: 87626; 88175; 99202 ==

== ENCOUNTER 2024-11-30 12:28 | Outpatient (AMB) | payer MEDICARE, SELFPAY ==
--- NOTE | 2024-11-30 12:30 | A.OFFVIS_ITS ---
Vital Signs 11/30/24 12:31 Height 5 ft 1 in Weight 156 lb 2 oz BMI 29.5 Intake Visit Reasons: New patient ovarian cyst Shell Shop Supervisor Required: No Allergies Penicillins Allergy (Intermediate, Verified 11/30/24 12:32) Nausea and Vomiting Antihistamines - Ethylenediamine Adverse Reaction (Intermediate, Verified 11/30/24 12:32) tachycardia flu vaccine Adverse Reaction (Intermediate, Uncoded 08/30/24 12:12) vomiting, in bed for 2 weeks steriods Adverse Reaction (Intermediate, Uncoded 08/30/24 12:12) tachycardia HPI Comments Details: 05/07/2024 pelvic ultrasound showed the following: Uterus is 5.4 cm length. Normal myometrium. Endometrium 3.2 mm thickness. Right ovary 5 x 4 x 4 cm. Multiple cysts. 4.4 x 3.4 x 3.9 cm cyst with thick septation versus 2 adjacent cysts. Left ovary 8.4 x 4.5 x 5.4 cm. Multiple cysts measuring up to 5.2 x 3.7 x 3.8 cm. 2.7 x 2.3 x 2.5 cm cyst with an internal daughter cyst. Normal color Doppler with arterial/venous spectral tracing of both ovaries. No free fluid. IMPRESSION: The thickness of the endometrium is within normal limits. There are multiple cysts of the bilateral ovaries. Complex cysts demonstrated in the bilateral ovary. Ultrasound follow-up is recommended. Last mammogram in 05/29 was [facility]ADS [facility] Medical History Tubulovillous adenoma of colon Complex cyst of both ovaries History of alcohol abuse (~2004) Diverticulosis CKD (chronic kidney disease), stage III Anemia Osteoarthritis Habitual snoring Rheumatic fever New onset atrial fibrillation Erythema intertrigo Hx of ectopic Hx of History of seizures Essential hypertension Surgical History Hx of surgical procedure (~06/22/24) Hx of colonoscopy (04/19/24) Status post left breast lumpectomy (10/28/22) Hx of shoulder surgery H/O tubal ligation Hx of cholecystectomy Hx of tonsillectomy Family History Father Substance use disorder Lung cancer Essential hypertension CAD (coronary artery disease) COVID-19 Skin cancer Mother Substance use disorder Oral cancer Essential hypertension CAD (coronary artery disease) COVID-19 Kidney disease Sister Disorder of thyroid Brother CAD (coronary artery disease) COVID-19 Social History Household Members: Spouse Housing: House Are you a primary rn critical care to a significant other at home: No Do you presently have visiting nurse or other home services: No 75 years or older and lives alone: No Alcohol intake: former Comment: aware of trip hazard Patient Tobacco Use Status: Former Tobacco user Tobacco use type: Cigarette e-Cigarette/Vaping Use: Never Used Second Hand Smoke Exposure: No service: No Current occupational status: retired Sexually active: No Sexual orientation: Straight/Heterosexual Gender identity: Female Cognitive needs: No Hearing needs: No Vision needs: Yes Female Reproductive History Menstrual Age of Menarche: 11 Date of Mammogram: 05/17/24 (benign) Review of Systems Const All systems reviewed & are unremarkable except as noted in HPI and below Card Reports as per HPI Resp Reports as per HPI GI Reports as per HPI and Reports no additional complaints Reports as per HPI Physical Exam Vital Signs: BMI result Body Mass Index 29.5 Const General: cooperative, healthy appearing and comfortable Chest Chest palpation & inspection: normal inspection of the chest and normal palpatio n of entire chest wall Breast/axilla inspection: normal inspection of the breasts and normal inspection of the axillae Breast/axilla palpation: normal palpation of the breasts, normal palpation of the axillae and no axillary lymphadenopathy Resp Effort & Inspection: normal respiratory effort Auscultation: clear to auscultation bilaterally Percussion: percussion normal Cardio Palpation: normal PMI Rate: regular rate Rhythm: regular rhythm Heart sounds: no murmurs and no rubs Peripheral pulses: Peripheral pulses 2+ throughout GI Inspection: Yes normal to inspection Palpation (GI): Soft to palpation, nontender, no guarding, not rigid and No hepatosplenomegaly present Percussion: Yes normal to percussion Auscultation: normal bowel sounds Rectal Exam - Female: deferred General: Yes bladder normal to palpation External Female Exam: No lesion Speculum Exam - Vagina: normal appearance of the vagina, normal palpation, normal vaginal discharge and not erythematous Speculum Exam - Cervix: normal appearance of the cervix and normal palpation Bimanual exam- vagina & uterus: normal bimanual exam, normal palpation, uterine size normal, bladder normal to palpation, consistency normal and normal palpation Bimanual Exam- Adnexa, other: normal adnexae, no masses and no tenderness Assessment & Plan Assessment & Plan (1) Complex cyst of both ovaries: Code(s): N83.291 - Other ovarian cyst, right side; N83.292 - Other ovarian cyst, left side Category: Medical Plan: Discussed with the patient the complex ovarian cyst by ultrasound. Discussed with the patient the Ultrasound findings, the main limitation of transvaginal ultrasonography alone as a diagnostic tool to distinguish benign from malignant masses relates to its lack of specificity and low positive predictive value for cancer. The differential diagnosis discussed with the patient includes the following but not limited to: benign and malignant gynecological and non-gynecological causes. Since ultrasound was done in 05/29 will repeat ultrasound selene check the results and treat accordingly. Instructions given the patient to schedule an ultrasound as soon as possible and a follow-up appointment afterwards. All questions were answered & the patient verbalized understanding and agreed with the plan. Orders: Orders US pelvic and transvaginal Today N83.291 - Other ovarian cyst, right side, N83.292 - Other ovarian cyst, left side Coding Level of Care Code New Pt Level 3 (52170) Diagnoses Complex cyst of both ovaries N83.291; N83.292
[2024-11-30 12:31] VITALS: BMI 29.5
== END 2024-11-30 13:12 | disposition home or self-care (01) ==
LOC: HO.HWS 12:28
PROVIDERS: PCP Internal Medicine; Visit Provider Obstetrics & Gynecology
DX: N83.291 Other ovarian cyst, right side (principal); N83.292 Other ovarian cyst, left side
CPT/HCPCS: 99203

== ENCOUNTER 2024-11-30 15:10 | Outpatient (REF) | payer MEDICARE, SELFPAY ==
--- NOTE | ~2024-11-30 | US_ITS ---
CLINICAL HISTORY: N83.291 - Other ovarian cyst, right side US PELVIS TRANSABDOMINAL AND TRANSVAGINAL WITH DOPPLER Comparison: US/IA - US PELVIC AND TRANSVAGINAL - 05/07/24 13:36 EST Findings: Transabdominal scanning performed for overall anatomy. Transvaginal scanning performed for additional detail. The uterus measures 5.9 cm in length. Normal myometrium. The endometrium measures 2 mm. Right ovary 5.9 x 4.1 x 4.8 cm. There is a 4.5 x 3.6 x 2.7 cm cystic lesion with irregular borders. There are multiple thin internal septations. Left ovary 7.6 x 3.7 x 4.6 cm. There is a 7.5 x 3.2 x 4.7 cm cystic lesion with irregular borders. There are multiple thick irregular internal septations. Normal color Doppler with arterial/venous spectral tracing of both ovaries. No free fluid in the posterior cul-de-sac. IMPRESSION: 1. No ovarian torsion. 2. 4.5 cm indeterminate right ovarian cyst. SRU Consensus Statement recommendations (Kim, et al. Radiology 2010;256(3):943-954) suggest the following: Initially a short-interval (6-12 weeks) follow-up pelvic ultrasound. If the lesion persists, surgical evaluation recommended. 3. 7.6 cm left ovarian cyst for which malignancy cannot be entirely excluded. SRU Consensus Statement recommendations (Kim, et al. Radiology 2010;256(3):943-954) suggest the following: Surgical evaluation recommended. This document has been electronically signed by: Elvia Bartholomew DO on 11/30/2024 16:54:13
== END 2024-11-30 15:11 | disposition home or self-care (01) ==
LOC: HO.US 15:10
PROVIDERS: PCP Internal Medicine; Visit Provider Obstetrics & Gynecology
DX: N83.291 Other ovarian cyst, right side (principal); N83.292 Other ovarian cyst, left side
CPT/HCPCS: 76830; 76856

== ENCOUNTER → 2024-11-30 15:12 | Outpatient (BNV) | payer MEDICARE, SELFPAY | PROVIDERS: PCP Internal Medicine; Visit Provider Radiology Diagnostic Radiology | DX: N83.291 Other ovarian cyst, right side (principal) | CPT/HCPCS: 76830; 76856 ==

== ENCOUNTER 2024-12-02 08:53 | Outpatient (REF) | payer MEDICARE, SELFPAY ==
[2024-12-02 11:08] LABS: Blood Urea Nitrogen 33 mg/dL (9-16); Estimated Glomerular Filt Rate 38
[2024-12-02 11:17] LABS: Carcinoembryonic Antigen 1.80 ng/mL
[2024-12-03 08:59] LABS: CA-125 11 U/mL (<35)
== END 2024-12-02 08:54 | disposition home or self-care (01) ==
LOC: HO.LAB 08:53
PROVIDERS: PCP Internal Medicine; Visit Provider Obstetrics & Gynecology
DX: N83.291 Other ovarian cyst, right side (principal); N83.292 Other ovarian cyst, left side; Z98.51 Tubal ligation status
CPT/HCPCS: 36415; 82378; 82565; 84520; 86301; 86304; 99212

== ENCOUNTER 2024-12-02 08:53 | Outpatient (AMB) | payer MEDICARE, SELFPAY ==
--- NOTE | 2024-12-02 09:10 | MHC.OFFVIS ---
Vital Signs 12/02/24 09:13 Height 5 ft 1 in Weight 156 lb BMI 29.5 BP 132/80 Intake Visit Reasons: ultrasound results Cone Classifier Tender Required: No Information Interpreted: non-clinical & clinical Accompanied by: Spouse Allergies Penicillins Allergy (Intermediate, Verified 12/02/24 09:14) Nausea and Vomiting Antihistamines - Ethylenediamine Adverse Reaction (Intermediate, Verified 12/02/24 09:14) tachycardia flu vaccine Adverse Reaction (Intermediate, Uncoded 12/02/24 09:14) vomiting, in bed for 2 weeks steriods Adverse Reaction (Intermediate, Uncoded 12/02/24 09:14) tachycardia HPI Comments Details: Presenting for ultrasound follow-up done on 12/01/2024 which showed the following: The uterus measures 5.9 cm in length. Normal myometrium. The endometrium measures 2 mm. Right ovary 5.9 x 4.1 x 4.8 cm. There is a 4.5 x 3.6 x 2.7 cm cystic lesion with irregular borders. There are multiple thin internal septations. Left ovary 7.6 x 3.7 x 4.6 cm. There is a 7.5 x 3.2 x 4.7 cm cystic lesion with irregular borders. There are multiple thick irregular internal septations. Normal color Doppler with arterial/venous spectral tracing of both ovaries. No free fluid in the posterior cul-de-sac. IMPRESSION: 1. No ovarian torsion. 2. 4.5 cm indeterminate right ovarian cyst. SRU Consensus Statement recommendations (Kim, et al. Radiology 2010;256(3):943-954) suggest the following: Initially a short-interval (6-12 weeks) follow-up pelvic ultrasound. If the lesion persists, surgical evaluation recommended. 3. 7.6 cm left ovarian cyst for which malignancy cannot be entirely excluded. SRU Consensus Statement recommendations (Kim, et al. Radiology 2010;256(3):943-954) suggest the following: Surgical evaluation recommended. [facility] Medical History Tubulovillous adenoma of colon Complex cyst of both ovaries History of alcohol abuse (~2004) Diverticulosis CKD (chronic kidney disease), stage III Anemia Osteoarthritis Habitual snoring Rheumatic fever New onset atrial fibrillation Erythema intertrigo Hx of ectopic Hx of History of seizures Essential hypertension Surgical History Hx of surgical procedure (~06/22/24) Hx of colonoscopy (04/19/24) Status post left breast lumpectomy (10/28/22) Hx of shoulder surgery H/O tubal ligation Hx of cholecystectomy Hx of tonsillectomy Family History Father Substance use disorder Lung cancer Essential hypertension CAD (coronary artery disease) COVID-19 Skin cancer Mother Substance use disorder Oral cancer Essential hypertension CAD (coronary artery disease) COVID-19 Kidney disease Sister Disorder of thyroid Brother CAD (coronary artery disease) COVID-19 Social History Household Members: Spouse Housing: House Are you a primary medicare interviewer to a significant other at home: No Do you presently have visiting nurse or other home services: No 75 years or older and lives alone: No Alcohol intake: former Comment: aware of trip hazard Patient Tobacco Use Status: Former Tobacco user Tobacco use type: Cigarette e-Cigarette/Vaping Use: Never Used Second Hand Smoke Exposure: No service: No Current occupational status: retired Sexual orientation: Straight/Heterosexual Gender identity: Female Cognitive needs: No Hearing needs: No Vision needs: Yes Female Reproductive History Menstrual Age of Menarche: 11 Review of Systems Const All systems reviewed & are unremarkable except as noted in HPI and below Reports as per HPI and Reports no additional complaints GI Reports no additional complaints Reports no additional complaints Assessment & Plan Assessment & Plan (1) Complex cyst of both ovaries: Code(s): N83.291 - Other ovarian cyst, right side; N83.292 - Other ovarian cyst, left side Category: Medical Plan: CA 125, CEA and CA 19-9 CT scan with IV and oral contrast, chronic kidney disease contrast dose Referral to Dr. Olivares, Software Test Developer Oncology Discussed with the patient the bilateral complex ovarian cyst by Ultrasound. The differential diagnosis discussed with the patient includes the following but not limited to: benign and malignant gynecological and non-gynecological. All questions answered, the patient verbalized understanding Instructed the patient to call our office back in case a referral appointment is not scheduled, missed or canceled so that we will assist on rescheduling another appointment, the patient verbalized understanding agreed with the plan. Orders: Orders Carcinoembryonic Antigen Today N83.299 - Other ovarian cyst, unspecified side Carbohydrate Antigen 19-9 Today N83.299 - Other ovarian cyst, unspecified side CT abdomen pelvis w IV con Today N83.299 - Other ovarian cyst, unspecified side CA-125 Today N83.299 - Other ovarian cyst, unspecified side Referrals Gynecologic Oncology Referral N83.291 - Other ovarian cyst, right side, N83.292 - Other ovarian cyst, left side Coding Level of Care Code Est Pt Level 3 (91060) Diagnoses Complex cyst of both ovaries N83.291; N83.292
[2024-12-02 09:13] VITALS: BP 132/80; BMI 29.5
== END 2024-12-02 09:49 | disposition home or self-care (01) ==
LOC: HO.HWS 08:53
PROVIDERS: PCP Internal Medicine; Visit Provider Obstetrics & Gynecology
DX: N83.291 Other ovarian cyst, right side (principal); N83.292 Other ovarian cyst, left side
CPT/HCPCS: 99213

== ENCOUNTER 2024-12-07 13:05 | Outpatient (AMB) | payer MEDICARE, SELFPAY ==
[2024-12-07 13:10] VITALS: BP 138/72; PULSE 51; BMI 30.2
--- NOTE | 2024-12-07 13:10 | A.OFFVIS_ITS ---
Vital Signs 12/07/24 13:10 Height 5 ft 1 in Weight 159 lb 9.835 oz BMI 30.2 BP 138/72 Blood Pressure Location Rt brachial Position Sitting Pulse 51 Pulse Source Monitor Intake Visit Reasons: s/p ablation Dr Dhaliwal Template Storage Clerk Required: No Campaign Specialist: Campaign Specialist Present Allergies Penicillins Allergy (Intermediate, Verified 12/07/24 13:13) Nausea and Vomiting Antihistamines - Ethylenediamine Adverse Reaction (Intermediate, Verified 12/07/24 13:13) tachycardia flu vaccine Adverse Reaction (Intermediate, Uncoded 12/07/24 13:13) vomiting, in bed for 2 weeks steriods Adverse Reaction (Intermediate, Uncoded 12/07/24 13:13) tachycardia Medication List - Last Reconciled 12/07/24 by NICK Powell amlodipine 5 mg PO DAILY apixaban (Eliquis) 5 mg PO BID Held on 11/01/24. Instructions: Resume on 11/02/24. ascorbic acid (vitamin C) (Vitamin C) 1,000 mg PO DAILY cholecalciferol (vitamin D3) 125 mcg PO .QOD ferrous fumarate 162 mg PO Q OTHER DAY magnesium 400 mg PO DAILY metoprolol succinate ER 50 mg PO DAILY metoprolol succinate ER 50 mg PO DAILY brphbpsg-ibw-hjle-FA-vit K-lut 8 mg iron-400 mcg-50 mcg (Multivitamin Women 50 Plus) 1 tab PO DAILY vitamin B complex 1 tab PO DAILY Referred by: Confirmed with her that she is taking Metoprolol xl 50mg daily. 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 Today she reports that she has been feeling generally well since her last visit in July. She states she did find out that she has pre cancer findings in her ovaries and will need to have them removed. She has a appointment with the surgeon on 12/30/2024. She does not have a surgical date as of yet. She has not had any known recurrent atrial fibrillation. She does not feel any heart palpitations, chest discomfort or shortness of breath. She has good activity tolerance and tells me she can climb a flight of stairs without symptoms. She opted to not pursue the atrial fibrillation ablation. No bleeding issues reported. Taking meds as directed. present. [facility] Medical History Tubulovillous adenoma of colon Complex cyst of both ovaries History of alcohol abuse (~2004) Diverticulosis CKD (chronic kidney disease), stage III Anemia Osteoarthritis Habitual snoring Rheumatic fever New onset atrial fibrillation Erythema intertrigo Hx of ectopic Hx of History of seizures Essential hypertension Surgical History Hx of surgical procedure (~06/22/24) Hx of colonoscopy (04/19/24) Status post left breast lumpectomy (10/28/22) Hx of shoulder surgery H/O tubal ligation Hx of cholecystectomy Hx of tonsillectomy Family History Father Substance use disorder Lung cancer Essential hypertension CAD (coronary artery disease) COVID-19 Skin cancer Mother Substance use disorder Oral cancer Essential hypertension CAD (coronary artery disease) COVID-19 Kidney disease Sister Disorder of thyroid Brother CAD (coronary artery disease) COVID-19 Social History Household Members: Spouse Housing: House Are you a primary child care supervisor to a significant other at home: No Do you presently have visiting nurse or other home services: No 75 years or older and lives alone: No Alcohol intake: former Comment: aware of trip hazard Patient Tobacco Use Status: Former Tobacco user Tobacco use type: Cigarette e-Cigarette/Vaping Use: Never Used Second Hand Smoke Exposure: No service: No Current occupational status: retired Sexual orientation: Straight/Heterosexual Gender identity: Female Cognitive needs: No Hearing needs: No Vision needs: Yes Female Reproductive History Menstrual Age of Menarche: 11 Review of Systems Const All systems reviewed & are unremarkable except as noted in HPI and below ENT Denies dizziness Card Denies chest pain, Denies chest pain at rest, Denies chest pain with activity, Denies rapid heart rate, Denies pedal edema, Denies edema, Denies leg edema, Denies lightheadedness, Denies palpitations, Denies dyspnea, Denies dyspnea on exertion and Denies orthopnea Resp Denies cough, Denies dyspnea and Denies dyspnea on exertion GI Denies hematochezia and Denies change in stool character Musc Denies abnormal gait, Denies limited range of motion, Denies muscle cramps, Denies muscle weakness, Denies numbness, Denies radiating pain into limb, Denies stiffness and Denies tingling Neuro Denies abnormal gait, Denies dizziness, Denies numbness and Denies tingling Endo Denies palpitations Physical Exam Vital Signs: BMI result Body Mass Index 30.2 Const General: cooperative, healthy appearing, comfortable and no acute distress Orientation/consciousness: patient oriented x3 Neck Neck: Yes normal visual inspection Resp Effort & Inspection: normal respiratory effort Auscultation: clear to auscultation bilaterally, no crackles, no rales, no rhonchi and no wheezes Cardio Jugular venous distension: no JVD Rate: regular rate Rhythm: regular rhythm Heart sounds: S1 normal heart sound present, S2 normal heart sound present, no murmurs and no rubs Neuro General: patient oriented x3 Extrem General: Yes normal to inspection and No no pedal edema Psych Appearance: grossly normal Mental Status: mental status grossly normal Speech and movement: Normal speech and movement present Office Procedures EKG Details: Today, read by me sinus bradycardia, rate 51, Qtc 418ms [id number], Complete Assessment & Plan Assessment & Plan (1) PAF (paroxysmal atrial fibrillation): Code(s): I48.0 - Paroxysmal atrial fibrillation Category: Medical Plan: History of paroxysmal atrial fibrillation, currently suppressed. No recent documented episodes. She declines ablation EKG today showing sinus bradycardia, rate 51, asymptomatic. Ambulated in the rodríguez with sat monitor and pulse rate easily ananda to 65. Last echocardiogram 06/03/2022 showing EF 60-65%, mildly dilated left atrium, mild LVH. Continue metoprolol XL 50 mg daily. Continue Eliquis for anticoagulation. Call if feeling heart palpitations, emergency care if ever needed. (2) Essential hypertension: Code(s): I10 - Essential (primary) hypertension Category: Medical Plan: Blood pressure goal less than 130/80. Adequately controlled at present. Continue hydrochlorothiazide, amlodipine and metoprolol. (3) Preop cardiovascular exam: Code(s): Z01.810 - Encounter for preprocedural cardiovascular examination Category: Medical Plan: Preop for bilateral oophorectomy according to patient. No surgical date yet. She can proceed with intermediate cardiac risk. Activity level greater than 4 Mets. History of paroxysmal AFib, currently suppressed. If she does have recurrent atrial fibrillation then can be treated for rate control. Eliquis can be held 48 hours prior to the procedure and restarted as soon as cleared by surgeon to do so. Call/consult Cardiology if needed. Plan Time spent on chart review, documentation, interview and assessment Coding Level of Care Code Est Pt Level 4 (10471) Complex EM visit Add On G2211 Diagnoses PAF (paroxysmal atrial fibrillation) I48.0 Essential hypertension I10 Preop cardiovascular exam Z01.810 CPT Codes EKG - CPT: 42920-[id number], Complete ([id number]) Time Spent (min) 28
--- OUTSIDE RECORDS SUMMARY | 2024-12-07 13:44 | XMS_ITS | Clinical Summary ---
Author Organization [facility] [address] [place] [address] Address [address] [place], [place] Phone Care Team Providers Care Block Inspector Name Role Phone Unavailable Primary Care Provider Unavailabl e Allergies Active Allergy Reactions Criticality Noted Date Comments Dexbrompheniramine-Pse udoephed Other 02/17/2007 hyperactive Tyvclnhn-Lzpvehzroi-Xn ly-Hc Other 08/05/2007 dizzy Penicillin G Potassium Nausea And Vomiting 02/02 Prednisone 04/21/2009 Pt states had reaction to steroids years ago Medications amLODIPine (NORVASC) 2.5 mg tablet Take 1 tablet (2.5 mg total) by mouth 1 (one) time each day. 01/23/2022 Active metoprolol succinate (TOPROL-XL) 50 mg 24 hr tablet Take 1 tablet (50 mg total) by mouth 1 (one) time each day. 10/02/2021 Active omega-3 acid ethyl esters (LOVAZA) 1 gram capsule Take by mouth. Active TURMERIC ORAL Take 1 tablet by mouth 1 (one) time each day. Active cholecalciferol (VITAMIN D-3) 25 mcg (1,000 unit) tablet Take 1 tablet (1,000 Units total) by mouth 1 (one) time each day. Active VITAMIN B COMPLEX ORAL Take 2 tablets by mouth every other day. Active vitamin E acid succinate (vitamin E succinate) 268 mg (400 unit) tablet Take 2 tablets by mouth every other day. 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 Essential hypertension, benign 02/17/2007 Immunizations Name Administration Dates Next Due [employer] SARS-CoV-2 COVID -19, vector-nr, rS-Ad26, preservative free 08/14/2020 [employer] SARS-CoV-2 COVID-19, mRNA, LNP-S, preservative free 04/05/2021 Td Tetanus diptheria (Tdvax) 7yo and older 06/10 Tdap Tetanus diptheria acell ular pertussis (Boostrix; Adacel) 7yo and older 01/14/2008 Surgical History Surgery Date Site/Laterality Comments CHOLECYSTECTOMY 1997 PROCEDURE: HISTORICAL CHOLECYSTECTOMY TONSILLECTOMY PROCEDURE: HISTORICAL TONSILLECTOMY TUBAL LIGATION PROCEDURE: HISTORICAL TUBAL LIGATION COLONOSCOPY 04/21/2009 PROCEDURE: SC COLONOSCOPY FLX DX W/COLLJ SPEC WHEN PFRMD; COMMENT: Diverticulosis, otherwise negative/incomplete to 30 cm. SHOULDER SURGERY PROCEDURE: HISTORICAL SHOULDER SURGERY OTHER SURGICAL HISTORY PROCEDURE: ---- OTHER ----; COMMENT: , 1976 BREAST SURGERY 2000 Right PROCEDURE: [place] UNLISTED PROCEDURE BREAST; COMMENT: cyst removed on rt breast BREAST BIOPSY 2000 Right PROCEDURE: BX BREAST; PERC NEEDLE CORE W/IMAG GUID; COMMENT: cyst removed rt breast Medical History Medical History Date Comments Essential hypertension, benign D X:Essential hypertension, benign Diverticulosis of colon (wit hout mention of hemorrhage) 04/21/2009 DX:Diverticulosis of colon (without mention of hemorrhage) Special screening for malign ant neoplasms, colon 04/21/2009 DX:Special screening for mal ignant neoplasms, colon Eczema 06/02/2017 DX:Eczema Seizures (CMS/HCC V24, CMS/HCC V28) DX:Seizures (HCC); COMMENT: As a child. Remote history Family History Medical History Relation Name Comments CABG Father Hypertension Father Lung cancer Father Hypertension Mother Breast cancer Neg Hx Colon cancer Neg Hx Ovarian cancer Neg Hx Prostate cancer Neg Hx Relation Name Status Comments Brother Alive s/p cabg-52 Father Alive htn, cad,lung c a, melanoma, hypothyroid, cva Mother Alive htn, hypothyroi d, renal disease Sister Alive hypothyroid Social History Tobacco Use Types Packs/Day Years Used Date Smoking Tobacco: Former Cigarettes 0.5 35.7 0 10/28/1973 - 07/12/2009 Smokeless Tobacco: Never Alcohol Use Standard Drinks/Week Comments Yes 0 (1 standard drink = 0.6 oz pur e alcohol) Comments Unknown Sex and Gender Information Value Date Recorded Sex Assigned at Not on file Legal Sex Female 10:27 PM EST Gender Identity Not on file Sexual Orientation Not on file Obstetrics History Last Filed Vital Signs Vital Sign Reading Time Taken Comments Blood Pressure 146/86 09/11/2021 8:41 AM EDT Pulse 98 09/11/2021 8:41 AM EDT Temperature - - Respiratory Rate - - Oxygen Saturation - - Inhaled Oxygen Concentration - - Weight 70.4 kg (155 lb 1.6 oz) 09/11/2021 8:41 A M EDT Height 158.8 cm (5' 2.5 ) 09/11/2021 8:41 AM EDT Body Mass Index 27.92 09/11/2021 8:41 AM EDT Plan of Treatment Upcoming Encounters Date Type Department Care Team (Late st Contact Info) Description 12/30/2024 2:00 PM EDT Consult Breast Care Center [facility] [address] [place] [phone] Shahid Olivares MD [address] [place] [address] Health Maintenance Due Date Last Done Comments Zoster Vaccines (1 of 2) 1973 Pneumococcal Vaccine: 50+ Years (1 of 1 - PCV) 2004 Breast Cancer Screening 01/02/2021 01/03/20 19, 12/20/2017, 12/07/2016 Colorectal Cancer Screening: Stool Based Tests (FOBT/FIT) 04/13/2022 Falls Risk Assessment 04/13/2022 Medicare Annual Wellness Visit 04/13/2022 Osteoporosis Screening (Bone Density Screening) 04/13/2022 Social Influencers of Health Screening 04/13/2022 Hypertension/CHF/CAD Annual BMP Blood Test 09/03/2022 09/03/2021 COVID-19 Vaccine (3 - 2023-2 5 season) 2024 04/05/2021, 08/14/2020 Depression Screening 05/05/2024 Influenza Vaccine (#1) 2025 Cholesterol Screening (Lipid Panel) 02/06/2026 02/06/2021 DTaP,Tdap,and Td Vaccines (3 - Td or Tdap) 06/10/2029 06/10/2019, 01/14/2008 RSV Immunization Adult Patients (1 - 1-dose 75+ series) 2029 Hepatitis C Screening Completed 01/14/2013 HIB Vaccines Aged Out No longer eligi ble based on patient's age to complete this topic HPV Vaccines Aged Out No longer eligi ble based on patient's age to complete this topic Hepatitis A Vaccines Aged Out No long er eligible based on patient's age to complete this topic Hepatitis B Vaccines Aged Out No long er eligible based on patient's age to complete this topic IPV Vaccines Aged Out No longer eligi ble based on patient's age to complete this topic MMR Vaccines Aged Out No longer eligi ble based on patient's age to complete this topic Meningococcal ACWY Vaccine Aged Out N o longer eligible based on patient's age to complete this topic Meningococcal B Vaccine Aged Out No l onger eligible based on patient's age to complete this topic RSV Immunization Patients Under 20 months Aged Out No longer eligible b ased on patient's age to complete this topic Varicella Vaccines Aged Out No longer eligible based on patient's age to complete this topic Procedures Procedure Name Priority Date/Time Associated Diagnosis Comments ANNUAL BMP BLOOD TEST Routine 09/03/2021 LIPID PANEL Routine 02/06/2021 SCR MAMMO BI INCL CAD Routine 01/02/2019 9:13 AM EDT Encounter for screening mammogram for malignant neoplasm of breast HEPATITIS C SCREENING Routine 01/14/2013 from Last 3 Months or Most Recently Relevant to Health Maintenance Results * Annual BMP Blood Test (09/03/2021) Annual BMP Blood Test abstracted us Historical Provider MD HEALTH MAINTENANCE Final Result * Lipid panel (02/06/2021) LDL/HDL Ratio 2 0 - 4 Triglycerides 182 0 - 200 mg/dL Cholesterol 53 0 - 150 mg/dL HDL 83 >=40 mg/dL LDL Cholesterol 89 0 - 100 mg/dL Blood Venous blood specimen / Unknown Historical Provider LAB BLOOD ORDERABLES Stacie l Result * SCR MAMMO BI INCL CAD (01/02/2019 9:13 AM EDT) Anatomical Region Laterality Modality Radiographic Dayanara ging 12/20/2017 8:30 AM EDT Narrative 01/05/2019 8:37 AM EDT This is a summary report. The complete report is available in the patient's medical record. If you cannot access the medical record, please contact the sending organization for a detailed fax or copy. Exam: Screening mammogram Findings: Digital bilateral full-field screening mammography is performed and interpreted with the aid of computer-aided detection. Comparison is made with 12/20/2017 and as far back as 10/17/2012. Breast parenchyma is composed of scattered fibroglandular densities. No new suspicious mass, architectural distortion, or suspicious calcifications. Impression: No mammographic evidence of malignancy. BI-RADS 1 - negative 5 year breast cancer risk assessment 2.1 % Lifetime breast cancer risk assessment 8.4 % Breast cancer risk category Low (<15%) Procedure Note Alondra Turner MD - 04/23/2022 This is a summary report. The complete report is available in thepatient's medical record. If you cannot access the medical record, pleasecontact the sending organization for a detailed fax or copy. Exam: Screening mammogram Findings: Digital bilateral full-field screening mammography is performedand interpreted with the aid of computer-aided detection. Comparison ismade with 12/20/2017 and as far back as 10/17/2012. Breast parenchyma is composed of scattered fibroglandular densities. Nonew suspicious mass, architectural distortion, or suspiciouscalcifications. Impression: No mammographic evidence of malignancy. BI-RADS 1 - negative 5 year breast cancer risk assessment 2.1 % Lifetime breast cancer risk assessment 8.4 % Breast cancer risk category Low (<15%) us Shruthi Smidy CNM IMG XR PROCEDURES Final Result * Hepatitis C Screening (01/14/2013) Hepatitis C Screening abstracted Historical Provider HEALTH MAINTENANCE Final Result from Last 3 Months or Most Recently Relevant to Health Maintenance Insurance [employer]
== END 2024-12-07 13:51 | disposition home or self-care (01) ==
LOC: HO.HCS 13:06
PROVIDERS: PCP Internal Medicine; Visit Provider Nurse Practitioner Family
DX: I48.0 Paroxysmal atrial fibrillation (principal); I10 Essential (primary) hypertension; Z01.810 Encounter for preprocedural cardiovascular examination
CPT/HCPCS: 93010; 99214; G2211

== ENCOUNTER → 2024-12-07 13:05 | Outpatient (BNVA) | payer MEDICARE, SELFPAY | PROVIDERS: PCP Internal Medicine; Visit Provider Nurse Practitioner Family | DX: Z01.810 Encounter for preprocedural cardiovascular examination (principal); I48.0 Paroxysmal atrial fibrillation; I10 Essential (primary) hypertension; R00.1 Bradycardia, unspecified | CPT/HCPCS: 93005; 99212 ==

== ENCOUNTER 2024-12-09 12:34 | Outpatient (REF) | payer MEDICARE, SELFPAY ==
--- OUTSIDE RECORDS SUMMARY | 2024-12-09 12:40 | XMS_ITS | Clinical Summary ---
Author Organization [facility] [address] [place] [address] Address [address] [place], [place] Phone Care Team Providers Care Cardiac Rn Name Role Phone Unavailable Primary Care Provider Unavailabl e Allergies Active Allergy Reactions Criticality Noted Date Comments Dexbrompheniramine-Pse udoephed Other 02/17/2007 hyperactive Sohxpwcl-Pxuvafqcpb-Gm ly-Hc Other 08/05/2007 dizzy Penicillin G Potassium [...] chronic kidney disea se due to arterionephrosclerosis (CMS/[facility] V24, CMS/[facility] V28) 01/04/2012 Obesity 07/12/2010 Diverticulitis of colon without hemorrhage 04/21 Overview (04/30/2024): Incidental finding at colonoscopy 04/21/2009. Essential hypertension, benign 02/17/2007 Immunizations Name Administration Dates Next Due [employer] SARS-CoV-2 COVID -19, vector-nr, rS-Ad26, preservative free 08/14/2020 [employer] SARS-CoV-2 COVID-19, mRNA, LNP-S, preservative free 04/05/2021 Td Tetanus diptheria (Tdvax) 7yo and older 06/10 Tdap Tetanus diptheria acell ular pertussis (Boostrix; Adacel) 7yo and older 01/14/2008 Surgical History Surgery Date Site/Laterality Comments CHOLECYSTECTOMY 1997 PROCEDURE: HISTORICAL CHOLECYSTECTOMY TONSILLECTOMY PROCEDURE: HISTORICAL TONSILLECTOMY TUBAL LIGATION PROCEDURE: HISTORICAL TUBAL LIGATION COLONOSCOPY 04/21/2009 PROCEDURE: NM COLONOSCOPY FLX DX W/COLLJ SPEC WHEN PFRMD; COMMENT: Diverticulosis, otherwise negative/incomplete to 30 cm. SHOULDER SURGERY PROCEDURE: HISTORICAL SHOULDER SURGERY OTHER SURGICAL HISTORY PROCEDURE: ---- OTHER ----; COMMENT: , 1976 BREAST SURGERY 2000 Right PROCEDURE: NM UNLISTED PROCEDURE BREAST; COMMENT: cyst removed on [...] 2:00 PM EDT Consult Breast Care Center [facility] [address] [place] [phone] Shahid Olivares MD [address] [place] [address] Health Maintenance Due Date Last Done Comments [...]
[2024-12-09 16:09] LABS: MANUAL DIFF FLAG NO
[2024-12-09 16:12] LABS: Hematocrit 38.2 % (37.0-47.0); Hemoglobin 12.9 g/dl (12.0-16.0); Imm Gran Abs Auto 0.01 X10*3/uL (0.00-0.03); Imm Gran Pct Auto 0.2 % (0.0-0.4); Lymphocytes Absolute Auto 1.6 X10*3/uL (1.2-4.9); Mean Corpuscular HGB Conc 33.8 g/dl (31.0-35.0); Mean Corpuscular Hemoglobin 29.7 pg (27.0-33.0); Mean Corpuscular Volume 88.0 fL (80.0-98.0); NRBC Abs Auto 0.000 X10*3/uL (0.0-0.012); NRBC Pct Auto 0.0 /100WBC (0.0-0.2); Platelet Count 334 X10*3/uL (160-400); Red Blood Count 4.34 X10*6/uL (4.20-5.50); White Blood Count 5.7 X10*3/uL (4.8-10.8)
[2024-12-09 16:38] LABS: Anion Gap 11 (12-20); Blood Urea Nitrogen 28 mg/dL (9-16); Calcium 10.3 mg/dL (8.4-10.2); Carbon Dioxide 29 mmol/L (22-29); Chloride 103 mmol/L (96-108); Estimated Glomerular Filt Rate 36; Iron 66 mcg/dL (30-160); Percent Iron Saturation 19 % (15-50); Potassium 5.1 mmol/L (3.3-5.1); Sodium 138 mmol/L (135-145); Total Iron Binding Capacity 341 mcg/dL (228-428); Unsaturated Iron Binding 275 ug/dL
[2024-12-09 16:40] LABS: Appearance Urine Clear; Glucose Urine UA Negative (Negative); PH 7.5 (5.0-9.0); Specific Gravity - Urine 1.010 (1.005-1.025)
[2024-12-09 16:46] LABS: Parathyroid Hormone Intact 85.5 pg/mL (8.7-77.1)
== END 2024-12-09 12:35 | disposition home or self-care (01) ==
LOC: HO.HMGCLDS 12:34
PROVIDERS: PCP Internal Medicine; Visit Provider Internal Medicine Hypertension Specialist
DX: N18.30 Chronic kidney disease, stage 3 unspecified (principal); D64.9 Anemia, unspecified
CPT/HCPCS: 36415; 80048; 81003; 82306; 83540; 83970; 84100; 85025

== ENCOUNTER 2024-12-13 09:23 | Outpatient (AMB) | payer MEDICARE, SELFPAY ==
[2024-12-13 09:28] VITALS: BP 134/62; PULSE 73; O2SAT 98; BMI 30.6
--- NOTE | 2024-12-13 09:28 | HO.NEPHOV ---
Vital Signs 12/13/24 09:28 Height 5 ft 1 in Weight 162 lb BMI 30.6 BP 134/62 Blood Pressure Location Lt brachial Position Sitting Pulse 73 Pulse Source Pulse Oximeter Pulse Oximetry (%) 98 Oxygen Delivery Method Room Air Intake Visit Reasons: FU/ Conf [employer] Supervisor Required: No Accompanied by: Spouse Allergies Penicillins Allergy (Intermediate, Verified 12/13/24 09:31) Nausea and Vomiting Antihistamines - Ethylenediamine Adverse Reaction (Intermediate, Verified 12/13/24 09:31) tachycardia flu vaccine Adverse Reaction (Intermediate, Uncoded 12/07/24 13:13) vomiting, in bed for 2 weeks steriods Adverse Reaction (Intermediate, Uncoded 12/07/24 13:13) tachycardia Medication List - Last Reconciled 12/13/24 by Jose Eller MD amlodipine 5 mg PO DAILY apixaban (Eliquis) 5 mg PO BID Held on 11/01/24. Instructions: Resume on 11/02/24. ascorbic acid (vitamin C) (Vitamin C) 1,000 mg PO DAILY cholecalciferol (vitamin D3) 125 mcg PO .QOD ferrous fumarate 162 mg PO Q OTHER DAY magnesium 400 mg PO DAILY metoprolol succinate ER 50 mg PO DAILY rdymbjev-txz-xwcf-FA-vit K-lut 8 mg iron-400 mcg-50 mcg (Multivitamin Women 50 Plus) 1 tab PO DAILY vitamin B complex 1 tab PO DAILY HPI Comments Details: 68-year-old woman with a history of longstanding hypertension and mild chronic kidney disease with a serum creatinine of 1.2 at baseline. She had history of cecal mass. Underwent laparoscopic right colon resection and addition of lysis in 06/24/2024. During hospitalization she was she sustained acute kidney injury with a creatinine peaking at 1.5. At the time of discharge creatinine was 1.29. She has been referred for further evaluation. She is currently on hydrochlorothiazide 25 mg a day. Accompanied by her son 10/11/24 68-year-old female presenting with a need to review her hypertension treatment strategy. She has been using hydrochlorothiazide and amlodipine for long-standing management of her essential hypertension. Despite a historical good response to this regimen, her recent blood pressure reading of 110/70 mmHg and episodes of lightheadedness upon standing indicate that her blood pressure could be excessively low. These symptoms have been ongoing, raising potential concerns with renal function. Recent imaging identified simple renal cysts without evidence of obstruction. Hypercalcemia was detected on recent laboratory work but is not attributed to exogenous calcium intake, as the patient denies the use of calcium supplements and has only been utilizing ifyq-ecu-jhnhhga vitamin D3. The purpose of this visit also includes medication coordination in preparation for her upcoming dental procedure, ensuring proper management around tooth extraction and anticoagulant therapy adjustment. 12/13/24 Overall doing well. No new issues PFSH Medical History Tubulovillous adenoma of colon Complex cyst of both ovaries History of alcohol abuse (~2004) Diverticulosis CKD (chronic kidney disease), stage III Anemia Osteoarthritis Habitual snoring Rheumatic fever New onset atrial fibrillation Erythema intertrigo Hx of ectopic Hx of History of seizures Essential hypertension Surgical History Hx of surgical procedure (~06/22/24) Hx of colonoscopy (04/19/24) Status post left breast lumpectomy (10/28/22) Hx of shoulder surgery H/O tubal ligation Hx of cholecystectomy Hx of tonsillectomy Family History Father Substance use disorder Lung cancer Essential hypertension CAD (coronary artery disease) COVID-19 Skin cancer Mother Substance use disorder Oral cancer Essential hypertension CAD (coronary artery disease) COVID-19 Kidney disease Sister Disorder of thyroid Brother CAD (coronary artery disease) COVID-19 Social History Household Members: Spouse Housing: House Are you a primary emergency care attendant to a significant other at home: No Do you presently have visiting nurse or other home services: No 75 years or older and lives alone: No Alcohol intake: former Comment: aware of trip hazard Patient Tobacco Use Status: Former Tobacco user Tobacco use type: Cigarette e-Cigarette/Vaping Use: Never Used Second Hand Smoke Exposure: No service: No Current occupational status: retired Sexual orientation: Straight/Heterosexual Gender identity: Female Cognitive needs: No Hearing needs: No Vision needs: Yes Female Reproductive History Menstrual Age of Menarche: 11 Physical Exam Vital Signs: Last Vital Signs Pulse 73 12/13/24 09:28 BP 134/62 12/13/24 09:28 Pulse Ox 98 12/13/24 09:28 Oxygen Delivery Method Room Air 12/13/24 09:28 BMI result Body Mass Index 30.6 Comfortable Neck supple no JVD. Lungs entry equal no rales. Heart S1-S2 heard no gallop or rub. Abdomen soft nontender. Neuro alert awake oriented. No asterixis. Extremities no edema. Results Reviewed Nephrology Results: Hgb, (12.0-16.0) 12.9 g/dl 12/09/24 WBC, (4.8-10.8) 5.7 X10*3/uL 12/09/24 Plt Count, (160-400) 334 X10*3/uL Δ 12/09/24 Sodium, (135-145) 138 mmol/L 12/09/24 Potassium, (3.3-5.1) 5.1 mmol/L 12/09/24 Chloride, (96-108) 103 mmol/L 12/09/24 Carbon Dioxide, (22-29) 29 mmol/L 12/09/24 BUN, (9-16) 28 mg/dL H 12/09/24 Creatinine, (0.5-1.4) 1.45 mg/dL H 12/09/24 Calcium, (8.4-10.2) 10.3 mg/dL H 12/09/24 Phosphorus, (2.7-4.5) 3.4 mg/dL 12/09/24 PTH Intact, (8.7-77.1) 85.5 pg/mL H 12/09/24 Urine Protein, (Neg-Trace) Negative mg/dL 12/09/24 Renal US 09/17/24 Assessment & Plan Assessment & Plan (1) CKD (chronic kidney disease), stage III: Comment: Due to hypertensive nephrosclerosis Code(s): N18.30 - Chronic kidney disease, stage 3 unspecified Category: Medical Plan: Superimposed JUAN FRANCISCO due to hypoperfusion. Renal function marginally better Encouraged her to increase her p.o. fluid intake. Continue to avoid nephrotoxic agents including NSAIDs. renal sonogram- no obstruction DC HCTZ Watch BP and renal function (2) Renal lesion: Comment: Indeterminate left renal lesion measuring up to 1.9 cm. Code(s): N28.9 - Disorder of kidney and ureter, unspecified Category: Medical Plan: She has been referred to Urology in the past. Encouraged her to follow up with Urology Follow up USG ordered (3) Essential hypertension: Code(s): I10 - Essential (primary) hypertension Category: Medical Plan: Overall blood pressure is acceptable Encouraged her to stay on low-sodium diet Plan Leroy down to 10.3 from 10.8 Mild elevation in PTH : 85 Decrease Vit D to QOD due to hypercalcemia Recheck Ca and Vit D Orders: Orders Parathyroid Hormone Intact 4 Months N18.30 - Chronic kidney disease, stage 3 unspecified Basic Metabolic Panel 4 Months N18.30 - Chronic kidney disease, stage 3 unspecified Referrals Urology Referral N28.9 - Disorder of kidney and ureter, unspecified, R31.9 - Hematuria, unspecified Coding Level of Care Code Est Pt Level 4 (18392) Diagnoses CKD (chronic kidney disease), stage III N18.30 Renal lesion N28.9 Essential hypertension I10
--- OUTSIDE RECORDS SUMMARY | 2024-12-13 09:51 | XMS_ITS | Clinical Summary ---
Author Organization [facility] [address] [place] [address] Address [address] [place], [place] Phone Care Team Providers Care Tanner Rotary Drum Continuous Process Name Role Phone Unavailable Primary Care Provider Unavailabl e Allergies Active Allergy Reactions Criticality Noted Date Comments Dexbrompheniramine-Pse udoephed Other 02/17/2007 hyperactive Qfhwuatl-Vetmhfzzja-Zi ly-Hc Other 08/05/2007 dizzy Penicillin G Potassium [...] chronic kidney disea se due to arterionephrosclerosis (CMS/[facility] V24, CMS/[facility] V28) 01/04/2012 Obesity 07/12/2010 Diverticulitis of colon without hemorrhage 04/21 Overview (04/30/2024): Incidental finding at colonoscopy 04/21/2009. Essential hypertension, benign 02/17/2007 Immunizations Name Administration Dates Next Due [employer] SARS-CoV-2 COVID -19, vector-nr, rS-Ad26, preservative free 08/14/2020 [employer] SARS-CoV-2 COVID-19, mRNA, LNP-S, preservative free 04/05/2021 Td Tetanus diptheria (Tdvax) 7yo and older 06/10 Tdap Tetanus diptheria acell ular pertussis (Boostrix; Adacel) 7yo and older 01/14/2008 Surgical History Surgery Date Site/Laterality Comments CHOLECYSTECTOMY 1997 PROCEDURE: HISTORICAL CHOLECYSTECTOMY TONSILLECTOMY PROCEDURE: HISTORICAL TONSILLECTOMY TUBAL LIGATION PROCEDURE: HISTORICAL TUBAL LIGATION COLONOSCOPY 04/21/2009 PROCEDURE: [place] COLONOSCOPY FLX DX W/COLLJ SPEC WHEN PFRMD; COMMENT: Diverticulosis, otherwise negative/incomplete to 30 cm. SHOULDER SURGERY PROCEDURE: HISTORICAL SHOULDER SURGERY OTHER SURGICAL HISTORY PROCEDURE: ---- OTHER ----; COMMENT: , 1976 BREAST SURGERY 2000 Right PROCEDURE: [place] UNLISTED PROCEDURE BREAST; COMMENT: cyst removed on [...] 2:00 PM EDT Consult Breast Care Center [facility] [address] [place] [phone] Shahid Olivares MD [address] [place] [address] Health Maintenance Due Date Last Done Comments [...]
== END 2024-12-13 09:49 | disposition home or self-care (01) ==
LOC: HO.HKA 09:24
PROVIDERS: PCP Internal Medicine; Visit Provider Internal Medicine Hypertension Specialist
DX: N18.30 Chronic kidney disease, stage 3 unspecified (principal); N28.9 Disorder of kidney and ureter, unspecified; I10 Essential (primary) hypertension
CPT/HCPCS: 99214

== ENCOUNTER → 2024-12-13 09:23 | Outpatient (BNVA) | payer MEDICARE, SELFPAY | PROVIDERS: PCP Internal Medicine; Visit Provider Internal Medicine Hypertension Specialist | DX: I12.9 Hypertensive chronic kidney disease with stage 1 through stage 4 chronic kidney disease, or unspecified chronic kidney disease (principal); N18.30 Chronic kidney disease, stage 3 unspecified; N28.9 Disorder of kidney and ureter, unspecified | CPT/HCPCS: 99212 ==

== ENCOUNTER 2024-12-17 08:33 | Outpatient (AMB) | payer MEDICARE, SELFPAY ==
--- NOTE | 2024-12-17 08:40 | MHC.PC.OV ---
Intake Visit Reasons: CBC & iron panel check review Signing Agent Required: No Accompanied by: Self / Same As Patient Allergies Penicillins Allergy (Intermediate, Verified 12/17/24 09:18) Nausea and Vomiting Antihistamines - Ethylenediamine Adverse Reaction (Intermediate, Verified 12/17/24 09:18) tachycardia flu vaccine Adverse Reaction (Intermediate, Uncoded 12/17/24 09:18) vomiting, in bed for 2 weeks steriods Adverse Reaction (Intermediate, Uncoded 12/17/24 09:18) tachycardia Medication List - Last Reconciled 12/17/24 by Chloe Munoz MD amlodipine 5 mg PO DAILY apixaban (Eliquis) 5 mg PO BID Held on 11/01/24. Instructions: Resume on 11/02/24. ascorbic acid (vitamin C) (Vitamin C) 1,000 mg PO DAILY cholecalciferol (vitamin D3) 125 mcg PO .QOD magnesium 400 mg PO DAILY metoprolol succinate ER 50 mg PO DAILY cyqwgitz-dfe-bfol-FA-vit K-lut 8 mg iron-400 mcg-50 mcg (Multivitamin Women 50 Plus) 1 tab PO DAILY vitamin B complex 1 tab PO DAILY Tobacco use date assessed: 12/17/24 Fall risk assessment: No Falls in past year Last assessed Fall Risk: 12/17/24 Dental Screening Dental Screen Date: 12/17/24 Did you have a dental visit in the last 12 months?: Yes Did you have a dental problem in the last 6 months where you did not have access to dental care?: No HPI CBC & iron panel check review HPI Details Telehealth visit made with 69-year-old lady with history of paroxysmal atrial fibrillation currently on apixaban 5 mg 1 tablet twice a day, , has chronic kidney disease followed by Nephrology and hypertension, here today for follow-up on her anemia. She has been taking ferrous fumarate daily, denies any abdominal pain, no nausea, no constipation since started taking iron supplements. She states that she has been feeling well, with no complaints of chest pain, no headache or dizziness, no palpitations. Latest fasting labs showed normal hemoglobin hematocrit and iron profile levels. [facility] Medical History (Updated 12/17/24 @ 09:29 by Chloe Munoz MD) Anticoagulated on Eliquis Tubulovillous adenoma of colon Complex cyst of both ovaries History of alcohol abuse (~2004) Diverticulosis CKD (chronic kidney disease), stage III Anemia Osteoarthritis Habitual snoring Rheumatic fever New onset atrial fibrillation Erythema intertrigo Hx of ectopic Hx of History of seizures Essential hypertension Surgical History Hx of surgical procedure (~06/22/24) Hx of colonoscopy (04/19/24) Status post left breast lumpectomy (10/28/22) Hx of shoulder surgery H/O tubal ligation Hx of cholecystectomy Hx of tonsillectomy Family History Father Substance use disorder Lung cancer Essential hypertension CAD (coronary artery disease) COVID-19 Skin cancer Mother Substance use disorder Oral cancer Essential hypertension CAD (coronary artery disease) COVID-19 Kidney disease Sister Disorder of thyroid Brother CAD (coronary artery disease) COVID-19 Social History Household Members: Spouse Housing: House Are you a primary care technician to a significant other at home: No Do you presently have visiting nurse or other home services: No 75 years or older and lives alone: No Alcohol intake: former Comment: aware of trip hazard Patient Tobacco Use Status: Former Tobacco user Tobacco use type: Cigarette e-Cigarette/Vaping Use: Never Used Second Hand Smoke Exposure: No service: No Current occupational status: retired Sexual orientation: Straight/Heterosexual Gender identity: Female Cognitive needs: No Hearing needs: No Vision needs: Yes Female Reproductive History Menstrual Age of Menarche: 11 Questionnaire PHQ-9 Over the last 2 weeks, how often have you been bothered by any of the following problems? 1. Little interest or pleasure in doing things: not at all 2. Feeling down, depressed, or hopeless: not at all 3. Trouble falling or staying asleep, or sleeping too much: not at all 4. Feeling tired or having little energy: not at all 5. Poor appetite or overeating: not at all 6. Feeling bad about yourself - or that you are a failure or have let yourself or your family down: not at all 7. Trouble concentrating on things, such as reading the newspaper or watching television: not at all 8. Moving or speaking so slowly that other people could have noticed. Or the opposite - being so fidgety or restless that you have been moving around a lot more than usual: not at all 9. Thoughts that you would be better off or of hurting yourself in some way: not at all Total score: 0 Depression Screening Interpretation: Negative Depression Screening Done: Yes 05274 - PHQ-9 Billing: Yes Source: Developed by Drs. Matthew Cornell, Victor Manuel Busch and colleagues, with an educational surinder from [employer]. Thrive Questionnaire Date Thrive assessed: 08/24/24 ITALO-7 AMB Questionnaire ITALO-7 Date ITALO - 7 assessed: 12/17/24 Feeling nervous, anxious, or on edge: 0 = Not at all Not being able to stop or control worryin = Not at all Worrying too much about different things: 0 = Not at all Trouble relaxin = Not at all Being so restless that it is hard to sit still: 0 = Not at all Becoming easily annoyed or irritable: 0 = Not at all Feeling afraid as if something awful might happen: 0 = Not at all Total ITALO-7 score (0-4 normal; 5-9 mild; 10-14 moderate; 15-21 severe): 0 Source: Developed by Drs. Matthew Cornell, Victor Manuel Busch and colleagues, with an educational surinder from [employer]. ITALO-7 Assessment Billing ITALO-7 Assessment Tool: ITALO-7 Assessment 09965 Review of Systems Const Reports no additional complaints Eyes Reports no additional complaints ENT Denies dizziness Card Denies chest pain at rest, Denies chest pain with activity, Denies rapid heart rate, Denies leg edema, Denies lightheadedness, Denies palpitations and Denies dyspnea on exertion Resp Denies cough and Denies dyspnea on exertion GI Denies hematochezia and Denies change in stool character Musc Denies abnormal gait, Denies limited range of motion, Denies muscle cramps, Denies muscle weakness, Denies numbness, Denies stiffness and Denies tingling Neuro Denies abnormal gait, Denies dizziness, Denies numbness and Denies tingling Endo Denies palpitations Zak/Lymph Denies easy bleeding and Denies easy bruising Aller/Immun Reports no additional complaints Physical exam (Primary Care) Tobacco/Smoking Status: Tobacco use Status Tobacco use date assessed 12/17/24 12/17/24 08:48 Patient Tobacco Use Status Former Tobacco user 12/17/24 08:40 Tobacco use type Cigarette 12/17/24 08:40 e-Cigarette/Vaping Use Never Used 12/17/24 08:40 PHQ-9: PHQ-9 Score PHQ-9: Total score 0 12/17/24 09:17 Depression Screening Interpretation: Negative Thrive Assessment: Date of Thrive Assessment Date Thrive assessed 08/24/24 12/17/24 08:40 Telehealth Telehealth Telehealth Platform: OpenStudy Location of provider rendering services: practice address Location of patient: address on file Patient Identification confirmed using: Name, : Yes Telehealth method: voice only Patient verbally consented to treatment: Yes Patient verbally consented to billing insurance company: Yes Patient informed of any privacy concerns related to visit: Yes Minutes spent on Phone/Video with Pt.: 15 Results Reviewed Results Reviewed: Name: Ramona Munguia Age/Sex: 69/F : 1955 Unit#: [id number] Attend Dr: Jose Eller MD Re12/09/24 Status: DEP REF Location: [facility] Disch: SPEC : [id number] GARETH: 12/09/24 STATUS: COMP REQ : [id number] RECD: 12/09/24-[address]: Chloe Munoz MD COMP: 12/09/24-124 ENTERED: 12/09/24-[address]: Jose Eller MD ORDERED: CBC Auto Diff Test Result Flag Reference WBC 5.7 4.8-10.8 X10*3/uL RBC 4.34 4.20-5.50 X10*6/uL HGB 12.9 12.0-16.0 g/dl HCT 38.2 37.0-47.0 % MCV 88.0 80.0-98.0 fL MCH 29.7 27.0-33.0 pg MCHC 33.8 31.0-35.0 g/dl RDW 13.2 11.0-16.0 % PLT 334 # 160-400 X10*3/uL MPV 10.0 9.4-12.3 fL Neut Pct Auto 56.9 45-73 % ImGran Pct Auto 0.2 0.0-0.4 % Lymp Pct Auto 27.7 20-40 % Collingsworth Pct Auto 11.8 H 2-11 % Eos Pct Auto 2.3 0-4 % Baso Pct Auto 1.1 0-2 % NRBC Pct Auto 0.0 0.0-0.2 /100WBC ANC Neut Abs # 3.2 2.0-8.3 x10*3/uL ImGran Abs Auto 0.01 0.00-0.03 X10*3/uL Lymph Abs Auto 1.6 1.2-4.9 X10*3/uL Collingsworth Abs Auto 0.7 0.1-1.2 X10*3/uL Eos Abs Auto 0.1 0.0-0.4 X10*3/uL Baso Abs Auto 0.1 0.0-0.2 X10*3/uL NRBC Abs Auto 0.000 0.0-0.012 X10*3/uL Name: Ramona Munguia Age/Sex: 69/F : 1955 Unit#: [id number] Attend Dr: Jose Eller MD Re12/09/24 Status: DEP REF Location: [facility] Disch: SPEC : [id number] GARETH: 12/09/24-1242 STATUS: COMP REQ : [id number] RECD: 12/09/24-[address]: Jose Eller MD COMP: 12/09/24-165 ENTERED: 12/09/24-[address]: Chloe Munoz MD ORDERED: BMP, Phos, IRON PROF, Vitamin D 25-OH Test Result Flag Reference Sodium 138 135-145 mmol/L Potassium 5.1 3.3-5.1 mmol/L CL 103 96-108 mmol/L CO2 29 22-29 mmol/L Gap 11 L 12-20 BUN 28 H 9-16 mg/dL Creat 1.45 H 0.5-1.4 mg/dL eGFR 36 Chronic Kidney Disease: Estimated GFR < 60 mL/min/1.73m2 Severe Kidney Disease: Estimated GFR < 15 mL/min/1.73m2 Glucose, Random 87 60-115 mg/dL CA 10.3 H 8.4-10.2 mg/dL Phosphorus 3.4 2.7-4.5 mg/dL Iron 66 30-160 mcg/dL TIBC 341 228-428 mcg/dL Saturation 19 15-50 % UIBC 275 ug/dL Vitamin D 25-OH 39.8 >30 ng/mL Health Based Reference Values* < 20 ng/mL Deficient 20-30 ng/mL Insufficient > 30 ng/mL Sufficient Coding Level of Care Code Tele Est Pt Level 4 (79375) Diagnoses History of anemia Z86.2 CKD (chronic kidney disease), stage III N18.30 PAF (paroxysmal atrial fibrillation) I48.0 Additional Codes ITALO-7 Assessment Billing - ITALO-7 Assessment Tool: ITALO-7 Assessment 41055 ([id number]) PHQ-9 - 02035 - PHQ-9 Billing: Yes ([id number]) Assessment & Plan Assessment & Plan (1) History of anemia: Code(s): Z86.2 - Personal history of diseases of the blood and blood-forming organs and certain disorders involving the immune mechanism Plan: Latest labs showed normal hemoglobin hematocrit and iron levels. iron supplements discontinued. Encouraged to adhere to healthy eating habits, with lot of green leafy vegetables, lean meat, whole grains. (2) CKD (chronic kidney disease), stage III: Comment: Due to hypertensive nephrosclerosis Code(s): N18.30 - Chronic kidney disease, stage 3 unspecified Category: Medical Plan: Followed by Nephrology, reinforced importance of avoidance of NSAIDs and getting blood pressure lipids well controlled (3) PAF (paroxysmal atrial fibrillation): Code(s): I48.0 - Paroxysmal atrial fibrillation Category: Medical Plan: Currently on apixaban 5 mg twice a day. And metoprolol succinate ER 50 mg daily
--- OUTSIDE RECORDS SUMMARY | 2024-12-17 08:47 | XMS_ITS | Clinical Summary ---
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 V24, CMS/[facility] V28) 01/04/2012 Obesity 07/12/2010 Diverticulitis of colon without hemorrhage 04/21 Overview (04/30/2024): Incidental finding at colonoscopy 04/21/2009. Essential hypertension, benign 02/17/2007 Immunizations Name Administration Dates Next Due [employer] Receipts SARS-CoV-2 COVID -19, vector-nr, rS-Ad26, preservative free 08/14/2020 [employer] SARS-CoV-2 COVID-19, mRNA, LNP-S, preservative free 04/05/2021 Td Tetanus diptheria (Tdvax) 7yo and older 06/10 Tdap Tetanus diptheria acell ular pertussis (Boostrix; Adacel) 7yo and older 01/14/2008 Surgical History Surgery Date Site/Laterality Comments CHOLECYSTECTOMY 1997 PROCEDURE: HISTORICAL CHOLECYSTECTOMY TONSILLECTOMY PROCEDURE: HISTORICAL TONSILLECTOMY TUBAL LIGATION PROCEDURE: HISTORICAL TUBAL LIGATION COLONOSCOPY 04/21/2009 PROCEDURE: [facility] COLONOSCOPY FLX DX W/COLLJ SPEC WHEN PFRMD; COMMENT: Diverticulosis, otherwise negative/incomplete to 30 cm. SHOULDER SURGERY PROCEDURE: HISTORICAL SHOULDER SURGERY OTHER SURGICAL HISTORY PROCEDURE: ---- OTHER ----; COMMENT: , 1976 BREAST SURGERY 2000 Right PROCEDURE: [place] UNLISTED PROCEDURE BREAST; COMMENT: cyst removed on [...] 2:00 PM EDT Consult Breast Care Center [facility] [address] [place] [address] Shahid Olivares MD [address] [place] [address] Health Maintenance Due Date Last Done Comments [...] cancer risk category Low (<15%) us Shruthi Lora CNM IMG XR PROCEDURES Final Result * Hepatitis C Screening (01/14/2013) Hepatitis C Screening abstracted Historical Provider HEALTH MAINTENANCE Final Result from Last 3 Months or Most Recently Relevant to Health Maintenance Insurance [employer]
== END 2024-12-17 10:08 | disposition home or self-care (01) ==
LOC: HO.HMCC 08:33
PROVIDERS: PCP Internal Medicine; Visit Provider Internal Medicine
DX: Z86.2 Personal history of diseases of the blood and blood-forming organs and certain disorders involving the immune mechanism (principal); N18.30 Chronic kidney disease, stage 3 unspecified; I48.0 Paroxysmal atrial fibrillation

== ENCOUNTER → 2024-12-17 08:33 | Outpatient (BNVA) | payer MEDICARE, SELFPAY | PROVIDERS: PCP Internal Medicine; Visit Provider Internal Medicine | DX: N18.30 Chronic kidney disease, stage 3 unspecified (principal); I48.0 Paroxysmal atrial fibrillation; Z86.2 Personal history of diseases of the blood and blood-forming organs and certain disorders involving the immune mechanism | CPT/HCPCS: 96127 ==

== ENCOUNTER 2024-12-27 11:20 | Outpatient (REF) | payer MEDICARE, SELFPAY ==
--- OUTSIDE RECORDS SUMMARY | 2024-12-27 12:48 | XMS_ITS | Clinical Summary ---
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 Essential hypertension, benign 02/17/2007 Immunizations Name Administration Dates Next Due [employer] SARS-CoV-2 COVID -19, vector-nr, rS-Ad26, preservative free 08/14/2020 [employer] SARS-CoV-2 COVID-19, mRNA, LNP-S, preservative free 04/05/2021 Td Tetanus diptheria (Tdvax) 7yo and older 06/10 Tdap Tetanus diptheria acell ular pertussis (Boostrix; Adacel) 7yo and older 01/14/2008 Surgical History Surgery Date Site/Laterality Comments CHOLECYSTECTOMY 1997 PROCEDURE: HISTORICAL CHOLECYSTECTOMY TONSILLECTOMY PROCEDURE: HISTORICAL TONSILLECTOMY TUBAL LIGATION PROCEDURE: HISTORICAL TUBAL LIGATION COLONOSCOPY 04/21/2009 PROCEDURE: OR COLONOSCOPY FLX DX W/COLLJ SPEC WHEN PFRMD; COMMENT: Diverticulosis, otherwise negative/incomplete to 30 cm. SHOULDER SURGERY PROCEDURE: HISTORICAL SHOULDER SURGERY OTHER SURGICAL HISTORY PROCEDURE: ---- OTHER ----; COMMENT: , 1976 BREAST SURGERY 2000 Right PROCEDURE: OR UNLISTED PROCEDURE BREAST; COMMENT: cyst removed on [...] Care Team (Late st Contact Info) Description 01/12/2025 10:20 AM EDT Consult Breast Care [facility] [address] [place] [address] Shahid Olivares MD [address] [place] [address] Health Maintenance Due Date Last Done Comments [...]
[2024-12-27 13:50] LABS: Blood Urea Nitrogen 30 mg/dL (9-16); Estimated Glomerular Filt Rate 39
== END 2024-12-27 11:21 | disposition home or self-care (01) ==
LOC: HO.HMGCLDS 11:20
PROVIDERS: PCP Internal Medicine; Visit Provider Obstetrics & Gynecology
DX: N83.291 Other ovarian cyst, right side (principal); N83.292 Other ovarian cyst, left side
CPT/HCPCS: 36415; 82565; 84520

== ENCOUNTER 2025-01-05 12:24 | Outpatient (REF) | payer MEDICARE, SELFPAY ==
--- NOTE | ~2025-01-05 | CT_ITS ---
EXAMINATION: CT ABDOMEN AND PELVIS WITH CONTRAST CLINICAL INFORMATION: Other ovarian cyst, unspecified side. Chronic kidney disease stage III. COMPARISON: April 30, 2024. Correlated to pelvic ultrasound dated November 30, 2024 demonstrated a 4.5 cm cystic lesion, right ovary and a 7.6 cm cystic lesion, left lower. TECHNIQUE: Multidetector volumetric images were obtained from the superior aspect of the liver through the pubic symphysis following administration 85 mL of Omnipaque 350 intravenous contrast. Sagittal and coronal reformatted images were obtained on the technologist's workstation. Oral contrast: Yes This CT examination was performed using dose optimization techniques as appropriate, variously including the following: *Automated exposure control *Adjustment of mA and/or kV according to patient size (this includes techniques or standardized protocols for targeted exams where dose is matched to indication/reason for exam; i.e. extremities or head) *Use of iterative reconstruction technique. DLP: 569 mGy centimeter. FINDINGS: LUNG BASES: 4 mm calcified pulmonary nodule, left lung base. LIVER, GALLBLADDER, AND BILIARY TREE: Liver measures 15 cm. No focal mass. Punctate calcifications. The main portal veins and intrahepatic portion of the IVC are patent. No intrahepatic or extrahepatic biliary ductal dilatation. Status post cholecystectomy. Common bile duct measures 4 mm. PANCREAS: No focal mass. No peripancreatic fluid collection. No main pancreatic ductal dilatation. SPLEEN: 8 cm. Numerous punctate calcifications throughout the parenchyma. ADRENAL GLANDS: No nodular lesions. KIDNEYS AND URETERS: No hydronephrosis. No gross nephrolithiasis. Multifocal different sizes less than 2.5 cm cyst throughout the kidney parenchyma. No enhancing mass. BLADDER: Fluid-filled. GASTROINTESTINAL TRACT: Stool throughout the large intestine. Numerous diverticula in the left hemicolon mostly in the sigmoid colon. No intestinal obstruction pattern. No intestinal wall thickening. The terminal ileum is normal and there is in the posterior lateral aspect of the cecum. I do not see the appendix. No pneumatosis intestinalis. No ascites. No pneumoperitoneum. No peripheral enhancing fluid collection in the peritoneal cavity. ABDOMINAL WALL: No umbilical hernia. LYMPH NODES: Nonspecific prominent mesenteric and retroperitoneum. VASCULAR: Mixed plaques throughout the abdominal aorta wall and the origin of the mesenteric arteries the splenic artery the origin of the main renal arteries and iliac arteries. No aneurysm or dissection in the abdominal aorta.. Mixed plaques in the femoral arteries. Calcified mitral valve. PELVIC VISCERA: There are multifocal different sizes round and ovoid shaped mostly fluid density lesions in both adnexa, there largest in the right ovary measures 3.3 cm and on the left ovary measures 4.5 cm demonstrated slightly increased density measuring 29 Hounsfield units. The uterus is not enlarged. OSSEOUS STRUCTURES: Multilevel thoracolumbar spondylosis resulting in grade 1 retrolisthesis at L2-3. Bilateral facet joint hypertrophy at L5-S1 and to a lesser extent L4-5. No acute fracture in the bony pelvis for the coxofemoral joints. CT/CT abdomen pelvis w IV con IMPRESSION: Cystic lesions, both ovaries with the questionable proteinaceous/hemorrhagic components in the 4.5 cm cystic lesion left ovary. Bilateral renal cysts. Prior granulomatous disease. Calcified mitral valve. Atherosclerosis disease. Fleischner guidelines were followed. Electronically signed by: Reilly Pappas MD 01/05/2025 04:00 PM EDT
--- OUTSIDE RECORDS SUMMARY | 2025-01-05 14:56 | XMS_ITS | Clinical Summary ---
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 Essential hypertension, benign 02/17/2007 Immunizations Name Administration Dates Next Due [employer] SARS-CoV-2 COVID -19, vector-nr, rS-Ad26, preservative free 08/14/2020 [employer] SARS-CoV-2 COVID-19, mRNA, LNP-S, preservative free 04/05/2021 Td Tetanus diptheria (Tdvax) 7yo and older 06/10 Tdap Tetanus diptheria acell ular pertussis (Boostrix; Adacel) 7yo and older 01/14/2008 Surgical History Surgery Date Site/Laterality Comments CHOLECYSTECTOMY 1997 PROCEDURE: HISTORICAL CHOLECYSTECTOMY TONSILLECTOMY PROCEDURE: HISTORICAL TONSILLECTOMY TUBAL LIGATION PROCEDURE: HISTORICAL TUBAL LIGATION COLONOSCOPY 04/21/2009 PROCEDURE: [place] COLONOSCOPY FLX DX W/COLLJ SPEC WHEN PFRMD; COMMENT: Diverticulosis, otherwise negative/incomplete to 30 cm. SHOULDER SURGERY PROCEDURE: HISTORICAL SHOULDER SURGERY OTHER SURGICAL HISTORY PROCEDURE: ---- OTHER ----; COMMENT: , 1976 BREAST SURGERY 2000 Right PROCEDURE: [place] UNLISTED PROCEDURE BREAST; COMMENT: cyst removed on [...] 01/12/2025 10:20 AM EDT Consult Breast Care Center [facility] [address] [place] [address] Shahid Olivares MD [address] [place] [address] Health Maintenance Due Date Last Done Comments [...] Hypertension/CHF/CAD Annual BMP Blood Test 09/03/2022 09/03/2021 Depression Screening 05/05/2024 COVID-19 Vaccine (3 - 2024-2 6 season) 2025 04/05/2021, 08/14/2020 Influenza Vaccine (#1) 2025 Cholesterol Screening (Lipid [...]
[2025-01-05] MEDS: iohexoL 350 MG/ML 100 ML INFUS..BTL IV (15:41)
[2025-01-05] MEDS: Barium Sulfate Oral (Vanilla) 450 ML ORAL.SUSP 900 ML PO (15:42)
== END 2025-01-05 12:25 | disposition home or self-care (01) ==
LOC: HO.CT 12:24
PROVIDERS: PCP Internal Medicine; Visit Provider Obstetrics & Gynecology
DX: N83.299 Other ovarian cyst, unspecified side (principal)
CPT/HCPCS: 74177; Q9967

== ENCOUNTER → 2025-01-05 12:26 | Outpatient (BNV) | payer MEDICARE, SELFPAY | PROVIDERS: PCP Internal Medicine; Visit Provider Radiology Diagnostic Radiology | DX: N28.1 Cyst of kidney, acquired (principal) | CPT/HCPCS: 74177 ==

== ENCOUNTER 2025-04-11 14:37 | Outpatient (AMB) | payer MEDICARE, SELFPAY ==
[2025-04-11 14:47] VITALS: BP 122/80; PULSE 63; RESP 16; TEMP 36.4; O2SAT 96; BMI 30.2
--- NOTE | 2025-04-11 14:47 | MHC.PC.OV ---
Vital Signs 04/11/25 14:47 Height 5 ft 1 in Weight 160 lb BMI 30.2 BP 122/80 Blood Pressure Location Lt brachial Position Sitting Respiration 16 Pulse 63 Pulse Source Pulse Oximeter Temp 97.5 F Temp Source Oral Pulse Oximetry (%) 96 Oxygen Delivery Method Room Air Intake Visit Reasons: Lt eye cataract 04/12- Rt eye 04/25 Dr. Medeiros Intake Note: Pt is here today for her Lt eye cataract 04/12 & Rt eye 04/25 Dr. 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 Instructions: Resume on 11/02/24. ascorbic acid (vitamin C) (Vitamin C) 1,000 mg PO DAILY cholecalciferol (vitamin D3) 125 mcg PO .QOD magnesium 400 mg PO DAILY metoprolol succinate ER 50 mg PO DAILY nscciqoj-gio-gyql-FA-vit K-lut 8 mg iron-400 mcg-50 mcg (Multivitamin Women 50 Plus) 1 tab PO DAILY vitamin B complex 1 tab PO DAILY Tobacco use date assessed: 04/11/25 Last assessed Fall Risk: 04/11/25 Dental Screening Dental Screen Date: 04/11/25 Did you have a dental visit in the last 12 months?: No Did you have a dental problem in the last 6 months where you did not have access to dental care?: No Was dental information given to patient?: Patient has dentist HPI Lt eye cataract 04/12- Rt eye 04/25 Dr. Medeiros HPI Details 69-year-old lady with past medical history significant for paroxysmal atrial fibrillation currently on Eliquis, hypertension, chronic kidney disease, and cataract lateral, here today for preoperative examination for cataract surgery scheduled for 04/12/2025 OS, and 04/25/2025 OD, requested by Dr. Medeiros. She has been feeling well, denies any chest pain, no lightheadedness, shortness of breath or headache. No abnormal bleeding tendencies noted. [facility] Medical History Cataract Anticoagulated on Eliquis Tubulovillous adenoma of colon Complex cyst of both ovaries History of alcohol abuse (~2004) Diverticulosis CKD (chronic kidney disease), stage III Osteoarthritis Habitual snoring Rheumatic fever Erythema intertrigo Hx of ectopic Hx of History of seizures Essential hypertension Surgical History S/P right colectomy Hx of surgical procedure (~06/22/24) Hx of colonoscopy (04/19/24) Status post left breast lumpectomy (10/28/22) Hx of shoulder surgery H/O tubal ligation Hx of cholecystectomy Hx of tonsillectomy Family History Father Substance use disorder Lung cancer Essential hypertension CAD (coronary artery disease) COVID-19 Skin cancer Mother Substance use disorder Oral cancer Essential hypertension CAD (coronary artery disease) COVID-19 Kidney disease Sister Disorder of thyroid Brother CAD (coronary artery disease) COVID-19 Social History Household Members: Spouse Housing: House Are you a primary managed care liaison to a significant other at home: No Do you presently have visiting nurse or other home services: No 75 years or older and lives alone: No Alcohol intake: former Comment: aware of trip hazard Patient Tobacco Use Status: Former Tobacco user Tobacco use type: Cigarette e-Cigarette/Vaping Use: Never Used Second Hand Smoke Exposure: No service: No Current occupational status: retired Sexual orientation: Straight/Heterosexual Gender identity: Female Cognitive needs: No Hearing needs: No Vision needs: Yes Female Reproductive History Menstrual Age of Menarche: 11 Questionnaire Thrive Questionnaire Date Thrive assessed: 08/24/24 I am a: Patient What is your living situation today?: I choose not to answer this question Within the past 12 months, did the food you bought not last and you didn't have the money to get more?: I choose not to answer this question Within the past 12 months, did you worry whether your food would run out before you got money to buy more?: I choose not to answer this question Do you have trouble paying for medicines?: I choose not to answer this question Do you have trouble getting transportation to medical appointments?: No Do you have trouble paying your heating and electricity bill?: No Do you have trouble taking care of your child, family member or friend?: I choose not to answer this question Do you have trouble with day-to-day activities such as bathing, preparing meals, shopping, managing finances, etc.?: I choose not to answer this question Are you currently unemployed and looking for a job?: I choose not to answer this question Are you interested in more education?: I choose not to answer this question Please select the resources that you would like help with: None Currently or been in a relationship where the following occur: I choose not to answer THRIVE Score: 0 ITALO-7 AMB Questionnaire ITALO-7 Date ITALO - 7 assessed: 12/17/24 Source: Developed by Drs. Matthew Cornell, Chelle Call, Victor Manuel Kovacs and colleagues, with an educational surinder from [employer]. Review of Systems Const Reports no additional complaints Eyes Reports blurry vision and Reports dry eyes ENT Denies dizziness Card Denies chest pain at rest, Denies chest pain with activity, Denies rapid heart rate, Denies leg edema, Denies lightheadedness and Denies dyspnea on exertion Resp Denies cough and Denies dyspnea on exertion GI Denies hematochezia Reports no additional complaints Musc Denies abnormal gait, Denies limited range of motion, Denies muscle cramps, Denies muscle weakness, Denies numbness, Denies stiffness and Denies tingling Skin/Breast Denies breast pain, Denies breast mass and Denies rash Neuro Denies abnormal gait, Denies dizziness, Denies numbness and Denies tingling Psych Reports no additional complaints Endo Reports no additional complaints Zak/Lymph Denies easy bleeding and Denies easy bruising Aller/Immun Reports no additional complaints Physical exam (Primary Care) Vital Signs: Last Vital Signs Temp 97.5 F 04/11/25 14:47 Pulse 63 04/11/25 14:47 Resp 16 04/11/25 14:47 BP 122/80 04/11/25 14:47 Pulse Ox 96 04/11/25 14:47 Oxygen Delivery Method Room Air 04/11/25 14:47 BMI result Body Mass Index 30.2 Tobacco/Smoking Status: Tobacco use Status Tobacco use date assessed 04/11/25 04/11/25 14:52 Patient Tobacco Use Status Former Tobacco user 04/11/25 14:52 Tobacco use type Cigarette 04/11/25 14:52 e-Cigarette/Vaping Use Never Used 04/11/25 14:52 Thrive Assessment: Date of Thrive Assessment Date Thrive assessed 08/24/24 04/11/25 14:52 Currently or been in a relationship where the following occur: I choose not to answer Const General: no acute distress and alert Orientation/consciousness: patient oriented x3 HENMT Head: Yes normocephalic Ears: external ears normal Face and sinus: Yes face symmetric Mouth: Normal oral and palatal mucosa present, oropharynx normal and moist mucous membranes Eyes General: appearance normal, both eyes and all related structures Neck Other: Nonpalpable thyroid gland Neck: Yes full ROM, Yes no lymphadenopathy and Yes supple Resp Effort & Inspection: normal respiratory effort Auscultation: clear to auscultation bilaterally Cardio Rate: regular rate Rhythm: regular rhythm Heart sounds: S1 normal heart sound present and S2 normal heart sound present GI Inspection: Yes normal to inspection Palpation (GI): Soft to palpation, nontender and no guarding Auscultation: normal bowel sounds and no bruits General: Yes no CVA tenderness and Yes deferred (sees Dr Connolly) Back/Spine/Pelvis Back: no CVA tenderness and No back tenderness Skin General skin exam: no rashes or lesions noted Neuro General: patient oriented x3, gait normal, moves all extremities and no focal motor deficits Motor exam (neuro): 5/5 motor strength present throughout and no tremors Sensory Exam: double simultaneous stimulation for sensation normal Extrem General: Yes full ROM, Yes no joint enlargement, Yes no clubbing, cyanosis or edema, Yes no pedal edema, Yes no calf tenderness and Yes normal gait Psych Appearance: grossly normal and well kempt Mental Status: mental status grossly normal Speech and movement: Normal speech and movement present Affect: normal affect Results Reviewed Results Reviewed: Name: Ramona Munguia Age/Sex: 69/F [facility] 1955 [id number]#: [id number] Attend Dr: Jose Eller MD Re12/09/24 Status: DEP REF Location: [facility] Disch: SPEC : [id number] GARETH: 12/09/24 STATUS: COMP REQ : [id number] RECD: 12/09/[address]: Chloe Munoz MD COMP: 12/09/24 ENTERED: 12/09/24 [facility] DR: Jose Eller MD ORDERED: CBC Auto Diff Test Result Flag Reference WBC 5.7 4.8-10.8 X10*3/uL RBC 4.34 4.20-5.50 X10*6/uL HGB 12.9 12.0-16.0 g/dl HCT 38.2 37.0-47.0 % MCV 88.0 80.0-98.0 fL MCH 29.7 27.0-33.0 pg MCHC 33.8 31.0-35.0 g/dl RDW 13.2 11.0-16.0 % PLT 334 # 160-400 X10*3/uL MPV 10.0 9.4-12.3 fL Neut Pct Auto 56.9 45-73 % ImGran Pct Auto 0.2 0.0-0.4 % Lymp Pct Auto 27.7 20-40 % Durham Pct Auto 11.8 H 2-11 % Eos Pct Auto 2.3 0-4 % Baso Pct Auto 1.1 0-2 % NRBC Pct Auto 0.0 0.0-0.2 /100WBC ANC Neut Abs # 3.2 2.0-8.3 x10*3/uL ImGran Abs Auto 0.01 0.00-0.03 X10*3/uL Lymph Abs Auto 1.6 1.2-4.9 X10*3/uL [place] Abs Auto 0.7 0.1-1.2 X10*3/uL Eos Abs Auto 0.1 0.0-0.4 X10*3/uL Baso Abs Auto 0.1 0.0-0.2 X10*3/uL NRBC Abs Auto 0.000 0.0-0.012 X10*3/uL alex: Ramona Munguia Age/Sex: 69/F : 1955 Unit#: [id number] Attend Dr: Jose Eller MD Re12/09/24 Status: DEP REF Location: [facility] Disch: SPEC : [id number] GARETH: 12/09/24-1242 STATUS: COMP REQ : [id number] RECD: 12/09/24-[address]: Jose Eller MD COMP: 12/09/24-1655 ENTERED: 12/09/24-[address]: Chloe Munoz MD ORDERED: BMP, Phos, IRON PROF, Vitamin D 25-OH Test Result Flag Reference Sodium 138 135-145 mmol/L Potassium 5.1 3.3-5.1 mmol/L CL 103 96-108 mmol/L CO2 29 22-29 mmol/L Gap 11 L 12-20 BUN 28 H 9-16 mg/dL Creat 1.45 H 0.5-1.4 mg/dL eGFR 36 Chronic Kidney Disease: Estimated GFR < 60 mL/min/1.73m2 Severe Kidney Disease: Estimated GFR < 15 mL/min/1.73m2 Glucose, Random 87 60-115 mg/dL CA 10.3 H 8.4-10.2 mg/dL Phosphorus 3.4 2.7-4.5 mg/dL Iron 66 30-160 mcg/dL TIBC 341 228-428 mcg/dL Saturation 19 15-50 % UIBC 275 ug/dL Vitamin D 25-OH 39.8 >30 ng/mL Health Based Reference Values* < 20 ng/mL Deficient 20-30 ng/mL Insufficient > 30 ng/mL Sufficient *Jadiel DUARTE. N Engl J Med. 2007;[id number] Coding Level of Care Code Est Pt Level 4 (31767) Diagnoses Preoperative examination Z01.818 Age-related cataract of both eyes, unspecified age-related cataract type H25.9 Cataract type: age-related Age-related cataract type: unspecified Laterality: bilateral PAF (paroxysmal atrial fibrillation) I48.0 Essential hypertension I10 CKD (chronic kidney disease), stage III N18.30 Assessment & Plan Assessment & Plan (1) Preoperative examination: Code(s): Z01.818 - Encounter for other preprocedural examination Plan: 69-year-old lady with history of paroxysmal atrial fibrillation on Eliquis, chronic kidney disease stage 3, hypertension, here today for preoperative exam for cataract surgery, scheduled for 04/12/2025 OS in 04/25/2025 OD, requested by Dr. Medeiros. Her preoperative exam was unremarkable. Latest labs results were within acceptable limits. Patient well optimized for proposed Cataract surgery. (2) Cataract: Code(s): H26.9 - Unspecified cataract Category: Medical Qualifiers: Cataract type: age-related Age-related cataract type: unspecified Laterality: bilateral Qualified Code(s): H25.9 - Unspecified age-related cataract Plan: scheduled for cataract surgery OS 04/12/2025, OD 04/25/2025 (3) PAF (paroxysmal atrial fibrillation): Code(s): I48.0 - Paroxysmal atrial fibrillation Category: Medical Plan: currently on Eliquis 5 mg taken 1 tablet twice a day And metoprolol succinate ER 50 mg daily (4) Essential hypertension: Code(s): I10 - Essential (primary) hypertension Category: Medical Plan: Blood pressure at goal of less than 130/80. Continue with current medication. Reinforced importance of following a low sodium diet, getting regular exercise, and lowering stress levels. (5) CKD (chronic kidney disease), stage III: Comment: Due to hypertensive nephrosclerosis Code(s): N18.30 - Chronic kidney disease, stage 3 unspecified Category: Medical Plan: Stable, avoidance of NSAIDs, and nephrotoxic agent
--- OUTSIDE RECORDS SUMMARY | 2025-04-11 23:46 | XMS_ITS | Clinical Summary ---
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 2 Active metoprolol succinate (TOPROL-XL) 50 mg 24 hr tablet Take 1 tablet (50 mg total) by mouth 1 (one) time each day. 2 Active TURMERIC ORAL Take 1 tablet by mouth 1 (one) time each day. Active cholecalciferol (VITAMIN D-3) 25 mcg (1,000 unit) tablet Take 1 tablet (1,000 Units total) by mouth 3 (three) times a week. Active VITAMIN B COMPLEX ORAL Take 2 tablets by mouth every other day. Active Eliquis 5 mg tablet Take 1 tablet (5 mg total) by mouth 2 (two) times a day. 5 Active oxyCODONE (ROXICODONE) 5 mg immediate release tablet Take 1 tablet (5 mg total) by mouth every 6 (six) hours if needed for severe pain. Max Daily Amount: 20 mg 12 tablet Active Additional Information Patient not taking.Reported on 03/01/2025 acetaminophen (TYLENOL) 500 mg tablet Take 2 tablets (1,000 mg total) by mouth every 8 (eight) hours. 24 tablet Active docusate sodium (COLACE) 100 mg capsule Take 1 capsule (100 mg total) by mouth 2 (two) times a day. 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 Essential hypertension, benign 02/17/2007 Encounters Date Type Department Care Team Description 03/01/2025 10:40 AM EDT Office Visit [address] [phone] Shahid Olivares MD Bilateral ovarian cysts (Primary Dx) 02/22/2025 7:16 AM EDT - 02/22/2025 2:59 PM EDT Emergency [facility] Emergency [address] [place] [address] Merlin Sampson MD Generalized abdominal pain (Primary Dx) Discharge Disposition: Home or Self Care 02/21/2025 7:36 AM EDT Anesthesia Event [facility] Main OR [address] [place] [address] Pete Reyes DO Hard, Shannon, CRNA 02/21/2025 7:30 AM EDT - 02/21/2025 10:[address] [facility] OR [address] [place] [phone] Shahid Olivares MD DAVINCI assisted laparoscopic bilateral salpingo-oophorectom y [79801 (CPT )] 02/21/2025 5:47 AM EDT - 02/21/2025 1:59 PM EDT Hospital Encounter [facility] Main OR [address] [place] [phone] Shahid Olivares MD Bilateral ovarian cysts Discharge Disposition: Home or Self Care 01/12/2025 10:20 AM EDT Consult [address] [phone] Shahid Olivares MD Bilateral ovarian cysts (Primary Dx) from Last 3 Months Immunizations Immunization Administration Dates Next Due TheTake/LightArrow SARS-CoV-2 COVID -19, vector-nr, [id number], preservative free 08/14/2020 Proven SARS-CoV-2 COVID-19, mRNA, LNP-S, preservative free 04/05/2021 Td Tetanus diptheria (Tdvax) 7yo and older 06/10 Tdap Tetanus diptheria acell ular pertussis (Boostrix; Adacel) 7yo and older 01/14/2008 Surgical History Surgery Date Site/Laterality Comments CHOLECYSTECTOMY 05/05/1997 - 05/04/1998 TONSILLECTOMY TUBAL LIGATION SHOULDER SURGERY INDUCED 05/05/1975 - 05/04/1976 BREAST SURGERY 05/05/2000 - 05/04/2001 Right Cyst removed COLECTOMY 07/02/2024 Laparoscopic partial colectomy. BREAST LUMPECTOMY 10/28/2022 Left Intraductal papilloma SALPINGOOPHORECTOMY Bilateral DAVINCI assisted laparoscopic bilateral salpingo-oophorectomy, 02/21 Dr. Olivares Medical History Medical History Date Comments Essential hypertension, benign Diverticulosis of colon (wit hout mention of hemorrhage) 04/21/2009 Eczema 06/02/2017 Tubulovillous adenoma of colon Bilateral ovarian cysts History of alcohol abuse 2004 Chronic kidney disease (CKD) , stage III (moderate) (CMS/HCC V24, CMS/HCC V28) Anemia Osteoarthritis Habitual snoring Rheumatic fever Atrial fibrillation (CMS/HCC V24, CMS/HCC V28) Erythema intertrigo History of ectopic History of History of seizures As a child. Remote history Atrial fibrillation (CMS/HCC V24, CMS/HCC V28) Family History Medical History Relation Name Comments Coronary artery disease Brother CABG age 52 Coronary artery disease Father CABG Hypertension Father Hypothyroidism Father Lung cancer Father Melanoma Father Stroke Father Hypertension Mother Hypothyroidism Mother Renal disease Mother Tongue cancer Mother Hypothyroidism Sister Breast cancer Neg Hx Colon cancer Neg Hx Ovarian cancer Neg Hx Prostate cancer Neg Hx Relation Name Status Comments Brother Alive Father Alive Mother Alive Sister Alive Social History Tobacco Use Types Packs/Day Years Used Date Smoking Tobacco: Former Cigarettes 0.5 35.7 0 10/28/1973 - 07/12/2009 Smokeless Tobacco: Never Alcohol Use Standard Drinks/Week Comments Not Currently 0 (1 standard drink = 0.6 oz pure alcohol) History of alcohol abuse ~2004 Interpersonal Safety Answer Date Record ed Physical Abuse Unrecognized value 02/21/2025 Verbal Abuse Unrecognized value 02/21/2025 Comments No Sex and Gender Information Value Date Recorded Sex Assigned at Not on file Legal Sex Female 10:27 PM EST Gender Identity Not on file Sexual Orientation Not on file Last Filed Vital Signs Vital Sign Reading Time Taken Comments Blood Pressure 166/86 03/01/2025 11:00 AM EDT Pulse 74 03/01/2025 11:00 AM EDT Temperature 36.6 C (97.8 F) 03/01/2025 11:00 AM EDT Respiratory Rate 16 02/22/2025 11:15 AM EDT Oxygen Saturation 98% 02/22/2025 11:15 AM EDT Inhaled Oxygen Concentration - - Weight 70.3 kg (155 lb) 02/22/2025 2:59 AM EDT Height 154.9 cm (5' 1 ) 02/22/2025 2:59 AM EDT Body Mass Index 29.29 02/22/2025 2:59 AM EDT Plan of Treatment Health Maintenance Due Date Last Done Comments Zoster Vaccines (1 of 2) 1973 Breast Cancer Screening 01/02/2021 01/03/20 19, 12/20/2017, 12/07/2016 Colorectal Cancer Screening: Stool Based Tests (FOBT/FIT) 04/13/2022 Medicare Annual Wellness Visit 04/13/2022 Osteoporosis Screening (Bone Density Screening) 04/13/2022 Social Influencers of Health Screening 04/13/2022 Depression Screening 05/05/2024 COVID-19 Vaccine (4 - 2024-2 6 season) 2025 02/26/2024, 04/05/2021, 08/14/2020 Influenza Vaccine (#1) 2025 Cholesterol Screening (Lipid Panel) 02/06/2026 02/06/2021 Falls Risk Assessment 02/21/2026 02/21/2025 Hypertension/CHF/CAD Annual BMP Blood Test 02/22/2026 02/22/2025, 02/22/2025, 09/03/2021 DTaP,Tdap,and Td Vaccines (3 - Td or Tdap) 06/10/2029 06/10/2019, 01/14/2008 RSV Immunization Adult Patients (1 - 1-dose 75+ series) 2029 Hepatitis C Screening Completed 01/14/2013 Pneumococcal Vaccine: 50+ Years Completed 08/24/2024 HIB Vaccines Aged Out No longer eligi [...] on patient's age to complete this topic Goals Goal Patient Goal Type Associated Problems Recent Progress Patient-Stated? Author Autogenerat ed Goal Care Plan Autogenerated Problem No Shahid Olivares MD Procedures Procedure Name Priority Date/Time Associated Diagnosis Comments ECG ANNOTATED 02/23/2025 BASIC METABOLIC PANEL STAT 02/22/2025 1:31 PM EDT URINALYSIS WITH REFLEX MICROSCOPIC STAT 02/22/2025 11:47 AM EDT URINALYSIS WITH REFLEX MICROSCOPIC STAT 02/22/2025 11:47 AM EDT TROPONIN I HIGH SENSITIVITY Timed 02/22/2025 8:[address] ABDOMEN PELVIS WO CONTRAST STAT 02/22/2025 8:03 AM EDT XR CHEST 2 VIEWS STAT 02/22/2025 3:50 AM EDT CBC WITH AUTO DIFFERENTIAL STAT 02/22/2025 3:36 AM EDT B-TYPE NATRIURETIC PEPTIDE STAT 02/22/2025 3:36 AM EDT MAGNESIUM STAT 02/22/2025 3:36 AM EDT LIPASE STAT 02/22/2025 3:36 AM EDT COMPREHENSIVE METABOLIC PANEL STAT 02/22/2025 3:36 AM EDT CBC AND DIFFERENTIAL STAT 02/22/2025 3:36 AM EDT TROPONIN I HIGH SENSITIVITY Timed 02/22/2025 3:36 AM EDT ECG 12-LEAD STAT 02/22/2025 2:55 AM EDT OXYGEN THERAPY, ADULT Routine 02/21/2025 11:00 AM EDT TISSUE EXAM Routine 02/21/2025 9:51 AM EDT Bilateral ovarian cysts NON-GYNECOLOGIC CYTOLOGY Routine 02/21/2025 9:03 AM EDT Bilateral ovarian cysts TH AN ENDOTRACHEAL(NO CHARGE) Routine 02/21/2025 8:00 AM EDT [place] LAP SURG W REM ADNEXAL STRUCTURES 02/21/2025 7:35 AM EDT Serous cystadenoma of right ovary Serous cystadenoma of left ovary Case Notes 23 HR BED Special Needs 2.5hrs PROCEDURAL ECG Routine 02/18/2025 1:46 PM EDT Bilateral ovarian cysts CBC WITH AUTO DIFFERENTIAL Routine 02/18/2025 1:30 PM EDT Bilateral ovarian cysts CBC AND DIFFERENTIAL Routine 02/18/2025 1:30 PM EDT Bilateral ovarian cysts TYPE AND SCREEN Routine 02/18/2025 1:30 PM EDT Bilateral ovarian cysts LIPID PANEL Routine 02/06/2021 SCR MAMMO BI INCL CAD Routine 01/02/2019 9:13 AM EDT Encounter for screening mammogram for malignant neoplasm of breast HEPATITIS C SCREENING Routine 01/14/2013 from Last 3 Months or Most Recently Relevant to Health Maintenance Results * ECG-Annotated (02/23/2025) us Provider Onbase ECG ORDERABLES Final Result * (ABNORMAL) Basic Metabolic Panel (BMP) (02/22/2025 1:31 PM EDT) Sodium 136 133 - 145 mmol/L LAB CHEMISTRY METHOD 02/22/2025 2:08 PM [facility] Potassium 3.9 3.5 - 5.5 mmol/L LAB CHEMISTRY METHOD 02/22/2025 2:08 PM [facility] Chloride 102 96 - 110 mmol/L LAB CHEMISTRY METHOD 02/22/2025 2:08 PM [facility] CO2 31 21 - 32 mmol/L LAB CHEMISTRY METHOD 02/22/2025 2:08 PM [facility] Anion Gap 3 3 - 11 LAB CHEMISTRY METHOD 02/22/2025 2:08 PM [facility] Glucose 102(H) 70 - 100 mg/dL LAB CHEMISTRY METHOD 02/22/2025 2:08 PM [facility] BUN 22 5 - 25 mg/dL LAB CHEMISTRY METHOD 02/22/2025 2:08 PM EDT [facility] Creatinine 1.52(H) 0.50 - 1.10 mg/dL LAB CHEMISTRY METHOD 02/22/2025 2:08 PM EDT [facility] eGFR 37(L) >=60 mL/min/1. 73m2 LAB CHEMISTRY METHOD 02/22/2025 2:08 PM EDT [facility] Comment:Calculation based on the Chronic Kidney Disease Epidemiology Collaboration (CKD-EPI) equation refit without adjustment for race. BUN/Creatinine Ratio 14.5 LAB CHEMISTRY METHOD 02/22/2025 2:08 PM EDT [facility] Calcium 9.9 8.5 - 10.5 mg/dL LAB CHEMISTRY METHOD 02/22/2025 2:08 PM EDT [facility] Blood Venous blood specimen / Unknown Venipuncture / Unknown 02/22/2025 1:31 PM EDT 02/22/2025 1:41 PM EDT Merlin Sampson MD LAB BLOOD ORDERABLES Final Result [facility] [address] [place] [address], * (ABNORMAL) Urinalysis with reflex microscopic (02/22/2025 11:47 AM EDT) Specific [place] Urine 1.015 1.003 - 1.030 LAB URINALYSIS - AUTOMATED METHOD 02/22/2025 12:41 PM EDT [facility] pH, Urine 5.5 5.0 - 8.0 pH LAB URINALYSIS - AUTOMATED METHOD 02/22/2025 12:41 PM EDT [facility] Leukocytes, Urine Small(A) Negative LAB URINALYSIS - AUTOMATED METHOD 02/22/2025 12:41 PM EDT [facility] Nitrite, Urine Negative Negative LAB URINALYSIS - AUTOMATED METHOD 02/22/2025 12:41 PM [facility] Protein, Urine Trace <=Trace mg/dL LAB URINALYSIS - AUTOMATED METHOD 02/22/2025 12:41 PM [facility] Glucose, Urine Negative Negative mg/dL LAB URINALYSIS - AUTOMATED METHOD 02/22/2025 12:41 PM [facility] Ketones, Urine Negative Negative mg/dL LAB URINALYSIS - AUTOMATED METHOD 02/22/2025 12:41 PM [facility] Urobilinogen , Urine 0.2 0.2 - 1.0 mg/dL LAB URINALYSIS - AUTOMATED METHOD 02/22/2025 12:41 PM [facility] Bilirubin, Urine Negative Negative LAB URINALYSIS - AUTOMATED METHOD 02/22/2025 12:41 PM [facility] Blood, Urine Moderate(A) Negative LAB URINALYSIS - AUTOMATED METHOD 02/22/2025 12:41 PM [facility] RBC, Urine 10.0(H) 0 - 4 /HPF LAB URINALYSIS - AUTOMATED METHOD 02/22/2025 12:41 PM [facility] WBC, Urine 7.0(H) 0 - 4 /HPF LAB URINALYSIS - AUTOMATED METHOD 02/22/2025 12:41 PM [facility] Squamous Epithelial, Urine 19 0 - 60 /LPF LAB URINALYSIS - AUTOMATED METHOD 02/22/2025 12:41 PM [facility] Bacteria, Urine Few(A) Negative /HPF LAB URINALYSIS - AUTOMATED METHOD 02/22/2025 12:41 PM [facility] Hyaline Casts, Urine 1.2 0 - 3 /LPF LAB URINALYSIS - AUTOMATED METHOD 02/22/2025 12:41 PM [facility] Urine Urine specimen obtained by clean catch procedure / Unknown Non-blood Collection / Unknown 02/22/2025 11:47 AM EDT 02/22/2025 12:04 PM EDT Merlin Sampson MD LAB URINE ORDERABLES Final Result Performing Organization Address [facility]/ZIP Co de Phone Number [facility] [address] [place] [address], [place] [phone] * Troponin I high sensitivity (02/22/2025 8:41 AM EDT) Only the most recent of2 resultswithin the time period is included. [facility] High Sensitivity Troponin I 8 <=54 ng/L LAB CHEMISTRY METHOD 02/22/2025 9:29 AM EDT [facility] Blood Venous blood specimen / Unknown Venipuncture / Unknown 02/22/2025 8:41 AM EDT 02/22/2025 8:59 AM EDT Narrative [facility] - 02/22/2025 9:29 AM EDT High levels of biotin in samples may falsely decrease hsTroponin values. Use caution when interpreting hsTroponin results in patients taking biotin who exhibit renal impairment (eGFR <60) or in patients taking more than 20 mg/day of biotin. us Pete Echols MD LAB BLOOD ORDERABLES Final Resul t Performing Organization Address [facility] Co de Phone Number [facility] [address] [place] [address], [place] [phone] * CT Abdomen Pelvis wo Contrast (02/22/2025 8:03 AM EDT) Anatomical Region Laterality Modality Body Computed Tomogra phy 02/22/2025 8:47 AM EDT Impressions 02/22/2025 8:56 AM EDT Evidence of recent surgery throughout the abdomen and pelvis. No fluid collections or other complications evident. Exophytic left upper pole renal lesion measuring slightly higher than simple cyst density, most likely a hemorrhagic/proteinaceous cyst but incompletely characterized on this exam. Nonemergent renal ultrasound recommended to exclude solid mass. -------- FINAL REPORT -------- Dictated By: CHRISTOS ORLADNO Dictated Date: 02/22/2025 08:47 ET Assigned Physician: CHRISTOS ORLANDO Reviewed and Electronically Signed By: CHRISTOS ORLANDO Signed Date: 02/22/2025 08:56 ET Workstation ID: [id number] Transcribed By: Self Edit Transcribed Date: 02/22/2025 08:51 ET Narrative 02/22/2025 8:56 AM EDT PROCEDURE: CT abdomen/pelvis INDICATION: Pain TECHNIQUE: CT of the abdomen and pelvis without contrast. Multiplanar reformats. The examination was performed utilizing dose reduction techniques. Total DLP 922 COMPARISON: No priors available. FINDINGS: LOWER THORAX: Left lower lobe calcified granuloma. Bibasilar atelectasis coronary artery calcifications with mitral annular mineralization. Small hiatal hernia. Calcified gastrohepatic and periesophageal lymph nodes indicative of prior granulomatous exposure. HEPATOBILIARY: No focal liver lesions. Liver calcifications indicative of prior granulomatous infection. Cholecystectomy. No biliary duct dilatation. Calcified jam hepatis and retroperitoneal lymph nodes indicative of prior granulomatous infection. SPLEEN: No splenomegaly. Splenic granulomas. PANCREAS: No focal mass or ductal dilatation. ADRENALS: No nodules. KIDNEYS/URETERS: No renal/ureteral calculi or hydronephrosis. Exophytic left upper pole renal lesion measuring 21 Hounsfield units and 2.5 cm PELVIC ORGANS/BLADDER: Unremarkable. PERITONEUM / RETROPERITONEUM: Scattered foci of free intraperitoneal and extraperitoneal air indicative of recent surgery. No fluid collection. No retroperitoneal or mesenteric lymphadenopathy VESSELS: Scattered atherosclerotic calcifications throughout the aorta and its major branches. No aneurysm. GI TRACT: Colonic diverticulosis. No bowel obstruction or wall thickening. Ileocecectomy BONES AND SOFT TISSUES: Postoperative air throughout the subcutaneous tissues of the ventral abdomen. Postoperative changes from the umbilicus. No fluid collection. Degenerative changes seen throughout the bones. Procedure Note Christos Orlando MD - 02/22/2025 PROCEDURE: CT abdomen/pelvis INDICATION: Pain TECHNIQUE: CT of the abdomen and pelvis without contrast. Multiplanarreformats. The examination was performed utilizing dose reductiontechniques. Total DLP 922 COMPARISON: No priors available. FINDINGS: LOWER THORAX: Left lower lobe calcified granuloma. Bibasilar atelectasiscoronary artery calcifications with mitral annular mineralization. Smallhiatal hernia. Calcified gastrohepatic and periesophageal lymph nodesindicative of prior granulomatous exposure. HEPATOBILIARY: No focal liver lesions. Liver calcifications indicative ofprior granulomatous infection. Cholecystectomy. No biliary ductdilatation. Calcified jam hepatis and retroperitoneal lymph nodesindicative of prior granulomatous infection. SPLEEN: No splenomegaly. Splenic granulomas. PANCREAS: No focal mass or ductal dilatation. ADRENALS: No nodules. KIDNEYS/URETERS: No renal/ureteral calculi or hydronephrosis. Exophyticleft upper pole renal lesion measuring 21 Hounsfield units and 2.5 cm PELVIC ORGANS/BLADDER: Unremarkable. PERITONEUM / RETROPERITONEUM: Scattered foci of free intraperitoneal andextraperitoneal air indicative of recent surgery. No fluid collection.No retroperitoneal or mesenteric lymphadenopathy VESSELS: Scattered atherosclerotic calcifications throughout the aorta andits major branches. No aneurysm. GI TRACT: Colonic diverticulosis. No bowel obstruction or wallthickening. Ileocecectomy BONES AND SOFT TISSUES: Postoperative air throughout the subcutaneoustissues of the ventral abdomen. Postoperative changes from the umbilicus.No fluid collection. Degenerative changes seen throughout the bones. IMPRESSION: Evidence of recent surgery throughout the abdomen and pelvis. No fluidcollections or other complications evident. Exophytic left upper pole renal lesion measuring slightly higher thansimple cyst density, most likely a hemorrhagic/proteinaceous cyst butincompletely characterized on this exam. Nonemergent renal ultrasoundrecommended to exclude solid mass. -------- FINAL REPORT -------- Dictated By: CHRISTOS ORLANDO Dictated Date: 02/22/2025 08:47 ET Assigned Physician: CHRISTOS ORLANDO Reviewed and Electronically Signed By: CHRISTOS ORLANDO Signed Date: 02/22/2025 08:56 ET Workstation ID: [id number] Transcribed By: Self Edit Transcribed Date: 02/22/2025 08:51 ET Merlin Sampson MD IMJl CT PROCEDURES Final Re sult * XR Chest 2 Views (02/22/2025 3:50 AM EDT) Anatomical Region Laterality Modality Body Radiographic Dayanara ging 02/22/2025 8:30 AM EDT Impressions 02/22/2025 8:39 AM EDT FINDINGS/IMPRESSION: Lungs are clear. No pleural effusion or pneumothorax. Cardiac silhouette is normal in size. Mild degenerative changes seen throughout the bones. Cholecystectomy clips. Right humeral head fixation hardware partially imaged. -------- FINAL REPORT -------- Dictated By: CHRISTOS ORLANDO Dictated Date: 02/22/2025 08:30 ET Assigned Physician: CHRISTOS ORLANDO Reviewed and Electronically Signed By: CHRISTOS ORLANDO Signed Date: 02/22/2025 08:39 ET Workstation ID: [id number] Transcribed By: Self Edit Transcribed Date: 02/22/2025 08:30 ET Narrative 02/22/2025 8:39 AM EDT XR CHEST 2 VIEWS INDICATION: Chest pain TECHNIQUE: XR CHEST 2 VIEWS COMPARISON: No priors available. Procedure Note Christos Orlando MD - 02/22/2025 XR CHEST 2 VIEWS INDICATION: Chest pain TECHNIQUE: XR CHEST 2 VIEWS COMPARISON: No priors available. IMPRESSION: FINDINGS/IMPRESSION: Lungs are clear. No pleural effusion orpneumothorax. Cardiac silhouette is normal in size. Mild degenerativechanges seen throughout the bones. Cholecystectomy clips. Right humeralhead fixation hardware partially imaged. -------- FINAL REPORT -------- Dictated By: CHRISTOS ORLANDO Dictated Date: 02/22/2025 08:30 ET Assigned Physician: CHRISTOS ORLANDO Reviewed and Electronically Signed By: CHRISTOS ORLANDO Signed Date: 02/22/2025 08:39 ET Workstation ID: [id number] Transcribed By: Self Edit Transcribed Date: 02/22/2025 08:30 ET Pete Echols MD IMG XR PROCEDURES Final Result * (ABNORMAL) CBC auto differential (02/22/2025 3:36 AM EDT) Only the most recent of2 resultswithin the time period is included. WBC 11.4(H) 4.8 - 10.8 /[facility] LAB HEMETOLOGY METHOD 02/22/2025 4:02 AM EDT [facility] RBC 4.30 3.80 - 4.80 M/mcL LAB HEMETOLOGY METHOD 02/22/2025 4:02 AM [facility] Hemoglobin 12.4 11.5 - 16.0 g/dL LAB HEMETOLOGY METHOD 02/22/2025 4:02 AM [facility] Hematocrit 38.2 35.0 - 47.0 % LAB HEMETOLOGY METHOD 02/22/2025 4:02 AM [facility] MCV 89.7 79.0 - 98.0 FL LAB HEMETOLOGY METHOD 02/22/2025 4:02 AM [facility] MCH 29.1 27.0 - 32.0 pcg LAB HEMETOLOGY METHOD 02/22/2025 4:02 AM [facility] MCHC 32.5 32.0 - 37.0 g/dL LAB HEMETOLOGY METHOD 02/22/2025 4:02 AM [facility] RDW 12.7 11.0 - 15.0 % LAB HEMETOLOGY METHOD 02/22/2025 4:02 AM [facility] Platelets 301 130 - 400 K/mcL LAB HEMETOLOGY METHOD 02/22/2025 4:02 AM [facility] MPV 9.5 7.0 - 11.0 FL LAB HEMETOLOGY METHOD 02/22/2025 4:02 AM [facility] NRBC 0.0 <1.0 % LAB HEMETOLOGY METHOD 02/22/2025 4:02 AM [facility] NRBC Absolute 0.00 <0.10 K/mcL LAB HEMETOLOGY METHOD 02/22/2025 4:02 AM [facility] Neutrophils Relative 80.2 % LAB HEMETOLOGY METHOD 02/22/2025 4:02 AM [facility] Lymphocytes Relative 10.3 % LAB HEMETOLOGY METHOD 02/22/2025 4:02 AM [facility] Monocytes Relative 8.6 % LAB HEMETOLOGY METHOD 02/22/2025 4:02 AM [facility] Eosinophils Relative 0.1 % LAB HEMETOLOGY METHOD 02/22/2025 4:02 AM [facility] Basophils Relative 0.4 % LAB HEMETOLOGY METHOD 02/22/2025 4:02 AM [facility] Immature Granulocytes Relative 0.4 % LAB HEMETOLOGY METHOD 02/22/2025 4:02 AM [facility] Neutrophils Absolute 9.16(H) 1.50 - 7.00 K/mcL LAB HEMETOLOGY METHOD 02/22/2025 4:02 AM [facility] Lymphocytes Absolute 1.17 1.00 - 5.00 K/mcL LAB HEMETOLOGY METHOD 02/22/2025 4:02 AM [facility] Monocytes Absolute 0.98 0.20 - 1.00 K/mcL LAB HEMETOLOGY METHOD 02/22/2025 4:02 AM [facility] Eosinophils Absolute 0.01 0.00 - 0.50 K/mcL LAB HEMETOLOGY METHOD 02/22/2025 4:02 AM [facility] Basophils Absolute 0.04 0.00 - 0.20 K/mcL LAB HEMETOLOGY METHOD 02/22/2025 4:02 AM [facility] Immature Granulocytes Absolute 0.04(H) 0.00 - 0.03 K/mcL LAB HEMETOLOGY METHOD 02/22/2025 4:02 AM [facility] Blood Venous blood specimen / Unknown Venipuncture / Unknown 02/22/2025 3:36 AM EDT 02/22/2025 3:58 AM EDT Pete Echols MD LAB BLOOD ORDERABLES Final Resul t Performing Organization Address City/[facility]/ZIP Co de Phone Number [facility] [address] [place] [address], [place] [phone] * (ABNORMAL) B-type natriuretic peptide (02/22/2025 3:36 AM EDT) BNP 166(H) <=100 pcg/mL LAB CHEMISTRY METHOD 02/22/2025 4:41 AM EDT [facility] Blood Venous blood specimen / Unknown Venipuncture / Unknown 02/22/2025 3:36 AM EDT 02/22/2025 3:58 AM EDT Pete Echols MD LAB BLOOD ORDERABLES Final Resul t Performing Organization Address [facility] Co de Phone Number [facility] [address] [place] [address], [place] [phone] * (ABNORMAL) Magnesium (02/22/2025 3:36 AM EDT) Magnesium 1.6(L) 1.9 - 2.6 mg/dL LAB CHEMISTRY METHOD 02/22/2025 4:35 AM EDT [facility] Blood Venous blood specimen / Unknown Venipuncture / Unknown 02/22/2025 3:36 AM EDT 02/22/2025 3:58 AM EDT Pete Echols MD LAB BLOOD ORDERABLES Final Resul t Performing Organization Address [facility]/ZIP Co de Phone Number [facility] [address] [place] [address], [place] [phone] * Lipase (02/22/2025 3:36 AM EDT) Lipase 53 13 - 75 unit/L LAB CHEMISTRY METHOD 02/22/2025 4:35 AM EDT [facility] Blood Venous blood specimen / Unknown Venipuncture / Unknown 02/22/2025 3:36 AM EDT 02/22/2025 3:58 AM EDT us Pete Echols MD LAB BLOOD ORDERABLES Final Resul t [facility] [address] [place] [address], * (ABNORMAL) Comprehensive metabolic panel (02/22/2025 3:36 AM EDT) Pathologist [facility] [place] Sodium 136 133 - 145 mmol/L LAB CHEMISTRY METHOD 02/22/2025 4:35 AM [facility] Potassium 4.5 3.5 - 5.5 mmol/L LAB CHEMISTRY METHOD 02/22/2025 4:35 AM [facility] Chloride 100 96 - 110 mmol/L LAB CHEMISTRY METHOD 02/22/2025 4:35 AM [facility] CO2 30 21 - 32 mmol/L LAB CHEMISTRY METHOD 02/22/2025 4:35 AM [facility] Anion Gap 6 3 - 11 LAB CHEMISTRY METHOD 02/22/2025 4:35 AM [facility] Glucose 106(H) 70 - 100 mg/dL LAB CHEMISTRY METHOD 02/22/2025 4:35 AM [facility] BUN 26(H) 5 - 25 mg/dL LAB CHEMISTRY METHOD 02/22/2025 4:35 AM [facility] Creatinine 1.92(H) 0.50 - 1.10 mg/dL LAB CHEMISTRY METHOD 02/22/2025 4:35 AM [facility] eGFR 28(L) >=60 mL/min/1. 73m2 LAB CHEMISTRY METHOD 02/22/2025 4:35 AM [facility] Comment:Calculation based on the Chronic Kidney Disease Epidemiology Collaboration (CKD-EPI) equation refit without adjustment for race. BUN/Creatinine Ratio 13.5 LAB CHEMISTRY METHOD 02/22/2025 4:35 AM EDT [facility] Calcium 10.0 8.5 - 10.5 mg/dL LAB CHEMISTRY METHOD 02/22/2025 4:35 AM T [facility] AST (SGOT) 46(H) 10 - 42 unit/L LAB CHEMISTRY METHOD 02/22/2025 4:35 AM T [facility] ALT (SGPT) 38 10 - 60 unit/L LAB CHEMISTRY METHOD 02/22/2025 4:35 AM T [facility] Alkaline Phosphatase 75 42 - 121 unit/L LAB CHEMISTRY METHOD 02/22/2025 4:35 AM [facility] Total Protein 8.0 6.0 - 8.0 g/dL LAB CHEMISTRY METHOD 02/22/2025 4:35 AM [facility] Albumin 3.6 3.2 - 5.0 g/dL LAB CHEMISTRY METHOD 02/22/2025 4:35 AM [facility] Total Bilirubin 0.8 0.0 - 1.4 mg/dL LAB CHEMISTRY METHOD 02/22/2025 4:35 AM [facility] Blood Venous blood specimen / Unknown Venipuncture / Unknown 02/22/2025 3:36 AM EDT 02/22/2025 3:58 AM EDT us Pete Echols MD LAB BLOOD ORDERABLES Final Resul t [facility] [address] [place] [address], * ECG 12 lead (02/22/2025 2:55 AM EDT) Ventricular Rate ECG 70 BPM GEMUSE Atrial Rate 70 BPM GEMUSE P-R Interval 166 ms GEMUSE QRS Duration 82 ms GEMUSE Q-T Interval 404 ms GEMUSE QTc 436 ms GEMUSE P Wave Cordell 65 degrees GEMUSE R Cordell 13 degrees GEMUSE T Cordell 28 degrees GEMUSE ECG Interpretation Normal sinus rhythm Normal ECG When compared with ECG of 18-FEB-2025 13:46, No significant change was found Confirmed by MD Giuliano, [facility] ([id number]) on 02/22/2025 9:15:53 PM GEMUSE 02/22/2025 2:55 AM EDT 02/22/2025 9:15 PM EDT Pete Echols MD ECG ORDERABLES Final Result GEMUSE * Tissue exam (02/21/2025 9:51 AM EDT) Final Diagnosis A. Right ovary and fallopian tube, salpingo oophorectomy: Serous cystadenofibroma. Benign fallopian tube with no specific pathologic change. B. Left ovary and fallopian tube, salpingo oophorectomy: Serous cystadenofibroma with focal epithelial proliferation (<10%). Benign adnexal tissue. 4:16 PM EDT [facility] at 1616 EDT Gross Description A. Ovary, Right, right ovary and fallopian tube: Labeled right ova, ovary R . Received in formalin is a previously excised 20 g, 5.3 x 3.3 x 2.5 cm bosselated, white-pink ovarian cyst with attached fimbriated fallopian tube and mesovarium. The cut surfaces are multiloculated, rubbery and white-pink. There are eight encapsulated locules that are filled with clear serous fluid. The cystic wall ranges from 0.2 cm to 0.4 cm in thickness. The residual ovarian stroma is clark-white and rubbery. The fimbriated fallopian tube is red-clark, and measures 3.3 x 0.6 cm. The fallopian tube is truncated and serially sectioned revealing a pinpoint lumen. [place] sections submitted in six cassettes. 1: Frozen section residue, two pieces 2: Cystic wall, three pieces 3-4: Sections of cysts, two pieces each 5: [place] sections of mesovarium, two pieces 6: Bisected fimbria and cross-sections of fallopian tube, four pieces B. Ovary, Left, left ovary and fallopian tube: Labeled left ovar, ovary L . Received in formalin is a previously excised 20 g, 4.3 x 3.5 x 2 cm bosselated, white-pink ovarian cyst with attached mesovarium. There is a 1 cm clark-pink papulation located on the cystic wall proximal to the mesovarium. The cut surfaces are multiloculated, rubbery and white-clark. Additionally, there is a 0.4 cm rubbery, white papulation on the cut surface, which is contiguous with the frozen section residue. There are seven encapsulated locular center filled with clear serous fluid. The cystic wall ranges from 0.1 cm to 0.9 cm in thickness. The residual ovarian stroma is clark-white and rubbery. A fallopian tube is not identified, however there is some attached soft, clark-yellow mesovarium. [place] sections are submitted in seven cassettes. 1: Frozen section residue, two pieces 2: Cystic wall papulation, one piece 3: Additional papulation and tissue adjacent, two pieces 4: Cystic wall, two pieces 5-6: Sections of cysts, two pieces 7: Mesovarium, two pieces KR 4:16 PM EDT [facility] Intraoperative Consultation A. Ovary, Right, right ovary and fallopian tube: Serous cystadenoma, multilocular. -S.L. B. Ovary, Left, left ovary and fallopian tube: Serous cystadenoma with focal epithelial proliferation. - S.L. 4:16 PM EDT [facility] Comment:Corrected result: Pr eviously reported on 02/21/2025 at 1053 EDT. Disclaimer Unless otherwise specified, all tissue is 10% NB formalin fixed and paraffin embedded. 4:16 PM EDT [facility] Tissue Structure of left ovary / Unknown 02/21/2025 9:54 AM EDT 02/21/2025 10:04 AM EDT Tissue specimen (specimen) Structure of left ovary / Unknown 02/21/2025 9:51 AM EDT 02/21/2025 10:04 AM EDT us Shahid Olivares MD LAB PATHOLOGY ORDERABLES Final R esult Performing Organization Address City/[facility]/ZIP Co de Phone Number [facility] [address] [place] [address], [place] [phone] * Non-gynecologic cytology (02/21/2025 9:03 AM EDT) Final Diagnosis Pelvis, pelvic washings (ThinPrep and cell block): Negative for malignant cells. 02/23/2025 12:32 PM EDT [facility] at 1232 EDT Specimen A Adequacy Satisfactory for evaluation 02/23/2025 12:32 PM EDT [facility] Gross Description A. Pelvis, pelvic washings: Received is 50 ml of cloudy fluid. One ThinPrep and one cell block are made. Cell block placed in formalin at 1330, total formalin fixation time is 7.5 hours. rp 02/23/2025 12:32 PM EDT [facility] Disclaimer Unless otherwise specified, all tissue is 10% NB formalin fixed and paraffin embedded. Technical cytopathology services provided by [facility], at [address] [place] [id number] (CLIA # [id number]/Tino Ayala MD, Flight Control Specialist.) 02/23/2025 12:32 PM EDT [facility] Wash Pelvic region / Unknown 02/21/2025 9:03 AM EDT 02/21/2025 1:05 PM EDT us Shahid Olivares MD LAB CYTOLOGY ORDERABLES Final Re sult Performing Organization Address [facility]/ZIP Co de Phone Number [facility] [address] [place] [address], [place] [phone] * TH AN ENDOTRACHEAL(NO CHARGE) (02/21/2025 8:00 AM EDT) Narrative Hard, Monae, DRAFTING SUPERVISOR - 02/21/2025 8:00 AM EDT Monae Morrell CRNA 02/21/2025 8:01 AM General Information and Staff Patient location during procedure: OR Anesthesiologist: Pete Reyes DO Performed: anesthesiologist Performed by: Monae Morrell CRNA Authorized by: Pete Reyes DO Intubation Additional Comments 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 Airway not difficult Reason: elective Final Airway Details Successful airway: ETT Cuffed: yes Successful intubation technique: video laryngoscopy Adjuncts used in placement: intubating stylet Endotracheal tube insertion site: oral Blade: Edilson Blade size: #3 Cormack-Lehane Classification: grade I - full view of glottis Placement verified by: chest auscultation and capnometry Measured from: lips ETT to lips (cm): 20 Final airway type: endotracheal airway Indications and Patient Condition Indications for airway management: anesthesia Sedation level: Yes Preoxygenated: yesSoft Tissue Damage: No Dentition Unchanged: Yes Patient position: sniffing Mask difficulty assessment: 2 - vent by mask + OA or adjuvant +/- NMBA Start Time: 02/21/2025 8:00 AMStop Time: 02/21/2025 8:00 AM us Pete Reyes DO ANESTHESIA ORDERABLES Final Res ult * ECG 12 lead - Procedural (No Charge) (02/18/2025 1:46 PM EDT) Ventricular Rate ECG 58 BPM GEMUSE Atrial Rate 58 BPM GEMUSE P-R Interval 168 ms GEMUSE QRS Duration 84 ms GEMUSE Q-T Interval 448 ms GEMUSE QTc 439 ms GEMUSE P Wave Cordell 53 degrees GEMUSE R Cordell 8 degrees GEMUSE T Cordell 28 degrees GEMUSE ECG Interpretation Sinus bradycardia Otherwise normal ECG No previous ECGs available Confirmed by NIARJ LAWRENCE ([id number]) on 02/19/2025 6:21:46 PM GEMUSE 02/18/2025 1:46 PM EDT 02/19/2025 6:21 PM EDT us Shahid Olivares MD ECG ORDERABLES Final Result GEMUSE * Type and screen (02/18/2025 1:30 PM EDT) ABO Group A 02/18/2025 3:38 PM EDT [facility] Rh Type Negative 02/18/2025 3:38 PM EDT [facility] Antibody Screen Negative 02/18/2025 3:38 PM EDT [facility] Blood Venous blood specimen / Unknown Venipuncture / Unknown 02/18/2025 1:30 PM EDT 02/18/2025 2:15 PM EDT Shahid Olivares MD LAB BLOOD BANK TEST ORDERABLES F inal Result [facility] [address] [place] [address], * Lipid panel (02/06/2021) LDL/HDL Ratio 2 0 - 4 Triglycerides 182 0 - 200 mg/dL Cholesterol 53 0 - 150 mg/dL HDL 83 >=40 mg/dL LDL Cholesterol 89 0 - 100 mg/dL Blood Venous blood specimen / Unknown Donald Provider LAB BLOOD ORDERABLES Stacie l Result [...] % Breast cancer risk category Low (<15%) Shruthi Lora CNBridger IMG XR PROCEDURES Final Result * Hepatitis C Screening (01/14/2013) Hepatitis C Screening abstracted Historical Provider HEALTH MAINTENANCE Final Result from Last 3 Months or Most Recently Relevant to Health Maintenance Additional Health Concerns Active Problems Noted Date Diagnosed Date Autogenerated Problem 01/31/2025 Insurance Advance Directives * Full Code - Default (Latest Code Status on File) Date Activated Date Inactivated Comments 02/21/2025 6:03 AM 02/21/2025 4:09 PM This is or naa is used when code status has not been discussed with the patient, or code status is otherwise unknown/unconfirmed To update the patient's code status, place a code status order. Do not modify or discontinue any currently active code status orders. Care Teams Poultry Processor Relationship Specialty Start Date End Date Chloe Munoz MD [address] [place] [phone] PCP - General Internal Medicine 02/21/25
== END 2025-04-11 15:47 | disposition home or self-care (01) ==
LOC: HO.HMCC 14:38
PROVIDERS: PCP Internal Medicine; Visit Provider Internal Medicine
DX: I12.9 Hypertensive chronic kidney disease with stage 1 through stage 4 chronic kidney disease, or unspecified chronic kidney disease (principal); I48.0 Paroxysmal atrial fibrillation; N18.30 Chronic kidney disease, stage 3 unspecified; H25.9 Unspecified age-related cataract; Z01.818 Encounter for other preprocedural examination

== ENCOUNTER → 2025-04-11 14:37 | Outpatient (BNVA) | payer MEDICARE, SELFPAY | PROVIDERS: PCP Internal Medicine; Visit Provider Internal Medicine | DX: Z01.818 Encounter for other preprocedural examination (principal); H25.9 Unspecified age-related cataract; I10 Essential (primary) hypertension; I48.0 Paroxysmal atrial fibrillation; N18.30 Chronic kidney disease, stage 3 unspecified | CPT/HCPCS: 99212 ==

== ENCOUNTER 2025-05-04 11:17 | Outpatient (REF) | payer MEDICARE, SELFPAY ==
--- OUTSIDE RECORDS SUMMARY | 2025-05-04 12:55 | XMS_ITS | Clinical Summary ---
Author Organization [address] Address [address] [place] [address] Phone Care Team Providers Care Orthotics Prosthetics Assistant Name Role Phone Chloe Munoz MD Primary Care Provider [phone] Allergies Active Allergy Reactions Criticality Noted Date Comments Antihistamines - Ethylenediamine Palpitations 01/16/2025 Dexbrompheniramine-Pseudo ephed Other 02/17/2007 hyperactive Vsuinyko-Jcptzmadrm-Ehma- Hc Other 08/05/2007 dizzy Penicillin G Potassium [...] Description 03/01/2025 10:40 AM EDT Office Visit [address] [address] Shahid Olivares MD Bilateral ovarian cysts (Primary Dx) 02/22/2025 7:16 AM EDT - 02/22/2025 2:59 PM EDT Emergency [facility] Emergency [address] [place] [address] Merlin Sampson MD Generalized abdominal pain (Primary Dx) Discharge Disposition: Home or Self Care 02/21/2025 7:36 AM EDT Anesthesia Event [facility] Main OR [address] [place] [address] Pete Reyes DO Hard, Shannon, CRNA 02/21/2025 7:30 AM EDT - 02/21/2025 10:30 AM EDT Surgery [facility] OR [address] [place] [phone] Shahid Olivares MD DAVINCI assisted laparoscopic bilateral salpingo-oophorectom y [82799 (CPT )] 02/21/2025 5:47 AM EDT - 02/21/2025 1:59 PM EDT Hospital Encounter [facility] Main OR [address] [place] [address] Shahid Olivares MD Bilateral ovarian cysts Discharge Disposition: Home or Self Care from Last 3 Months Immunizations Immunization Administration Dates Next Due [employer] SARS-CoV-2 COVID -19, vector-nr, rS-Ad26, preservative free 08/14/2020 Pfizer SARS-CoV-2 COVID-19, mRNA, LNP-S, preservative free 04/05/2021 [...] Screening 04/13/2022 Depression Screening 05/05/2024 COVID-19 Vaccine (2024-2 6 season) 2025 02/26/2024, 04/05/2021, 08/14/2020 Influenza [...] ENDOTRACHEAL(NO CHARGE) Routine 02/21/2025 8:00 AM EDT TX LAP SURG W REM ADNEXAL STRUCTURES 02/21/2025 [...] screening mammogram for malignant neoplasm of breast HM HEPATITIS C SCREENING Routine 01/14/2013 from Last 3 Months or Most Recently Relevant to Health Maintenance Results * ECG-Annotated (02/23/2025) us Provider Onbase MD ECG ORDERABLES Final Result * (ABNORMAL) Basic Metabolic Panel (BMP) (02/22/2025 1:31 PM EDT) Sodium 136 133 - 145 mmol/L LAB CHEMISTRY METHOD 02/22/2025 2:08 PM [facility] Potassium 3.9 3.5 - 5.5 mmol/L LAB CHEMISTRY METHOD 02/22/2025 2:08 PM [facility] Chloride 102 96 - 110 mmol/L LAB CHEMISTRY METHOD 02/22/2025 2:08 PM [facility] CO2 31 21 - 32 mmol/L LAB CHEMISTRY METHOD 02/22/2025 2:08 PM [facility] Anion Gap 3 3 - 11 LAB CHEMISTRY METHOD 02/22/2025 2:08 PM [facility] Glucose 102(H) 70 - 100 mg/dL LAB CHEMISTRY METHOD 02/22/2025 2:08 PM [facility] BUN 22 5 - 25 mg/dL LAB CHEMISTRY METHOD 02/22/2025 2:08 PM [facility] Creatinine 1.52(H) 0.50 - 1.10 mg/dL LAB CHEMISTRY METHOD 02/22/2025 2:08 PM EDT [facility] eGFR 37(L) >=60 mL/min/1. 73m2 LAB CHEMISTRY METHOD 02/22/2025 2:08 PM T [facility] Comment:Calculation based on the Chronic Kidney Disease Epidemiology Collaboration (CKD-EPI) equation refit without adjustment for race. BUN/Creatinine Ratio 14.5 LAB CHEMISTRY METHOD 02/22/2025 2:08 PM T [facility] Calcium 9.9 8.5 - 10.5 mg/dL LAB CHEMISTRY METHOD 02/22/2025 2:08 PM T [facility] Blood Venous blood specimen / Unknown Venipuncture / Unknown 02/22/2025 1:31 PM EDT 02/22/2025 1:41 PM EDT us Merlin Sampson MD LAB BLOOD ORDERABLES Final Result [facility] [address] [place] [address], * (ABNORMAL) Urinalysis with reflex microscopic (02/22/2025 11:47 AM EDT) Specific [place] Urine 1.015 1.003 - 1.030 LAB URINALYSIS - AUTOMATED METHOD 02/22/2025 12:41 PM [facility] pH, Urine 5.5 5.0 - 8.0 pH LAB URINALYSIS - AUTOMATED METHOD 02/22/2025 12:41 PM [facility] Leukocytes, Urine Small(A) Negative LAB URINALYSIS - AUTOMATED METHOD 02/22/2025 12:41 PM [facility] Nitrite, Urine Negative Negative LAB URINALYSIS - AUTOMATED METHOD 02/22/2025 12:41 PM [facility] Protein, Urine Trace <=Trace mg/dL LAB URINALYSIS - AUTOMATED METHOD 02/22/2025 12:41 PM [facility] Glucose, Urine Negative Negative mg/dL LAB URINALYSIS - AUTOMATED METHOD 02/22/2025 12:41 PM [facility] Ketones, Urine Negative Negative mg/dL LAB URINALYSIS - AUTOMATED METHOD 02/22/2025 12:41 PM [facility] Urobilinogen , Urine 0.2 0.2 - 1.0 mg/dL LAB URINALYSIS - AUTOMATED METHOD 02/22/2025 12:41 PM [facility] Bilirubin, Urine Negative Negative LAB URINALYSIS - AUTOMATED METHOD 02/22/2025 12:41 PM [facility] Blood, Urine Moderate(A) Negative LAB URINALYSIS - AUTOMATED METHOD 02/22/2025 12:41 PM [facility] RBC, Urine 10.0(H) 0 - 4 /HPF LAB URINALYSIS - AUTOMATED METHOD 02/22/2025 12:41 PM [facility] WBC, Urine 7.0(H) 0 - 4 /HPF LAB URINALYSIS - AUTOMATED METHOD 02/22/2025 12:41 PM [facility] Squamous Epithelial, Urine 19 0 - 60 /LPF LAB URINALYSIS - AUTOMATED METHOD 02/22/2025 12:41 PM [facility] Bacteria, Urine Few(A) Negative /HPF LAB URINALYSIS - AUTOMATED METHOD 02/22/2025 12:41 PM [facility] Hyaline Casts, Urine 1.2 0 - 3 /LPF LAB URINALYSIS - AUTOMATED METHOD 02/22/2025 12:41 PM [facility] Urine Urine specimen obtained by clean catch procedure / Unknown Non-blood Collection / Unknown 02/22/2025 11:47 AM EDT 02/22/2025 12:04 PM EDT Merlin Sampson MD LAB URINE ORDERABLES Final Result [facility] [address] [place] [address], [place] [phone] * Troponin I high sensitivity (02/22/2025 8:41 AM EDT) Only the most recent of2 resultswithin the time period is included. High Sensitivity Troponin I 8 <=54 ng/L LAB CHEMISTRY METHOD 02/22/2025 9:29 AM EDT [facility] Blood Venous blood specimen / Unknown Venipuncture / Unknown 02/22/2025 8:41 AM EDT 02/22/2025 8:59 AM EDT Narrative [facility] - 02/22/2025 9:29 AM EDT High levels of biotin in samples may falsely decrease hsTroponin values. Use caution when interpreting hsTroponin results in patients taking biotin who exhibit renal impairment (eGFR <60) or in patients taking more than 20 mg/day of biotin. us ePte Echols MD LAB BLOOD ORDERABLES Final Resul t Performing Organization Address [facility]/ZIP Co de Phone Number [facility] [address] [place] [address], [place] [phone] * CT Abdomen Pelvis wo Contrast (02/22/2025 [...] Signed Date: 02/22/2025 08:56 ET Workstation ID: [id number] Transcribed By: Self Edit Transcribed Date: 02/22/2025 [...] Signed Date: 02/22/2025 08:56 ET Workstation ID: [id number] Transcribed By: Self Edit Transcribed Date: 02/22/2025 08:51 ET us Merlin Sampson MD IMG CT PROCEDURES Final Re sult * XR [...] Signed Date: 02/22/2025 08:39 ET Workstation ID: [id number] Transcribed By: Self Edit Transcribed Date: 02/22/2025 [...] Signed Date: 02/22/2025 08:39 ET Workstation ID: [id number] Transcribed By: Self Edit Transcribed Date: 02/22/2025 08:30 ET Pete Echols MD IMG XR PROCEDURES Final Result * (ABNORMAL) CBC auto differential (02/22/2025 3:36 AM EDT) Only the most recent of2 resultswithin the time period is included. WBC 11.4(H) 4.8 - 10.8 K/[facility] HEMETOLOGY METHOD 02/22/2025 4:02 AM EDT [facility] RBC 4.30 3.80 - 4.80 M/[facility] LAB HEMETOLOGY METHOD 02/22/2025 4:02 AM EDT [facility] Hemoglobin 12.4 11.5 - 16.0 g/dL LAB HEMETOLOGY METHOD 02/22/2025 4:02 AM [facility] Hematocrit 38.2 35.0 - 47.0 % LAB HEMETOLOGY METHOD 02/22/2025 4:02 AM [facility] MCV 89.7 79.0 - 98.0 FL LAB HEMETOLOGY METHOD 02/22/2025 4:02 AM [facility] MCH 29.1 27.0 - 32.0 pcg LAB HEMETOLOGY METHOD 02/22/2025 4:02 AM [facility] MCHC 32.5 32.0 - 37.0 g/dL LAB HEMETOLOGY METHOD 02/22/2025 4:02 AM [facility] RDW 12.7 11.0 - 15.0 % LAB HEMETOLOGY METHOD 02/22/2025 4:02 AM [facility] Platelets 301 130 - 400 K/mcL LAB HEMETOLOGY METHOD 02/22/2025 4:02 AM [facility] MPV 9.5 7.0 - 11.0 FL LAB HEMETOLOGY METHOD 02/22/2025 4:02 AM [facility] NRBC 0.0 <1.0 % LAB HEMETOLOGY METHOD 02/22/2025 4:02 AM [facility] NRBC Absolute 0.00 <0.10 K/mcL LAB HEMETOLOGY METHOD 02/22/2025 4:02 AM [facility] Neutrophils Relative 80.2 % LAB HEMETOLOGY METHOD 02/22/2025 4:02 AM [facility] Lymphocytes Relative 10.3 % LAB HEMETOLOGY METHOD 02/22/2025 4:02 AM [facility] Monocytes Relative 8.6 % LAB HEMETOLOGY METHOD 02/22/2025 4:02 AM EDT [facility] Eosinophils Relative 0.1 % LAB HEMETOLOGY METHOD 02/22/2025 4:02 AM EDT [facility] Basophils Relative 0.4 % LAB HEMETOLOGY METHOD 02/22/2025 4:02 AM [facility] Immature Granulocytes Relative 0.4 % LAB HEMETOLOGY METHOD 02/22/2025 4:02 AM EDT [facility] Neutrophils Absolute 9.16(H) 1.50 - 7.00 K/mcL LAB HEMETOLOGY METHOD 02/22/2025 4:02 AM EDT [facility] Lymphocytes Absolute 1.17 1.00 - 5.00 K/mcL LAB HEMETOLOGY METHOD 02/22/2025 4:02 AM [facility] Monocytes Absolute 0.98 0.20 - 1.00 K/mcL LAB HEMETOLOGY METHOD 02/22/2025 4:02 AM EDT [facility] Eosinophils Absolute 0.01 0.00 - 0.50 K/mcL LAB HEMETOLOGY METHOD 02/22/2025 4:02 AM EDT [facility] Basophils Absolute 0.04 0.00 - 0.20 K/mcL LAB HEMETOLOGY METHOD 02/22/2025 4:02 AM [facility] Immature Granulocytes Absolute 0.04(H) 0.00 - 0.03 K/mcL LAB HEMETOLOGY METHOD 02/22/2025 4:02 AM EDT [facility] Blood Venous blood specimen / Unknown Venipuncture / Unknown 02/22/2025 3:36 AM EDT 02/22/2025 3:58 AM EDT us Pete Echols MD LAB BLOOD ORDERABLES Final Resul t [facility] [address] [place] [address], * (ABNORMAL) B-type natriuretic peptide (02/22/2025 3:36 AM EDT) BNP 166(H) <=100 pcg/mL LAB CHEMISTRY METHOD 02/22/2025 4:41 AM EDT [facility] Blood Venous blood specimen / Unknown Venipuncture / Unknown 02/22/2025 3:36 AM EDT 02/22/2025 3:58 AM EDT us Pete Echols MD LAB BLOOD ORDERABLES Final Resul t Performing Organization Address City/[facility]/ZIP Co de Phone Number [facility] [address] [place] [address], [place] [phone] * (ABNORMAL) Magnesium (02/22/2025 3:36 AM EDT) Pathologist [facility] Magnesium 1.6(L) 1.9 - 2.6 mg/dL LAB CHEMISTRY METHOD 02/22/2025 4:35 AM EDT [facility] Blood Venous blood specimen / Unknown Venipuncture / Unknown 02/22/2025 3:36 AM EDT 02/22/2025 3:58 AM EDT us Pete Echols MD LAB BLOOD ORDERABLES Final Resul t [facility] [address] [place] [address], [place] [phone] * Lipase (02/22/2025 3:36 AM EDT) Pathologist [facility] Lipase 53 13 - 75 unit/L LAB CHEMISTRY METHOD 02/22/2025 4:35 AM EDT [facility] Blood Venous blood specimen / Unknown Venipuncture / Unknown 02/22/2025 3:36 AM EDT 02/22/2025 3:58 AM EDT us Pete Echols MD LAB BLOOD ORDERABLES Final Resul t [facility] [address] [place] [address], * (ABNORMAL) Comprehensive metabolic panel (02/22/2025 3:36 AM EDT) Sodium 136 133 - 145 mmol/L LAB CHEMISTRY METHOD 02/22/2025 4:35 AM [facility] Potassium 4.5 3.5 - 5.5 mmol/L LAB CHEMISTRY METHOD 02/22/2025 4:35 AM [facility] Chloride 100 96 - 110 mmol/L LAB CHEMISTRY METHOD 02/22/2025 4:35 AM [facility] CO2 30 21 - 32 mmol/L LAB CHEMISTRY METHOD 02/22/2025 4:35 AM [facility] Anion Gap 6 3 - 11 LAB CHEMISTRY METHOD 02/22/2025 4:35 AM [facility] Glucose 106(H) 70 - 100 mg/dL LAB CHEMISTRY METHOD 02/22/2025 4:35 AM [facility] BUN 26(H) 5 - 25 mg/dL LAB CHEMISTRY METHOD 02/22/2025 4:35 AM [facility] Creatinine 1.92(H) 0.50 - 1.10 mg/dL LAB CHEMISTRY METHOD 02/22/2025 4:35 AM [facility] eGFR 28(L) >=60 mL/min/1. 73m2 LAB CHEMISTRY METHOD 02/22/2025 4:35 AM [facility] Comment:Calculation based on the Chronic Kidney Disease Epidemiology Collaboration (CKD-EPI) equation refit without adjustment for race. BUN/Creatinine Ratio 13.5 LAB CHEMISTRY METHOD 02/22/2025 4:35 AM [facility] Calcium 10.0 8.5 - 10.5 mg/dL LAB CHEMISTRY METHOD 02/22/2025 4:35 AM EDT [facility] AST (SGOT) 46(H) 10 - 42 unit/L LAB CHEMISTRY METHOD 02/22/2025 4:35 AM EDT [facility] ALT (SGPT) 38 10 - 60 unit/L LAB CHEMISTRY METHOD 02/22/2025 4:35 AM EDT [facility] Alkaline Phosphatase 75 42 - 121 unit/L LAB CHEMISTRY METHOD 02/22/2025 4:35 AM EDT [facility] Total Protein 8.0 6.0 - 8.0 g/dL LAB CHEMISTRY METHOD 02/22/2025 4:35 AM EDT [facility] Albumin 3.6 3.2 - 5.0 g/dL LAB CHEMISTRY METHOD 02/22/2025 4:35 AM EDT [facility] Total Bilirubin 0.8 0.0 - 1.4 mg/dL LAB CHEMISTRY METHOD 02/22/2025 4:35 AM EDT [facility] Blood Venous blood specimen / Unknown Venipuncture / Unknown 02/22/2025 3:36 AM EDT 02/22/2025 3:58 AM EDT Pete Echols MD LAB BLOOD ORDERABLES Final Resul t [facility] [address] [place] [address], * ECG 12 lead (02/22/2025 2:55 AM EDT) Ventricular Rate ECG 70 BPM GEMUSE Atrial Rate 70 BPM GEMUSE P-R Interval 166 ms GEMUSE QRS Duration 82 ms GEMUSE Q-T Interval 404 ms GEMUSE QTc 436 ms GEMUSE P Wave [place] 65 degrees GEMUSE R [place] 13 degrees GEMUSE T [place] 28 degrees GEMUSE ECG Interpretation Normal sinus rhythm Normal ECG When compared with ECG of 18-FEB-2025 13:46, No significant change was found Confirmed by MD Giuliano, [facility] ([id number]) on 02/22/2025 9:15:53 PM GEMUSE 02/22/2025 2:55 [...] (<10%). Benign adnexal tissue. 4:16 PM EDT [facility] at 1616 EDT Gross Description [...] and serially sectioned revealing a pinpoint lumen. Accounting Instructor sections submitted in six cassettes. 1: Frozen section residue, two pieces 2: Cystic wall, three pieces 3-4: Sections of cysts, two pieces each 5: Accounting Instructor sections of mesovarium, two pieces 6: Bisected [...] there is some attached soft, clark-yellow mesovarium. Accounting Instructor sections are submitted in seven cassettes. 1: Frozen section residue, two pieces 2: Cystic wall papulation, one piece 3: Additional papulation and tissue adjacent, two pieces 4: Cystic wall, two pieces 5-6: Sections of cysts, two pieces 7: Mesovarium, two pieces KR 4:16 PM EDT [facility] Intraoperative Consultation A. Ovary, Right, right ovary and fallopian tube: Serous cystadenoma, multilocular. -S.L. B. Ovary, Left, left ovary and fallopian tube: Serous cystadenoma with focal epithelial proliferation. - S.L. 4:16 PM EDT [facility] Comment:Corrected result: Pr eviously reported on 02/21/2025 at 1053 EDT. Disclaimer Unless otherwise specified, all tissue is 10% NB formalin fixed and paraffin embedded. 4:16 PM EDT [facility] Tissue Structure of left ovary / Unknown 02/21/2025 9:54 AM EDT 02/21/2025 10:04 AM EDT Tissue specimen (specimen) Structure of left ovary / Unknown 02/21/2025 9:51 AM EDT 02/21/2025 10:04 AM EDT us Shahid Olivares MD LAB PATHOLOGY ORDERABLES Final R esult [facility] [address] [place] [address], [place] [phone] * Non-gynecologic cytology (02/21/2025 9:03 AM EDT) Final Diagnosis Pelvis, pelvic washings (ThinPrep and cell block): Negative for malignant cells. 02/23/2025 12:32 PM EDT [facility] at 1232 EDT Specimen A Adequacy Satisfactory for evaluation 02/23/2025 12:32 PM EDT [facility] Gross Description A. Pelvis, pelvic washings: Received is 50 ml of cloudy fluid. One ThinPrep and one cell block are made. Cell block placed in formalin at 1330, total formalin fixation time is 7.5 hours. rp 02/23/2025 12:32 PM EDT [facility] Disclaimer Unless otherwise specified, all tissue is 10% NB formalin fixed and paraffin embedded. Technical cytopathology services provided by [facility], at [address] [place] [address] (CLIA # [id number]/Tino Ayala MD, Varnish Remover.) 02/23/2025 12:32 PM EDT [facility] Wash Pelvic region / Unknown 02/21/2025 9:03 AM EDT 02/21/2025 1:05 PM EDT us Shahid Olivares MD LAB CYTOLOGY ORDERABLES Final Re sult [facility] [address] [place] [address], [place] [phone] * TH AN ENDOTRACHEAL(NO CHARGE) (02/21/2025 8:00 AM EDT) Monae Yee CRNA - 02/21/2025 8:00 AM EDT Monae Morrell CRNA 02/21/2025 8:01 AM General Information and Staff Patient location during procedure: OR Anesthesiologist: Pete Reyes DO Performed: anesthesiologist Performed by: Monae Morrell CRNA Authorized by: Pete Reyes DO Intubation Additional Comments ETT placed by web weaver student Airway not difficult Reason: elective Final [...] GEMUSE QTc 439 ms GEMUSE P Wave [place] 53 degrees GEMUSE R [place] 8 degrees GEMUSE T [place] 28 degrees GEMUSE ECG Interpretation Sinus bradycardia Otherwise normal ECG No previous ECGs available Confirmed by NIRAJ LAWRENCE ([id number]) on 02/19/2025 6:21:46 PM GEMUSE 02/18/2025 1:46 PM EDT 02/19/2025 6:21 PM EDT us Shahid Olivares MD ECG ORDERABLES Final Result GEM[facility] * Type and screen (02/18/2025 1:30 PM EDT) ABO Group A 02/18/2025 3:38 PM EDT [facility] Rh Type Negative 02/18/2025 3:38 PM EDT [facility] Antibody Screen Negative 02/18/2025 3:38 PM EDT [facility] Blood Venous blood specimen / Unknown Venipuncture / Unknown 02/18/2025 1:30 PM EDT 02/18/2025 2:15 PM EDT Shahid Olivares MD LAB BLOOD BANK TEST ORDERABLES F inal Result [facility] [address] [place] [address], * Lipid panel (02/06/2021) LDL/HDL Ratio 2 0 - 4 Triglycerides 182 0 - 200 mg/dL Cholesterol 53 0 - 150 mg/dL HDL 83 >=40 mg/dL LDL Cholesterol 89 0 - 100 mg/dL Blood Venous blood specimen / Unknown us Donald Provider LAB BLOOD ORDERABLES Stacie l [...] cancer risk category Low (<15%) Shruthi Lora CNM IMG XR PROCEDURES Final Result * Hepatitis C Screening (01/14/2013) Hepatitis C Screening abstracted Historical Provider HEALTH MAINTENANCE Final Result from Last 3 Months or Most Recently Relevant to Health Maintenance Additional Health Concerns Active Problems Noted Date Diagnosed Date Autogenerated Problem 01/31/2025 Insurance [place] [address] Advance Directives * Full Code - Default [...] currently active code status orders. Care Teams Orthotics Prosthetics Assistant Relationship Specialty Start Date End Date Chloe Munoz MD [address] [place] [address] PCP - General Internal Medicine 02/21/25
[2025-05-04 14:32] LABS: Anion Gap 12 (12-20); Blood Urea Nitrogen 29 mg/dL (9-16); Calcium 10.6 mg/dL (8.4-10.2); Carbon Dioxide 29 mmol/L (22-29); Chloride 104 mmol/L (96-108); Estimated Glomerular Filt Rate 49; Potassium 4.6 mmol/L (3.3-5.1); Sodium 140 mmol/L (135-145)
[2025-05-04 14:55] LABS: Parathyroid Hormone Intact 111.3 pg/mL (8.7-77.1)
== END 2025-05-04 11:18 | disposition home or self-care (01) ==
LOC: HO.HMGCLDS 11:17
PROVIDERS: PCP Internal Medicine; Visit Provider Internal Medicine Hypertension Specialist
DX: N18.30 Chronic kidney disease, stage 3 unspecified (principal)
CPT/HCPCS: 36415; 80048; 83970